=== PATIENT | male | born 1950 | race African-American/Black ===

== ENCOUNTER 2016-12-02 17:12 | Inpatient (IN) | payer OTHER ==
[2016-12-02] MEDS ORDERED: SODIUM CHLORIDE 500 ML IV STA (17:54)
[2016-12-02 18:20] LABS: EOSINOPHIL 1.1 % (0-4.5); MCH 25.9 pg (25.7-33.7); MCHC 30.8 g/dl (32.0-35.9); MEAN PLT VOLUME 10.4 fl (7.5-11.1); NEUTROPHILS 56.1 % (42.8-82.8); PLATELET COUNT 170 K/MM3 (134-434); RDW 16.4 % (11.9-15.9); WHITE BLOOD COUNT 4.4 K/mm3 (4.0-10.0)
[2016-12-02 18:30] LABS: INR 1.06 (0.82-1.09); PROTHROMBIN TIME (PATIENT) 11.7 SEC (9.98-11.88)
[2016-12-02 18:58] LABS: ALBUMIN 3.5 g/dl (3.4-5.0); ANION GAP 13 (8-16); BILIRUBIN,TOTAL 0.4 mg/dL (0.2-1.0); CALCIUM 8.7 mg/dL (8.5-10.1); CO2 30 mmol/L (21-32); GLUCOSE,RANDOM 106 mg/dL (74-106); SGOT/AST 41 U/L (15-37); SGPT/ALT 30 U/L (12-78); TOT PROT 6.8 g/dl (6.4-8.2)
[2016-12-02 18:59] LABS: ALK PHOS 134 U/L (45-117)
--- NOTE | 2016-12-02 19:56 | PDOC ---
History of Present Illness - General History Source: Patient Exam Limitations: No Limitations - History of Present Illness Initial Comments: 12/02/16 17:15 The patient is a 66-year-man, accompanied by , with a significant past medical history of hypertension and end-stage renal disease (TRS; went yesterday without complications)who presents to the emergency department via for further evaluation of rectal bleeding. Patient states he underwent hemo- dialysis yesterday, without complications. Today he had a bowel movement and noted maroon-like blood in his soft semi-formed stool. He is on Aspirin (325 mg) . No fever, chills, weakness. No lightheadedness, dizziness, visual changes, headaches. He also reports experiencing shortness of breath, particularly when walking for the past few days. No chest pain. Allergies: No known drug allergies. Past Surgical History: None reported. Social History: Former smoker. No ETOH and recreational drug use. 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 <Shaina Ochoa - Last Filed: 12/02/16 21:17> <Ethan Londono - Last Filed: 12/02/16 21:48> - General Chief Complaint: Rectal Bleed Stated Complaint: RECTAL BLEED Past History <Shaina Ochoa - Last Filed: 12/02/16 21:17> - Past Medical History Dialysis: Yes (t,th,fr) HTN: Yes (meds stopped bt pms 10/2016) - Psycho/Social/Smoking Cessation Hx Anxiety: No Suicidal Ideation: No Smoking History: Former smoker Have you smoked in the past 12 months: No Information on smoking cessation initiated: No Hx Alcohol Use: No Drug/Substance Use Hx: No Substance Use Type: None <Ethan Londono - Last Filed: 12/02/16 21:48> - Past Medical History Allergies/Adverse Reactions: Allergies Allergy/AdvReac Type Severity Reaction Status Date / Time No Known Allergies Allergy Verified 12/02/16 17:26 Home Medications: Ambulatory Orders Aspirin [ASA -] 325 mg PO DAILY 12/02/16 Brimonidine Tartrate/Timolol [Combigan Eye Drops] 5 ml OP ASDIR 12/02/16 Cinacalcet HCl [Sensipar -] 30 mg PO DAILY 12/02/16 Sevelamer Carbonate [Renvela] 800 mg PO CM 12/02/16 Travoprost [Travatan Z] 2.5 ml OP ASDIR 12/02/16 Vit B Cmplx No3/FA/C/Biot/Zinc [Nephplex Rx Tablet] 1 each PO DAILY 12/02/16 Review of Systems - Review of Systems Able to Perform ROS?: Yes Comments:: 12/02/16 17:15 GENERAL/CONSTITUTIONAL: No fever or chills. No weakness. HEAD, EYES, EARS, NOSE AND THROAT: No change in vision. No ear pain or discharge. No sore throat. CARDIOVASCULAR: Yes: Shortness of breath. No chest pain. RESPIRATORY: No cough, wheezing, or hemoptysis. GASTROINTESTINAL: Yes: Rectal bleeding. No nausea, vomiting, diarrhea or constipation. GENITOURINARY: No dysuria, frequency, or change in urination. MUSCULOSKELETAL: No joint or muscle swelling or pain. No neck or back pain. SKIN: No rash NEUROLOGIC: No headache, vertigo, loss of consciousness, or change in strength/ sensation. ENDOCRINE: No increased thirst. No abnormal weight change. HEMATOLOGIC/LYMPHATIC: No anemia, easy bleeding, or history of blood clots. ALLERGIC/IMMUNOLOGIC: No hives or skin allergy. <Shaina Ochoa - Last Filed: 12/02/16 21:17> *Physical Exam - Vital Signs Last Vital Signs Temp Pulse Resp BP Pulse Ox 98.2 F 60 17 95/61 100 12/02/16 19:43 12/02/16 19:43 12/02/16 19:43 12/02/16 19:43 12/02/16 19:43 - Physical Exam Comments: 12/02/16 17:16 GENERAL: Awake, alert, and fully oriented, in no acute distress HEAD: No signs of trauma EYES: PERRLA, EOMI, sclera anicteric, conjunctiva clear ENT: Auricles normal inspection, hearing grossly normal, nares patent, oropharynx clear without exudates. Moist mucosa NECK: Normal ROM, supple, no lymphadenopathy, JVD, or masses LUNGS: Breath sounds equal, clear to auscultation bilaterally. No wheezes, and no crackles HEART: Regular rate and rhythm, normal S1 and S2, no murmurs, rubs or gallops ABDOMEN: Soft, nontender, normoactive bowel sounds. No guarding, no rebound. No masses EXTREMITIES: Normal range of motion, no edema. No clubbing or cyanosis. No cords, erythema, or tenderness NEUROLOGICAL: Cranial nerves II through XII grossly intact. Normal speech RECTAL: Bright red blood in vault <Shaina Ochoa - Last Filed: 12/02/16 21:17> - Vital Signs Last Vital Signs Temp Pulse Resp BP Pulse Ox 98.2 F 60 17 95/61 100 12/02/16 19:43 12/02/16 19:43 12/02/16 19:43 12/02/16 19:43 12/02/16 19:43 <Ethan Londono - Last Filed: 12/02/16 21:48> Heart Score/ECG Review #1 EKG read and interpreted by me at 17:45 IMPRESSION: Atrial fibrillation with rapid ventricular response and rate related ST changes. <Shaina Ochoa - Last Filed: 12/02/16 21:17> ED Treatment Course - LABORATORY CBC & Chemistry Diagram: 12/02/16 18:10 12/02/16 18:10 - ADDITIONAL ORDERS Additional order review: Laboratory Results 12/02/16 12/02/16 12/02/16 18:10 18:10 18:10 INR 1.06 Sodium 142 Potassium 4.3 Chloride 99 Carbon Dioxide 30 Anion Gap 13 BUN 26 H Creatinine 7.0 H Creat Clearance w eGFR 7.94 Random Glucose 106 Calcium 8.7 Total Bilirubin 0.4 AST 41 H ALT 30 Alkaline Phosphatase 134 H Total Protein 6.8 Albumin 3.5 Stool Occult Blood Positive 12/02/16 18:10 RBC 3.78 L MCV 84.0 MCHC 30.8 L RDW 16.4 H MPV 10.4 Neutrophils % 56.1 Lymphocytes % 32.6 Monocytes % 9.2 Eosinophils % 1.1 Basophils % 1.0 - RADIOLOGY Radiograph Interpretation: 12/02/16 20:38 RAD/CHEST X-RAY PORTABLE IMPRESSION: Minimal to mild right lower lung field discoid atelectasis/ parenchymal scarring. - Medications Given in the ED: ED Medications Discontinued Medications Generic Name Dose Route Start Last Admin Trade Name Freq PRN Reason Stop Dose Admin Sodium Chloride 500 mls @ 500 mls/hr 12/02/16 17:54 12/02/16 18:17 Normal Saline - IV 12/02/16 18:53 500 mls/hr ASDIR STA Administration <Shaina Ochoa - Last Filed: 12/02/16 21:17> - LABORATORY CBC & Chemistry Diagram: 12/02/16 18:10 12/02/16 18:10 - ADDITIONAL ORDERS Additional order review: Laboratory Results 12/02/16 12/02/16 12/02/16 18:10 18:10 18:10 INR 1.06 Sodium 142 Potassium 4.3 Chloride 99 Carbon Dioxide 30 Anion Gap 13 BUN 26 H Creatinine 7.0 H Creat Clearance w eGFR 7.94 Random Glucose 106 Calcium 8.7 Total Bilirubin 0.4 AST 41 H ALT 30 Alkaline Phosphatase 134 H Total Protein 6.8 Albumin 3.5 Stool Occult Blood Positive 12/02/16 18:10 RBC 3.78 L MCV 84.0 MCHC 30.8 L RDW 16.4 H MPV 10.4 Neutrophils % 56.1 Lymphocytes % 32.6 Monocytes % 9.2 Eosinophils % 1.1 Basophils % 1.0 - RADIOLOGY Radiology Studies Ordered: Category Date Time Status ABDOMEN/PELVIS CTA W/WO CONTR [CT] Stat CT Scan 12/02/16 18:56 Ordered CHEST X-RAY PORTABLE* [RAD] Stat Radiology 12/02/16 17:54 Completed - Medications Given in the ED: ED Medications Discontinued Medications Generic Name Dose Route Start Last Admin Trade Name Kennyq PRN Reason Stop Dose Admin Sodium Chloride 500 mls @ 500 mls/hr 12/02/16 17:54 12/02/16 18:17 Normal Saline - IV 12/02/16 18:53 500 mls/hr ASDIR STA Administration <Ethan Londono - Last Filed: 12/02/16 21:48> Medical Decision Making - Medical Decision Making 12/02/16 20:52 Called Hospitalist. Immediate response. Case was discussed. 12/02/16 21:[address] Sloan. 12/02/16 21:[address] Sloan. Case was discussed. <Shaina Ochoa - Last Filed: 12/02/16 21:17> *DC/Admit/Observation/Transfer - Attestations Scribe Attestion: 12/02/16 17:16 Documentation prepared by Shaina Ochoa, acting as biomedical manager for Ethan Londono DO. <Shaina Ochoa - Last Filed: 12/02/16 21:17> - Discharge Dispostion Admit: Yes - Attestations Physician Attestion: 12/02/16 19:56 I, Dr. Ethan Londono, attest that this document has been prepared under my direction and personally reviewed by me in its entirety. I further attest, that it accurately reflects all work, treatment, procedures and medical decision -making performed by me. <Ethan Londono - Last Filed: 12/02/16 21:48> Diagnosis at time of Disposition: Lower gastrointestinal hemorrhage, End-stage renal disease, Dialysis patient - Discharge Dispostion Condition at time of disposition: Improved - Referrals Referrals: Sacha Menezes MD [Primary Care Provider] -
--- NOTE | 2016-12-02 22:22 | HP ---
CHIEF COMPLAINT: Rectal Bleeding PCP: None Nephrology: Dr. Menezes HISTORY OF PRESENT ILLNESS: This is a 66 y/o male with a past medical history of ESRD (HD- Wed, , Wed), Glaucoma. Presents to the emergency department with rectal bleeding abdominal pain x 2 days. Patient reports dizziness and lightheadedness, with SOB when walking. Patient reports seeing blood in his stool, with pain to mid-abdomen. Patient denies fever, chills, cough, CP, N/V/D, constipation. Patient does not make urine. Patient has bot had a baseline Colonoscopy and has significant familal hx- Colorectal Ca. Last - Wednesday ER course was notable for: (1) H/H 9.8/31.7 (2) Stool Occult- Positive (3) EKG- Afib with RVR 103bpm, Septal Infarct age undetermined (4) Bun/Cr 26/7.0 Recent Travel: None PAST MEDICAL HISTORY: See HPI PAST SURGICAL HISTORY: See HPI Social History: Smoking: Former Alcohol: None Drugs: None Family History: Colorectal Ca: Father, Sister Breast Ca: Sister Diabetes: Mother HTN, Lupus, Thyroid- "runs in rhe family" Allergies No Known Allergies Allergy (Verified 12/02/16 17:26) HOME MEDICATIONS: Home Medications Medication Instructions Recorded Aspirin [ASA -] 325 mg PO DAILY 12/02/16 Brimonidine Tartrate/Timolol 5 ml OP ASDIR 12/02/16 [Combigan Eye Drops] Cinacalcet HCl [Sensipar -] 30 mg PO DAILY 12/02/16 Sevelamer Carbonate [Renvela] 800 mg PO CM 12/02/16 Travoprost [Travatan Z] 2.5 ml OP ASDIR 12/02/16 Vit B Cmplx No3/FA/C/Biot/Zinc 1 each PO DAILY 12/02/16 [Nephplex Rx Tablet] REVIEW OF SYSTEMS CONSTITUTIONAL: Absent: fever, chills, diaphoresis, generalized weakness, malaise, loss of appetite, weight change HEENT: Absent: rhinorrhea, nasal congestion, throat pain, throat swelling, difficulty swallowing, mouth swelling, ear pain, eye pain, visual changes CARDIOVASCULAR: lightheadedness, Absent: chest pain, syncope, palpitations, irregular heart rate, peripheral edema RESPIRATORY: shortness of breath, dyspnea with exertion, Absent: cough, shortness of breath, dyspnea with exertion, orthopnea, wheezing, stridor, hemoptysis GASTROINTESTINAL: mid-abdominal pain, hematochezia Absent: abdominal distension, nausea, vomiting, diarrhea, constipation, melena, GENITOURINARY: Absent: dysuria, frequency, urgency, hesitancy, hematuria, flank pain, genital pain MUSCULOSKELETAL: Absent: myalgia, arthralgia, joint swelling, back pain, neck pain SKIN: Absent: rash, itching, pallor HEMATOLOGIC/IMMUNOLOGIC: Absent: easy bleeding, easy bruising, lymphadenopathy, frequent infections ENDOCRINE: Absent: unexplained weight gain, unexplained weight loss, heat intolerance, cold intolerance NEUROLOGIC: dizziness Absent: headache, focal weakness or paresthesias, unsteady gait, seizure, mental status changes, bladder or bowel incontinence PSYCHIATRIC: Absent: anxiety, depression, suicidal or homicidal ideation, hallucinations. PHYSICAL EXAMINATION Vital Signs - 24 hr 12/02/16 12/02/16 17:23 19:43 Temperature 98.3 F 98.2 F Pulse Rate 109 H Pulse Rate [ 60 Radial] Respiratory 20 17 Rate Blood Pressure 99/64 Blood Pressure 95/61 [Left Arm] O2 Sat by Pulse 100 100 Oximetry (%) GENERAL: Awake, alert, and fully oriented, in no acute distress. HEAD: Normal with no signs of trauma. EYES: Pupils equal, round and reactive to light, extraocular movements intact, sclera anicteric, conjunctiva clear. Left lid lag. EARS, NOSE, THROAT: Ears normal, nares patent, oropharynx clear without exudates. Moist mucous membranes. NECK: Normal range of motion, supple without lymphadenopathy, JVD, or masses. LUNGS: Breath sounds equal, clear to auscultation bilaterally. No wheezes, and no crackles. No accessory muscle use. HEART: Irregular rate and rhythm, systolic murmu normal S1 and S2, rub or gallop. ABDOMEN: mid/epigastric tenderness, soft, not distended, normoactive bowel sounds, no guarding, no rebound, no masses. No hepatomegaly or splenomegaly. MUSCULOSKELETAL: Normal range of motion at all joints. No bony deformities or tenderness. No CVA tenderness. UPPER EXTREMITIES: 2+ pulses, warm, well-perfused. No cyanosis. No clubbing. No peripheral edema. LOWER EXTREMITIES: 2+ pulses, warm, well-perfused. No calf tenderness. No peripheral edema. NEUROLOGICAL: Cranial nerves II-XII intact. Normal speech. Normal gait. PSYCHIATRIC: Cooperative. Good eye contact. Appropriate mood and affect. SKIN: Warm, dry, normal turgor, no rashes. normal capillary refill. venous stasis ulcer to bilateral lower legs L>R lesions noted. Laboratory Results - last 24 hr 12/02/16 12/02/16 12/02/16 18:10 18:10 18:10 WBC 4.4 RBC 3.78 L Hgb 9.8 L Hct 31.7 L MCV 84.0 MCHC 30.8 L RDW 16.4 H Plt Count 170 MPV 10.4 Neutrophils % 56.1 Lymphocytes % 32.6 Monocytes % 9.2 Eosinophils % 1.1 Basophils % 1.0 Retic Count 1.28 INR 1.06 Sodium Potassium Chloride Carbon Dioxide Anion Gap BUN Creatinine Creat Clearance w eGFR Random Glucose Calcium Total Bilirubin AST ALT Alkaline Phosphatase Total Protein Albumin Stool Occult Blood Positive Blood Type Antibody Screen 12/02/16 12/02/16 18:10 18:10 WBC RBC Hgb Hct MCV MCHC RDW Plt Count MPV Neutrophils % Lymphocytes % Monocytes % Eosinophils % Basophils % Retic Count INR Sodium 142 Potassium 4.3 Chloride 99 Carbon Dioxide 30 Anion Gap 13 BUN 26 H Creatinine 7.0 H Creat Clearance w eGFR 7.94 Random Glucose 106 Calcium 8.7 Total Bilirubin 0.4 AST 41 H ALT 30 Alkaline Phosphatase 134 H Total Protein 6.8 Albumin 3.5 Stool Occult Blood Blood Type O POSITIVE Antibody Screen Negative ASSESSMENT/PLAN: This is a 66 y/o male with a PMHx of: ESRD (HD-, , Wed). Admitted for Lower GI Bleed for further evaluation of their emergent condition. Problem List - Problem (1) Lower GI hemorrhage Assessment/Plan: - Possibly secondary to Diverticular vs Colorectal Ca - Patient has not had a baseline colonoscopy and has familal hx Colorectal Ca - Appreciate GI Consult - NS fluid given in ED - Stool Occult- positive - CTAP- mild sigmoid diverticulitis, B/L renal atrophy, B/L renal cysts. RLLL discoid atelectasis - Monitor CBC - Monitor vitals Code(s): K92.2 - GASTROINTESTINAL HEMORRHAGE, UNSPECIFIED (2) New onset a-fib Assessment/Plan: - Patient reports feeling lightheaded, dizzy and SOB and RICHEY - EKG- Reviewed - [id number] 2 - Appreciate Cardiology Consult - Serial Enzymes - No AC secondary to GI Bleed, Anemia - Monitor vitals Code(s): I48.91 - UNSPECIFIED ATRIAL FIBRILLATION (3) End stage kidney disease Assessment/Plan: - HD (, , ) - Appreciate Nephrology Consult for HD Mgmt - Continue home meds - Monitor BMP - Monitor Vitals Code(s): N18.6 - END STAGE RENAL DISEASE (4) Dialysis patient Assessment/Plan: - Continue HD , , Code(s): Z99.2 - DEPENDENCE ON RENAL DIALYSIS (5) Lightheadedness Assessment/Plan: - Likely secondary to Anemia vs Afib - Continue to monitor and treat accordingly Code(s): R42 - DIZZINESS AND GIDDINESS (6) Dizziness Assessment/Plan: - See Above Code(s): R42 - DIZZINESS AND GIDDINESS (7) DVT prophylaxis Assessment/Plan: - OOB - TEDs - SCDs Code(s): RAF4925 - Visit type - Emergency Visit Emergency Visit: Yes ED Registration Date: 12/02/16 Care time: The patient presented to the Emergency Department on the above date and was hospitalized for further evaluation of their emergent condition. - New Patient This patient is new to me today: Yes Date on this admission: 12/02/16 - Critical Care Critical Care patient: No
[2016-12-03 02:32] LABS: BASOPHIL 1.8 % (0-2.0); EOSINOPHIL 1.1 % (0-4.5); MCH 25.8 pg (25.7-33.7); MCHC 30.9 g/dl (32.0-35.9); MEAN CELL VOLUME 83.5 fl (80-96); MEAN PLT VOLUME 10.3 fl (7.5-11.1); NEUTROPHILS 51.5 % (42.8-82.8); PLATELET COUNT 150 K/MM3 (134-434); WHITE BLOOD COUNT 4.5 K/mm3 (4.0-10.0)
[2016-12-03 02:46] VITALS: BMI 26.0
[2016-12-03 07:18] LABS: BASOPHIL 1.1 % (0-2.0); EOSINOPHIL 1.1 % (0-4.5); MCHC 30.8 g/dl (32.0-35.9); MEAN CELL VOLUME 84.5 fl (80-96); MEAN PLT VOLUME 9.8 fl (7.5-11.1); NEUTROPHILS 50.1 % (42.8-82.8); PLATELET COUNT 122 K/MM3 (134-434); RDW 15.9 % (11.9-15.9); WHITE BLOOD COUNT 3.8 K/mm3 (4.0-10.0)
[2016-12-03 08:38] LABS: TROPONIN I 0.4 ng/ml (0.00-0.05)
[2016-12-03 09:07] LABS: CALCIUM 8.7 mg/dL (8.5-10.1); MAGNESIUM 2.5 mg/dL (1.8-2.4); PHOSPHOROUS 2.6 mg/dL (2.5-4.9)
[2016-12-03 09:25] LABS: CREATININE 7.8 mg/dL (0.7-1.3)
[2016-12-03] MEDS ORDERED: BRIMONIDINE TARTRATE 0.2% OPHTHALMIC 5 ML BOTTLE OS SCH (10:00)
[2016-12-03] MEDS ORDERED: TIMOLOL 0.5% OPHTHALMIC SOL 5 ML BOTTLE OS SCH (10:00)
[2016-12-03 10:18] LABS: THYROID STIMULATING HORMONE 0.37 uIU/ml (0.358-3.74)
--- NOTE | 2016-12-03 11:10 | CON.CARD ---
Consult Consult Specialty:: cardiology Reason for Consultation:: ?new-onset AF; multiple CAD risks - History of Present Illness History of Present Illness: The patient is a 66-year-man, accompanied by , with a significant past medical history of hypertension and end-stage renal disease (TRS; went yesterday without complications)who presents to the emergency department via for further evaluation of rectal bleeding. Patient states he underwent hemo- dialysis yesterday, without complications. Today he had a bowel movement and noted maroon-like blood in his soft semi-formed stool. He is on Aspirin (325 mg) . No fever, chills, weakness. No lightheadedness, dizziness, visual changes, headaches. He also reports experiencing shortness of breath, particularly when walking for the past few days. No chest pain. Allergies: No known drug allergies. Past Surgical History: None reported. Social History: Former smoker. No ETOH and recreational drug use. 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 - History Source History Provided By: Patient, Medical Record Limitations to Obtaining History: No Limitations - Past Medical History Cardio/Vascular: Yes: Other (esrd) - Past Surgical History Past Surgical History: Yes: AV Fistula/Graft - Alcohol/Substance Use Hx Alcohol Use: No - Smoking History Smoking history: Former smoker Have you smoked in the past 12 months: No Home Medications - Allergies Allergies/Adverse Reactions: Allergies Allergy/AdvReac Type Severity Reaction Status Date / Time No Known Allergies Allergy Verified 12/02/16 17:26 - Home Medications Home Medications: Ambulatory Orders Aspirin [ASA -] 325 mg PO DAILY 12/02/16 Brimonidine Tartrate/Timolol [Combigan Eye Drops] 5 ml OP ASDIR 12/02/16 Cinacalcet HCl [Sensipar -] 30 mg PO DAILY 12/02/16 Sevelamer Carbonate [Renvela] 800 mg PO CM 12/02/16 Travoprost [Travatan Z] 2.5 ml OP ASDIR 12/02/16 Vit B Cmplx No3/FA/C/Biot/Zinc [Nephplex Rx Tablet] 1 each PO DAILY 12/02/16 Vital Signs: Vital Signs Temperature 98.4 F 12/03/16 05:42 Pulse Rate 97 H 12/03/16 05:42 Respiratory Rate 20 12/03/16 05:42 Blood Pressure 90/56 12/03/16 05:42 O2 Sat by Pulse Oximetry (%) 98 12/03/16 02:45 - Other Data Labs, Other Data: CBC, BMP 12/03/16 06:00 12/03/16 06:00 INR, PTT INR 1.06 (0.82-1.09) 12/02/16 18:10 Troponin, BNP 12/03/16 06:00 Troponin I 0.40 H Troponin, BNP 12/03/16 06:00 Troponin I 0.40 H Problem List - Problems (1) Dizziness Code(s): R42 - DIZZINESS AND GIDDINESS (2) End stage kidney disease Code(s): N18.6 - END STAGE RENAL DISEASE (3) New onset a-fib Assessment/Plan: Pt denies palpitations or chest pain.; he has felt exertional fatigue and shortness of breath (lately just walking across a room) for the past 2 months. Unable to start anticoagulants presently due to GI bleed. ASA stopped; pt cautioned against using NSAIDs in the future. Difficult starting beta blockers or nondihydropyridine Ca2+ blkrs with borderline hypotension; may need to use digoxin if HR is rapid (f/u in telemetry ). Will plan for stress MIBI in the future. For hemodialysis. Addendum: ECHO shows normal LVEF; moderate aortic stenosis. BP has improved. Pt was on labetolol in the past; will start low-dose metoprolol tartrate and f/u BP and HR. Code(s): I48.91 - UNSPECIFIED ATRIAL FIBRILLATION (4) [place] cardiac risk >20% in next 10 years Assessment/Plan: stress MIBI when stable. Code(s): Z91.89 - OTH PERSONAL RISK FACTORS, NOT ELSEWHERE CLASSIFIED (5) Elevated troponin I level Assessment/Plan: 0.4 initially; CK WNL; may be secondary to, among other factors, ESRD, though portends increased risk of future cardiac events. EKG: AF with RVR; mild ST-T changes: consider anterolateral ischemia. F/u TNI serially; for telemetry (new AF, with periods of RVR; elevated TNI). LDL cholesterol 46 mg/dL. F/u ECHO for LVEF, wall motion, valve status. Code(s): R74.8 - ABNORMAL LEVELS OF OTHER SERUM ENZYMES (6) GI bleed Assessment/Plan: From a cardiac standpoint, there are no absolute cntraindications for Mr. Garvin to undergo GI procedures (EGD; colonoscopy). Code(s): K92.2 - GASTROINTESTINAL HEMORRHAGE, UNSPECIFIED
[2016-12-03 13:33] LABS: TROPONIN I 0.44 ng/ml (0.00-0.05)
[2016-12-03 13:37] LABS: MCH 25.8 pg (25.7-33.7); MCHC 30.6 g/dl (32.0-35.9); MEAN CELL VOLUME 84.1 fl (80-96); MEAN PLT VOLUME 8.8 fl (7.5-11.1); PLATELET COUNT 117 K/MM3 (134-434); RDW 16.2 % (11.9-15.9); WHITE BLOOD COUNT 3.8 K/mm3 (4.0-10.0)
--- NOTE | 2016-12-03 14:31 | CON.GI ---
Consult Consult Specialty:: GI Referred by:: Dr. Miller Reason for Consultation:: Rectal bleeding - History of Present Illness Chief Complaint: "I had bleeding from my rectum yesterday" History of Present Illness: 66 y/o male admitted through [facility] ER for evaluation of rectal bleeding. He was in his usual state of health up until yesterday, when after hemodialysis he developed dark red rectal bleeding mixed with formed stool. He had some abdominal cramping but denied any pain. He was brought to the ER and underwent blood work that revealed a Hgb of 9.8 (unclear what his baseline is as he is ESRD). This afternoon repeat Hgb was 9. CTA failed to reveal a site of overt bleeding. It did reveal diverticulosis. He has had no overt rectal bleeding today but was transferred to telemetry as he was found to be in new onset A.Fib. He denies previous rectal bleeding, denies OTC NSAID use but does take 325mg ASA daily. He has never had an upper endoscopy or colonoscopy and belives that his father may have had colon cancer diagnosed in his 70's. - History Source History Provided By: Patient Limitations to Obtaining History: No Limitations - Past Medical History Cardio/Vascular: Yes: HTN Renal/: Yes: Other (ESRD on HD) Additional Medical History: Glaucoma - Past Surgical History Past Surgical History: Yes: AV Fistula/Graft (Initially on left arm. It failed and Rt. 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) - Smoking History Smoking history: Former smoker Have you smoked in the past 12 months: No - Social History Usual Living Arrangement: Alone ADL: Independent 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, Place of : [facility] History of Recent Travel: No Home Medications - Allergies Allergies/Adverse Reactions: Allergies Allergy/AdvReac Type Severity Reaction Status Date / Time No Known Allergies Allergy Verified 12/02/16 17:26 - Home Medications Home Medications: Ambulatory Orders Aspirin [ASA -] 325 mg PO DAILY 12/02/16 Brimonidine Tartrate/Timolol [Combigan Eye Drops] 5 ml OP ASDIR 12/02/16 Cinacalcet HCl [Sensipar -] 30 mg PO DAILY 12/02/16 Sevelamer Carbonate [Renvela] 800 mg PO CM 12/02/16 Travoprost [Travatan Z] 2.5 ml OP ASDIR 12/02/16 Vit B Cmplx No3/FA/C/Biot/Zinc [Nephplex Rx Tablet] 1 each PO DAILY 12/02/16 Family Disease History - Family Disease History Family Disease History: Other: Father ( 70's:h/o colon ca in 70's), Mother ( 80's: unclear cause ), Sister (5 sisters, 1 w/ BCA two others with ? cancers), Daughter (1 healthy daughter) Review of Systems - Review of Systems Constitutional: denies: Diaphoresis, Fever, Unintentional Wgt. Loss Cardiovascular: reports: Palpitations. denies: Chest Pain Respiratory: denies: SOB Gastrointestinal: reports: Abdominal Pain, Bloating, Rectal Bleeding. denies: Constipation, Diarrhea, Dysphagia, Indigestion, Melena, Vomiting, Vomiting Blood Physical Exam-GI Vital Signs: Vital Signs Temperature 98.6 F 12/03/16 12:32 Pulse Rate 112 H 12/03/16 12:32 Respiratory Rate 20 12/03/16 12:32 Blood Pressure 132/58 12/03/16 12:32 O2 Sat by Pulse Oximetry (%) 98 12/03/16 10:00 Constitutional: Yes: Calm Eyes: No: Sclera Icterus Cardiovascular: Yes: Tachycardia, Pulse Irregular Respiratory: Yes: CTA Bilaterally Gastrointestinal Inspection: No: Distention, Scars ...Auscultate: Yes: Normoactive Bowel Sounds ...Palpate: No: Hepatomegaly, Splenomegaly, Tenderness ...Rectal Exam: Yes: Other (dark dried red blood in rectal vault) Extremities: Yes: Other (Right arm AV fistula) Edema: Yes (trace b/l LE) Neurological: Yes: Alert, Oriented Labs: CBC, BMP 12/03/16 13:25 12/03/16 06:00 INR, PTT INR 1.06 (0.82-1.09) 12/02/16 18:10 Hepatic Panel Total Bilirubin 0.4 mg/dL (0.2-1.0) 12/02/16 18:10 AST 41 U/L (15-37) H 12/02/16 18:10 ALT 30 U/L (12-78) 12/02/16 18:10 Alkaline Phosphatase 134 U/L (45-117) H 12/02/16 18:10 Albumin 3.5 g/dl (3.4-5.0) 12/02/16 18:10 Problem List - Problems (1) Lower GI hemorrhage Assessment/Plan: Unclear etiology. ? diverticular bleed precipitated by ASA use / alternate pathology. No active bleeding currently and H/H stable from last night Hemodyanimcally stable however now with new onset A.Fib I discussed both EGD and colonoscopy with Mr. Garvin to gain further insight into potential bleeding sources (particulary in setting of a family history and the fact that he will likely need A/C at some point in the setting of new onset A.Fib). We discussed potential risks of the procedure like but not limited to bleeding, perforation requiring surgery to repair, infection, sedation medication effects all of which could be potentially life threatening. He has agreed to the procedures. I discussed the case with Dr. Soliz, who thinks it's ok to bowel prep and proceed with procedures tomorrow as well as with Dr. Miller, you will be arranging HD for Mr. Garvin later this afternoon. Will prep after HD. Monitor H/H. If active bleeding resumes, would transfer to ICU setting. Protonix 40mg PO BID for now Code(s): K92.2 - GASTROINTESTINAL HEMORRHAGE, UNSPECIFIED
--- NOTE | 2016-12-03 14:37 | CONSULT ---
Consult Consult Specialty:: Nephrology Reason for Consultation:: ESRD - History of Present Illness Chief Complaint: rectal bleeding History of Present Illness: Pt is a 66 year old male with pmhx of ESRD and HTN who presents to the ER for evaluation of rectal bleeding. I was called to evaluate him for HD. He is on a TTS schedule and last had HD on Wednesday. He does get heparin with HD and received 1000 unit. He is also on ASA 325 mg daily. He is awake and alert. He developed a-fib and was transferred to [facility]. He denies chest pain or shortness of breath. He is going for a colonoscopy tomorrow. He denies fevers or chills. - History Source History Provided By: Patient, Medical Record - Past Medical History Cardio/Vascular: Yes: HTN, Other Renal/: Yes: Renal Failure, Hemodialysis - Past Surgical History Past Surgical History: Yes: AV Fistula/Graft - Alcohol/Substance Use Hx Alcohol Use: No - Smoking History Smoking history: Former smoker Have you smoked in the past 12 months: No Home Medications - Allergies Allergies/Adverse Reactions: Allergies Allergy/AdvReac Type Severity Reaction Status Date / Time No Known Allergies Allergy Verified 12/02/16 17:26 - Home Medications Home Medications: Ambulatory Orders Aspirin [ASA -] 325 mg PO DAILY 12/02/16 Brimonidine Tartrate/Timolol [Combigan Eye Drops] 5 ml OP ASDIR 12/02/16 Cinacalcet HCl [Sensipar -] 30 mg PO DAILY 12/02/16 Sevelamer Carbonate [Renvela] 800 mg PO CM 12/02/16 Travoprost [Travatan Z] 2.5 ml OP ASDIR 12/02/16 Vit B Cmplx No3/FA/C/Biot/Zinc [Nephplex Rx Tablet] 1 each PO DAILY 12/02/16 Family Disease History - Family Disease History Family History: Denies Review of Systems - Review of Systems Constitutional: reports: No Symptoms Eyes: reports: No Symptoms HENT: reports: No Symptoms Neck: reports: No Symptoms Cardiovascular: reports: No Symptoms Respiratory: reports: No Symptoms Gastrointestinal: reports: Rectal Bleeding Genitourinary: reports: No Symptoms Musculoskeletal: reports: No Symptoms Integumentary: reports: No Symptoms Neurological: reports: No Symptoms Endocrine: reports: No Symptoms Hematology/Lymphatic: reports: No Symptoms Physical Exam Vital Signs: Vital Signs Temperature 98.6 F 12/03/16 12:32 Pulse Rate 112 H 12/03/16 12:32 Respiratory Rate 20 12/03/16 12:32 Blood Pressure 132/58 12/03/16 12:32 O2 Sat by Pulse Oximetry (%) 98 12/03/16 10:00 Constitutional: Yes: Calm Eyes: Yes: Conjunctiva Clear HENT: Yes: Atraumatic Neck: Yes: Supple Cardiovascular: Yes: S1, S2 Respiratory: Yes: CTA Bilaterally Gastrointestinal: Yes: Soft Musculoskeletal: Yes: WNL Extremities: Yes: WNL, Other (right arm graft with thrill and bruit) Edema: No Neurological: Yes: Oriented Psychiatric: Yes: Oriented Labs: CBC, BMP 12/03/16 13:25 12/03/16 06:00 Laboratory Tests 12/02/16 12/02/16 12/02/16 18:10 18:10 18:10 Hgb 9.8 L Sodium 142 Potassium 4.3 Chloride 99 Carbon Dioxide 30 Anion Gap 13 BUN 26 H Creatinine 7.0 H Magnesium Troponin I Stool Occult Blood Positive 12/03/16 12/03/16 12/03/16 02:20 06:00 06:00 Hgb 9.1 L 8.9 L Sodium 143 Potassium 4.1 Chloride 101 Carbon Dioxide 29 Anion Gap 13 BUN 33 H D Creatinine 7.8 H* Magnesium 2.5 H Troponin I Stool Occult Blood 12/03/16 12/03/16 12/03/16 06:00 12:46 13:25 Hgb 9.0 L Sodium Potassium Chloride Carbon Dioxide Anion Gap BUN Creatinine Magnesium Troponin I 0.40 H 0.44 H Stool Occult Blood Imaging - Results Chest X-ray: Report Reviewed Cat Scan: Report Reviewed Assessment/Plan Current Medications Generic Name Dose Route Start Last Admin Trade Name Freq PRN Reason Stop Dose Admin Brimonidine Tartrate 1 drop 12/03/16 22:00 Alphagan 0.2% - OS BID FAVIO Latanoprost 1 drop 12/03/16 22:00 Xalatan 0.005% Eye Drops - OS HS FAVIO Timolol Maleate 1 drop 12/03/16 22:00 Timoptic 0.5% OS BID FAVIO Impression 1. ESRD 2. new onset a-fib 3. GI bleed 4. HTN 5. glaucoma Plan - will arrange for HD today, will use lower flow rate and keep pts volume status even - HD prescription: 4 hrts, 475 bf, 2k bath, heparin 1000 units - monitor on tele - monitor hg - colonoscopy tomorrow - case discussed with GI and cardio - monitor blood pressure Dr Miller
--- NOTE | 2016-12-03 14:53 | PN ---
Progress Note (short form) - Note Progress Note: Subjective: The patient was seen at the bedside, ECHO was being performed. Troponins trending up 0.4->0.44 Hgb remains stable HD today For endoscopy/colonoscopy tomorrow Transferred to telemetry: unable to start anticoagulation at this time for a.fib 2/2 GI bleed Current Medications Generic Name Dose Route Start Last Admin Trade Name Kennyq PRN Reason Stop Dose Admin Bisacodyl 20 mg 12/03/16 18:00 Dulcolax - PO 12/03/16 18:01 ONCE ONE Brimonidine Tartrate 1 drop 12/03/16 22:00 Alphagan 0.2% - OS BID FAVIO Latanoprost 1 drop 12/03/16 22:00 Xalatan 0.005% Eye Drops - OS HS FAVIO Pantoprazole Sodium 40 mg 12/03/16 22:00 Protonix - PO BID FAVIO Timolol Maleate 1 drop 12/03/16 22:00 Timoptic 0.5% OS BID FAVIO Objective: Vital Signs Period Temp Pulse Resp BP Sys/Reaves Pulse Ox Last 24 Hr 97.8 F-98.6 F 60-112 17-20 90-132/56-69 98-100 Physical Exam: General: NAD, A&Ox3 Lungs: CTA bilaterally Heart: Irregular rate, S1S2 Rest of exam deferred as the patient is currently getting an ECHO CBCD WBC 3.8 K/mm3 (4.0-10.0) L 12/03/16 13:25 RBC 3.51 M/mm3 (4.00-5.60) L 12/03/16 13:25 Hgb 9.0 GM/dL (11.7-16.9) L 12/03/16 13:25 Hct 29.5 % (35.4-49) L 12/03/16 13:25 MCV 84.1 fl (80-96) 12/03/16 13:25 MCHC 30.6 g/dl (32.0-35.9) L 12/03/16 13:25 RDW 16.2 % (11.9-15.9) H 12/03/16 13:25 Plt Count 117 K/MM3 (134-434) L 12/03/16 13:25 MPV 8.8 fl (7.5-11.1) D 12/03/16 13:25 CMP Sodium 143 mmol/L (136-145) 12/03/16 06:00 Potassium 4.1 mmol/L (3.5-5.1) 12/03/16 06:00 Chloride 101 mmol/L (98-107) 12/03/16 06:00 Carbon Dioxide 29 mmol/L (21-32) 12/03/16 06:00 Anion Gap 13 (8-16) 12/03/16 06:00 BUN 33 mg/dL (7-18) H D 12/03/16 06:00 Creatinine 7.8 mg/dL (0.7-1.3) H* 12/03/16 06:00 Creat Clearance w eGFR 7.94 (>60) 12/02/16 18:10 Random Glucose 98 mg/dL (74-106) 12/03/16 06:00 Calcium 8.7 mg/dL (8.5-10.1) 12/03/16 06:00 Total Bilirubin 0.4 mg/dL (0.2-1.0) 12/02/16 18:10 AST 41 U/L (15-37) H 12/02/16 18:10 ALT 30 U/L (12-78) 12/02/16 18:10 Alkaline Phosphatase 134 U/L (45-117) H 12/02/16 18:10 Total Protein 6.8 g/dl (6.4-8.2) 12/02/16 18:10 Albumin 3.5 g/dl (3.4-5.0) 12/02/16 18:10 CARDIAC ENZYMES Creatine Kinase 127 IU/L (39-308) 12/03/16 12:46 Troponin I 0.44 ng/ml (0.00-0.05) H 12/03/16 12:46 Assessment: This is a 66 year old male with PMHx of ESRD (on HD ,,), glaucoma who presented to the ED with rectal bleeding, abdominal pain, dizziness x2 days. Plan: 1) GI: GI bleed - Stool for occult blood positive - For endoscopy/colonoscopy tomorrow - Continue protonix bid - NPO after midnight - Monitor H/H - If becomes symptomatic, will transfer to ICU - Appreciate GI consult 2) Cardiology: New onset a.fib - Denies palpitations - [id number] 2 - Unable to start anticoagulation 2/2 active GI bleed - F/u ECHO - will need stress MIBI in the future - Appreciate cardiology consult Elevated troponin - 0.4->0.44, continue to trend - EKG with a.fib with RVR, mild ST-T changes, consider anterolateral ischemia - Unable to start anticoagulation as above 3) : ESRD - HD today - Continue to monitor - Appreciate nephrology consult 4) F/E/N: - Monitor electrolytes - Clear liquid diet, NPO after midnight for procedure in AM 5) Prophylaxis: - Hold all chemical anticoagulation 2/2 active GI bleed - SCDs bilaterally 6) Dispo: - Requires continued inpatient care CODE STATUS: FULL CODE Visit type - Emergency Visit Emergency Visit: Yes ED Registration Date: 12/02/16 Care time: The patient presented to the Emergency Department on the above date and was hospitalized for further evaluation of their emergent condition. - New Patient This patient is new to me today: Yes Date on this admission: 12/14/16 - Critical Care Critical Care patient: No
--- NOTE | 2016-12-03 16:12 | EKG ---
Test Reason : Blood Pressure : / mmHG Vent. Rate : 100 BPM Atrial Rate : 080 BPM P-R Int : 000 ms QRS Dur : 098 ms QT Int : 342 ms P-R-T Axes : 000 -17 174 degrees QTc Int : 441 ms ATRIAL FIBRILLATION WITH PREMATURE VENTRICULAR OR ABERRANTLY CONDUCTED COMPLEXES ANTEROSEPTAL INFARCT (CITED ON OR BEFORE 02-DEC-2016) ABNORMAL ECG WHEN COMPARED WITH ECG OF 02-DEC-2016 17:45, SERIAL CHANGES OF ANTEROSEPTAL INFARCT PRESENT Confirmed by ILEANA LOUIS MD ([id number]) on 12/03/2016 4:12:00 PM Referred By: JOBY RIVERA Confirmed By:ILEANA LOUIS MD
--- NOTE | 2016-12-03 16:18 | EKG ---
Test Reason : Blood Pressure : / mmHG Vent. Rate : 103 BPM Atrial Rate : 108 BPM P-R Int : 000 ms QRS Dur : 098 ms QT Int : 378 ms P-R-T Axes : 000 -13 152 degrees QTc Int : 495 ms ATRIAL FIBRILLATION WITH RAPID VENTRICULAR RESPONSE SEPTAL INFARCT , AGE UNDETERMINED ABNORMAL ECG NO PREVIOUS ECGS AVAILABLE Confirmed by ILEANA LOUIS MD ([id number]) on 12/03/2016 4:17:52 PM Referred By: AMI Confirmed By:ILEANA LOUIS MD
[2016-12-03] MEDS ORDERED: BISACODYL 5 MG TABLET.DR (FP) PO ONE (18:00)
[2016-12-03] MEDS ORDERED: PEG3350/SOD SULF,BICARB,CL/KCL 4,000 ML SOLN.RECON PO ONE (19:00)
[2016-12-03] MEDS: PANTOPRAZOLE 40 MG TABLET (FP) PO SCH (21:58)
[2016-12-03] MEDS: METOPROLOL TARTRATE 25 MG TABLET (FP) PO SCH (21:58)
[2016-12-03] MEDS ORDERED: LATANOPROST 0.005% OPHTH SOLN 2.5ML BOTTLE OS SCH (22:00)
[2016-12-03] MEDS: TIMOLOL 0.5% OPHTHALMIC SOL 5 ML BOTTLE OS SCH (22:01)
[2016-12-03] MEDS: BRIMONIDINE TARTRATE 0.2% OPHTHALMIC 5 ML BOTTLE OS SCH (22:01)
[2016-12-03] MEDS: LATANOPROST 0.005% OPHTH SOLN 2.5ML BOTTLE OS SCH (22:02)
[2016-12-04 03:30] LABS: TROPONIN I 0.5 ng/ml (0.00-0.05)
[2016-12-04 07:35] LABS: BASOPHIL 0.8 % (0-2.0); EOSINOPHIL 0.8 % (0-4.5); MCH 25.9 pg (25.7-33.7); MCHC 30.9 g/dl (32.0-35.9); MEAN CELL VOLUME 83.8 fl (80-96); MEAN PLT VOLUME 9.6 fl (7.5-11.1); NEUTROPHILS 51.8 % (42.8-82.8); PLATELET COUNT 122 K/MM3 (134-434); RDW 16.2 % (11.9-15.9); WHITE BLOOD COUNT 4.2 K/mm3 (4.0-10.0)
[2016-12-04 07:54] LABS: CALCIUM 8.6 mg/dL (8.5-10.1); COCKROFT - GAULT 16.01; CREATININE 5.2 mg/dL (0.7-1.3)
[2016-12-04 08:41] LABS: TROPONIN I 0.56 ng/ml (0.00-0.05)
--- NOTE | 2016-12-04 09:14 | PN ---
Progress Note, Physician Chief Complaint: Pt is asymptomatic. History of Present Illness: The patient is a 66-year old black man, with a significant past medical history of hypertension and end-stage renal disease (TRS; went yesterday without complications)who presents to the emergency department via for further evaluation of rectal bleeding. Patient states he underwent hemo-dialysis yesterday, without complications. Today he had a bowel movement and noted maroon -like blood in his soft semi-formed stool. He is on Aspirin (325 mg). No fever, chills, weakness. No lightheadedness, dizziness, visual changes, headaches. He also reports experiencing shortness of breath, particularly when walking for the past few days. No chest pain. Allergies: No known drug allergies. Past Surgical History: None reported. Social History: Former smoker. No ETOH and recreational drug use. 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 - Current Medication List Current Medications: Active Medications Brimonidine Tartrate (Alphagan 0.2% -) 1 drop OS BID [facility] Last Admin: 12/03/16 22:01 Dose: 1 drop Latanoprost (Xalatan 0.005% Eye Drops -) 1 drop OS HS [facility] Last Admin: 12/03/16 22:02 Dose: 1 drop Metoprolol Tartrate (Lopressor -) 25 mg PO BID [facility] Last Admin: 12/03/16 21:58 Dose: 25 mg Pantoprazole Sodium (Protonix -) 40 mg PO BID [facility] Last Admin: 12/03/16 21:58 Dose: 40 mg Timolol Maleate (Timoptic 0.5%) 1 drop OS BID [facility] Last Admin: 12/03/16 22:01 Dose: 1 drop - Objective Vital Signs: Vital Signs Temperature 97.8 F 12/04/16 08:08 Pulse Rate 108 H 12/04/16 08:08 Respiratory Rate 22 12/04/16 08:08 Blood Pressure 93/70 12/04/16 08:08 O2 Sat by Pulse Oximetry (%) 97 12/04/16 06:00 Constitutional: Yes: No Distress Eyes: Yes: WNL HENT: Yes: WNL Neck: Yes: WNL Cardiovascular: Yes: Pulse Irregular Respiratory: Yes: Regular Gastrointestinal: Yes: Soft ...Rectal Exam: Yes: Deferred Genitourinary: No: Anuria Musculoskeletal: Yes: Muscle Weakness Extremities: Yes: Cool Edema: No Peripheral Pulses WNL: No Peripheral Pulses: Left Doralis Pedis: 1+, Right Dorsalis Pedis: 1+ Integumentary: Yes: Venous Stasis Changes Neurological: Yes: Alert, Oriented Psychiatric: Yes: WNL Labs: CBC, BMP 12/04/16 05:35 12/04/16 05:35 INR, PTT INR 1.06 (0.82-1.09) 12/02/16 18:10 Problem List - Problems (1) Dizziness Code(s): R42 - DIZZINESS AND GIDDINESS (2) End stage kidney disease Code(s): N18.6 - END STAGE RENAL DISEASE (3) New onset a-fib Assessment/Plan: Pt denies palpitations or chest pain.; he has felt exertional fatigue and shortness of breath (lately just walking across a room) for the past 2 months. Unable to start anticoagulants presently due to GI bleed. ASA stopped; pt cautioned against using NSAIDs in the future. Difficult starting beta blockers or nondihydropyridine Ca2+ blkrs with borderline hypotension; may need to use digoxin if HR is rapid (f/u in telemetry ). Will plan for stress MIBI in the future. For hemodialysis. Addendum: ECHO shows normal LVEF; moderate aortic stenosis. BP has improved. Pt was on labetolol in the past; will start low-dose metoprolol tartrate and f/u BP and HR. Code(s): I48.91 - UNSPECIFIED ATRIAL FIBRILLATION (4) Ayden cardiac risk >20% in next 10 years Assessment/Plan: stress MIBI when stable. Code(s): Z91.89 - OTH PERSONAL RISK FACTORS, NOT ELSEWHERE CLASSIFIED (5) Elevated troponin I level Assessment/Plan: 0.4-->0.56 Telemetry: AF; periods of RVR. ECHO: normal LVEF; moderate . Follow EKG today. For stress MIBI when stable. Code(s): R74.8 - ABNORMAL LEVELS OF OTHER SERUM ENZYMES (6) GI bleed Assessment/Plan: Rectal bleed, with hx ASA use. TNI mildly elevated; CK normal; no chest pain; no acute EKG STT changes. ECHO normal LVEF; moderate . From a cardiac standpoint, there are no absolute cntraindications for Mr. Garvin to undergo GI procedures (EGD; colonoscopy) later today. Code(s): K92.2 - GASTROINTESTINAL HEMORRHAGE, UNSPECIFIED
[2016-12-04] MEDS: BRIMONIDINE TARTRATE 0.2% OPHTHALMIC 5 ML BOTTLE OS SCH ×2 (10:24→21:56)
[2016-12-04] MEDS: PANTOPRAZOLE 40 MG TABLET (FP) PO SCH ×2 (10:24→21:54)
[2016-12-04] MEDS: METOPROLOL TARTRATE 25 MG TABLET (FP) PO SCH ×2 (10:25→21:56)
[2016-12-04] MEDS: TIMOLOL 0.5% OPHTHALMIC SOL 5 ML BOTTLE OS SCH ×2 (10:26→21:56)
--- NOTE | 2016-12-04 11:04 | PN ---
Progress Note (short form) - Note Progress Note: Subjective: The patient was seen at the bedside, he has no complaints at this time For EGD/colonoscopy today Current Medications Generic Name Dose Route Start Last Admin Trade Name Linda PRN Reason Stop Dose Admin Brimonidine Tartrate 1 drop 12/03/16 22:00 12/04/16 10:24 Alphagan 0.2% - OS 1 drop BID FAVIO Administration Latanoprost 1 drop 12/03/16 22:00 12/03/16 22:02 Xalatan 0.005% Eye Drops - OS 1 drop HS FAVIO Administration Metoprolol Tartrate 25 mg 12/03/16 22:00 12/04/16 10:25 Lopressor - PO Not Given BID FAVIO Pantoprazole Sodium 40 mg 12/03/16 22:00 12/04/16 10:24 Protonix - PO 40 mg BID FAVIO Administration Timolol Maleate 1 drop 12/03/16 22:00 12/04/16 10:26 Timoptic 0.5% OS 1 drop BID FAVIO Administration Objective: Vital Signs Period Temp Pulse Resp BP Sys/Reaves Pulse Ox Last 24 Hr 97.5 F-98.6 F 53-115 18-22 86-132/40-83 97-98 Physical Exam: General: NAD, A&Ox3 Lungs: CTA bilaterally Heart: Irregular rate, S1S2 Rest of exam deferred as the patient is currently getting an ECHO CBCD WBC 4.2 K/mm3 (4.0-10.0) 12/04/16 05:35 RBC 3.25 M/mm3 (4.00-5.60) L 12/04/16 05:35 Hgb 8.4 GM/dL (11.7-16.9) L 12/04/16 05:35 Hct 27.2 % (35.4-49) L 12/04/16 05:35 MCV 83.8 fl (80-96) 12/04/16 05:35 MCHC 30.9 g/dl (32.0-35.9) L 12/04/16 05:35 RDW 16.2 % (11.9-15.9) H 12/04/16 05:35 Plt Count 122 K/MM3 (134-434) L 12/04/16 05:35 MPV 9.6 fl (7.5-11.1) 12/04/16 05:35 CMP Sodium 142 mmol/L (136-145) 12/04/16 05:35 Potassium 3.8 mmol/L (3.5-5.1) 12/04/16 05:35 Chloride 99 mmol/L (98-107) 12/04/16 05:35 Carbon Dioxide 32 mmol/L (21-32) 12/04/16 05:35 Anion Gap 11 (8-16) 12/04/16 05:35 BUN 21 mg/dL (7-18) H D 12/04/16 05:35 Creatinine 5.2 mg/dL (0.7-1.3) H D 12/04/16 05:35 Creat Clearance w eGFR 7.94 (>60) 12/02/16 18:10 Random Glucose 103 mg/dL (74-106) 12/04/16 05:35 Calcium 8.6 mg/dL (8.5-10.1) 12/04/16 05:35 Total Bilirubin 0.4 mg/dL (0.2-1.0) 12/02/16 18:10 AST 41 U/L (15-37) H 12/02/16 18:10 ALT 30 U/L (12-78) 12/02/16 18:10 Alkaline Phosphatase 134 U/L (45-117) H 12/02/16 18:10 Total Protein 6.8 g/dl (6.4-8.2) 12/02/16 18:10 Albumin 3.5 g/dl (3.4-5.0) 12/02/16 18:10 CARDIAC ENZYMES Creatine Kinase 121 IU/L (39-308) 12/04/16 05:35 Troponin I 0.56 ng/ml (0.00-0.05) H 12/04/16 05:35 Assessment: This is a 66 year old male with PMHx of ESRD (on HD ,), glaucoma who presented to the ED with rectal bleeding, abdominal pain, dizziness x2 days. Plan: 1) GI: GI bleed - Stool for occult blood positive - For endoscopy/colonoscopy today - Continue protonix bid - Monitor H/H - If becomes symptomatic, will transfer to ICU - Appreciate GI consult 2) Cardiology: New onset a.fib - Denies palpitations - [id number] 2 - Unable to start anticoagulation 2/2 active GI bleed - ECHO reviewed - will need stress MIBI once stable - Appreciate cardiology consult Elevated troponin - 0.4->0.44, continue to trend - EKG with a.fib with RVR, mild ST-T changes, consider anterolateral ischemia - Unable to start anticoagulation as above 3) : ESRD - tolerated hd yesterday - Continue to monitor - Appreciate nephrology consult 4) F/E/N: - Monitor electrolytes - NPO for procedures 5) Prophylaxis: - Hold all chemical anticoagulation 2/2 active GI bleed - SCDs bilaterally 6) Dispo: - Requires continued inpatient care CODE STATUS: FULL CODE Visit type - Emergency Visit Emergency Visit: Yes ED Registration Date: 12/02/16 Care time: The patient presented to the Emergency Department on the above date and was hospitalized for further evaluation of their emergent condition. - New Patient This patient is new to me today: No - Critical Care Critical Care patient: No
[2016-12-04] MEDS ORDERED: LIDOCAINE HCL/PF 2% SDV 5ML VIAL ONE (11:35)
[2016-12-04] MEDS ORDERED: PROPOFOL 20 ML ONE ×2 (11:35)
[2016-12-04] MEDS ORDERED: ETOMIDATE 20 MG/10 ML AMPUL IVPUSH ONE (12:18)
--- NOTE | 2016-12-04 13:05 | PN ---
Progress Note (short form) - Note Progress Note: GI Procedures Note: Please see scanned EGD and colonoscopy reports. EGD revealed nonbleeding antral ulcers and uremic gastritis. Colonoscopy revealed blood throughtout the colon and diverticuli but the focus of bleeding could not be identified. If bleeding persists will need bleeding scan and perhaps interventional angiography.
--- NOTE | 2016-12-04 14:19 | PN ---
Progress Note, Physician History of Present Illness: Pt seen and examined at bedside. He is awake and alert. He went for the colonoscopy. He denies chest pain or shortness of breath. - Current Medication List Current Medications: Active Medications Brimonidine Tartrate (Alphagan 0.2% -) 1 drop OS BID [facility] Last Admin: 12/04/16 10:24 Dose: 1 drop Latanoprost (Xalatan 0.005% Eye Drops -) 1 drop OS HS [facility] Last Admin: 12/03/16 22:02 Dose: 1 drop Metoprolol Tartrate (Lopressor -) 25 mg PO BID [facility] Last Admin: 12/04/16 10:25 Dose: Not Given Pantoprazole Sodium (Protonix -) 40 mg PO BID [facility] Last Admin: 12/04/16 10:24 Dose: 40 mg Timolol Maleate (Timoptic 0.5%) 1 drop OS BID [facility] Last Admin: 12/04/16 10:26 Dose: 1 drop - Objective Vital Signs: Vital Signs Temperature 97.9 F 12/04/16 12:37 Pulse Rate 99 H 12/04/16 13:20 Respiratory Rate 21 12/04/16 13:20 Blood Pressure 102/68 12/04/16 13:20 O2 Sat by Pulse Oximetry (%) 100 12/04/16 13:20 Constitutional: Yes: Calm HENT: Yes: Atraumatic Neck: Yes: Supple Cardiovascular: Yes: Pulse Irregular, S1, S2 Respiratory: Yes: CTA Bilaterally Gastrointestinal: Yes: Normal Bowel Sounds, Soft Genitourinary: Yes: WNL Musculoskeletal: Yes: WNL Extremities: Yes: Other (right arm graft) Integumentary: Yes: WNL Neurological: Yes: Oriented Psychiatric: Yes: Oriented Labs: CBC, BMP 12/04/16 05:35 12/04/16 05:35 INR, PTT INR 1.06 (0.82-1.09) 12/02/16 18:10 Problem List - Problems (1) End stage kidney disease Code(s): N18.6 - END STAGE RENAL DISEASE (2) GI bleed Code(s): K92.2 - GASTROINTESTINAL HEMORRHAGE, UNSPECIFIED (3) New onset a-fib Code(s): I48.91 - UNSPECIFIED ATRIAL FIBRILLATION Assessment/Plan Current Medications Generic Name Dose Route Start Last Admin Trade Name Freq PRN Reason Stop Dose Admin Brimonidine Tartrate 1 drop 12/03/16 22:00 12/04/16 10:24 Alphagan 0.2% - OS 1 drop BID FAVIO Administration Latanoprost 1 drop 12/03/16 22:00 12/03/16 22:02 Xalatan 0.005% Eye Drops - OS 1 drop HS FAVIO Administration Metoprolol Tartrate 25 mg 12/03/16 22:00 12/04/16 10:25 Lopressor - PO Not Given BID FAVIO Pantoprazole Sodium 40 mg 12/03/16 22:00 12/04/16 10:24 Protonix - PO 40 mg BID FAVIO Administration Timolol Maleate 1 drop 12/03/16 22:00 12/04/16 10:26 Timoptic 0.5% OS 1 drop BID FAVIO Administration Impression 1. ESRD 2. new onset a-fib 3. GI bleed 4. HTN 5. glaucoma Plan - pt tolerated HD yesterday - he went for his colonoscopy today - will arrange for HD in the am - HD prescription: 4 hrs, 475 bf, 2k bath, heparin 1000 units - monitor on tele - monitor hg - monitor blood pressure Dr Miller
[2016-12-04 18:52] LABS: BASOPHIL 1.2 % (0-2.0); MCH 26.4 pg (25.7-33.7); MCHC 31.3 g/dl (32.0-35.9); MEAN CELL VOLUME 84.3 fl (80-96); MEAN PLT VOLUME 11.6 fl (7.5-11.1); NEUTROPHILS 40.4 % (42.8-82.8); PLATELET COUNT 205 K/MM3 (134-434); RDW 17.1 % (11.9-15.9); WHITE BLOOD COUNT 4.2 K/mm3 (4.0-10.0)
[2016-12-04 21:19] LABS: TROPONIN I 0.53 ng/ml (0.00-0.05)
[2016-12-04] MEDS: LATANOPROST 0.005% OPHTH SOLN 2.5ML BOTTLE OS SCH (21:56)
[2016-12-05 06:06] LABS: HEP B SURFACE AB Reactive (.)
[2016-12-05 07:50] LABS: BASOPHIL 1.2 % (0-2.0); EOSINOPHIL 1.9 % (0-4.5); MCHC 31.1 g/dl (32.0-35.9); MEAN CELL VOLUME 83.5 fl (80-96); MEAN PLT VOLUME 9.5 fl (7.5-11.1); PLATELET COUNT 100 K/MM3 (134-434); RDW 16.1 % (11.9-15.9); WHITE BLOOD COUNT 3.5 K/mm3 (4.0-10.0)
[2016-12-05 07:57] LABS: INR 1.16 (0.82-1.09); PROTHROMBIN TIME (PATIENT) 12.8 SEC (9.98-11.88)
[2016-12-05 08:18] LABS: CALCIUM 8.4 mg/dL (8.5-10.1); COCKROFT - GAULT 11.81
[2016-12-05 08:48] LABS: FERRITIN 1170.25 ng/ml (16.4-293.9)
[2016-12-05 08:51] LABS: TROPONIN I 0.59 ng/ml (0.00-0.05)
[2016-12-05] MEDS: TIMOLOL 0.5% OPHTHALMIC SOL 5 ML BOTTLE OS SCH ×2 (09:07→21:49)
[2016-12-05] MEDS: BRIMONIDINE TARTRATE 0.2% OPHTHALMIC 5 ML BOTTLE OS SCH ×2 (09:07→21:48)
[2016-12-05] MEDS: METOPROLOL TARTRATE 25 MG TABLET (FP) PO SCH ×3 (09:12→21:48)
[2016-12-05] MEDS: PANTOPRAZOLE 40 MG TABLET (FP) PO SCH ×2 (09:12→21:49)
--- NOTE | 2016-12-05 11:56 | PN ---
GI Progress Note Subjective: GI Note: Had a bloody BM after colonoscopy but none since. Hb is down to 7.8 however so will transfuse while he is on dialysis. Denies pain - Objective Vital Signs: Vital Signs Temperature 98 F 12/05/16 05:18 Pulse Rate 103 H 12/05/16 05:18 Respiratory Rate 16 12/05/16 05:18 Blood Pressure 90/71 12/05/16 05:18 O2 Sat by Pulse Oximetry (%) 100 12/04/16 20:31 Constitutional: No Distress ...Auscultate: Yes: Normoactive Bowel Sounds ...Palpate: Yes: Soft, Other (nontender) Labs: CBC, BMP 12/05/16 05:35 12/05/16 05:35 INR, PTT INR 1.16 (0.82-1.09) H 12/05/16 05:35 Laboratory Tests 12/04/16 12/05/16 12/05/16 18:41 05:35 05:35 Hgb 8.7 L 7.8 L D Retic Count Ferritin 1170.250 H 12/05/16 05:35 Hgb Retic Count 1.33 Ferritin Assessment/Plan Resolving diverticular bleed. Amandeep transfuse 1 unit PRBC and advance to soft renal diet.
[2016-12-05] MEDS ORDERED: EPOETIN ALFA 2,000 UNITS/1 ML VIAL IVPUSH ONE (13:00)
--- NOTE | 2016-12-05 13:45 | PN ---
Progress Note (short form) - Note Progress Note: RENAL pt is awake and alert currently on hemodialysis will be getting a unit of transfusion says he was having black and red stools Last Vital Signs Temp Pulse Resp BP Pulse Ox 97.9 F 80 18 88/53 100 12/05/16 10:00 12/05/16 13:20 12/05/16 13:20 12/05/16 13:20 12/04/16 20:31 lungs clear cvs s1s2 rr abd soft ext no edema neuro a+Ox3 CBC, BMP 12/05/16 05:35 12/05/16 05:35 Current Medications Generic Name Dose Route Start Last Admin Trade Name Freq PRN Reason Stop Dose Admin Brimonidine Tartrate 1 drop 12/03/16 22:00 12/05/16 09:07 Alphagan 0.2% - OS 1 drop BID FAVIO Administration Latanoprost 1 drop 12/03/16 22:00 12/04/16 21:56 Xalatan 0.005% Eye Drops - OS 1 drop HS [facility]AVIO Administration Metoprolol Tartrate 25 mg 12/03/16 22:00 12/05/16 09:12 Lopressor - PO Not Given BID FAVIO Pantoprazole Sodium 40 mg 12/03/16 22:00 12/05/16 09:12 Protonix - PO 40 mg BID FAVIO Administration Timolol Maleate 1 drop 12/03/16 22:00 12/05/16 09:07 Timoptic 0.5% OS 1 drop BID FAVIO Administration Impression 1. ESRD 2. new onset a-fib 3. GI bleed 4. HTN 5. glaucoma Plan continue HD without heparin GI follow up PPI pt being fed MV
--- NOTE | 2016-12-05 14:20 | PN ---
Progress Note, Physician Chief Complaint: Pt is asymptomatic; undergoing hemodialysis. History of Present Illness: The patient is a 66-year old black man, with a significant past medical history of hypertension and end-stage renal disease-->hemodialyesis; went yesterday without complications)who presents to the emergency department via for further evaluation of rectal bleeding. Today he had a bowel movement and noted maroon- like blood in his soft semi-formed stool. He is on Aspirin (325 mg). No fever, chills, weakness. No lightheadedness, dizziness, visual changes, headaches. He also reports experiencing shortness of breath, particularly when walking for the past few days. No chest pain. Allergies: No known drug allergies. Past Surgical History: None reported. Social History: Former smoker. No ETOH and recreational drug use. Designer Writer: Dr. Menezes - Current Medication List Current Medications: Active Medications Brimonidine Tartrate (Alphagan 0.2% -) 1 drop OS BID [facility] Last Admin: 12/05/16 09:07 Dose: 1 drop Latanoprost (Xalatan 0.005% Eye Drops -) 1 drop OS HS [facility] Last Admin: 12/04/16 21:56 Dose: 1 drop Metoprolol Tartrate (Lopressor -) 25 mg PO BID [facility] Last Admin: 12/05/16 09:12 Dose: Not Given Pantoprazole Sodium (Protonix -) 40 mg PO BID [facility] Last Admin: 12/05/16 09:12 Dose: 40 mg Timolol Maleate (Timoptic 0.5%) 1 drop OS BID [facility] Last Admin: 12/05/16 09:07 Dose: 1 drop - Objective Vital Signs: Vital Signs Temperature 97.9 F 12/05/16 10:00 Pulse Rate 80 12/05/16 13:20 Respiratory Rate 18 12/05/16 13:20 Blood Pressure 88/53 12/05/16 13:20 O2 Sat by Pulse Oximetry (%) 100 12/04/16 20:31 Labs: CBC, BMP 12/05/16 05:35 12/05/16 05:35 INR, PTT INR 1.16 (0.82-1.09) H 12/05/16 05:35 Problem List - Problems (1) Dizziness Code(s): R42 - DIZZINESS AND GIDDINESS (2) End stage kidney disease Assessment/Plan: on hemodialysis. Code(s): N18.6 - END STAGE RENAL DISEASE (3) New onset a-fib Assessment/Plan: Pt denies palpitations or chest pain.; he has felt exertional fatigue and shortness of breath (lately just walking across a room) for the past 2 months. Unable to start anticoagulants presently due to GI bleed. ASA stopped; pt cautioned against using NSAIDs in the future. Difficult starting beta blockers or nondihydropyridine Ca2+ blkrs with borderline hypotension; may need to use digoxin if HR is rapid (f/u in telemetry ). Will plan for stress MIBI in the future. For hemodialysis. Addendum: ECHO shows normal LVEF; moderate aortic stenosis. BP has improved. Pt was on labetolol in the past; will start low-dose metoprolol tartrate and f/u BP and HR. Code(s): I48.91 - UNSPECIFIED ATRIAL FIBRILLATION (4) [place] cardiac risk >20% in next 10 years Assessment/Plan: stress MIBI when stable. Code(s): Z91.89 - OT PERSONAL RISK FACTORS, NOT ELSEWHERE CLASSIFIED (5) Elevated troponin I level Assessment/Plan: 0.4-->0.56 Telemetry: AF; periods of RVR. ECHO: normal LVEF; moderate . For stress MIBI when stable. Code(s): R74.8 - ABNORMAL LEVELS OF OTHER SERUM ENZYMES (6) GI bleed Assessment/Plan: Pt underwent gastric endoscopy: As discussed with Dr. Ching 12/05/2016, pt is still bleeding, and will require PRBCs. Unable to start anticoagulation at this time. Code(s): K92.2 - GASTROINTESTINAL HEMORRHAGE, UNSPECIFIED
--- NOTE | 2016-12-05 16:03 | PN ---
Physical Exam: SUBJECTIVE: Patient seen and examined on HD. He says he has not had a BM today , he denies dizziness, head ache. He tolerated po diet OBJECTIVE: Vital Signs Period Temp Pulse Resp BP Sys/Reaves Pulse Ox Last 24 Hr 97.6 F-98.1 F 60-109 16-20 88-108/53-71 100 PE Neuro: alert, awake, cn 2-12intact Pulm: clear anteriorly CV: s1 s2 irregular rhyhtm regular rate Abd: s nt nd + bs Ext: RUE graft. b/l lower venous skin changes, dry CBCD WBC 3.5 K/mm3 (4.0-10.0) L 12/05/16 05:35 RBC 3.01 M/mm3 (4.00-5.60) L 12/05/16 05:35 Hgb 7.8 GM/dL (11.7-16.9) L D 12/05/16 05:35 Hct 25.1 % (35.4-49) L 12/05/16 05:35 MCV 83.5 fl (80-96) 12/05/16 05:35 MCHC 31.1 g/dl (32.0-35.9) L 12/05/16 05:35 RDW 16.1 % (11.9-15.9) H 12/05/16 05:35 Plt Count 100 K/MM3 (134-434) L D 12/05/16 05:35 MPV 9.5 fl (7.5-11.1) D 12/05/16 05:35 CMP Sodium 143 mmol/L (136-145) 12/05/16 05:35 Potassium 4.0 mmol/L (3.5-5.1) 12/05/16 05:35 Chloride 100 mmol/L (98-107) 12/05/16 05:35 Carbon Dioxide 29 mmol/L (21-32) 12/05/16 05:35 Anion Gap 14 (8-16) 12/05/16 05:35 BUN 30 mg/dL (7-18) H D 12/05/16 05:35 Creatinine 7.0 mg/dL (0.7-1.3) H D 12/05/16 05:35 Creat Clearance w eGFR 7.94 (>60) 12/02/16 18:10 Calcium 8.4 mg/dL (8.5-10.1) L 12/05/16 05:35 Total Bilirubin 0.4 mg/dL (0.2-1.0) 12/02/16 18:10 AST 41 U/L (15-37) H 12/02/16 18:10 ALT 30 U/L (12-78) 12/02/16 18:10 Alkaline Phosphatase 134 U/L (45-117) H 12/02/16 18:10 Total Protein 6.8 g/dl (6.4-8.2) 12/02/16 18:10 Albumin 3.5 g/dl (3.4-5.0) 12/02/16 18:10 12/04/16 12/05/16 12/05/16 19:45 05:35 05:35 Retic Count INR 1.16 H Iron TIBC Iron Saturation Ferritin 1170.250 H Troponin I 0.53 H 0.59 H 12/05/16 12/05/16 05:35 05:35 Retic Count 1.33 INR Iron Pending TIBC Pending Iron Saturation Pending Ferritin Troponin I Active Medications Generic Name Dose Route Start Last Admin Trade Name Freq PRN Reason Stop Dose Admin Brimonidine Tartrate 1 drop 12/03/16 22:00 12/05/16 09:07 Alphagan 0.2% - OS 1 drop BID FAVIO Administration Latanoprost 1 drop 12/03/16 22:00 12/04/16 21:56 Xalatan 0.005% Eye Drops - OS 1 drop HS FAVIO Administration Metoprolol Tartrate 25 mg 12/03/16 22:00 12/05/16 09:12 Lopressor - PO Not Given BID FAVIO Pantoprazole Sodium 40 mg 12/03/16 22:00 12/05/16 09:12 Protonix - PO 40 mg BID FAVIO Administration Timolol Maleate 1 drop 12/03/16 22:00 12/05/16 09:07 Timoptic 0.5% OS 1 drop BID FAVIO Administration Imaging: - ECHO with a.fib with RVR, mild ST-T changes, consider anterolateral ischemia Assessment: 66 year old male with PMHx of ESRD (on HD ,,), glaucoma who presented to the ED with rectal bleeding, abdominal pain, dizziness x2 days. Plan: 1. GI bleed - Colonoscopy 12/04, diverticular bleed found - No bloody BM's today - Receiving 1uprbc on HD today - Continue protonix - Hold AC at this time - CBC in am 2. New onset a.fib, [id number] 2 - Unable to start anticoagulation 2/2 active GI bleed - Stress MIBI once stable 3. Elevated troponin - 0.4->0.44, continue to trend - Unable to start anticoagulation as above 4. ESRD - HD today - Renal following Visit type - Emergency Visit Emergency Visit: Yes ED Registration Date: 12/02/16 Care time: The patient presented to the Emergency Department on the above date and was hospitalized for further evaluation of their emergent condition. - New Patient This patient is new to me today: Yes Date on this admission: 12/05/16 - Critical Care Critical Care patient: No
[2016-12-05] MEDS: LATANOPROST 0.005% OPHTH SOLN 2.5ML BOTTLE OS SCH (21:49)
[2016-12-06 06:36] LABS: SERUM IRON 52 ug/dL (38-169); TOTAL IRON BINDING CAPACITY 119 ug/dL (250-450); UIBC 67 ug/dL (111-343)
[2016-12-06 08:09] LABS: BASOPHIL 0.8 % (0-2.0); EOSINOPHIL 1.2 % (0-4.5); MCH 26.3 pg (25.7-33.7); MCHC 31.4 g/dl (32.0-35.9); MEAN CELL VOLUME 83.8 fl (80-96); MEAN PLT VOLUME 10.3 fl (7.5-11.1); NEUTROPHILS 54.1 % (42.8-82.8); PLATELET COUNT 97 K/MM3 (134-434); RDW 15.8 % (11.9-15.9); WHITE BLOOD COUNT 4.3 K/mm3 (4.0-10.0)
[2016-12-06 08:36] LABS: CALCIUM 8.4 mg/dL (8.5-10.1); COCKROFT - GAULT 18.32; CREATININE 4.5 mg/dL (0.7-1.3)
[2016-12-06] MEDS: METOPROLOL TARTRATE 25 MG TABLET (FP) PO SCH ×2 (10:00→21:23)
[2016-12-06] MEDS: PANTOPRAZOLE 40 MG TABLET (FP) PO SCH ×2 (10:00→21:23)
[2016-12-06] MEDS: BRIMONIDINE TARTRATE 0.2% OPHTHALMIC 5 ML BOTTLE OS SCH ×2 (10:01→21:24)
[2016-12-06] MEDS: TIMOLOL 0.5% OPHTHALMIC SOL 5 ML BOTTLE OS SCH ×2 (10:04→21:24)
--- NOTE | 2016-12-06 11:44 | PN ---
GI Progress Note Subjective: GI NOte: NO bleeding in fact no BM overnight. Tolerating solids. No abdominal pain. Hb 8.4 after transfusion but platelets have fallen below 100K. - Objective Vital Signs: Vital Signs Temperature 98.3 F 12/06/16 08:38 Pulse Rate 83 12/06/16 08:38 Respiratory Rate 18 12/06/16 09:00 Blood Pressure 90/56 12/06/16 08:38 O2 Sat by Pulse Oximetry (%) 100 12/06/16 09:00 Laboratory Tests 12/06/16 05:35 WBC 4.3 Hgb 8.4 L Plt Count 97 L Constitutional: Calm ...Auscultate: Yes: Normoactive Bowel Sounds ...Palpate: Yes: Soft, Other (nontender) Labs: CBC, BMP 12/06/16 05:35 12/06/16 05:35 INR, PTT INR 1.16 (0.82-1.09) H 12/05/16 05:35 Assessment/Plan Resolved diverticular bleed.Tolerating soft renal diet. Would consider hematology consultation.
--- NOTE | 2016-12-06 12:07 | PN ---
Progress Note, Physician Chief Complaint: Pt is asymptomatic; undergoing hemodialysis. History of Present Illness: The patient is a 66-year old black man, with a significant past medical history of hypertension, end-stage renal disease-->hemodialyesis (had dialysis yesterday without complications); syncope (08/2015, when he stood up shortly after finishing hemodialysis), who presents to the emergency department via for further evaluation of rectal bleeding. Today he had a bowel movement and noted maroon-like blood in his soft semi-formed stool. He is on Aspirin (325 mg). No fever, chills, weakness. No lightheadedness, dizziness, visual changes, headaches. He also reports experiencing shortness of breath, particularly when walking for the past few days. No chest pain. Allergies: No known drug allergies. Past Surgical History: None reported. Social History: Former smoker. No ETOH and recreational drug use. Economic Specialist: Dr. Menezes - Current Medication List Current Medications: Active Medications Brimonidine Tartrate (Alphagan 0.2% -) 1 drop OS BID [facility] Last Admin: 12/06/16 10:01 Dose: 1 drop Latanoprost (Xalatan 0.005% Eye Drops -) 1 drop OS HS [facility] Last Admin: 12/05/16 21:49 Dose: 1 drop Metoprolol Tartrate (Lopressor -) 25 mg PO BID [facility] Last Admin: 12/06/16 10:00 Dose: Not Given Pantoprazole Sodium (Protonix -) 40 mg PO BID [facility] Last Admin: 12/06/16 10:00 Dose: 40 mg Timolol Maleate (Timoptic 0.5%) 1 drop OS BID [facility] Last Admin: 12/06/16 10:04 Dose: 1 drop - Objective Vital Signs: Vital Signs Temperature 98.3 F 12/06/16 08:38 Pulse Rate 83 12/06/16 08:38 Respiratory Rate 18 12/06/16 09:00 Blood Pressure 90/56 12/06/16 08:38 O2 Sat by Pulse Oximetry (%) 100 12/06/16 09:00 Constitutional: Yes: No Distress, Calm Eyes: Yes: WNL HENT: Yes: WNL Neck: Yes: WNL Respiratory: Yes: Regular Gastrointestinal: Yes: Soft ...Rectal Exam: Yes: Deferred Genitourinary: No: Anuria Musculoskeletal: Yes: Joint Swelling, Muscle Weakness, Other (uses a cane to walk) Edema: No Peripheral Pulses WNL: No Peripheral Pulses: Left Doralis Pedis: 1+, Right Dorsalis Pedis: 1+ Integumentary: Yes: Venous Stasis Changes (hyperpigmented bilateral LEs to mid- shins) Neurological: Yes: Alert, Oriented, Weakness Psychiatric: Yes: WNL Labs: CBC, BMP 12/06/16 05:35 12/06/16 05:35 INR, PTT INR 1.16 (0.82-1.09) H 12/05/16 05:35 Abnormal Lab Results 12/05/16 12/05/16 12/06/16 05:35 12:35 05:35 RBC 3.21 L Hgb 8.4 L Hct 26.9 L MCHC 31.4 L Plt Count 97 L Creatinine Random Glucose Calcium TIBC 119 L Crossmatch See Detail 12/06/16 05:35 RBC Hgb Hct MCHC Plt Count Creatinine 4.5 H D Random Glucose 110 H Calcium 8.4 L TIBC Crossmatch Problem List - Problems (1) End stage kidney disease Assessment/Plan: f/u with materials tech. Code(s): N18.6 - END STAGE RENAL DISEASE (2) New onset a-fib Assessment/Plan: Pt denies palpitations or chest pain.; he has felt exertional fatigue and shortness of breath (lately just walking across a room) for the past 2 months. Unable to start anticoagulants presently due to GI bleed. ASA stopped; pt cautioned against using NSAIDs in the future. Will plan for stress MIBI 12/07/2016. For hemodialysis three times/wk. ECHO shows normal LVEF; moderate aortic stenosis. BP has improved. Pt was on labetolol in the past; will start low-dose metoprolol tartrate and f/u BP and HR. Code(s): I48.91 - UNSPECIFIED ATRIAL FIBRILLATION (3) [place] cardiac risk >20% in next 10 years Assessment/Plan: stress MIBI (Persantine) 12/07/16. Code(s): Z91.89 - OTH PERSONAL RISK FACTORS, NOT ELSEWHERE CLASSIFIED (4) Elevated troponin I level Assessment/Plan: 0.4-->0.56 Telemetry: AF; periods of RVR. ECHO: normal LVEF; moderate . For stress MIBI in am (Persantine: pt uses a cane to walk due to painful knees and unsteady gati; denies hx bronchial asthma) Code(s): R74.8 - ABNORMAL LEVELS OF OTHER SERUM ENZYMES (5) GI bleed Assessment/Plan: Pt underwent gastric endoscopy: As discussed with Dr. Ching 12/05/2016, pt is still bleeding, and will require PRBCs. Unable to start anticoagulation at this time. Code(s): K92.2 - GASTROINTESTINAL HEMORRHAGE, UNSPECIFIED (6) Syncope Assessment/Plan: one episode; occurred shorlty after hemodialysis session 08/2015, when he stood up. Code(s): R55 - SYNCOPE AND COLLAPSE (7) Aortic stenosis Assessment/Plan: ECHO: normal LVEF; moderate aortic stenosis. Code(s): I35.0 - NONRHEUMATIC AORTIC (VALVE) STENOSIS
--- NOTE | 2016-12-06 12:59 | PN ---
Progress Note (short form) - Note Progress Note: RENAL pt is awake and alert still complains of cold hands otherwise well Last Vital Signs Temp Pulse Resp BP Pulse Ox 98.3 F 83 18 90/56 100 12/06/16 08:38 12/06/16 08:38 12/06/16 09:00 12/06/16 08:38 12/06/16 09:00 lungs clear cvs s1s2 rr abd soft ext no edema, i cant palpate radial pulses neuro a+Ox3 CBC, BMP 12/06/16 05:35 12/06/16 05:35 Current Medications Generic Name Dose Route Start Last Admin Trade Name Freq PRN Reason Stop Dose Admin Brimonidine Tartrate 1 drop 12/03/16 22:00 12/06/16 10:01 Alphagan 0.2% - OS 1 drop BID FAVIO Administration Latanoprost 1 drop 12/03/16 22:00 12/05/16 21:49 Xalatan 0.005% Eye Drops - OS 1 drop HS FAVIO Administration Metoprolol Tartrate 25 mg 12/03/16 22:00 12/06/16 10:00 Lopressor - PO Not Given BID FAVOI Pantoprazole Sodium 40 mg 12/03/16 22:00 12/06/16 10:00 Protonix - PO 40 mg BID FAVIO Administration Timolol Maleate 1 drop 12/03/16 22:00 12/06/16 10:04 Timoptic 0.5% OS 1 drop BID FAVIO Administration Impression 1. ESRD 2. new onset a-fib 3. GI bleed 4. HTN 5. glaucoma Plan continue HD without heparin GI follow up PPI pt being fed vascular surgery evaluation- Dr Eunice MONTAGUE
[2016-12-06] MEDS ORDERED: SODIUM CHLORIDE 250 ML IV STA (14:34)
--- NOTE | 2016-12-06 15:14 | PN ---
Physical Exam: SUBJECTIVE: Patient seen and examined. Pt reports scant blood with BM today, he also c/o dizziness and poor po intake today. His hands now are less cold than they were Events: - Hypotensive 75/50 ->86/44 after chicken broth OBJECTIVE: Vital Signs Period Temp Pulse Resp BP Sys/Reaves Pulse Ox Last 24 Hr 97.5 F-98.3 F 58-114 18-20 77-121/41-79 100 PE Neuro: alert, awake, cn 2-12intact Pulm: clear anteriorly CV: s1 s2 irregular rhythm regular rate Abd: s nt nd + bs Ext: RUE graft +thrill. b/l lower venous skin changes, dry Laboratory Results - last 24 hr 12/05/16 12/06/16 12/06/16 05:35 05:35 05:35 WBC 4.3 RBC 3.21 L Hgb 8.4 L Hct 26.9 L MCV 83.8 MCHC 31.4 L RDW 15.8 Plt Count 97 L MPV 10.3 Neutrophils % 54.1 Lymphocytes % 36.0 Monocytes % 7.9 Eosinophils % 1.2 Basophils % 0.8 Sodium 144 Potassium 4.0 Chloride 102 Carbon Dioxide 32 Anion Gap 10 BUN 17 D Creatinine 4.5 H D Random Glucose 110 H Calcium 8.4 L Iron 52 TIBC 119 L Iron Saturation 44 Active Medications Generic Name Dose Route Start Last Admin Trade Name Freq PRN Reason Stop Dose Admin Brimonidine Tartrate 1 drop 12/03/16 22:00 12/06/16 10:01 Alphagan 0.2% - OS 1 drop BID FAVIO Administration Sodium Chloride 250 mls @ 500 mls/hr 12/06/16 14:34 Normal Saline - IV 12/06/16 15:03 ASDIR STA Latanoprost 1 drop 12/03/16 22:00 12/05/16 21:49 Xalatan 0.005% Eye Drops - OS 1 drop HS FAVIO Administration Metoprolol Tartrate 25 mg 12/03/16 22:00 12/06/16 10:00 Lopressor - PO Not Given BID FAVIO Pantoprazole Sodium 40 mg 12/03/16 22:00 12/06/16 10:00 Protonix - PO 40 mg BID FAVIO Administration Timolol Maleate 1 drop 12/03/16 22:00 12/06/16 10:04 Timoptic 0.5% OS 1 drop BID FAVIO Administration Imaging: - ECHO with a.fib with RVR, mild ST-T changes, consider anterolateral ischemia, mod aortic stenosis Assessment: 66 year old male with PMHx of ESRD (on HD ), glaucoma who presented to the ED with rectal bleeding, abdominal pain, dizziness x2 days. Plan: 1. Hypotension - Give 250cc NS bolus now - Check CBC stat 2. GI bleed - Colonoscopy 12/04, diverticular bleed found - s/p 1uprbc 12/05 - Continue protonix - Hold AC at this time 3. New onset a.fib, [id number] 2 - Stress MIBI tomorrow AM - Unable to start anticoagulation 2/2 active GI bleed 4. ESRD on HD since 1996 - HD tomorrow per Renal service 5. Elevated troponin - 0.4->0.44, continue to trend - Unable to start anticoagulation as above 6. Diminished Radial pulses - Upper ext arterial dopplers - D/w Dr. Mack will follow as outpt 7. Thrombocytopenia - Trend platelets, currently no overt profuse bleeding - Will trend, if worsens hematology evaluation Visit type - Emergency Visit Emergency Visit: Yes ED Registration Date: 12/02/16 Care time: The patient presented to the Emergency Department on the above date and was hospitalized for further evaluation of their emergent condition. - New Patient This patient is new to me today: No - Critical Care Critical Care patient: No
--- NOTE | 2016-12-06 17:13 | EKG ---
Test Reason : Blood Pressure : / mmHG Vent. Rate : 071 BPM Atrial Rate : 071 BPM P-R Int : 234 ms QRS Dur : 102 ms QT Int : 452 ms P-R-T Axes : 092 014 196 degrees QTc Int : 491 ms SINUS RHYTHM WITH SINUS ARRHYTHMIA WITH 1ST DEGREE A-V BLOCK WITH OCCASIONAL PREMATURE VENTRICULAR COMPLEXES LOW VOLTAGE QRS CANNOT RULE OUT ANTEROSEPTAL INFARCT (CITED ON OR BEFORE 02-DEC-2016) ABNORMAL ECG WHEN COMPARED WITH ECG OF 03-DEC-2016 10:06, SINUS RHYTHM HAS REPLACED ATRIAL FIBRILLATION QT HAS LENGTHENED Confirmed by ENID MAGALLON MD ([id number]) on 12/06/2016 5:12:54 PM Referred By: Maricruz DEWEY Confirmed By:ENID MAGALLON MD
[2016-12-06] MEDS: LATANOPROST 0.005% OPHTH SOLN 2.5ML BOTTLE OS SCH (21:24)
[2016-12-07 08:38] LABS: CALCIUM 8.3 mg/dL (8.5-10.1); COCKROFT - GAULT 12.88; CREATININE 6.4 mg/dL (0.7-1.3); MAGNESIUM 1.9 mg/dL (1.8-2.4); PHOSPHOROUS 2.3 mg/dL (2.5-4.9)
[2016-12-07] MEDS ORDERED: WATER IVPB ONE (10:00)
[2016-12-07] MEDS ORDERED: DEXTROSE 5% IVPB ONE (10:00)
[2016-12-07] MEDS ORDERED: DIPYRIDAMOLE STRESS TEST IVPB ONE (10:00)
[2016-12-07] MEDS: BRIMONIDINE TARTRATE 0.2% OPHTHALMIC 5 ML BOTTLE OS SCH ×2 (10:51→22:44)
[2016-12-07] MEDS: METOPROLOL TARTRATE 25 MG TABLET (FP) PO SCH ×2 (10:51→22:41)
[2016-12-07] MEDS: PANTOPRAZOLE 40 MG TABLET (FP) PO SCH ×2 (10:52→22:42)
[2016-12-07] MEDS: TIMOLOL 0.5% OPHTHALMIC SOL 5 ML BOTTLE OS SCH ×2 (10:52→22:45)
--- NOTE | 2016-12-07 11:05 | PATH ---
Surgical Pathology Report Patient Name: ANTONIO VELASQUEZ [facility]. Rec. #: [id number] /Age/Gender: 1950 (Age: 66) / M Account: [id number] Location: [facility] TELEMETRY U Taken: 12/04/2016 Received: 12/04/2016 Reported: 12/07/2016 Physicians: Capo Sosa AGACNP Specimen(s) Received A: BX 2ND PORTION DUODENUM/BULB B: BX ANTRAL ULCER Clinical History GI bleed Chronic gastritis, antral ulcers, diverticular bleed Final Diagnosis A. DUODENUM, SECOND PORTION AND BULB, BIOPSY: DUODENAL MUCOSA WITH CHRONIC INFLAMMATION AND QI'S GLANDS HYPERPLASIA. NO HISTOLOGIC EVIDENCE OF GLUTEN SENSITIVE ENTEROPATHY (CELIAC DISEASE). B. STOMACH, ANTRUM, ULCER, BIOPSY: FOCALLY ULCERATED GASTRIC ANTRAL MUCOSA WITH ACTIVE MARKED CHRONIC GASTRITIS AND REACTIVE GASTROPATHY. IMMUNOSTAIN FOR H. PYLORI IS POSITIVE FOR ORGANISMS (SCATTERED ORGANISMS). Electronically Signed Aristides Chandler M.D. Gross Description A. Received in formalin, labeled "biopsy second portion of duodenum and bulb" are 3 ely, irregular portions of soft tissue averaging 0.3 cm in greatest dimension. The specimens are submitted in toto in one cassette. B. Received in formalin, labeled "biopsy antral ulcers" are 5 ely, irregular portions of soft tissue ranging from 0.1-0.3 cm in greatest dimension. The specimens are submitted in toto in one cassette. DL/12/04/2016 saudi12/04/2016
[2016-12-07 14:03] LABS: BASOPHIL 0.7 % (0-2.0); EOSINOPHIL 1.1 % (0-4.5); MCHC 30.2 g/dl (32.0-35.9); MEAN CELL VOLUME 86.1 fl (80-96); NEUTROPHILS 54.5 % (42.8-82.8); PLATELET COUNT 123 K/MM3 (134-434); RDW 16.4 % (11.9-15.9); WHITE BLOOD COUNT 6.5 K/mm3 (4.0-10.0)
--- NOTE | 2016-12-07 14:28 | PN ---
Progress Note, Physician History of Present Illness: Pt seen and examined at bedside. He is awake and alert. He denies chest pain or shortness of breath. - Current Medication List Current Medications: Active Medications Brimonidine Tartrate (Alphagan 0.2% -) 1 drop OS BID [facility] Last Admin: 12/07/16 10:51 Dose: Not Given Latanoprost (Xalatan 0.005% Eye Drops -) 1 drop OS HS [facility] Last Admin: 12/06/16 21:24 Dose: 1 drop Metoprolol Tartrate (Lopressor -) 25 mg PO BID [facility] Last Admin: 12/07/16 10:51 Dose: Not Given Pantoprazole Sodium (Protonix -) 40 mg PO BID [facility] Last Admin: 12/07/16 10:52 Dose: Not Given Timolol Maleate (Timoptic 0.5%) 1 drop OS BID [facility] Last Admin: 12/07/16 10:52 Dose: Not Given - Objective Vital Signs: Vital Signs Temperature 98 F 12/07/16 06:00 Pulse Rate 82 12/07/16 06:00 Respiratory Rate 18 12/07/16 06:00 Blood Pressure 92/62 12/07/16 08:50 O2 Sat by Pulse Oximetry (%) 100 12/06/16 20:43 Constitutional: Yes: Calm Eyes: Yes: Conjunctiva Clear HENT: Yes: Atraumatic Neck: Yes: Supple Cardiovascular: Yes: S1, S2 Respiratory: Yes: CTA Bilaterally Gastrointestinal: Yes: Normal Bowel Sounds, Soft Genitourinary: Yes: WNL Musculoskeletal: Yes: WNL Extremities: Yes: Other (right arm graft) Edema: No Neurological: Yes: Oriented Psychiatric: Yes: Oriented Labs: CBC, BMP 12/07/16 13:59 12/07/16 07:20 INR, PTT INR 1.16 (0.82-1.09) H 12/05/16 05:35 Problem List - Problems (1) End stage kidney disease Code(s): N18.6 - END STAGE RENAL DISEASE (2) GI bleed Code(s): K92.2 - GASTROINTESTINAL HEMORRHAGE, UNSPECIFIED (3) New onset a-fib Code(s): I48.91 - UNSPECIFIED ATRIAL FIBRILLATION Assessment/Plan Current Medications Generic Name Dose Route Start Last Admin Trade Name Freq PRN Reason Stop Dose Admin Brimonidine Tartrate 1 drop 12/03/16 22:00 12/07/16 10:51 Alphagan 0.2% - OS Not Given BID [facility] Latanoprost 1 drop 12/03/16 22:00 12/06/16 21:24 Xalatan 0.005% Eye Drops - OS 1 drop HS [facility] Administration Metoprolol Tartrate 25 mg 12/03/16 22:00 12/07/16 10:51 Lopressor - PO Not Given BID [facility] Pantoprazole Sodium 40 mg 12/03/16 22:00 12/07/16 10:52 Protonix - PO Not Given BID [facility] Timolol Maleate 1 drop 12/03/16 22:00 12/07/16 10:52 Timoptic 0.5% OS Not Given BID [facility] Impression 1. ESRD 2. new onset a-fib 3. GI bleed 4. HTN 5. glaucoma Plan - follow up stress test - HD in am - HD prescription: 4 hrs, 475 bf, 2k bath, heparin 1000 units - monitor on tele - monitor hg - discussed with medical team Dr Miller
--- NOTE | 2016-12-07 15:46 | PN ---
Physical Exam: SUBJECTIVE: Patient seen and examined. He feels well, no ORANTES, dizziness, eating lunch w.o issue. No bleeding noted. OBJECTIVE: Vital Signs Period Temp Pulse Resp BP Sys/Reaves Pulse Ox Last 24 Hr 97.9 F-98.6 F 72-82 18-18 88-108/54-77 100 PE Neuro: alert, awake, cn 2-12intact Pulm: CTAB CV: s1 s2 irregular rhythm regular rate Abd: s nt nd + bs Ext: RUE graft +thrill. b/l lower venous skin changes, dry CBCD WBC 6.5 K/mm3 (4.0-10.0) D 12/07/16 13:59 RBC 3.72 M/mm3 (4.00-5.60) L 12/07/16 13:59 Hgb 9.7 GM/dL (11.7-16.9) L D 12/07/16 13:59 Hct 32.0 % (35.4-49) L D 12/07/16 13:59 MCV 86.1 fl (80-96) 12/07/16 13:59 MCHC 30.2 g/dl (32.0-35.9) L 12/07/16 13:59 RDW 16.4 % (11.9-15.9) H 12/07/16 13:59 Plt Count 123 K/MM3 (134-434) L D 12/07/16 13:59 MPV 10.0 fl (7.5-11.1) 12/07/16 13:59 CMP Sodium 142 mmol/L (136-145) 12/07/16 07:20 Potassium 4.1 mmol/L (3.5-5.1) 12/07/16 07:20 Chloride 99 mmol/L (98-107) 12/07/16 07:20 Carbon Dioxide 32 mmol/L (21-32) 12/07/16 07:20 Anion Gap 11 (8-16) 12/07/16 07:20 BUN 30 mg/dL (7-18) H D 12/07/16 07:20 Creatinine 6.4 mg/dL (0.7-1.3) H D 12/07/16 07:20 Creat Clearance w eGFR 7.94 (>60) 12/02/16 18:10 Calcium 8.3 mg/dL (8.5-10.1) L 12/07/16 07:20 Total Bilirubin 0.4 mg/dL (0.2-1.0) 12/02/16 18:10 AST 41 U/L (15-37) H 12/02/16 18:10 ALT 30 U/L (12-78) 12/02/16 18:10 Alkaline Phosphatase 134 U/L (45-117) H 12/02/16 18:10 Total Protein 6.8 g/dl (6.4-8.2) 12/02/16 18:10 Albumin 3.5 g/dl (3.4-5.0) 12/02/16 18:10 12/07/16 07:20 Phosphorus 2.3 L Magnesium 1.9 D Active Medications Generic Name Dose Route Start Last Admin Trade Name Freq PRN Reason Stop Dose Admin Brimonidine Tartrate 1 drop 12/03/16 22:00 12/07/16 10:51 Alphagan 0.2% - OS Not Given BID [facility] Epoetin Calixto 5,000 units 12/08/16 14:28 Epogen - IVPUSH 12/08/16 14:29 ONCE ONE Latanoprost 1 drop 12/03/16 22:00 12/06/16 21:24 Xalatan 0.005% Eye Drops - OS 1 drop HS [facility] Administration Metoprolol Tartrate 25 mg 12/03/16 22:00 12/07/16 10:51 Lopressor - PO Not Given BID [facility] Pantoprazole Sodium 40 mg 12/03/16 22:00 12/07/16 10:52 Protonix - PO Not Given BID [facility] Timolol Maleate 1 drop 12/03/16 22:00 12/07/16 10:52 Timoptic 0.5% OS Not Given BID [facility] Imaging: - ECHO with a.fib with RVR, mild ST-T changes, consider anterolateral ischemia, mod aortic stenosis Assessment: 66 year old male with PMHx of ESRD (on HD ), glaucoma who presented to the ED with rectal bleeding, abdominal pain, dizziness x2 days. Plan: 1. New onset a.fib, [id number] 2 - Stress MIBI today, follow results - Unable to start anticoagulation 2/2 active GI bleed 2. Hypotension - Stable - Hgb stable 3. GI bleed - Colonoscopy 12/04, diverticular bleed found - s/p 1uprbc 12/05 - Continue protonix - Hold AC at this time 4. ESRD on HD since 1996 - HD tomorrow - D/w Renal service 5. Elevated troponin - 0.4->0.44, continue to trend - Unable to start anticoagulation as above 6. Diminished Radial pulses - Upper ext arterial dopplers ordered - D/w Dr. Mack will follow as outpt 7. Thrombocytopenia - Improved - Will trend, if worsens hematology evaluation Visit type - Emergency Visit Emergency Visit: Yes ED Registration Date: 12/02/16 Care time: The patient presented to the Emergency Department on the above date and was hospitalized for further evaluation of their emergent condition. - New Patient This patient is new to me today: No - Critical Care Critical Care patient: No
[2016-12-07] MEDS: LATANOPROST 0.005% OPHTH SOLN 2.5ML BOTTLE OS SCH (22:45)
[2016-12-08] MEDS: PANTOPRAZOLE 40 MG TABLET (FP) PO SCH ×2 (10:12→22:26)
[2016-12-08] MEDS: BRIMONIDINE TARTRATE 0.2% OPHTHALMIC 5 ML BOTTLE OS SCH ×2 (10:13→22:27)
[2016-12-08] MEDS: TIMOLOL 0.5% OPHTHALMIC SOL 5 ML BOTTLE OS SCH ×2 (10:13→22:28)
[2016-12-08] MEDS ORDERED: EPOETIN ALFA 2,000 UNITS/1 ML VIAL IVPUSH ONE (11:00)
[2016-12-08 12:31] LABS: BASOPHIL 0.7 % (0-2.0); MCH 26.2 pg (25.7-33.7); MCHC 31.2 g/dl (32.0-35.9); MEAN CELL VOLUME 83.9 fl (80-96); MEAN PLT VOLUME 10.5 fl (7.5-11.1); NEUTROPHILS 63.9 % (42.8-82.8); PLATELET COUNT 121 K/MM3 (134-434); RDW 16.5 % (11.9-15.9); WHITE BLOOD COUNT 5.3 K/mm3 (4.0-10.0)
[2016-12-08 12:58] LABS: CALCIUM 8.4 mg/dL (8.5-10.1)
[2016-12-08 13:03] LABS: COCKROFT - GAULT 10.77
[2016-12-08 13:20] LABS: CREATININE 7.9 mg/dL (0.7-1.3)
--- NOTE | 2016-12-08 14:54 | PN ---
Progress Note, Physician Chief Complaint: Pt is asymptomatic; awaits stress MIBI. History of Present Illness: The patient is a 66-year old black man, with a significant past medical history of hypertension, end-stage renal disease-->hemodialyesis (had dialysis yesterday without complications); syncope (08/2015, when he stood up shortly after finishing hemodialysis), who presents to the emergency department via for further evaluation of rectal bleeding. Today he had a bowel movement and noted maroon-like blood in his soft semi-formed stool. He is on Aspirin (325 mg). No fever, chills, weakness. No lightheadedness, dizziness, visual changes, headaches. He also reports experiencing shortness of breath, particularly when walking for the past few days. No chest pain. Allergies: No known drug allergies. Past Surgical History: None reported. Social History: Former smoker. No ETOH and recreational drug use. Senior Net Engineer: Dr. Menezes - Current Medication List Current Medications: Active Medications Brimonidine Tartrate (Alphagan 0.2% -) 1 drop OS BID [facility] Last Admin: 12/08/16 10:13 Dose: 1 drop Latanoprost (Xalatan 0.005% Eye Drops -) 1 drop OS HS [facility] Last Admin: 12/07/16 22:45 Dose: 1 drop Metoprolol Tartrate (Lopressor -) 25 mg PO BID [facility] Last Admin: 12/07/16 22:41 Dose: Not Given Pantoprazole Sodium (Protonix -) 40 mg PO BID [facility] Last Admin: 12/08/16 10:12 Dose: 40 mg Timolol Maleate (Timoptic 0.5%) 1 drop OS BID [facility] Last Admin: 12/08/16 10:13 Dose: 1 drop - Objective Vital Signs: Vital Signs Temperature 97.6 F 12/08/16 14:28 Pulse Rate 65 12/08/16 14:28 Respiratory Rate 20 12/08/16 14:28 Blood Pressure 92/57 12/08/16 14:28 O2 Sat by Pulse Oximetry (%) 96 12/08/16 09:00 Constitutional: Yes: Calm Eyes: Yes: WNL HENT: Yes: WNL Neck: Yes: WNL Cardiovascular: Yes: Pulse Irregular Respiratory: Yes: Regular Gastrointestinal: Yes: Soft ...Rectal Exam: Yes: Deferred Genitourinary: No: Anuria Musculoskeletal: Yes: Muscle Weakness Extremities: Yes: Cool Edema: No Peripheral Pulses WNL: No Peripheral Pulses: Left Doralis Pedis: 1+, Right Dorsalis Pedis: 1+ Integumentary: Yes: Venous Stasis Changes Neurological: Yes: Alert, Oriented, Weakness Psychiatric: Yes: WNL Labs: CBC, BMP 12/08/16 11:45 12/08/16 11:45 INR, PTT INR 1.16 (0.82-1.09) H 12/05/16 05:35 Problem List - Problems (1) End stage kidney disease Assessment/Plan: f/u with planning intern; on regular HD. Code(s): N18.6 - END STAGE RENAL DISEASE (2) New onset a-fib Assessment/Plan: Pt denies palpitations or chest pain.; he has felt exertional fatigue and shortness of breath (lately just walking across a room) for the past 2 months. Unable to start anticoagulants presently due to GI bleed. ASA stopped; pt cautioned against using NSAIDs in the future. For stress MIBI today. For hemodialysis three times/wk. ECHO shows normal LVEF; moderate aortic stenosis. Code(s): I48.91 - UNSPECIFIED ATRIAL FIBRILLATION (3) [place] cardiac risk >20% in next 10 years Assessment/Plan: stress MIBI (Persantine: pt uses a cane, and says he stumbles easily) 12/07/16. Code(s): Z91.89 - OTH PERSONAL RISK FACTORS, NOT ELSEWHERE CLASSIFIED (4) Elevated troponin I level Assessment/Plan: 0.4-->0.56 Telemetry: AF; periods of RVR. ECHO: normal LVEF; moderate . For stress MIBI in am (Persantine: pt uses a cane to walk due to painful knees and unsteady gati; denies hx bronchial asthma) Code(s): R74.8 - ABNORMAL LEVELS OF OTHER SERUM ENZYMES (5) GI bleed Assessment/Plan: Pt underwent gastric endoscopy: As discussed with Dr. Ching 12/05/2016, pt is still bleeding, and will require PRBCs. Unable to start anticoagulation at this time. Code(s): K92.2 - GASTROINTESTINAL HEMORRHAGE, UNSPECIFIED (6) Syncope Code(s): R55 - SYNCOPE AND COLLAPSE (7) Aortic stenosis Code(s): I35.0 - NONRHEUMATIC AORTIC (VALVE) STENOSIS
--- NOTE | 2016-12-08 15:03 | PN ---
Progress Note, Physician Chief Complaint: Pt c/o bilateral hand swelling and decreased strength in right hand x one month. History of Present Illness: The patient is a 66-year old black man, with a significant past medical history of hypertension, end-stage renal disease-->hemodialyesis (had dialysis yesterday without complications); syncope (08/2015, when he stood up shortly after finishing hemodialysis), who presents to the emergency department via for further evaluation of rectal bleeding. Today he had a bowel movement and noted maroon-like blood in his soft semi-formed stool. He is on Aspirin (325 mg). No fever, chills, weakness. No lightheadedness, dizziness, visual changes, headaches. He also reports experiencing shortness of breath, particularly when walking for the past few days. No chest pain. Allergies: No known drug allergies. Past Surgical History: None reported. Social History: Former smoker. No ETOH and recreational drug use. Mmd Unit Teacher: Dr. Menezes - Current Medication List Current Medications: Active Medications Brimonidine Tartrate (Alphagan 0.2% -) 1 drop OS BID [facility] Last Admin: 12/08/16 10:13 Dose: 1 drop Latanoprost (Xalatan 0.005% Eye Drops -) 1 drop OS HS [facility] Last Admin: 12/07/16 22:45 Dose: 1 drop Metoprolol Tartrate (Lopressor -) 25 mg PO BID [facility] Last Admin: 12/07/16 22:41 Dose: Not Given Pantoprazole Sodium (Protonix -) 40 mg PO BID [facility] Last Admin: 12/08/16 10:12 Dose: 40 mg Timolol Maleate (Timoptic 0.5%) 1 drop OS BID [facility] Last Admin: 12/08/16 10:13 Dose: 1 drop - Objective Vital Signs: Vital Signs Temperature 97.6 F 12/08/16 14:28 Pulse Rate 65 12/08/16 14:28 Respiratory Rate 20 12/08/16 14:28 Blood Pressure 92/57 12/08/16 14:28 O2 Sat by Pulse Oximetry (%) 96 12/08/16 09:00 Constitutional: Yes: No Distress Eyes: Yes: WNL HENT: Yes: WNL Neck: Yes: WNL Cardiovascular: Yes: Pulse Irregular Respiratory: Yes: Regular Gastrointestinal: Yes: Soft ...Rectal Exam: Yes: Deferred Genitourinary: No: Anuria Musculoskeletal: Yes: Joint Stiffness (hands), Muscle Weakness. No: Joint Swelling Edema: No Peripheral Pulses WNL: No Peripheral Pulses: Left Radial: 1+, Right Radial: 1+, Left Doralis Pedis: 1+, Right Dorsalis Pedis: 1+ Integumentary: Yes: Venous Stasis Changes Wound/Incision: Yes: Other (right AV fistula being used for HD) Neurological: Yes: Alert, Oriented, Weakness Psychiatric: Yes: WNL Labs: CBC, BMP 12/08/16 11:45 12/08/16 11:45 INR, PTT INR 1.16 (0.82-1.09) H 12/05/16 05:35 Abnormal Lab Results 12/05/16 12/08/16 12/08/16 12:35 11:45 11:45 RBC 2.82 L D Hgb 7.4 L D Hct 23.7 L D MCHC 31.2 L RDW 16.5 H Plt Count 121 L BUN 41 H D Creatinine 7.9 H* D Random Glucose 136 H Calcium 8.4 L Crossmatch See Detail Problem List - Problems (1) End stage kidney disease Assessment/Plan: f/u with journalist; on regular HD (including today). Code(s): N18.6 - END STAGE RENAL DISEASE (2) New onset a-fib Assessment/Plan: Stress Persantine MIBI 12/07/2016: no myocardial ischemia. Pt denies palpitations or chest pain.; he has felt exertional fatigue and shortness of breath (lately just walking across a room) for the past 2 months. Unable to start anticoagulants presently due to GI bleed. On metoprolol for HR control. ASA stopped; pt cautioned against using NSAIDs in the future. For hemodialysis three times/wk. ECHO shows normal LVEF; moderate aortic stenosis. Code(s): I48.91 - UNSPECIFIED ATRIAL FIBRILLATION (3) [place] cardiac risk >20% in next 10 years Assessment/Plan: stress MIBI (Persantine:No myocardial ischemia. Code(s): Z91.89 - OTH PERSONAL RISK FACTORS, NOT ELSEWHERE CLASSIFIED (4) Elevated troponin I level Assessment/Plan: 0.4-->0.56 Telemetry: AF; periods of RVR. ECHO: normal LVEF; moderate . Stress MIBI: no myocardial ischemia. Code(s): R74.8 - ABNORMAL LEVELS OF OTHER SERUM ENZYMES (5) GI bleed Assessment/Plan: Pt underwent gastric endoscopy: As discussed with Dr. Ching 12/05/2016, pt is still bleeding, and will require PRBCs. Unable to start anticoagulation at this time. Continues to have + stool quiaic. Code(s): K92.2 - GASTROINTESTINAL HEMORRHAGE, UNSPECIFIED (6) Syncope Assessment/Plan: one episode; occurred shorlty after hemodialysis session 08/2015, when he stood up. Code(s): R55 - SYNCOPE AND COLLAPSE (7) Aortic stenosis Assessment/Plan: ECHO: normal LVEF; moderate aortic stenosis. Code(s): I35.0 - NONRHEUMATIC AORTIC (VALVE) STENOSIS
--- NOTE | 2016-12-08 15:11 | PN ---
Progress Note, Physician History of Present Illness: Pt seen and examined at bedside. He is awake and alert. He is tolerating HD today. He denies chest pain or shortness of breath. - Current Medication List Current Medications: Active Medications Brimonidine Tartrate (Alphagan 0.2% -) 1 drop OS BID [facility] Last Admin: 12/08/16 10:13 Dose: 1 drop Latanoprost (Xalatan 0.005% Eye Drops -) 1 drop OS HS [facility] Last Admin: 12/07/16 22:45 Dose: 1 drop Metoprolol Tartrate (Lopressor -) 25 mg PO BID [facility] Last Admin: 12/07/16 22:41 Dose: Not Given Pantoprazole Sodium (Protonix -) 40 mg PO BID [facility] Last Admin: 12/08/16 10:12 Dose: 40 mg Timolol Maleate (Timoptic 0.5%) 1 drop OS BID [facility] Last Admin: 12/08/16 10:13 Dose: 1 drop - Objective Vital Signs: Vital Signs Temperature 97.6 F 12/08/16 14:28 Pulse Rate 65 12/08/16 14:28 Respiratory Rate 20 12/08/16 14:28 Blood Pressure 92/57 12/08/16 14:28 O2 Sat by Pulse Oximetry (%) 96 12/08/16 09:00 Constitutional: Yes: Calm Eyes: Yes: Conjunctiva Clear HENT: Yes: Atraumatic Neck: Yes: Supple Cardiovascular: Yes: Pulse Irregular, S1, S2 Respiratory: Yes: CTA Bilaterally Gastrointestinal: Yes: Soft Genitourinary: Yes: WNL Musculoskeletal: Yes: WNL Edema: No Neurological: Yes: Oriented Psychiatric: Yes: Oriented Labs: CBC, BMP 12/08/16 11:45 12/08/16 11:45 INR, PTT INR 1.16 (0.82-1.09) H 12/05/16 05:35 Problem List - Problems (1) End stage kidney disease Code(s): N18.6 - END STAGE RENAL DISEASE (2) GI bleed Code(s): K92.2 - GASTROINTESTINAL HEMORRHAGE, UNSPECIFIED (3) New onset a-fib Code(s): I48.91 - UNSPECIFIED ATRIAL FIBRILLATION Assessment/Plan Current Medications Generic Name Dose Route Start Last Admin Trade Name Freq PRN Reason Stop Dose Admin Brimonidine Tartrate 1 drop 12/03/16 22:00 12/08/16 10:13 Alphagan 0.2% - OS 1 drop BID [facility] Administration Latanoprost 1 drop 12/03/16 22:00 12/07/16 22:45 Xalatan 0.005% Eye Drops - OS 1 drop HS [facility] Administration Metoprolol Tartrate 25 mg 12/03/16 22:00 12/07/16 22:41 Lopressor - PO Not Given BID [facility] Pantoprazole Sodium 40 mg 12/03/16 22:00 12/08/16 10:12 Protonix - PO 40 mg BID [facility] Administration Timolol Maleate 1 drop 12/03/16 22:00 12/08/16 10:13 Timoptic 0.5% OS 1 drop BID [facility] Administration Impression 1. ESRD 2. new onset a-fib 3. GI bleed 4. HTN 5. glaucoma Plan - HD today - cardiology follow up - monitor hg, may need transfusion - epogen on HD - HD prescription: 4 hrs, 475 bf, 2k bath, heparin 1000 units - monitor on tele - monitor hg - discussed with medical team Dr Miller
--- NOTE | 2016-12-08 15:19 | PN ---
Progress Note (short form) - Note Progress Note: GI NOte> Gastric biopsies reveal H. pylori. Will start 14 days course of therapy which should be extended without interruption as outpatient if Mr Garvin is dicharged.
[2016-12-08 17:51] LABS: COCKROFT - GAULT 34.05; CREATININE 2.5 mg/dL (0.7-1.3)
--- NOTE | 2016-12-08 18:56 | PN ---
Physical Exam: SUBJECTIVE: Patient seen and examined at bedside. Today felt SOB with walking. OBJECTIVE: Vital Signs Period Temp Pulse Resp BP Sys/Reaves Pulse Ox Last 24 Hr 97.6 F-97.9 F 59-93 18-20 91-125/56-70 96-97 GENERAL: The patient is awake, alert, and fully oriented, in no acute distress. HEAD: Normal with no signs of trauma. EYES: PERRL, extraocular movements intact, sclera anicteric, conjunctiva clear. No ptosis. LUNGS: Breath sounds equal, clear to auscultation bilaterally, no wheezes, no crackles, no accessory muscle use. HEART: Regular rate and rhythm, S1, S2 without murmur, rub or gallop. ABDOMEN: Soft, nontender, nondistended, normoactive bowel sounds, no guarding, no rebound, no hepatosplenomegaly, no masses. EXTREMITIES: 2+ pulses, warm, well-perfused, no edema. NEUROLOGICAL: Cranial nerves II through XII grossly intact. Normal speech, gait not observed. Laboratory Results - last 24 hr 12/05/16 12/08/16 12/08/16 12:35 11:45 11:45 WBC 5.3 RBC 2.82 L D Hgb 7.4 L D Hct 23.7 L D MCV 83.9 MCHC 31.2 L RDW 16.5 H Plt Count 121 L MPV 10.5 Neutrophils % 63.9 Lymphocytes % 26.5 D Monocytes % 6.9 Eosinophils % 2.0 D Basophils % 0.7 Sodium 141 Potassium 4.5 Chloride 102 Carbon Dioxide 27 Anion Gap 12 BUN 41 H D Creatinine 7.9 H* D Random Glucose 136 H Calcium 8.4 L Blood Type O POSITIVE Antibody Screen Negative Crossmatch See Detail Spec Expiration Date 12/08/16 12/08/16 17:14 17:14 WBC RBC Hgb Hct MCV MCHC RDW Plt Count MPV Neutrophils % Lymphocytes % Monocytes % Eosinophils % Basophils % Sodium Potassium Chloride Carbon Dioxide Anion Gap BUN 10 D Creatinine 2.5 H D Cancelled Random Glucose Calcium Blood Type Antibody Screen Crossmatch Spec Expiration Date Active Medications Generic Name Dose Route Start Last Admin Trade Name Freq PRN Reason Stop Dose Admin Amoxicillin 500 mg 12/08/16 22:00 Amoxicillin - PO 12/22/16 21:59 BID [facility] Brimonidine Tartrate 1 drop 12/03/16 22:00 12/08/16 10:13 Alphagan 0.2% - OS 1 drop BID [facility] Administration Clarithromycin 500 mg 12/08/16 22:00 Biaxin - PO 12/22/16 21:59 BID [facility] Latanoprost 1 drop 12/03/16 22:00 12/07/16 22:45 Xalatan 0.005% Eye Drops - OS 1 drop HS [facility] Administration Metoprolol Tartrate 25 mg 12/03/16 22:00 12/07/16 22:41 Lopressor - PO Not Given BID [facility] Pantoprazole Sodium 40 mg 12/03/16 22:00 12/08/16 10:12 Protonix - PO 40 mg BID [facility] Administration Timolol Maleate 1 drop 12/03/16 22:00 12/08/16 10:13 Timoptic 0.5% OS 1 drop BID [facility] Administration Imagin/6 Echo: normal LV EF 55%; RV normal; mild MR; mild TR; RSVP 30-40mmHg 12/07 Nuclear stress: negative stress; no ischemia; dilated RV EF 40% ASSESSMENT/PLAN 66 year-old male with significant PMH of HTN, ESRD (on HD ,,) admitted for lower GI bleed, and newly diagnosed afib with RVR. Lower GI bleed --EGD showed nonbleeding antral ulcers and uremic gastritis; biopsy +H.pylor --colon showed blood throughout the colon, no identified focus; diverticular bleed --Hgb dropped to 7.4 today and patient symptomatic, SOB with walking --transfuse 1U PRBC this evening --start antibiotic coverage for H.pylori Newly diagnosed atrial fibrillation with RVR --rate is now controlled, continue metoprolol --[id number] score 2 --unable to start anticoagulation due to bleeding issues --Nuclear stress: negative stress ECG; no ischemia; dilated LV with EF 40% Hypertension --BP well-controlled --continue metoprolol ESRD on HD --HD today --flat trending troponins likely secondary to ESRD --did not get transfused today during HD, discussed with Dr. Miller, will transfuse now Diminished Radial pulses - Upper ext arterial dopplers ordered - D/w Dr. Mack will follow as outpt Thrombocytopenia - Improved - Will trend, if worsens hematology evaluation Visit type - Emergency Visit Emergency Visit: Yes ED Registration Date: 12/02/16 Care time: The patient presented to the Emergency Department on the above date and was hospitalized for further evaluation of their emergent condition. - New Patient This patient is new to me today: Yes Date on this admission: 12/08/16 - Critical Care Critical Care patient: No
[2016-12-08] MEDS: METOPROLOL TARTRATE 25 MG TABLET (FP) PO SCH (22:27)
[2016-12-08] MEDS: LATANOPROST 0.005% OPHTH SOLN 2.5ML BOTTLE OS SCH (22:28)
[2016-12-08] MEDS: CLARITHROMYCIN 500 MG TABLET (UD) PO SCH (22:28)
[2016-12-08] MEDS: AMOXICILLIN 500 MG CAPSULE (FP) PO SCH (23:37)
[2016-12-09 07:56] LABS: BASOPHIL 1.3 % (0-2.0); EOSINOPHIL 1.2 % (0-4.5); MCH 26.7 pg (25.7-33.7); MCHC 31.3 g/dl (32.0-35.9); MEAN CELL VOLUME 85.3 fl (80-96); NEUTROPHILS 60.8 % (42.8-82.8); PLATELET COUNT 122 K/MM3 (134-434); RDW 15.9 % (11.9-15.9); WHITE BLOOD COUNT 4.7 K/mm3 (4.0-10.0)
[2016-12-09 08:22] LABS: BILIRUBIN,TOTAL 0.6 mg/dL (0.2-1.0); CALCIUM 8.3 mg/dL (8.5-10.1); CREATININE 4.9 mg/dL (0.7-1.3); MAGNESIUM 1.8 mg/dL (1.8-2.4); PHOSPHOROUS 2.1 mg/dL (2.5-4.9); TOT PROT 5.8 g/dl (6.4-8.2)
[2016-12-09] MEDS ORDERED: PT OWN MED DRAWER 7, Y5N ONE (12:00)
[2016-12-09] MEDS: METOPROLOL TARTRATE 25 MG TABLET (FP) PO SCH ×2 (12:02→21:43)
[2016-12-09] MEDS: PANTOPRAZOLE 40 MG TABLET (FP) PO SCH ×2 (12:02→21:42)
[2016-12-09] MEDS: CLARITHROMYCIN 500 MG TABLET (UD) PO SCH ×2 (12:03→22:20)
[2016-12-09] MEDS: BRIMONIDINE TARTRATE 0.2% OPHTHALMIC 5 ML BOTTLE OS SCH ×2 (12:03→21:42)
[2016-12-09] MEDS: TIMOLOL 0.5% OPHTHALMIC SOL 5 ML BOTTLE OS SCH ×2 (12:04→21:43)
[2016-12-09] MEDS: AMOXICILLIN 500 MG CAPSULE (FP) PO SCH ×2 (12:04→22:20)
--- NOTE | 2016-12-09 12:51 | PN ---
Progress Note, Physician History of Present Illness: History of Present Illness: The patient is a 66-year old black man, with a significant past medical history of hypertension, end-stage renal disease-->hemodialyesis (had dialysis yesterday without complications); syncope (08/2015, when he stood up shortly after finishing hemodialysis), who presents to the emergency department via for further evaluation of rectal bleeding. Today he had a bowel movement and noted maroon-like blood in his soft semi-formed stool. He is on Aspirin (325 mg). No fever, chills, weakness. No lightheadedness, dizziness, visual changes, headaches. He also reports experiencing shortness of breath, particularly when walking for the past few days. No chest pain. Allergies: No known drug allergies. Past Surgical History: None reported. Social History: Former smoker. No ETOH and recreational drug use. Business Solutions Analyst: Dr. Menezes - Current Medication List Current Medications: Active Medications Amoxicillin (Amoxicillin -) 500 mg PO BID [facility] Stop: 12/22/16 21:59 Last Admin: 12/09/16 12:04 Dose: 500 mg Brimonidine Tartrate (Alphagan 0.2% -) 1 drop OS BID [facility] Last Admin: 12/09/16 12:03 Dose: 1 drop Clarithromycin (Biaxin -) 500 mg PO BID [facility] Stop: 12/22/16 21:59 Last Admin: 12/09/16 12:03 Dose: 500 mg Latanoprost (Xalatan 0.005% Eye Drops -) 1 drop OS HS [facility] Last Admin: 12/08/16 22:28 Dose: 1 drop Metoprolol Tartrate (Lopressor -) 25 mg PO BID [facility] Last Admin: 12/09/16 12:02 Dose: 25 mg Pantoprazole Sodium (Protonix -) 40 mg PO BID [facility] Last Admin: 12/09/16 12:02 Dose: 40 mg Timolol Maleate (Timoptic 0.5%) 1 drop OS BID [facility] Last Admin: 12/09/16 12:04 Dose: 1 drop - Objective Vital Signs: Vital Signs Temperature 98.2 F 12/09/16 10:00 Pulse Rate 75 12/09/16 10:00 Respiratory Rate 20 12/09/16 10:00 Blood Pressure 106/58 12/09/16 10:00 O2 Sat by Pulse Oximetry (%) 97 12/09/16 09:00 Eyes: Yes: WNL, Conjunctiva Clear, EOM Intact HENT: Yes: WNL, Atraumatic, Normocephalic Neck: Yes: WNL, Supple, Trachea Midline Cardiovascular: Yes: WNL, Regular Rate and Rhythm, Murmur Respiratory: Yes: WNL, Regular, CTA Bilaterally Gastrointestinal: Yes: WNL, Normal Bowel Sounds Genitourinary: Yes: WNL Musculoskeletal: Yes: WNL Extremities: Yes: WNL Edema: No Integumentary: Yes: WNL Neurological: Yes: WNL, Alert, Oriented ...Motor Strength: WNL Psychiatric: Yes: WNL Labs: CBC, BMP 12/09/16 06:50 12/09/16 06:50 INR, PTT INR 1.16 (0.82-1.09) H 12/05/16 05:35 Assessment/Plan (1) End stage kidney disease Assessment/Plan: f/u with behavioral health director; on regular HD (including today). Code(s): N18.6 - END STAGE RENAL DISEASE (2) New onset a-fib Assessment/Plan: Stress Persantine MIBI 12/07/2016: no myocardial ischemia. Pt denies palpitations or chest pain.; he has felt exertional fatigue and shortness of breath (lately just walking across a room) for the past 2 months. Unable to start anticoagulants presently due to GI bleed. On metoprolol for HR control. ASA stopped; pt cautioned against using NSAIDs in the future. For hemodialysis three times/wk. ECHO shows normal LVEF; moderate aortic stenosis. Code(s): I48.91 - UNSPECIFIED ATRIAL FIBRILLATION (3) [place] cardiac risk >20% in next 10 years Assessment/Plan: stress MIBI (Persantine:No myocardial ischemia. Code(s): Z91.89 - OTH PERSONAL RISK FACTORS, NOT ELSEWHERE CLASSIFIED (4) Elevated troponin I level Assessment/Plan: 0.4-->0.56 Telemetry: AF; periods of RVR. ECHO: normal LVEF; moderate . Stress MIBI: no myocardial ischemia. Code(s): R74.8 - ABNORMAL LEVELS OF OTHER SERUM ENZYMES (5) GI bleed Assessment/Plan: Pt underwent gastric endoscopy: As discussed with Dr. Ching 12/05/2016, pt is still bleeding, and will require PRBCs. Unable to start anticoagulation at this time. Continues to have + stool quiaic. Code(s): K92.2 - GASTROINTESTINAL HEMORRHAGE, UNSPECIFIED (6) Syncope Assessment/Plan: one episode; occurred shorlty after hemodialysis session 08/2015, when he stood up. Code(s): R55 - SYNCOPE AND COLLAPSE (7) Aortic stenosis Assessment/Plan: ECHO: normal LVEF; moderate aortic stenosis. Code(s): I35.0 - NONRHEUMATIC AORTIC (VALVE) STENOSIS arterial duplex l ext pending
--- NOTE | 2016-12-09 13:25 | PN ---
Progress Note, Physician History of Present Illness: Pt seen and examined at bedside. He is awake and alert. He says there is still some dark blood with his stool. - Current Medication List Current Medications: Active Medications Amoxicillin (Amoxicillin -) 500 mg PO BID [facility] Stop: 12/22/16 21:59 Last Admin: 12/09/16 12:04 Dose: 500 mg Brimonidine Tartrate (Alphagan 0.2% -) 1 drop OS BID [facility] Last Admin: 12/09/16 12:03 Dose: 1 drop Clarithromycin (Biaxin -) 500 mg PO BID [facility] Stop: 12/22/16 21:59 Last Admin: 12/09/16 12:03 Dose: 500 mg Latanoprost (Xalatan 0.005% Eye Drops -) 1 drop OS HS [facility] Last Admin: 12/08/16 22:28 Dose: 1 drop Metoprolol Tartrate (Lopressor -) 25 mg PO BID [facility] Last Admin: 12/09/16 12:02 Dose: 25 mg Pantoprazole Sodium (Protonix -) 40 mg PO BID [facility] Last Admin: 12/09/16 12:02 Dose: 40 mg Timolol Maleate (Timoptic 0.5%) 1 drop OS BID [facility] Last Admin: 12/09/16 12:04 Dose: 1 drop - Objective Vital Signs: Vital Signs Temperature 98.2 F 12/09/16 10:00 Pulse Rate 75 12/09/16 10:00 Respiratory Rate 20 12/09/16 10:00 Blood Pressure 106/58 12/09/16 10:00 O2 Sat by Pulse Oximetry (%) 97 12/09/16 09:00 Constitutional: Yes: Calm Eyes: Yes: Conjunctiva Clear HENT: Yes: Atraumatic Neck: Yes: Supple Cardiovascular: Yes: S1, S2 Respiratory: Yes: CTA Bilaterally Gastrointestinal: Yes: Soft Genitourinary: Yes: WNL Extremities: Yes: Other (right arm graft) Edema: Yes Edema: LLE: Trace, RLE: Trace Neurological: Yes: Oriented Psychiatric: Yes: Oriented Labs: CBC, BMP 12/09/16 06:50 12/09/16 06:50 INR, PTT INR 1.16 (0.82-1.09) H 12/05/16 05:35 Problem List - Problems (1) End stage kidney disease Code(s): N18.6 - END STAGE RENAL DISEASE (2) GI bleed Code(s): K92.2 - GASTROINTESTINAL HEMORRHAGE, UNSPECIFIED (3) New onset a-fib Code(s): I48.91 - UNSPECIFIED ATRIAL FIBRILLATION Assessment/Plan Current Medications Generic Name Dose Route Start Last Admin Trade Name Linda PRN Reason Stop Dose Admin Amoxicillin 500 mg 12/08/16 22:00 12/09/16 12:04 Amoxicillin - PO 12/22/16 21:59 500 mg BID FAVIO Administration Brimonidine Tartrate 1 drop 12/03/16 22:00 12/09/16 12:03 Alphagan 0.2% - OS 1 drop BID FAVIO Administration Clarithromycin 500 mg 12/08/16 22:00 12/09/16 12:03 Biaxin - PO 12/22/16 21:59 500 mg BID FAVIO Administration Latanoprost 1 drop 12/03/16 22:00 12/08/16 22:28 Xalatan 0.005% Eye Drops - OS 1 drop HS FAVIO Administration Metoprolol Tartrate 25 mg 12/03/16 22:00 12/09/16 12:02 Lopressor - PO 25 mg BID FAVIO Administration Pantoprazole Sodium 40 mg 12/03/16 22:00 12/09/16 12:02 Protonix - PO 40 mg BID FAVIO Administration Timolol Maleate 1 drop 12/03/16 22:00 12/09/16 12:04 Timoptic 0.5% OS 1 drop BID FAVIO Administration Impression 1. ESRD 2. new onset a-fib 3. GI bleed 4. HTN 5. glaucoma Plan - HD in am - heparin has been held on HD - will transfue PRBC tomorrow, discussed with medical team - GI follow up - cont to monitor stool for blood - epogen on HD - HD prescription: 4 hrs, 475 bf, 2k bath, heparin [address] Miller
--- NOTE | 2016-12-09 17:28 | PN ---
Physical Exam: SUBJECTIVE: Patient seen and examined. He states hes still having some blood in his stool on his tissue, and its dark, not bright OBJECTIVE: Vital Signs Period Temp Pulse Resp BP Sys/Reaves Pulse Ox Last 24 Hr 97.8 F-98.4 F 69-98 20-20 86-106/47-60 97-97 PE Neuro: alert, awake, cn 2-12intact Pulm: CTAB CV: s1 s2 irregular rhythm regular rate Abd: s nt nd + bs Ext: RUE graft +thrill. b/l lower venous skin changes, dry Laboratory Results - last 24 hr 12/08/16 12/08/16 12/09/16 17:14 23:00 06:50 WBC 4.7 RBC 3.15 L Hgb 8.4 L D Hct 26.9 L MCV 85.3 MCHC 31.3 L RDW 15.9 Plt Count 122 L MPV 10.0 Neutrophils % 60.8 Lymphocytes % 27.8 Monocytes % 8.9 Eosinophils % 1.2 Basophils % 1.3 Sodium Potassium Chloride Carbon Dioxide Anion Gap BUN 10 D Creatinine 2.5 H D Creat Clearance w eGFR Random Glucose Calcium Phosphorus Magnesium Total Bilirubin AST ALT Alkaline Phosphatase Total Protein Albumin Blood Type O POSITIVE Antibody Screen Negative Crossmatch See Detail 12/09/16 06:50 WBC RBC Hgb Hct MCV MCHC RDW Plt Count MPV Neutrophils % Lymphocytes % Monocytes % Eosinophils % Basophils % Sodium 143 Potassium 4.1 Chloride 102 Carbon Dioxide 32 Anion Gap 9 BUN 21 H D Creatinine 4.9 H D Creat Clearance w eGFR 11.98 Random Glucose 120 H Calcium 8.3 L Phosphorus 2.1 L Magnesium 1.8 Total Bilirubin 0.6 D AST 36 ALT 25 Alkaline Phosphatase 100 D Total Protein 5.8 L Albumin 3.0 L Blood Type Antibody Screen Crossmatch Active Medications Generic Name Dose Route Start Last Admin Trade Name Freq PRN Reason Stop Dose Admin Amoxicillin 500 mg 12/08/16 22:00 12/09/16 12:04 Amoxicillin - PO 12/22/16 21:59 500 mg BID FAVIO Administration Brimonidine Tartrate 1 drop 12/03/16 22:00 12/09/16 12:03 Alphagan 0.2% - OS 1 drop BID FAVIO Administration Clarithromycin 500 mg 12/08/16 22:00 12/09/16 12:03 Biaxin - PO 12/22/16 21:59 500 mg BID FAVIO Administration Epoetin Calixto 5,000 units 12/10/16 13:25 Epogen - IVPUSH 12/10/16 13:26 ONCE ONE Latanoprost 1 drop 12/03/16 22:00 12/08/16 22:28 Xalatan 0.005% Eye Drops - OS 1 drop HS FAVIO Administration Metoprolol Tartrate 25 mg 12/03/16 22:00 12/09/16 12:02 Lopressor - PO 25 mg BID FAVIO Administration Pantoprazole Sodium 40 mg 12/03/16 22:00 12/09/16 12:02 Protonix - PO 40 mg BID FAVIO Administration Timolol Maleate 1 drop 12/03/16 22:00 12/09/16 12:04 Timoptic 0.5% OS 1 drop BID FAVIO Administration Imaging: - ECHO with a.fib with RVR, mild ST-T changes, consider anterolateral ischemia, mod aortic stenosis Assessment: 66 year old male with PMHx of ESRD (on HD ,,), glaucoma who presented to the ED with rectal bleeding, abdominal pain, dizziness x2 days. Plan: 1. New onset a.fib, [id number] 2 - Stress IBI: negative stress ECG; no ischemia; dilated LV with EF 40% - Unable to start anticoagulation 2/2 active GI bleed 2. GI bleed - Stool still with blood - Check CBC in am - Give 1 unit PRBC tomorrow with HD - Colonoscopy: diverticular bleed found 12/04 - s/p 1uprbc 12/05 - Continue protonix 3. H Pylori - Amoxicillin 500mg BID (day 10/09) - Clarithromycin 500mg BID (day 10/09) - Protonix 40mg BID (day 10/09) - Above meds to not be stopped or ineffective 4. ESRD on HD since 1996 - HD tomorrow per Renal service 5. Elevated troponin - 0.4->0.44, continue to trend - Unable to start anticoagulation as above 6. Diminished Radial pulses - Upper ext arterial dopplers done - Follow results with Dr. Mack as outpt 7. Thrombocytopenia - Stable - Will trend, if worsens hematology evaluation Visit type - Emergency Visit Emergency Visit: Yes ED Registration Date: 12/02/16 Care time: The patient presented to the Emergency Department on the above date and was hospitalized for further evaluation of their emergent condition. - New Patient This patient is new to me today: No - Critical Care Critical Care patient: No
[2016-12-09] MEDS: LATANOPROST 0.005% OPHTH SOLN 2.5ML BOTTLE OS SCH (21:43)
--- NOTE | 2016-12-10 09:14 | PN ---
Progress Note, Physician Chief Complaint: Pt OOB in chair; no chest pain or dyspnea. History of Present Illness: The patient is a 66-year old black man, with a significant past medical history of hypertension, end-stage renal disease-->hemodialyesis (had dialysis yesterday without complications); syncope (08/2015, when he stood up shortly after finishing hemodialysis), who presents to the emergency department via for further evaluation of rectal bleeding. Today he had a bowel movement and noted maroon-like blood in his soft semi-formed stool. He is on Aspirin (325 mg). No fever, chills, weakness. No lightheadedness, dizziness, visual changes, headaches. He also reports experiencing shortness of breath, particularly when walking for the past few days. No chest pain. Allergies: No known drug allergies. Past Surgical History: None reported. Social History: Former smoker. No ETOH and recreational drug use. Sales Review Clerk: Dr. Menezes - Current Medication List Current Medications: Active Medications Amoxicillin (Amoxicillin -) 500 mg PO BID [facility] Stop: 12/22/16 21:59 Last Admin: 12/09/16 22:20 Dose: 500 mg Brimonidine Tartrate (Alphagan 0.2% -) 1 drop OS BID [facility] Last Admin: 12/09/16 21:42 Dose: 1 drop Clarithromycin (Biaxin -) 500 mg PO BID [facility] Stop: 12/22/16 21:59 Last Admin: 12/09/16 22:20 Dose: 500 mg Epoetin Calixto (Epogen -) 5,000 units IVPUSH ONCE ONE Stop: 12/10/16 13:26 Latanoprost (Xalatan 0.005% Eye Drops -) 1 drop OS HS [facility] Last Admin: 12/09/16 21:43 Dose: 1 drop Metoprolol Tartrate (Lopressor -) 25 mg PO BID [facility] Last Admin: 12/09/16 21:43 Dose: Not Given Pantoprazole Sodium (Protonix -) 40 mg PO BID [facility] Last Admin: 12/09/16 21:42 Dose: 40 mg Timolol Maleate (Timoptic 0.5%) 1 drop OS BID [facility] Last Admin: 12/09/16 21:43 Dose: 1 drop - Objective Vital Signs: Vital Signs Temperature 97.6 F 12/10/16 05:00 Pulse Rate 73 12/10/16 05:00 Respiratory Rate 18 12/10/16 05:00 Blood Pressure 94/49 12/10/16 05:00 O2 Sat by Pulse Oximetry (%) 98 12/09/16 21:00 Constitutional: Yes: Calm Eyes: Yes: WNL HENT: Yes: WNL Neck: Yes: Lymphadenopathy Cardiovascular: Yes: Pulse Irregular Respiratory: Yes: Regular Gastrointestinal: Yes: Soft ...Rectal Exam: Yes: Deferred Genitourinary: No: Anuria Musculoskeletal: Yes: Muscle Weakness Extremities: Yes: Cool, Other Edema: No Peripheral Pulses WNL: No Peripheral Pulses: Left Doralis Pedis: 1+, Right Dorsalis Pedis: 1+ Integumentary: Yes: Venous Stasis Changes, Other (hyperpigmentation and thckened skin (ankles)) Neurological: Yes: Alert, Oriented Psychiatric: Yes: WNL Labs: CBC, BMP 12/09/16 06:50 12/09/16 06:50 INR, PTT INR 1.16 (0.82-1.09) H 12/05/16 05:35 Problem List - Problems (1) End stage kidney disease Assessment/Plan: f/u with assistant statistician; 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 Code(s): N18.6 - END STAGE RENAL DISEASE (2) New onset a-fib Assessment/Plan: Stress Persantine MIBI 12/07/2016: no myocardial ischemia. Pt denies palpitations or chest pain.; he has felt exertional fatigue and shortness of breath (lately just walking across a room) for the past 2 months. Unable to start anticoagulants presently due to GI bleed. On metoprolol for HR control. ASA stopped; pt cautioned against using NSAIDs in the future. For hemodialysis three times/wk. ECHO shows normal LVEF; moderate aortic stenosis. Code(s): I48.91 - UNSPECIFIED ATRIAL FIBRILLATION (3) [place] cardiac risk >20% in next 10 years Assessment/Plan: stress MIBI (Persantine:No myocardial ischemia. Code(s): Z91.89 - OTH PERSONAL RISK FACTORS, NOT ELSEWHERE CLASSIFIED (4) Elevated troponin I level Code(s): R74.8 - ABNORMAL LEVELS OF OTHER SERUM ENZYMES (5) GI bleed Code(s): K92.2 - GASTROINTESTINAL HEMORRHAGE, UNSPECIFIED (6) Syncope Assessment/Plan: one episode; occurred shortly after hemodialysis session 08/2015, when he stood up: likely vasovagal in etiology. F/u orthostatic vital signs. Code(s): R55 - SYNCOPE AND COLLAPSE (7) Aortic stenosis Assessment/Plan: ECHO: normal LVEF; moderate aortic stenosis. Code(s): I35.0 - NONRHEUMATIC AORTIC (VALVE) STENOSIS (8) Anemia Assessment/Plan: f/u CBC; f/u hematology w/u (chronic anemia from ESRD; acute component from GI bleed). Code(s): D64.9 - ANEMIA, UNSPECIFIED
[2016-12-10] MEDS: METOPROLOL TARTRATE 25 MG TABLET (FP) PO SCH ×2 (09:50→22:30)
[2016-12-10] MEDS: CLARITHROMYCIN 500 MG TABLET (UD) PO SCH ×2 (09:50→22:35)
[2016-12-10] MEDS: AMOXICILLIN 500 MG CAPSULE (FP) PO SCH ×2 (09:50→22:35)
[2016-12-10] MEDS: PANTOPRAZOLE 40 MG TABLET (FP) PO SCH ×2 (09:51→22:35)
[2016-12-10] MEDS: TIMOLOL 0.5% OPHTHALMIC SOL 5 ML BOTTLE OS SCH ×2 (09:54→22:35)
[2016-12-10] MEDS: BRIMONIDINE TARTRATE 0.2% OPHTHALMIC 5 ML BOTTLE OS SCH ×2 (09:54→22:35)
[2016-12-10 10:29] LABS: BASOPHIL 0.8 % (0-2.0); EOSINOPHIL 1.4 % (0-4.5); MCH 27.6 pg (25.7-33.7); MCHC 32.4 g/dl (32.0-35.9); MEAN CELL VOLUME 85.2 fl (80-96); MEAN PLT VOLUME 9.7 fl (7.5-11.1); NEUTROPHILS 65.9 % (42.8-82.8); PLATELET COUNT 154 K/MM3 (134-434); RDW 16.2 % (11.9-15.9); WHITE BLOOD COUNT 6.2 K/mm3 (4.0-10.0)
[2016-12-10] MEDS ORDERED: EPOETIN ALFA 2,000 UNITS/1 ML VIAL IVPUSH ONE (13:30)
[2016-12-10] MEDS ORDERED: EPOETIN ALFA 3,000 UNIT/1 ML ML IVPUSH ONE (13:30)
--- NOTE | 2016-12-10 14:54 | PN ---
Progress Note, Physician History of Present Illness: Pt seen and examined at bedside. He had shortness of breath this morning. He still complain of blood per rectum. - Current Medication List Current Medications: Active Medications Amoxicillin (Amoxicillin -) 500 mg PO BID [facility] Stop: 12/22/16 21:59 Last Admin: 12/10/16 09:50 Dose: 500 mg Brimonidine Tartrate (Alphagan 0.2% -) 1 drop OS BID [facility] Last Admin: 12/10/16 09:54 Dose: 1 drop Clarithromycin (Biaxin -) 500 mg PO BID [facility] Stop: 12/22/16 21:59 Last Admin: 12/10/16 09:50 Dose: 500 mg Latanoprost (Xalatan 0.005% Eye Drops -) 1 drop OS HS [facility] Last Admin: 12/09/16 21:43 Dose: 1 drop Metoprolol Tartrate (Lopressor -) 25 mg PO BID [facility] Last Admin: 12/10/16 09:50 Dose: 25 mg Pantoprazole Sodium (Protonix -) 40 mg PO BID [facility] Last Admin: 12/10/16 09:51 Dose: 40 mg Timolol Maleate (Timoptic 0.5%) 1 drop OS BID [facility] Last Admin: 12/10/16 09:54 Dose: 1 drop - Objective Vital Signs: Vital Signs Temperature 97.4 F L 12/10/16 14:23 Pulse Rate 68 12/10/16 14:23 Respiratory Rate 18 12/10/16 14:23 Blood Pressure 81/52 12/10/16 14:23 O2 Sat by Pulse Oximetry (%) 95 12/10/16 09:00 Constitutional: Yes: Calm Eyes: Yes: Conjunctiva Clear HENT: Yes: Atraumatic Cardiovascular: Yes: S1, S2 Respiratory: Yes: CTA Bilaterally Gastrointestinal: Yes: Soft Genitourinary: Yes: WNL Musculoskeletal: Yes: WNL Edema: Yes Edema: LLE: 1+, RLE: 1+ Integumentary: Yes: Venous Stasis Changes Neurological: Yes: Oriented Psychiatric: Yes: Oriented Labs: CBC, BMP 12/10/16 10:00 12/09/16 06:50 INR, PTT INR 1.16 (0.82-1.09) H 12/05/16 05:35 Problem List - Problems (1) End stage kidney disease Code(s): N18.6 - END STAGE RENAL DISEASE (2) GI bleed Code(s): K92.2 - GASTROINTESTINAL HEMORRHAGE, UNSPECIFIED (3) New onset a-fib Code(s): I48.91 - UNSPECIFIED ATRIAL FIBRILLATION Assessment/Plan Current Medications Generic Name Dose Route Start Last Admin Trade Name Kennyq PRN Reason Stop Dose Admin Amoxicillin 500 mg 12/08/16 22:00 12/10/16 09:50 Amoxicillin - PO 12/22/16 21:59 500 mg BID FAVIO Administration Brimonidine Tartrate 1 drop 12/03/16 22:00 12/10/16 09:54 Alphagan 0.2% - OS 1 drop BID FAVIO Administration Clarithromycin 500 mg 12/08/16 22:00 12/10/16 09:50 Biaxin - PO 12/22/16 21:59 500 mg BID FAVIO Administration Latanoprost 1 drop 12/03/16 22:00 12/09/16 21:43 Xalatan 0.005% Eye Drops - OS 1 drop HS FAVIO Administration Metoprolol Tartrate 25 mg 12/03/16 22:00 12/10/16 09:50 Lopressor - PO 25 mg BID FAVIO Administration Pantoprazole Sodium 40 mg 12/03/16 22:00 12/10/16 09:51 Protonix - PO 40 mg BID FAVIO Administration Timolol Maleate 1 drop 12/03/16 22:00 12/10/16 09:54 Timoptic 0.5% OS 1 drop BID FAVIO Administration Impression 1. ESRD 2. new onset a-fib 3. GI bleed 4. HTN 5. glaucoma Plan - will arrange for HD today - prbc on HD today - monitor stool for blood - discussed at length with medical team - reagan on HD - HD prescription: 4 hrs, 475 bf, 2k bath, heparin [address] Miller
--- NOTE | 2016-12-10 15:26 | PN ---
Physical Exam: SUBJECTIVE: Patient seen and examined. He says this AM he still had blood in this stool and on the tissue, he says he gets SOB when he moves and dizzy Events: - Acute SOB, requiring supplemental oxygen - Hgb stable OBJECTIVE: Vital Signs Period Temp Pulse Resp BP Sys/Reaves Pulse Ox Last 24 Hr 97.4 F-98.8 F 59-84 18-20 77-110/49-56 95-98 PE Neuro: alert, awake, cn 2-12intact Pulm: CTAB CV: s1 s2 irregular rhythm regular rate Abd: s nt nd + bs Ext: RUE graft +thrill. chronic venous skin changes Laboratory Results - last 24 hr 12/08/16 12/09/16 12/10/16 23:00 06:50 10:00 WBC 6.2 D RBC 3.07 L Hgb 8.5 L Hct 26.2 L MCV 85.2 MCHC 32.4 RDW 16.2 H Plt Count 154 D MPV 9.7 Neutrophils % 65.9 Lymphocytes % 25.0 Monocytes % 6.9 Eosinophils % 1.4 Basophils % 0.8 Hep B Core IgM Ab Indeterminate H Blood Type O POSITIVE Antibody Screen Negative Crossmatch See Detail Active Medications Generic Name Dose Route Start Last Admin Trade Name Freq PRN Reason Stop Dose Admin Amoxicillin 500 mg 12/08/16 22:00 12/10/16 09:50 Amoxicillin - PO 12/22/16 21:59 500 mg BID FAVIO Administration Brimonidine Tartrate 1 drop 12/03/16 22:00 12/10/16 09:54 Alphagan 0.2% - OS 1 drop BID AFVIO Administration Clarithromycin 500 mg 12/08/16 22:00 12/10/16 09:50 Biaxin - PO 12/22/16 21:59 500 mg BID FAVIO Administration Latanoprost 1 drop 12/03/16 22:00 12/09/16 21:43 Xalatan 0.005% Eye Drops - OS 1 drop HS FAVIO Administration Metoprolol Tartrate 25 mg 12/03/16 22:00 12/10/16 09:50 Lopressor - PO 25 mg BID FAVIO Administration Pantoprazole Sodium 40 mg 12/03/16 22:00 12/10/16 09:51 Protonix - PO 40 mg BID FAVIO Administration Timolol Maleate 1 drop 12/03/16 22:00 12/10/16 09:54 Timoptic 0.5% OS 1 drop BID FAVIO Administration Imaging: - ECHO with a.fib with RVR, mild ST-T changes, consider anterolateral ischemia, mod aortic stenosis Assessment: 66 year old male with PMHx of ESRD (on HD ,,), glaucoma who presented to the ED with rectal bleeding, abdominal pain, dizziness x2 days. Plan: 1. New onset a.fib, [id number] 2 - Stress IBI: negative stress ECG; no ischemia; dilated LV with EF 40% - Unable to start anticoagulation 2/2 active GI bleed 2. GI bleed - 1 unit PRBC w/ HD today - Colonoscopy: diverticular bleed found 12/04 - s/p 1uprbc 12/05 - Continue protonix 3. H Pylori - Amoxicillin 500mg BID (day 11/06) - Clarithromycin 500mg BID (day 11/06) - Protonix 40mg BID (day 11/06) - Above meds to not be stopped or ineffective 4. ESRD on HD since 1996 - HD today per Renal service 5. Elevated troponin - 0.4->0.44, continue to trend - Unable to start anticoagulation as above 6. Diminished Radial pulses - Upper ext arterial dopplers done - Follow results with Dr. Mack as outpt 7. Thrombocytopenia - Resolved Visit type - Emergency Visit Emergency Visit: Yes ED Registration Date: 12/02/16 Care time: The patient presented to the Emergency Department on the above date and was hospitalized for further evaluation of their emergent condition. - New Patient This patient is new to me today: No - Critical Care Critical Care patient: No
[2016-12-10] MEDS ORDERED: PT OWN MED DRAWER 7, Y5N ONE (22:32)
[2016-12-10] MEDS: LATANOPROST 0.005% OPHTH SOLN 2.5ML BOTTLE OS SCH (22:34)
[2016-12-11 07:55] LABS: BASOPHIL 0.7 % (0-2.0); EOSINOPHIL 1.4 % (0-4.5); MCH 27.5 pg (25.7-33.7); MCHC 32.8 g/dl (32.0-35.9); MEAN CELL VOLUME 83.7 fl (80-96); MEAN PLT VOLUME 9.7 fl (7.5-11.1); NEUTROPHILS 61.4 % (42.8-82.8); PLATELET COUNT 101 K/MM3 (134-434); RDW 16.2 % (11.9-15.9); WHITE BLOOD COUNT 3.8 K/mm3 (4.0-10.0)
[2016-12-11] MEDS ORDERED: PT OWN MED DRAWER 7, Y5N ONE (09:21)
[2016-12-11] MEDS: CLARITHROMYCIN 500 MG TABLET (UD) PO SCH ×2 (09:22→21:32)
[2016-12-11] MEDS: PANTOPRAZOLE 40 MG TABLET (FP) PO SCH ×2 (09:22→21:32)
[2016-12-11] MEDS: AMOXICILLIN 500 MG CAPSULE (FP) PO SCH ×2 (09:22→21:32)
[2016-12-11] MEDS: TIMOLOL 0.5% OPHTHALMIC SOL 5 ML BOTTLE OS SCH ×2 (09:23→21:31)
[2016-12-11] MEDS: BRIMONIDINE TARTRATE 0.2% OPHTHALMIC 5 ML BOTTLE OS SCH ×2 (09:23→21:30)
[2016-12-11] MEDS: METOPROLOL TARTRATE 25 MG TABLET (FP) PO SCH (09:23)
--- NOTE | 2016-12-11 11:08 | PN ---
Physical Exam: SUBJECTIVE: Patient seen and examined. He states continued SOB with movement requiring oxygen and blood with stool. He did not require O2 at home before. OBJECTIVE: Vital Signs Period Temp Pulse Resp BP Sys/Reaves Pulse Ox Last 24 Hr 97.4 F-98.4 F 59-88 18-20 77-99/42-63 100-100 PE Neuro: alert, awake, cn 2-12intact Pulm: CTAB CV: s1 s2 rrr 2/6 systolic murmur Abd: s nt nd + bs Ext: RUE graft +thrill. chronic venous skin changes Skin: dry CBCD WBC 3.8 K/mm3 (4.0-10.0) L D 12/11/16 05:48 RBC 3.13 M/mm3 (4.00-5.60) L 12/11/16 05:48 Hgb 8.6 GM/dL (11.7-16.9) L 12/11/16 05:48 Hct 26.2 % (35.4-49) L 12/11/16 05:48 MCV 83.7 fl (80-96) 12/11/16 05:48 MCHC 32.8 g/dl (32.0-35.9) 12/11/16 05:48 RDW 16.2 % (11.9-15.9) H 12/11/16 05:48 Plt Count 101 K/MM3 (134-434) L D 12/11/16 05:48 MPV 9.7 fl (7.5-11.1) 12/11/16 05:48 CMP Sodium 143 mmol/L (136-145) 12/09/16 06:50 Potassium 4.1 mmol/L (3.5-5.1) 12/09/16 06:50 Chloride 102 mmol/L (98-107) 12/09/16 06:50 Carbon Dioxide 32 mmol/L (21-32) 12/09/16 06:50 Anion Gap 9 (8-16) 12/09/16 06:50 BUN 21 mg/dL (7-18) H D 12/09/16 06:50 Creatinine 4.9 mg/dL (0.7-1.3) H D 12/09/16 06:50 Creat Clearance w eGFR 11.98 (>60) 12/09/16 06:50 Calcium 8.3 mg/dL (8.5-10.1) L 12/09/16 06:50 Total Bilirubin 0.6 mg/dL (0.2-1.0) D 12/09/16 06:50 AST 36 U/L (15-37) 12/09/16 06:50 ALT 25 U/L (12-78) 12/09/16 06:50 Alkaline Phosphatase 100 U/L (45-117) D 12/09/16 06:50 Total Protein 5.8 g/dl (6.4-8.2) L 12/09/16 06:50 Albumin 3.0 g/dl (3.4-5.0) L 12/09/16 06:50 Active Medications Generic Name Dose Route Start Last Admin Trade Name Freq PRN Reason Stop Dose Admin Amoxicillin 500 mg 12/08/16 22:00 12/11/16 09:22 Amoxicillin - PO 12/22/16 21:59 500 mg BID FAVIO Administration Brimonidine Tartrate 1 drop 12/03/16 22:00 12/11/16 09:23 Alphagan 0.2% - OS 1 drop BID FAVIO Administration Clarithromycin 500 mg 12/08/16 22:00 12/11/16 09:22 Biaxin - PO 12/22/16 21:59 500 mg BID FAVIO Administration Latanoprost 1 drop 12/03/16 22:00 12/10/16 22:34 Xalatan 0.005% Eye Drops - OS 1 drop HS FAVIO Administration Metoprolol Tartrate 25 mg 12/03/16 22:00 12/11/16 09:23 Lopressor - PO Not Given BID FAVIO Pantoprazole Sodium 40 mg 12/03/16 22:00 12/11/16 09:22 Protonix - PO 40 mg BID FAVIO Administration Timolol Maleate 1 drop 12/03/16 22:00 12/11/16 09:23 Timoptic 0.5% OS 1 drop BID FAVIO Administration Imaging: - ECHO with a.fib with RVR, mild ST-T changes, consider anterolateral ischemia, mod aortic stenosis - Stress MIBI: negative stress ECG; no ischemia; dilated LV with EF 40% Assessment: 66 year old male with PMHx of ESRD (on HD ,,), glaucoma who presented to the ED with rectal bleeding, abdominal pain, dizziness x2 days, found to have a diverticular bleed on colonoscopy prefromed 12/04. Plan: 1. New onset a.fib, [id number] - In sinus rhythm - Decrease Metoprolol 25mg daily for hypotension, maintain holding parameters - Hold AC d/t bleed 2. GI bleed - Will order bleeding scan today r/o micro bleed - Transfused packed cells 12/05, 12/10 - Continue protonix BID 3. H Pylori - Amoxicillin 500mg BID (day 12/07) - Clarithromycin 500mg BID (day 12/07) - Protonix 40mg BID (day 12/07) - Above meds to not be stopped or ineffective 4. ESRD on HD since 1996, - HD per Renal service 5. Elevated troponin - Stress test negative for ischemia 6. Diminished Radial pulses - Upper ext arterial dopplers done - Follow results with Dr. Mack as outpt 7. Thrombocytopenia - Will repeat CBC Visit type - Emergency Visit Emergency Visit: Yes ED Registration Date: 12/02/16 Care time: The patient presented to the Emergency Department on the above date and was hospitalized for further evaluation of their emergent condition. - New Patient This patient is new to me today: No - Critical Care Critical Care patient: No
[2016-12-11 12:56] LABS: BASOPHIL 0.7 % (0-2.0); EOSINOPHIL 1.2 % (0-4.5); MCH 27.5 pg (25.7-33.7); MCHC 32.2 g/dl (32.0-35.9); MEAN CELL VOLUME 85.3 fl (80-96); MEAN PLT VOLUME 9.1 fl (7.5-11.1); NEUTROPHILS 65.1 % (42.8-82.8); PLATELET COUNT 129 K/MM3 (134-434); RDW 17.3 % (11.9-15.9)
--- NOTE | 2016-12-11 13:49 | PN ---
Progress Note, Physician History of Present Illness: History of Present Illness: The patient is a 66-year old black man, with a significant past medical history of hypertension, end-stage renal disease-->hemodialyesis (had dialysis yesterday without complications); syncope (08/2015, when he stood up shortly after finishing hemodialysis), who presents to the emergency department via for further evaluation of rectal bleeding. Today he had a bowel movement and noted maroon-like blood in his soft semi-formed stool. He is on Aspirin (325 mg). No fever, chills, weakness. No lightheadedness, dizziness, visual changes, headaches. He also reports experiencing shortness of breath, particularly when walking for the past few days. No chest pain. Allergies: No known drug allergies. Past Surgical History: None reported. Social History: Former smoker. No ETOH and recreational drug use. Nocturnist: Dr. Menezes - Current Medication List Current Medications: Active Medications Amoxicillin (Amoxicillin -) 500 mg PO BID [facility] Stop: 12/22/16 21:59 Last Admin: 12/11/16 09:22 Dose: 500 mg Brimonidine Tartrate (Alphagan 0.2% -) 1 drop OS BID [facility] Last Admin: 12/11/16 09:23 Dose: 1 drop Clarithromycin (Biaxin -) 500 mg PO BID [facility] Stop: 12/22/16 21:59 Last Admin: 12/11/16 09:22 Dose: 500 mg Latanoprost (Xalatan 0.005% Eye Drops -) 1 drop OS [facility] Last Admin: 12/10/16 22:34 Dose: 1 drop Metoprolol Tartrate (Lopressor -) 25 mg PO DAILY [facility] Pantoprazole Sodium (Protonix -) 40 mg PO BID [facility] Last Admin: 12/11/16 09:22 Dose: 40 mg Timolol Maleate (Timoptic 0.5%) 1 drop OS BID [facility] Last Admin: 12/11/16 09:23 Dose: 1 drop - Objective Vital Signs: Vital Signs Temperature 98.4 F 12/11/16 09:00 Pulse Rate 80 12/11/16 09:00 Respiratory Rate 20 12/11/16 09:00 Blood Pressure 80/42 12/11/16 09:00 O2 Sat by Pulse Oximetry (%) 97 12/11/16 09:00 Eyes: Yes: WNL, Conjunctiva Clear, EOM Intact HENT: Yes: WNL, Atraumatic, Normocephalic Neck: Yes: WNL, Supple, Trachea Midline Cardiovascular: Yes: WNL, Regular Rate and Rhythm, Murmur, S1, S2 Respiratory: Yes: WNL, Regular, CTA Bilaterally Gastrointestinal: Yes: WNL, Normal Bowel Sounds Genitourinary: Yes: WNL Musculoskeletal: Yes: WNL Extremities: Yes: WNL Edema: No Integumentary: Yes: WNL Neurological: Yes: WNL, Alert, Oriented ...Motor Strength: WNL Psychiatric: Yes: WNL Labs: CBC, BMP 12/11/16 12:45 12/09/16 06:50 INR, PTT INR 1.16 (0.82-1.09) H 12/05/16 05:35 Assessment/Plan - Problems (1) End stage kidney disease Assessment/Plan: 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 Code(s): N18.6 - END STAGE RENAL DISEASE (2) New onset a-fib Assessment/Plan: Stress Persantine MIBI 12/07/2016: no myocardial ischemia. Pt denies palpitations or chest pain.; he has felt exertional fatigue and shortness of breath (lately just walking across a room) for the past 2 months. Unable to start anticoagulants presently due to GI bleed. On metoprolol for HR control. ASA stopped; pt cautioned against using NSAIDs in the future. For hemodialysis three times/wk. ECHO shows normal LVEF; moderate aortic stenosis. Code(s): I48.91 - UNSPECIFIED ATRIAL FIBRILLATION (3) Redig cardiac risk >20% in next 10 years Assessment/Plan: stress MIBI (Persantine:No myocardial ischemia. Code(s): Z91.89 - OT PERSONAL RISK FACTORS, NOT ELSEWHERE CLASSIFIED (4) Elevated troponin I level Code(s): R74.8 - ABNORMAL LEVELS OF OTHER SERUM ENZYMES (5) GI bleed Code(s): K92.2 - GASTROINTESTINAL HEMORRHAGE, UNSPECIFIED (6) Syncope Assessment/Plan: one episode; occurred shortly after hemodialysis session 08/2015, when he stood up: likely vasovagal in etiology. F/u orthostatic vital signs. Code(s): R55 - SYNCOPE AND COLLAPSE (7) Aortic stenosis Assessment/Plan: ECHO: normal LVEF; moderate aortic stenosis. Code(s): I35.0 - NONRHEUMATIC AORTIC (VALVE) STENOSIS (8) Anemia Assessment/Plan: f/u CBC; f/u hematology w/u (chronic anemia from ESRD; acute component from GI bleed). Code(s): D64.9 - ANEMIA, UNSPECIFIED will d/c telemetrty
[2016-12-11 14:18] LABS: HCV LOG 10 4.569 (.)
--- NOTE | 2016-12-11 15:39 | PN ---
Progress Note, Physician History of Present Illness: Pt seen and examined at bedside. He still complains of rectal bleeding. - Current Medication List Current Medications: Active Medications Amoxicillin (Amoxicillin -) 500 mg PO BID [facility] Stop: 12/22/16 21:59 Last Admin: 12/11/16 09:22 Dose: 500 mg Brimonidine Tartrate (Alphagan 0.2% -) 1 drop OS BID [facility] Last Admin: 12/11/16 09:23 Dose: 1 drop Clarithromycin (Biaxin -) 500 mg PO BID [facility] Stop: 12/22/16 21:59 Last Admin: 12/11/16 09:22 Dose: 500 mg Latanoprost (Xalatan 0.005% Eye Drops -) 1 drop OS HS [facility] Last Admin: 12/10/16 22:34 Dose: 1 drop Metoprolol Tartrate (Lopressor -) 25 mg PO DAILY [facility] Pantoprazole Sodium (Protonix -) 40 mg PO BID [facility] Last Admin: 12/11/16 09:22 Dose: 40 mg Timolol Maleate (Timoptic 0.5%) 1 drop OS BID [facility] Last Admin: 12/11/16 09:23 Dose: 1 drop - Objective Vital Signs: Vital Signs Temperature 98.2 F 12/11/16 14:15 Pulse Rate 78 12/11/16 14:15 Respiratory Rate 20 12/11/16 14:15 Blood Pressure 88/54 12/11/16 14:15 O2 Sat by Pulse Oximetry (%) 97 12/11/16 09:00 Constitutional: Yes: Calm Eyes: Yes: Conjunctiva Clear HENT: Yes: Atraumatic Neck: Yes: Supple Cardiovascular: Yes: S1, S2 Respiratory: Yes: CTA Bilaterally Gastrointestinal: Yes: Soft Genitourinary: Yes: WNL Musculoskeletal: Yes: WNL Edema: Yes Edema: LLE: Trace, RLE: Trace Neurological: Yes: Oriented Psychiatric: Yes: Oriented Labs: CBC, BMP 12/11/16 12:45 12/09/16 06:50 INR, PTT INR 1.16 (0.82-1.09) H 12/05/16 05:35 Problem List - Problems (1) End stage kidney disease Code(s): N18.6 - END STAGE RENAL DISEASE (2) GI bleed Code(s): K92.2 - GASTROINTESTINAL HEMORRHAGE, UNSPECIFIED (3) New onset a-fib Code(s): I48.91 - UNSPECIFIED ATRIAL FIBRILLATION Assessment/Plan Current Medications Generic Name Dose Route Start Last Admin Trade Name Linda PRN Reason Stop Dose Admin Amoxicillin 500 mg 12/08/16 22:00 12/11/16 09:22 Amoxicillin - PO 12/22/16 21:59 500 mg BID FAVIO Administration Brimonidine Tartrate 1 drop 12/03/16 22:00 12/11/16 09:23 Alphagan 0.2% - OS 1 drop BID FAVIO Administration Clarithromycin 500 mg 12/08/16 22:00 12/11/16 09:22 Biaxin - PO 12/22/16 21:59 500 mg BID FAVIO Administration Latanoprost 1 drop 12/03/16 22:00 12/10/16 22:34 Xalatan 0.005% Eye Drops - OS 1 drop HS FAVIO Administration Metoprolol Tartrate 25 mg 12/12/16 10:00 Lopressor - PO DAILY [facility] Pantoprazole Sodium 40 mg 12/03/16 22:00 12/11/16 09:22 Protonix - PO 40 mg BID FAVIO Administration Timolol Maleate 1 drop 12/03/16 22:00 12/11/16 09:23 Timoptic 0.5% OS 1 drop BID FAVIO Administration Impression 1. ESRD 2. new onset a-fib 3. GI bleed 4. HTN 5. glaucoma Plan - monitor hg - will arrange for HD in am - discussed with hospitalist - pt is going for a bleeding scan - monitor stool for blood - epogen on HD - HD prescription: 4 hrs, 475 bf, 2k bath, heparin [address] Miller
--- NOTE | 2016-12-11 16:39 | PROC ---
Addendum entered and electronically signed by Reinier Rodriguez PA 12/11/16 17:08: Central Line Post Procedure - Status Post Procedure No Pneumothorax. Line in good position, confirmed by chest x-ray. Original Note: Central Line Insertion - Procedure Note TIME OUT performed prior to this procedure with verbal confirmation of correct patient identity, correct side, agreement of the procedure, correct patient position, availability of necessary equipment. The consent form is complete and accurate. Risk of possible infection, bleeding and pneumothorax have been discussed with the patient. Safety precautions based on patient history or medication use has been addressed. Indication: Poor Venous Access Central Line: Triple Lumen Catheter Position: Supine Area prepped with Chlorhexidine solution then draped using sterile barrier protection. Anesthesia: Lidocaine 1% Technique used: Seldinger Ultrasound Guided Assistance: Yes Site: Right Internal Jugular Dark venous non-pulsatile flow noted from hub of needle. The catheter was introduced. Guide wire removed intact. Each port aspirated then flushed with sterile normal saline and capped. Line secured to skin with silk suture. Biopatch placed around base of line. Sterile occlusive dressing applied. No complications. Patient tolerated the procedure well. STAT chest xray ordered to confirm position and rule out pneumothorax
--- NOTE | 2016-12-11 17:21 | PN ---
GI Progress Note Subjective: GI: Still having dark stool daily. NO fresh blood recently but has required additional transfusions - Objective Vital Signs: Vital Signs Temperature 98.2 F 12/11/16 14:15 Pulse Rate 78 12/11/16 14:15 Respiratory Rate 20 12/11/16 14:15 Blood Pressure 88/54 12/11/16 14:15 O2 Sat by Pulse Oximetry (%) 97 12/11/16 09:00 Constitutional: No Distress ...Auscultate: Yes: Normoactive Bowel Sounds ...Palpate: Yes: Soft, Other (nontender) Labs: CBC, BMP 12/11/16 12:45 12/09/16 06:50 INR, PTT INR 1.16 (0.82-1.09) H 12/05/16 05:35 Laboratory Tests 12/07/16 12/08/16 12/09/16 13:59 11:45 06:50 Hgb 9.7 L D 7.4 L D 8.4 L D 12/10/16 12/11/16 12/11/16 10:00 05:48 12:45 Hgb 8.5 L 8.6 L 9.6 L D Assessment/Plan Persistent vs recurrent bleeding. May need repeat colonoscopy. Await bleeding scan. Dr Velarde will be covering this weekend.
[2016-12-11] MEDS: LATANOPROST 0.005% OPHTH SOLN 2.5ML BOTTLE OS SCH (21:31)
[2016-12-12] MEDS: BRIMONIDINE TARTRATE 0.2% OPHTHALMIC 5 ML BOTTLE OS SCH ×2 (10:22→22:57)
[2016-12-12] MEDS: TIMOLOL 0.5% OPHTHALMIC SOL 5 ML BOTTLE OS SCH ×2 (10:23→22:57)
[2016-12-12] MEDS: AMOXICILLIN 500 MG CAPSULE (FP) PO SCH ×2 (10:24→22:21)
[2016-12-12] MEDS: PANTOPRAZOLE 40 MG TABLET (FP) PO SCH ×2 (10:24→22:24)
[2016-12-12] MEDS: CLARITHROMYCIN 500 MG TABLET (UD) PO SCH ×2 (10:24→22:22)
[2016-12-12] MEDS: METOPROLOL TARTRATE 25 MG TABLET (FP) PO SCH (10:24)
--- NOTE | 2016-12-12 11:04 | PN ---
Progress Note, Physician History of Present Illness: seen and examined today in [facility]. no overnight events. no new complaints. states he is feeling better. - Current Medication List Current Medications: Active Medications Amoxicillin (Amoxicillin -) 500 mg PO BID [facility] Stop: 12/22/16 21:59 Last Admin: 12/12/16 10:24 Dose: Not Given Brimonidine Tartrate (Alphagan 0.2% -) 1 drop OS BID [facility] Last Admin: 12/12/16 10:22 Dose: 1 drop Clarithromycin (Biaxin -) 500 mg PO BID [facility] Stop: 12/22/16 21:59 Last Admin: 12/12/16 10:24 Dose: Not Given Epoetin Calixto (Epogen -) 6,000 units IVPUSH ONCE ONE Stop: 12/12/16 15:40 Latanoprost (Xalatan 0.005% Eye Drops -) 1 drop OS HS [facility] Last Admin: 12/11/16 21:31 Dose: 1 drop Metoprolol Tartrate (Lopressor -) 25 mg PO DAILY [facility] Last Admin: 12/12/16 10:24 Dose: Not Given Pantoprazole Sodium (Protonix -) 40 mg PO BID [facility] Last Admin: 12/12/16 10:24 Dose: Not Given Timolol Maleate (Timoptic 0.5%) 1 drop OS BID [facility] Last Admin: 12/12/16 10:23 Dose: 1 drop - Objective Vital Signs: Vital Signs Temperature 99.0 F 12/12/16 06:00 Pulse Rate 80 12/12/16 06:00 Respiratory Rate 20 12/12/16 06:00 Blood Pressure 98/56 12/12/16 06:00 O2 Sat by Pulse Oximetry (%) 95 12/12/16 06:00 Constitutional: Yes: Well Nourished, No Distress, Calm Eyes: Yes: WNL, Conjunctiva Clear, EOM Intact, PERRL HENT: Yes: WNL, Atraumatic, Normocephalic Neck: Yes: WNL, Supple, Trachea Midline Cardiovascular: Yes: Regular Rate and Rhythm, S1, S2. No: Bradycardia, Tachycardia, Pulse Irregular, Bruit, JVD, Gallop, Murmur, Rub, S3, S4, Varicosities Respiratory: Yes: Regular, Diminished, Rhonchi. No: Rales, Wheezes Gastrointestinal: Yes: WNL, Normal Bowel Sounds, Soft. No: Distention, Tenderness Musculoskeletal: Yes: WNL Extremities: Yes: WNL Edema: Yes Edema: LLE: Trace, RLE: Trace Peripheral Pulses WNL: Yes Peripheral Pulses: Left Doralis Pedis: 2+, Right Dorsalis Pedis: 2+ Integumentary: Yes: WNL Neurological: Yes: Alert, Oriented Psychiatric: Yes: Alert, Oriented Labs: CBC, BMP 12/11/16 12:45 12/09/16 06:50 INR, PTT INR 1.16 (0.82-1.09) H 12/05/16 05:35 - ....Imaging Chest X-ray: Report Reviewed, Image Reviewed EKG: Report Reviewed, Image Reviewed Other: Report Reviewed, Image Reviewed (tele-nsr, 1st deg AVB, apcs, pvcs) Assessment/Plan 66 year old man with a history of HTN, ESRD on HD, aortic stenosis, h/o syncope , admitted with rectal bleeding and noted to have newly dx paroxysmal afib. Atrial fibrillation-paroxysmal, newly dx -has been in NSR, HR controlled -not on AC due to GI bleed and ASA stopped as well, consider resuming AC if GI bleed etiology found and treated -cont lopressor 25mg po daily for now, BP does not tolerate uptitration and not necessary at this time -ok to dc telemetry at this point Elevated troponin -ECHO shows normal LVEF; moderate aortic stenosis. -Stress Persantine MIBI 12/07/2016: no myocardial ischemia. Syncope- -one episode presumed to be due to orthostatic hypotension Aortic stenosis -echo as above, moderate stenosis
--- NOTE | 2016-12-12 11:45 | PN ---
Physical Exam: SUBJECTIVE: Patient seen and examined Pt reports still having rectal bleed( scant), denies abdominal pain, N/V?d, cp , sob or palpitations. OBJECTIVE: Vital Signs Period Temp Pulse Resp BP Sys/Reaves Pulse Ox Last 24 Hr 98.2 F-99.0 F 74-80 20-20 88-98/52-59 95-96 GENERAL: The patient is awake, alert, and fully oriented, in no acute distress, OOB HEAD: Normal with no signs of trauma. EYES: PERRL, extraocular movements intact, sclera anicteric, conjunctiva clear. No ptosis. ENT: Ears normal, nares patent, oropharynx clear without exudates, moist mucous membranes. NECK: Trachea midline, full range of motion, supple., TLC intact LUNGS: Breath sounds equal, clear to auscultation bilaterally, no wheezes, no crackles, no accessory muscle use. HEART: Regular rate and rhythm, S1, S2 ,systolic murmur, rub or gallop. ABDOMEN: Soft, nontender, nondistended, normoactive bowel sounds, no guarding, no rebound, no hepatosplenomegaly, no masses. EXTREMITIES: 2+ pulses, warm, well-perfused,1+ edema, positive pulse NEUROLOGICAL: Cranial nerves II through XII grossly intact. Normal speech, gait not observed. PSYCH: Normal mood, normal affect. SKIN: Warm, dry, normal turgor, no rashes or lesions noted AVF- ADALID ,+bruit and thrill Laboratory Results - last 24 hr 12/03/16 12/08/16 12/11/16 13:00 23:00 12:45 WBC 6.0 D RBC 3.50 L Hgb 9.6 L D Hct 29.9 L MCV 85.3 MCHC 32.2 RDW 17.3 H Plt Count 129 L D MPV 9.1 Neutrophils % 65.1 Lymphocytes % 24.6 Monocytes % 8.4 Eosinophils % 1.2 Basophils % 0.7 HCV RNA PCR log copywriting intern/ml 4.569 Blood Type O POSITIVE Antibody Screen Negative Crossmatch See Detail Active Medications Generic Name Dose Route Start Last Admin Trade Name Freq PRN Reason Stop Dose Admin Amoxicillin 500 mg 12/08/16 22:00 12/12/16 10:24 Amoxicillin - PO 12/22/16 21:59 Not Given BID FAVIO Brimonidine Tartrate 1 drop 12/03/16 22:00 12/12/16 10:22 Alphagan 0.2% - OS 1 drop BID FAVIO Administration Clarithromycin 500 mg 12/08/16 22:00 12/12/16 10:24 Biaxin - PO 12/22/16 21:59 Not Given BID FAVIO Epoetin Calixto 6,000 units 12/12/16 15:39 Epogen - IVPUSH 12/12/16 15:40 ONCE ONE Latanoprost 1 drop 12/03/16 22:00 12/11/16 21:31 Xalatan 0.005% Eye Drops - OS 1 drop HS FAVIO Administration Metoprolol Tartrate 25 mg 12/12/16 10:00 12/12/16 10:24 Lopressor - PO Not Given DAILY [facility] Pantoprazole Sodium 40 mg 12/03/16 22:00 12/12/16 10:24 Protonix - PO Not Given BID F[facility]IO Timolol Maleate 1 drop 12/03/16 22:00 12/12/16 10:23 Timoptic 0.5% OS 1 drop BID FAVIO Administration Imaging: - ECHO with a.fib with RVR, mild ST-T changes, consider anterolateral ischemia, mod aortic stenosis - Stress MIBI: negative stress ECG; no ischemia; dilated LV with EF 40% CxR- Congestive changes ASSESSMENT/PLAN: Assessment: 66 year old male with PMHx of ESRD (on HD ), glaucoma who presented to the ED with rectal bleeding, abdominal pain, dizziness x2 days, found to have a diverticular bleed on colonoscopy prefromed 12/04. * New onset a.fib, [id number] - In sinus rhythm - HR controlled - will cont on decrease Metoprolol 25mg daily for hypotension, maintain holding parameters - Hold AC d/t bleed * GI bleed -s/p blood transfusion 2 units -CBC stable - Bladder scan ordered - will f/u on CBC - Continue Protonix BID - GI following *H Pylori - Amoxicillin 500mg BID (day 12/07) - Clarithromycin 500mg BID (day 12/07) - Protonix 40mg BID (day 12/07) - Above meds to not be stopped or ineffective *ESRD on HD since 1996, // - HD per Renal service *Elevated troponin - asymptomatic - Stress test negative for ischemia - cardiology following *Diminished Radial pulses - Upper ext arterial dopplers done- report pending - Follow results with Dr. Mack 7. Thrombocytopenia - PLT 129 -Will repeat CBC * - Echo report as mentioned above Visit type - Emergency Visit Emergency Visit: Yes ED Registration Date: 12/02/16 Care time: The patient presented to the Emergency Department on the above date and was hospitalized for further evaluation of their emergent condition. - New Patient This patient is new to me today: Yes Date on this admission: 12/12/16 - Critical Care Critical Care patient: No
--- NOTE | 2016-12-12 11:58 | PN ---
Progress Note (short form) - Note Progress Note: Patient states seeing "just a small amount of blood in stool" this morning. Will monitor H/H. If still with rectal bleeding and dwindling H/H for repreat colonoscopy Problem List - Problems (1) Lower GI hemorrhage Code(s): K92.2 - GASTROINTESTINAL HEMORRHAGE, UNSPECIFIED
[2016-12-12 13:00] LABS: BASOPHIL 1.5 % (0-2.0); EOSINOPHIL 1.4 % (0-4.5); MCH 27.2 pg (25.7-33.7); MCHC 31.8 g/dl (32.0-35.9); MEAN CELL VOLUME 85.4 fl (80-96); MEAN PLT VOLUME 9.6 fl (7.5-11.1); NEUTROPHILS 66.9 % (42.8-82.8); PLATELET COUNT 117 K/MM3 (134-434); RDW 16.8 % (11.9-15.9); WHITE BLOOD COUNT 4.1 K/mm3 (4.0-10.0)
[2016-12-12] MEDS ORDERED: EPOETIN ALFA 3,000 UNIT/1 ML ML IVPUSH ONE (14:00)
--- NOTE | 2016-12-12 14:27 | PN ---
Progress Note (short form) - Note Progress Note: ID Consult dictated Hep B serology c/w previous infection. No further work up or treatment advised. Pt consents to HIV testing
--- NOTE | 2016-12-12 16:59 | PN ---
Progress Note, Physician History of Present Illness: Pt seen and examined at bedside. He is awake and alert. He denies shortness of breath. - Current Medication List Current Medications: Active Medications Amoxicillin (Amoxicillin -) 500 mg PO BID [facility] Stop: 12/22/16 21:59 Last Admin: 12/12/16 10:24 Dose: Not Given Brimonidine Tartrate (Alphagan 0.2% -) 1 drop OS BID [facility] Last Admin: 12/12/16 10:22 Dose: 1 drop Clarithromycin (Biaxin -) 500 mg PO BID [facility] Stop: 12/22/16 21:59 Last Admin: 12/12/16 10:24 Dose: Not Given Latanoprost (Xalatan 0.005% Eye Drops -) 1 drop OS HS [facility] Last Admin: 12/11/16 21:31 Dose: 1 drop Metoprolol Tartrate (Lopressor -) 25 mg PO DAILY [facility] Last Admin: 12/12/16 10:24 Dose: Not Given Pantoprazole Sodium (Protonix -) 40 mg PO BID [facility] Last Admin: 12/12/16 10:24 Dose: Not Given Timolol Maleate (Timoptic 0.5%) 1 drop OS BID [facility] Last Admin: 12/12/16 10:23 Dose: 1 drop - Objective Vital Signs: Vital Signs Temperature 98.0 F 12/12/16 16:30 Pulse Rate 78 12/12/16 16:30 Respiratory Rate 18 12/12/16 16:30 Blood Pressure 86/57 12/12/16 16:30 O2 Sat by Pulse Oximetry (%) 95 12/12/16 06:00 Constitutional: Yes: Calm Eyes: Yes: Conjunctiva Clear HENT: Yes: Atraumatic Neck: Yes: Supple Cardiovascular: Yes: S1, S2 Respiratory: Yes: CTA Bilaterally Gastrointestinal: Yes: Soft Musculoskeletal: Yes: WNL Extremities: Yes: Other (right arm graft) Edema: Yes Neurological: Yes: Oriented Psychiatric: Yes: Oriented Labs: CBC, BMP 12/12/16 12:20 12/09/16 06:50 INR, PTT INR 1.16 (0.82-1.09) H 12/05/16 05:35 Problem List - Problems (1) End stage kidney disease Code(s): N18.6 - END STAGE RENAL DISEASE (2) GI bleed Code(s): K92.2 - GASTROINTESTINAL HEMORRHAGE, UNSPECIFIED (3) New onset a-fib Code(s): I48.91 - UNSPECIFIED ATRIAL FIBRILLATION Assessment/Plan Current Medications Generic Name Dose Route Start Last Admin Trade Name Linda PRN Reason Stop Dose Admin Amoxicillin 500 mg 12/08/16 22:00 12/12/16 10:24 Amoxicillin - PO 12/22/16 21:59 Not Given BID FAVIO Brimonidine Tartrate 1 drop 12/03/16 22:00 12/12/16 10:22 Alphagan 0.2% - OS 1 drop BID FAVIO Administration Clarithromycin 500 mg 12/08/16 22:00 12/12/16 10:24 Biaxin - PO 12/22/16 21:59 Not Given BID FAVIO Latanoprost 1 drop 12/03/16 22:00 12/11/16 21:31 Xalatan 0.005% Eye Drops - OS 1 drop HS FAVIO Administration Metoprolol Tartrate 25 mg 12/12/16 10:00 12/12/16 10:24 Lopressor - PO Not Given DAILY FAVIO Pantoprazole Sodium 40 mg 12/03/16 22:00 12/12/16 10:24 Protonix - PO Not Given BID FAVIO Timolol Maleate 1 drop 12/03/16 22:00 12/12/16 10:23 Timoptic 0.5% OS 1 drop BID FAVIO Administration Impression 1. ESRD 2. new onset a-fib 3. GI bleed 4. HTN 5. glaucoma Plan - pt is tolerating HD so far - monitor Hg - GI follow up - monitor stool for blood - epogen on HD - HD prescription: 4 hrs, 475 bf, 2k bath, heparin [address] Miller
[2016-12-12] MEDS: LATANOPROST 0.005% OPHTH SOLN 2.5ML BOTTLE OS SCH (22:58)
--- NOTE | 2016-12-13 09:57 | PN ---
Physical Exam: SUBJECTIVE: Patient seen and examined. He has no complaints. He has not noted any rectal bleeding. OBJECTIVE: Vital Signs Period Temp Pulse Resp BP Sys/Reaves Pulse Ox Last 24 Hr 97.8 F-98.2 F 67-97 16-20 81-116/48-68 95-95 GENERAL: The patient is awake, alert, and fully oriented, in no acute distress. LUNGS: Breath sounds equal, clear to auscultation bilaterally, no wheezes, no crackles, no accessory muscle use. HEART: Regular rate and rhythm, S1, S2, (+) 2/6 systolic murmur. ABDOMEN: Soft, nontender, nondistended, normoactive bowel sounds, no guarding, no rebound, no hepatosplenomegaly, no masses. EXTREMITIES: 2+ pulses, warm, well-perfused, no edema. Laboratory Results - last 24 hr 12/12/16 12:20 WBC 4.1 D RBC 3.29 L Hgb 8.9 L Hct 28.1 L MCV 85.4 MCHC 31.8 L RDW 16.8 H Plt Count 117 L MPV 9.6 Neutrophils % 66.9 Lymphocytes % 24.4 Monocytes % 5.8 Eosinophils % 1.4 Basophils % 1.5 Active Medications Generic Name Dose Route Start Last Admin Trade Name Freq PRN Reason Stop Dose Admin Amoxicillin 500 mg 12/08/16 22:00 12/12/16 22:21 Amoxicillin - PO 12/22/16 21:59 500 mg BID FAVIO Administration Brimonidine Tartrate 1 drop 12/12/16 22:38 Alphagan 0.2% - OD BID [facility] Clarithromycin 500 mg 12/08/16 22:00 12/12/16 22:22 Biaxin - PO 12/22/16 21:59 500 mg BID FAVIO Administration Latanoprost 1 drop 12/12/16 22:40 Xalatan 0.005% Eye Drops - OD HS [facility] Metoprolol Tartrate 25 mg 12/12/16 10:00 12/12/16 10:24 Lopressor - PO Not Given DAILY [facility] Pantoprazole Sodium 40 mg 12/03/16 22:00 12/12/16 22:24 Protonix - PO 40 mg BID FAVIO Administration Timolol Maleate 1 drop 12/12/16 22:40 Timoptic 0.5% OD BID [facility] ASSESSMENT/PLAN: This is a 66-year-old man with a history of ESRD on HD, glaucoma who presented to the ER with rectal bleeding, abdominal pain, dizziness. 1. Acute GI blood loss anemia secondary to diverticular bleed - Transfused 2 units PRBCs - Hemoglobin decreasing - Bleeding scan ordered - Continue Epogen with HD 2. Paroxysmal atrial fibrillation - Remains in sinus rhythm - Continue Lopressor - Anticoagulation held secondary to GI bleeding 3. Hepatitis C - Outpatient GI follow up 4. H. pylori - On Amoxicillin, Clarithromycin, Protonix (day 6) 5. ESRD - Continue HD 6. Elevated troponin - Stress test negative for ischemia 7. Diminished radial pulses - Arterial dopplers pending 8. Thrombocytopenia - Monitor platelets 9. Moderate aortic stenosis Visit type - Emergency Visit Emergency Visit: Yes ED Registration Date: 12/02/16 Care time: The patient presented to the Emergency Department on the above date and was hospitalized for further evaluation of their emergent condition. - New Patient This patient is new to me today: Yes Date on this admission: 12/13/16 - Critical Care Critical Care patient: No - Discharge Referral Referred to [facility] Med P.C.: No
--- NOTE | 2016-12-13 10:15 | PN ---
Progress Note (short form) - Note Progress Note: Hep C PCR with low level viremia. Discussed with patient. will need follow-up regarding this as outpatient Problem List - Problems (1) Lower GI hemorrhage Code(s): K92.2 - GASTROINTESTINAL HEMORRHAGE, UNSPECIFIED
[2016-12-13 11:17] LABS: CALCIUM 7.9 mg/dL (8.5-10.1); COCKROFT - GAULT 18.58; CREATININE 4.5 mg/dL (0.7-1.3)
[2016-12-13] MEDS: METOPROLOL TARTRATE 25 MG TABLET (FP) PO SCH (11:28)
[2016-12-13] MEDS ORDERED: PT OWN MED DRAWER 7, Y5N ONE ×3 (11:30→21:47)
[2016-12-13] MEDS: PANTOPRAZOLE 40 MG TABLET (FP) PO SCH ×2 (11:33→21:41)
[2016-12-13] MEDS: AMOXICILLIN 500 MG CAPSULE (FP) PO SCH ×2 (11:33→21:41)
[2016-12-13] MEDS: CLARITHROMYCIN 500 MG TABLET (UD) PO SCH ×2 (11:34→21:42)
[2016-12-13] MEDS: BRIMONIDINE TARTRATE 0.2% OPHTHALMIC 5 ML BOTTLE OD SCH ×2 (11:35→21:42)
[2016-12-13] MEDS: TIMOLOL 0.5% OPHTHALMIC SOL 5 ML BOTTLE OD SCH ×2 (11:36→21:43)
[2016-12-13 11:44] LABS: MCH 26.9 pg (25.7-33.7); MCHC 31.3 g/dl (32.0-35.9); MEAN CELL VOLUME 85.8 fl (80-96); MEAN PLT VOLUME 9.7 fl (7.5-11.1); PLATELET COUNT 126 K/MM3 (134-434); RDW 16.8 % (11.9-15.9); WHITE BLOOD COUNT 3.7 K/mm3 (4.0-10.0)
--- NOTE | 2016-12-13 13:50 | PN ---
GI Progress Note Subjective: No bleeding noted. Says that his BM yesterday "looked better" - Objective Vital Signs: Vital Signs Temperature 98.0 F 12/13/16 09:33 Pulse Rate 84 12/13/16 09:33 Respiratory Rate 18 12/13/16 09:33 Blood Pressure 82/54 12/13/16 09:33 O2 Sat by Pulse Oximetry (%) 95 12/12/16 21:00 Constitutional: Calm Cardiovascular: Yes: Regular Rate and Rhythm Respiratory: Yes: CTA Bilaterally ...Auscultate: Yes: Normoactive Bowel Sounds ...Palpate: No: Tenderness Edema: Yes (UE) Labs: CBC, BMP 12/13/16 11:30 12/13/16 07:30 INR, PTT INR 1.16 (0.82-1.09) H 12/05/16 05:35 Laboratory Tests 12/02/16 12/03/16 12/03/16 18:10 02:20 06:00 Hgb 9.8 L 9.1 L 8.9 L 12/03/16 12/12/16 12/13/16 13:25 12:20 11:30 Hgb 9.0 L 8.9 L 8.8 L Problem List - Problems (1) Lower GI hemorrhage Assessment/Plan: H/H stable from yesterday, no bleeding today Monitoring for now Discussed hepatitis C findings. Will need further evaluation as outpatient. Code(s): K92.2 - GASTROINTESTINAL HEMORRHAGE, UNSPECIFIED
[2016-12-13 15:06] LABS: HIV 1 & 2 AB NEGATIVE; HIV 1 AGp24 NEGATIVE
[2016-12-13] MEDS ORDERED: POTASSIUM CHLORIDE TABS 20 MEQ TABLET.ER (FP) PO ONE (17:08)
--- NOTE | 2016-12-13 18:45 | PN ---
Progress Note, Physician History of Present Illness: Pt seen and examined at bedside. He has not had a bowel movement. - Current Medication List Current Medications: Active Medications Amoxicillin (Amoxicillin -) 500 mg PO BID [facility] Stop: 12/22/16 21:59 Last Admin: 12/13/16 11:33 Dose: 500 mg Brimonidine Tartrate (Alphagan 0.2% -) 1 drop OD BID [facility] Last Admin: 12/13/16 11:35 Dose: 1 drop Clarithromycin (Biaxin -) 500 mg PO BID [facility] Stop: 12/22/16 21:59 Last Admin: 12/13/16 11:34 Dose: 500 mg Latanoprost (Xalatan 0.005% Eye Drops -) 1 drop OD [facility] Metoprolol Tartrate (Lopressor -) 25 mg PO DAILY [facility] Last Admin: 12/13/16 11:28 Dose: Not Given Pantoprazole Sodium (Protonix -) 40 mg PO BID [facility] Last Admin: 12/13/16 11:33 Dose: 40 mg Timolol Maleate (Timoptic 0.5%) 1 drop OD BID [facility] Last Admin: 12/13/16 11:36 Dose: 1 drop - Objective Vital Signs: Vital Signs Temperature 98.1 F 12/13/16 18:04 Pulse Rate 82 12/13/16 18:04 Respiratory Rate 18 12/13/16 09:33 Blood Pressure 90/53 12/13/16 18:04 O2 Sat by Pulse Oximetry (%) 100 12/13/16 09:00 Constitutional: Yes: Calm Eyes: Yes: Conjunctiva Clear HENT: Yes: Atraumatic Neck: Yes: Supple Cardiovascular: Yes: S1, S2 Respiratory: Yes: CTA Bilaterally Gastrointestinal: Yes: Normal Bowel Sounds, Soft Edema: Yes Edema: LLE: Trace, RLE: Trace Neurological: Yes: Oriented Psychiatric: Yes: Oriented Labs: CBC, BMP 12/13/16 11:30 12/13/16 07:30 INR, PTT INR 1.16 (0.82-1.09) H 12/05/16 05:35 Problem List - Problems (1) End stage kidney disease Code(s): N18.6 - END STAGE RENAL DISEASE (2) GI bleed Code(s): K92.2 - GASTROINTESTINAL HEMORRHAGE, UNSPECIFIED (3) New onset a-fib Code(s): I48.91 - UNSPECIFIED ATRIAL FIBRILLATION Assessment/Plan Current Medications Generic Name Dose Route Start Last Admin Trade Name Linda PRN Reason Stop Dose Admin Amoxicillin 500 mg 12/08/16 22:00 12/13/16 11:33 Amoxicillin - PO 12/22/16 21:59 500 mg BID FAVIO Administration Brimonidine Tartrate 1 drop 12/12/16 22:38 12/13/16 11:35 Alphagan 0.2% - OD 1 drop BID FAVIO Administration Clarithromycin 500 mg 12/08/16 22:00 12/13/16 11:34 Biaxin - PO 12/22/16 21:59 500 mg BID AFVIO Administration Latanoprost 1 drop 12/12/16 22:40 Xalatan 0.005% Eye Drops - OD HS [facility] Metoprolol Tartrate 25 mg 12/12/16 10:00 12/13/16 11:28 Lopressor - PO Not Given DAILY [facility]IO Pantoprazole Sodium 40 mg 12/03/16 22:00 12/13/16 11:33 Protonix - PO 40 mg BID FAVIO Administration Timolol Maleate 1 drop 12/12/16 22:40 12/13/16 11:36 Timoptic 0.5% OD 1 drop BID FAVIO Administration Impression 1. ESRD 2. new onset a-fib 3. GI bleed 4. HTN 5. glaucoma Plan - no active bleeding - next HD on Wednesday - GI follow up - no acute change in management - monitor stool for blood - epogen on HD - HD prescription: 4 hrs, 475 bf, 2k bath, heparin [address] Miller
[2016-12-13] MEDS: LATANOPROST 0.005% OPHTH SOLN 2.5ML BOTTLE OD SCH (21:42)
[2016-12-14 07:56] LABS: MCH 27.1 pg (25.7-33.7); MCHC 31.5 g/dl (32.0-35.9); MEAN PLT VOLUME 9.4 fl (7.5-11.1); PLATELET COUNT 125 K/MM3 (134-434); WHITE BLOOD COUNT 4.6 K/mm3 (4.0-10.0)
[2016-12-14 08:22] LABS: CALCIUM 8.5 mg/dL (8.5-10.1); COCKROFT - GAULT 13.94; CREATININE 6.1 mg/dL (0.7-1.3)
[2016-12-14] MEDS: PANTOPRAZOLE 40 MG TABLET (FP) PO SCH ×2 (09:14→22:09)
[2016-12-14] MEDS: METOPROLOL TARTRATE 25 MG TABLET (FP) PO SCH (09:14)
[2016-12-14] MEDS: TIMOLOL 0.5% OPHTHALMIC SOL 5 ML BOTTLE OD SCH ×2 (09:15→22:09)
[2016-12-14] MEDS: BRIMONIDINE TARTRATE 0.2% OPHTHALMIC 5 ML BOTTLE OD SCH ×2 (09:17→22:09)
[2016-12-14] MEDS ORDERED: PT OWN MED DRAWER 7, Y5N ONE ×2 (09:23→22:04)
[2016-12-14] MEDS: AMOXICILLIN 500 MG CAPSULE (FP) PO SCH ×2 (09:26→22:08)
[2016-12-14] MEDS: CLARITHROMYCIN 500 MG TABLET (UD) PO SCH ×2 (09:27→22:08)
--- NOTE | 2016-12-14 11:24 | PN ---
Progress Note, Physician History of Present Illness: History of Present Illness: The patient is a 66-year old black man, with a significant past medical history of hypertension, end-stage renal disease-->hemodialyesis (had dialysis yesterday without complications); syncope (08/2015, when he stood up shortly after finishing hemodialysis), who presents to the emergency department via for further evaluation of rectal bleeding. Today he had a bowel movement and noted maroon-like blood in his soft semi-formed stool. He is on Aspirin (325 mg). No fever, chills, weakness. No lightheadedness, dizziness, visual changes, headaches. He also reports experiencing shortness of breath, particularly when walking for the past few days. No chest pain. Allergies: No known drug allergies. Past Surgical History: None reported. Social History: Former smoker. No ETOH and recreational drug use. 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 - Current Medication List Current Medications: Active Medications Amoxicillin (Amoxicillin -) 500 mg PO BID [facility] Stop: 12/22/16 21:59 Last Admin: 12/14/16 09:26 Dose: 500 mg Brimonidine Tartrate (Alphagan 0.2% -) 1 drop OD BID [facility] Last Admin: 12/14/16 09:17 Dose: 1 drop Clarithromycin (Biaxin -) 500 mg PO BID [facility] Stop: 12/22/16 21:59 Last Admin: 12/14/16 09:27 Dose: 500 mg Latanoprost (Xalatan 0.005% Eye Drops -) 1 drop OD HS [facility] Last Admin: 12/13/16 21:42 Dose: 1 drop Metoprolol Tartrate (Lopressor -) 25 mg PO DAILY [facility] Last Admin: 12/14/16 09:14 Dose: 25 mg Pantoprazole Sodium (Protonix -) 40 mg PO BID [facility] Last Admin: 12/14/16 09:14 Dose: 40 mg Timolol Maleate (Timoptic 0.5%) 1 drop OD BID [facility] Last Admin: 12/14/16 09:15 Dose: 1 drop - Objective Vital Signs: Vital Signs Temperature 98.4 F 12/14/16 05:28 Pulse Rate 78 12/14/16 05:28 Respiratory Rate 18 12/14/16 05:28 Blood Pressure 110/58 12/14/16 05:28 O2 Sat by Pulse Oximetry (%) 97 12/13/16 21:00 Eyes: Yes: WNL, Conjunctiva Clear, EOM Intact HENT: Yes: WNL, Atraumatic, Normocephalic Neck: Yes: WNL, Supple, Trachea Midline Cardiovascular: Yes: WNL, Regular Rate and Rhythm Respiratory: Yes: WNL, Regular, CTA Bilaterally Gastrointestinal: Yes: WNL, Normal Bowel Sounds Genitourinary: Yes: WNL Musculoskeletal: Yes: WNL Extremities: Yes: WNL Edema: No Integumentary: Yes: WNL Neurological: Yes: WNL, Alert, Oriented ...Motor Strength: WNL Psychiatric: Yes: WNL Labs: CBC, BMP 12/14/16 06:00 12/14/16 06:00 INR, PTT INR 1.16 (0.82-1.09) H 12/05/16 05:35 Assessment/Plan - Problems (1) End stage kidney disease Assessment/Plan: 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 Code(s): N18.6 - END STAGE RENAL DISEASE (2) New onset a-fib Assessment/Plan: Stress Persantine MIBI 12/07/2016: no myocardial ischemia. Pt denies palpitations or chest pain.; he has felt exertional fatigue and shortness of breath (lately just walking across a room) for the past 2 months. Unable to start anticoagulants presently due to GI bleed. On metoprolol for HR control. ASA stopped; pt cautioned against using NSAIDs in the future. For hemodialysis three times/wk. ECHO shows normal LVEF; moderate aortic stenosis. Code(s): I48.91 - UNSPECIFIED ATRIAL FIBRILLATION (3) [place] cardiac risk >20% in next 10 years Assessment/Plan: stress MIBI (Persantine:No myocardial ischemia. Code(s): Z91.89 - OTH PERSONAL RISK FACTORS, NOT ELSEWHERE CLASSIFIED (4) Elevated troponin I level Code(s): R74.8 - ABNORMAL LEVELS OF OTHER SERUM ENZYMES (5) GI bleed Code(s): K92.2 - GASTROINTESTINAL HEMORRHAGE, UNSPECIFIED (6) Syncope Assessment/Plan: one episode; occurred shortly after hemodialysis session 08/2015, when he stood up: likely vasovagal in etiology. F/u orthostatic vital signs. Code(s): R55 - SYNCOPE AND COLLAPSE (7) Aortic stenosis Assessment/Plan: ECHO: normal LVEF; moderate aortic stenosis. Code(s): I35.0 - NONRHEUMATIC AORTIC (VALVE) STENOSIS (8) Anemia Assessment/Plan: f/u CBC; f/u hematology w/u (chronic anemia from ESRD; acute component from GI bleed). Code(s): D64.9 - ANEMIA, UNSPECIFIED will d/c telemetrty
--- NOTE | 2016-12-14 11:37 | PN ---
GI Progress Note Subjective: GI NOte: Had a brown BM today with just a smudge of old blood. Hb's have been stable over the weekend. I reiterated the need to be treated for HCV if he is in the acceptable fibrosis stage. Will check his Fibrosure and genotype. If Hb remains stable, have no GI objections to discharge after dialysis tomorrow. I gave him out business card to followup as outpatient. Please prescribe completion of H. pylori therapy ( 14 days total) on discharge. - Objective Vital Signs: Vital Signs Temperature 98.4 F 12/14/16 05:28 Pulse Rate 78 12/14/16 05:28 Respiratory Rate 18 12/14/16 05:28 Blood Pressure 110/58 12/14/16 05:28 O2 Sat by Pulse Oximetry (%) 97 12/13/16 21:00 Constitutional: No Distress ...Auscultate: Yes: Normoactive Bowel Sounds ...Palpate: Yes: Soft, Other (nontender) Labs: CBC, BMP 12/14/16 06:00 12/14/16 06:00 INR, PTT INR 1.16 (0.82-1.09) H 12/05/16 05:35 Assessment/Plan Resolved diverticular bleed. Being treated for H. pylori. Can followup in our office for hepatitis C.
--- NOTE | 2016-12-14 13:55 | PN ---
Progress Note, Physician History of Present Illness: Pt seen and examined at bedside. He denies any blood per stools. - Current Medication List Current Medications: Active Medications Amoxicillin (Amoxicillin -) 500 mg PO BID [facility] Stop: 12/22/16 21:59 Last Admin: 12/14/16 09:26 Dose: 500 mg Brimonidine Tartrate (Alphagan 0.2% -) 1 drop OD BID [facility] Last Admin: 12/14/16 09:17 Dose: 1 drop Clarithromycin (Biaxin -) 500 mg PO BID [facility] Stop: 12/22/16 21:59 Last Admin: 12/14/16 09:27 Dose: 500 mg Latanoprost (Xalatan 0.005% Eye Drops -) 1 drop OD HS [facility] Last Admin: 12/13/16 21:42 Dose: 1 drop Metoprolol Tartrate (Lopressor -) 25 mg PO DAILY [facility] Last Admin: 12/14/16 09:14 Dose: 25 mg Pantoprazole Sodium (Protonix -) 40 mg PO BID [facility] Last Admin: 12/14/16 09:14 Dose: 40 mg Timolol Maleate (Timoptic 0.5%) 1 drop OD BID [facility] Last Admin: 12/14/16 09:15 Dose: 1 drop - Objective Vital Signs: Vital Signs Temperature 98.4 F 12/14/16 05:28 Pulse Rate 78 12/14/16 05:28 Respiratory Rate 18 12/14/16 05:28 Blood Pressure 110/58 12/14/16 05:28 O2 Sat by Pulse Oximetry (%) 97 12/13/16 21:00 Constitutional: Yes: Calm Eyes: Yes: Conjunctiva Clear HENT: Yes: Atraumatic Cardiovascular: Yes: S1, S2 Respiratory: Yes: CTA Bilaterally Gastrointestinal: Yes: Normal Bowel Sounds, Soft Musculoskeletal: Yes: WNL Edema: Yes Neurological: Yes: Oriented Psychiatric: Yes: Oriented Labs: CBC, BMP 12/14/16 06:00 12/14/16 06:00 INR, PTT INR 1.16 (0.82-1.09) H 12/05/16 05:35 Problem List - Problems (1) End stage kidney disease Code(s): N18.6 - END STAGE RENAL DISEASE (2) GI bleed Code(s): K92.2 - GASTROINTESTINAL HEMORRHAGE, UNSPECIFIED (3) New onset a-fib Code(s): I48.91 - UNSPECIFIED ATRIAL FIBRILLATION Assessment/Plan Current Medications Generic Name Dose Route Start Last Admin Trade Name Linda PRN Reason Stop Dose Admin Amoxicillin 500 mg 12/08/16 22:00 12/14/16 09:26 Amoxicillin - PO 12/22/16 21:59 500 mg BID FAVIO Administration Brimonidine Tartrate 1 drop 12/12/16 22:38 12/14/16 09:17 Alphagan 0.2% - OD 1 drop BID FAVIO Administration Clarithromycin 500 mg 12/08/16 22:00 12/14/16 09:27 Biaxin - PO 12/22/16 21:59 500 mg BID FAVIO Administration Latanoprost 1 drop 12/12/16 22:40 12/13/16 21:42 Xalatan 0.005% Eye Drops - OD 1 drop HS FAVIO Administration Metoprolol Tartrate 25 mg 12/12/16 10:00 12/14/16 09:14 Lopressor - PO 25 mg DAILY FAVIO Administration Pantoprazole Sodium 40 mg 12/03/16 22:00 12/14/16 09:14 Protonix - PO 40 mg BID FAVIO Administration Timolol Maleate 1 drop 12/12/16 22:40 12/14/16 09:15 Timoptic 0.5% OD 1 drop BID FAVIO Administration Impression 1. ESRD 2. new onset a-fib 3. GI bleed 4. HTN 5. glaucoma Plan - will arrange for HD in am - monitor for bleeding - GI input appreciated - no acute change in management from renal standpoint - heparin held on HD - epogen on HD - HD prescription: 4 hrs, 475 bf, 2k bath, heparin [address] Miller
--- NOTE | 2016-12-14 17:12 | PN ---
Progress Note (short form) - Note Progress Note: Subjective: The patient was seen and examined at the bedside, he states he is eager to go home. He reports walking to the bathroom with his cane (PT pending) Hgb remains stable Next Wednesday Current Medications Generic Name Dose Route Start Last Admin Trade Name Linda PRN Reason Stop Dose Admin Amoxicillin 500 mg 12/08/16 22:00 12/14/16 09:26 Amoxicillin - PO 12/22/16 21:59 500 mg BID FAVIO Administration Brimonidine Tartrate 1 drop 12/12/16 22:38 12/14/16 09:17 Alphagan 0.2% - OD 1 drop BID FAVIO Administration Clarithromycin 500 mg 12/08/16 22:00 12/14/16 09:27 Biaxin - PO 12/22/16 21:59 500 mg BID FAVIO Administration Epoetin Calixto 8,000 units 12/15/16 13:55 Epogen - IVPUSH 12/15/16 13:56 ONCE ONE Latanoprost 1 drop 12/12/16 22:40 12/13/16 21:42 Xalatan 0.005% Eye Drops - OD 1 drop HS FAVIO Administration Metoprolol Tartrate 25 mg 12/12/16 10:00 12/14/16 09:14 Lopressor - PO 25 mg DAILY FAVIO Administration Pantoprazole Sodium 40 mg 12/03/16 22:00 12/14/16 09:14 Protonix - PO 40 mg BID FAVIO Administration Timolol Maleate 1 drop 12/12/16 22:40 12/14/16 09:15 Timoptic 0.5% OD 1 drop BID FAVIO Administration Objective: Vital Signs Period Temp Pulse Resp BP Sys/Reaves Pulse Ox Last 24 Hr 98.1 F-98.5 F 78-82 18 90-110/53-58 97 Physical Exam: General: NAD, A&Ox3 Lungs: CTA bilaterally Heart: Irregular rate, S1S2 Abd: Soft, non-tender, non-distended. Normoactive bowel sounds Ext: RUE AV fistula, +thrill, +bruit. Warm, well-perfused. 2+ DP/PT bilaterally Neuro: No focal deficits CBCD WBC 4.6 K/mm3 (4.0-10.0) 12/14/16 06:00 RBC 3.22 M/mm3 (4.00-5.60) L 12/14/16 06:00 Hgb 8.7 GM/dL (11.7-16.9) L 12/14/16 06:00 Hct 27.7 % (35.4-49) L 12/14/16 06:00 MCV 86.0 fl (80-96) 12/14/16 06:00 MCHC 31.5 g/dl (32.0-35.9) L 12/14/16 06:00 RDW 17.0 % (11.9-15.9) H 12/14/16 06:00 Plt Count 125 K/MM3 (134-434) L 12/14/16 06:00 MPV 9.4 fl (7.5-11.1) 12/14/16 06:00 CMP Sodium 141 mmol/L (136-145) 12/14/16 06:00 Potassium 4.2 mmol/L (3.5-5.1) D 12/14/16 06:00 Chloride 100 mmol/L (98-107) 12/14/16 06:00 Carbon Dioxide 33 mmol/L (21-32) H 12/14/16 06:00 Anion Gap 8 (8-16) 12/14/16 06:00 BUN 24 mg/dL (7-18) H D 12/14/16 06:00 Creatinine 6.1 mg/dL (0.7-1.3) H D 12/14/16 06:00 Creat Clearance w eGFR 11.98 (>60) 12/09/16 06:50 Random Glucose 134 mg/dL (74-106) H D 12/14/16 06:00 Calcium 8.5 mg/dL (8.5-10.1) 12/14/16 06:00 Total Bilirubin 0.6 mg/dL (0.2-1.0) D 12/09/16 06:50 AST 36 U/L (15-37) 12/09/16 06:50 ALT 25 U/L (12-78) 12/09/16 06:50 Alkaline Phosphatase 100 U/L (45-117) D 12/09/16 06:50 Total Protein 5.8 g/dl (6.4-8.2) L 12/09/16 06:50 Albumin 3.0 g/dl (3.4-5.0) L 12/09/16 06:50 CARDIAC ENZYMES Creatine Kinase 96 IU/L (39-308) 12/05/16 05:35 Troponin I 0.59 ng/ml (0.00-0.05) H 12/05/16 05:35 Assessment: This is a 66 year old male with PMHx of ESRD (on HD T,,), glaucoma who presented to the ED with rectal bleeding, abdominal pain, dizziness x2 days. Plan: 1) GI: GI bleed - Hgb remains stable - Endoscopy report reviewed, protonix daily x3 months - Will need repeat EGD in 3 months - Appreciate GI consult H.pylori - As evidence on EGD biopsy results - Continue Amoxicillin, Clarithromycin, Protonix Hepatitis C - Will need outpatient GI workup Hepatitis B infection - Per ID, consistent with previous infection, no further treatment required 2) Cardiology: New onset a.fib, paroxysmal - Denies palpitations - [id number] 2 - Unable to start anticoagulation 2/2 GI bleed - ECHO reviewed - Appreciate cardiology consult Elevated troponin - Stress test negative for ischemia 3) : ESRD - HD tomorrow - Continue to monitor - Appreciate nephrology consult 4) Vascular: - B/l upper ext arterial doppler performed, awaiting read for decrease in radial pulses - Radial pulses on exam today 2+ bilaterally 5) F/E/N: - Monitor electrolytes - Diabetic diet 6) Prophylaxis: - Hold all chemical anticoagulation 2/2 active GI bleed - SCDs bilaterally 7) Dispo: - Requires continued inpatient care CODE STATUS: FULL CODE Visit type - Emergency Visit Emergency Visit: Yes ED Registration Date: 12/02/16 Care time: The patient presented to the Emergency Department on the above date and was hospitalized for further evaluation of their emergent condition. - New Patient This patient is new to me today: No - Critical Care Critical Care patient: No
[2016-12-14] MEDS: LATANOPROST 0.005% OPHTH SOLN 2.5ML BOTTLE OD SCH (22:09)
[2016-12-15 00:06] LABS: HBeAG Negative (Negative); HEP B SURFACE AB Reactive (.); HEP BE AB Negative (Negative)
[2016-12-15 09:04] LABS: MCH 27.2 pg (25.7-33.7); MCHC 31.9 g/dl (32.0-35.9); MEAN CELL VOLUME 85.2 fl (80-96); MEAN PLT VOLUME 9.2 fl (7.5-11.1); PLATELET COUNT 133 K/MM3 (134-434); RDW 17.1 % (11.9-15.9); WHITE BLOOD COUNT 4.7 K/mm3 (4.0-10.0)
[2016-12-15 09:26] LABS: ALBUMIN 2.7 g/dl (3.4-5.0); BILIRUBIN,TOTAL 0.5 mg/dL (0.2-1.0); CALCIUM 8.1 mg/dL (8.5-10.1); COCKROFT - GAULT 15.31; CREATININE 5.8 mg/dL (0.7-1.3); TOT PROT 5.6 g/dl (6.4-8.2)
[2016-12-15] MEDS ORDERED: EPOETIN ALFA 2,000 UNITS/1 ML VIAL IVPUSH ONE (10:00)
--- NOTE | 2016-12-15 11:13 | PN ---
Progress Note, Physician History of Present Illness: History of Present Illness: The patient is a 66-year old black man, with a significant past medical history of hypertension, end-stage renal disease-->hemodialyesis (had dialysis yesterday without complications); syncope (08/2015, when he stood up shortly after finishing hemodialysis), who presents to the emergency department via for further evaluation of rectal bleeding. Today he had a bowel movement and noted maroon-like blood in his soft semi-formed stool. He is on Aspirin (325 mg). No fever, chills, weakness. No lightheadedness, dizziness, visual changes, headaches. He also reports experiencing shortness of breath, particularly when walking for the past few days. No chest pain. Allergies: No known drug allergies. Past Surgical History: None reported. Social History: Former smoker. No ETOH and recreational drug use. 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 - Current Medication List Current Medications: Active Medications Amoxicillin (Amoxicillin -) 500 mg PO BID [facility] Stop: 12/22/16 21:59 Last Admin: 12/14/16 22:08 Dose: 500 mg Brimonidine Tartrate (Alphagan 0.2% -) 1 drop OD BID [facility] Last Admin: 12/14/16 22:09 Dose: 1 drop Clarithromycin (Biaxin -) 500 mg PO BID [facility] Stop: 12/22/16 21:59 Last Admin: 12/14/16 22:08 Dose: 500 mg Latanoprost (Xalatan 0.005% Eye Drops -) 1 drop OD HS [facility] Last Admin: 12/14/16 22:09 Dose: 1 drop Metoprolol Tartrate (Lopressor -) 25 mg PO DAILY [facility] Last Admin: 12/14/16 09:14 Dose: 25 mg Pantoprazole Sodium (Protonix -) 40 mg PO BID [facility] Last Admin: 12/14/16 22:09 Dose: 40 mg Timolol Maleate (Timoptic 0.5%) 1 drop OD BID [facility] Last Admin: 12/14/16 22:09 Dose: 1 drop - Objective Vital Signs: Vital Signs Temperature 98.4 F 12/15/16 05:15 Pulse Rate 79 12/15/16 09:30 Respiratory Rate 18 12/15/16 09:30 Blood Pressure 102/63 12/15/16 09:30 O2 Sat by Pulse Oximetry (%) 97 12/14/16 21:00 Eyes: Yes: WNL, Conjunctiva Clear, EOM Intact HENT: Yes: WNL, Atraumatic, Normocephalic Neck: Yes: WNL, Supple, Trachea Midline Cardiovascular: Yes: WNL, Regular Rate and Rhythm Respiratory: Yes: WNL, Regular, CTA Bilaterally Gastrointestinal: Yes: WNL, Normal Bowel Sounds Genitourinary: Yes: WNL Musculoskeletal: Yes: WNL Extremities: Yes: WNL Edema: No Integumentary: Yes: WNL Neurological: Yes: WNL, Alert, Oriented ...Motor Strength: WNL Psychiatric: Yes: WNL Labs: CBC, BMP 12/15/16 08:00 12/15/16 08:00 INR, PTT INR 1.16 (0.82-1.09) H 12/05/16 05:35 Assessment/Plan - Problems (1) End stage kidney disease Assessment/Plan: 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 Code(s): N18.6 - END STAGE RENAL DISEASE (2) New onset a-fib Assessment/Plan: Stress Persantine MIBI 12/07/2016: no myocardial ischemia. Pt denies palpitations or chest pain.; he has felt exertional fatigue and shortness of breath (lately just walking across a room) for the past 2 months. Unable to start anticoagulants presently due to GI bleed. On metoprolol for HR control. ASA stopped; pt cautioned against using NSAIDs in the future. For hemodialysis three times/wk. ECHO shows normal LVEF; moderate aortic stenosis. Code(s): I48.91 - UNSPECIFIED ATRIAL FIBRILLATION (3) [place] cardiac risk >20% in next 10 years Assessment/Plan: stress MIBI (Persantine:No myocardial ischemia. Code(s): Z91.89 - OTH PERSONAL RISK FACTORS, NOT ELSEWHERE CLASSIFIED (4) Elevated troponin I level Code(s): R74.8 - ABNORMAL LEVELS OF OTHER SERUM ENZYMES (5) GI bleed Code(s): K92.2 - GASTROINTESTINAL HEMORRHAGE, UNSPECIFIED (6) Syncope Assessment/Plan: one episode; occurred shortly after hemodialysis session 08/2015, when he stood up: likely vasovagal in etiology. F/u orthostatic vital signs. Code(s): R55 - SYNCOPE AND COLLAPSE (7) Aortic stenosis Assessment/Plan: ECHO: normal LVEF; moderate aortic stenosis. Code(s): I35.0 - NONRHEUMATIC AORTIC (VALVE) STENOSIS (8) Anemia Assessment/Plan: f/u CBC; f/u hematology w/u (chronic anemia from ESRD; acute component from GI bleed). Code(s): D64.9 - ANEMIA, UNSPECIFIED will d/c telemetrty
[2016-12-15] MEDS ORDERED: PT OWN MED DRAWER 7, Y5N ONE ×2 (12:44→22:11)
[2016-12-15] MEDS: CLARITHROMYCIN 500 MG TABLET (UD) PO SCH ×2 (12:46→22:56)
[2016-12-15] MEDS: METOPROLOL TARTRATE 25 MG TABLET (FP) PO SCH (12:46)
[2016-12-15] MEDS: PANTOPRAZOLE 40 MG TABLET (FP) PO SCH ×2 (12:46→22:14)
[2016-12-15] MEDS: AMOXICILLIN 500 MG CAPSULE (FP) PO SCH ×2 (12:47→22:56)
[2016-12-15] MEDS: BRIMONIDINE TARTRATE 0.2% OPHTHALMIC 5 ML BOTTLE OD SCH ×2 (12:48→22:14)
[2016-12-15] MEDS: TIMOLOL 0.5% OPHTHALMIC SOL 5 ML BOTTLE OD SCH ×2 (12:49→22:14)
--- NOTE | 2016-12-15 12:49 | DS ---
Physical Examination Vital Signs: Vital Signs Temperature 98.4 F 12/15/16 05:15 Pulse Rate 78 12/15/16 11:00 Respiratory Rate 18 12/15/16 11:00 Blood Pressure 112/66 12/15/16 11:00 O2 Sat by Pulse Oximetry (%) 97 12/14/16 21:00 Findings/Remarks: Physical Exam: General: NAD, A&Ox3 Lungs: CTA bilaterally Heart: Irregular rate, S1S2 Abd: Soft, non-tender, non-distended. Normoactive bowel sounds Ext: RUE AV fistula, +thrill, +bruit. Warm, well-perfused. 2+ DP/PT bilaterally Neuro: No focal deficits Labs: CBC, BMP 12/15/16 08:00 12/15/16 08:00 Discharge Summary Reason For Visit: LOWER GASTROINTESTINAL HEMORRHAGE Current Active Problems Anemia (Acute) Aortic stenosis (Acute) DVT prophylaxis (Acute) Dialysis patient (Acute) Elevated troponin I level (Acute) End stage kidney disease (Acute) [place] cardiac risk >20% in next 10 years (Acute) GI bleed (Acute) Lightheadedness (Acute) Lower GI hemorrhage (Acute) New onset a-fib (Acute) Syncope (Acute) Hospital Course: This is a 66 year old male with PMHx of ESRD (on HD ,,), glaucoma who presented to the ED with rectal bleeding, abdominal pain, dizziness x2 days. Plan: 1) GI: GI bleed - Hgb remains stable - Endoscopy report reviewed, protonix daily x3 months - Will need repeat EGD in 3 months - Appreciate GI consult H.pylori - As evidence on EGD biopsy results - Continue Amoxicillin, Clarithromycin, Protonix Hepatitis C - Will need outpatient GI workup Hepatitis B infection - Per ID, consistent with previous infection, no further treatment required 2) Cardiology: New onset a.fib, paroxysmal - Denies palpitations - [id number] 2 - Unable to start anticoagulation 2/2 GI bleed - ECHO reviewed - Appreciate cardiology consult Elevated troponin - Stress test negative for ischemia 3) : ESRD - HD tomorrow - Continue to monitor - Appreciate nephrology consult 4) Vascular: - Radial pulses on exam today 2+ bilaterally 5) F/E/N: - Diabetic diet Condition: Stable - Instructions Diet, Activity, Other Instructions: Please return to the ED with new, persistent, or worsening symptoms. Please follow-up with providers as indicated. Referrals: Allie Ching MD [Staff Physician] - (Please follow-up with GI within 1 week for further management of your Hepatitis C) Jesús Street MD [Staff Physician] - (Please follow-up with cardiology within 2-3 days for further management of your atrial fibrilation and to assess risks and benefits of starting anticoagulation) Sacha Menezes MD [Primary Care Provider] - 1 Week Philip Mack MD [Staff Physician] - (Please follow-up with vascular surgery within 1 week for results of your upper extremity doppler) Disposition: ASSISTED FACILITY - Home Medications Comprehensive Discharge Medication List: Ambulatory Orders Brimonidine Tartrate/Timolol [Combigan 0.2%-0.5% Eye Drops] 5 ml OP ASDIR Travoprost [Travatan Z] 2.5 ml OP ASDIR 12/02/16 Amoxicillin - [Amoxicillin 500mg Capsule -] 500 mg PO BID #15 tab 12/15/16 Clarithromycin [Biaxin -] 500 mg PO BID #15 tablet 12/15/16 Pantoprazole Sodium [Protonix -] 40 mg PO BID #180 tablet 12/15/16 This patient is new to me today: No Emergency Visit: Yes ED Registration Date: 12/02/16 Care time: The patient presented to the Emergency Department on the above date and was hospitalized for further evaluation of their emergent condition. Critical Care patient: No - Discharge Referral Referred to [facility] Med P.C.: No
--- NOTE | 2016-12-15 16:53 | HOSP ---
Subjective - Review of Symptoms Events since last encounter: called to take out central line Subjective: tool out R IJ central line, held pressure, no bleeding. cleaned with betadine, clean dressing applied Pulmonary: No: Dyspnea, Cough, Pleuritic Chest Pain Physical Examination Vital Signs: Vital Signs Temperature 98.6 F 12/15/16 14:19 Pulse Rate 99 H 12/15/16 14:19 Respiratory Rate 20 12/15/16 12:55 Blood Pressure 106/70 12/15/16 12:55 O2 Sat by Pulse Oximetry (%) 97 12/14/16 21:00 Neck: Yes: WNL, Supple, Trachea Midline Labs: CBC, BMP 12/15/16 08:00 12/15/16 08:00 Hospitalist Encounter Assessment: s/p R IJ central line removal -clean dressing, no bleeding. -can remove dressing in 24 hr Visit type - Emergency Visit Emergency Visit: Yes ED Registration Date: 12/02/16 Care time: The patient presented to the Emergency Department on the above date and was hospitalized for further evaluation of their emergent condition. - New Patient This patient is new to me today: Yes Date on this admission: 12/15/16 - Critical Care Critical Care patient: No
--- NOTE | 2016-12-15 17:26 | PN ---
Progress Note, Physician History of Present Illness: Pt seen and examined at bedside. He tolerated HD today. - Current Medication List Current Medications: Active Medications Amoxicillin (Amoxicillin -) 500 mg PO BID [facility] Stop: 12/22/16 21:59 Last Admin: 12/15/16 12:47 Dose: 500 mg Brimonidine Tartrate (Alphagan 0.2% -) 1 drop OD BID [facility] Last Admin: 12/15/16 12:48 Dose: 1 drop Clarithromycin (Biaxin -) 500 mg PO BID [facility] Stop: 12/22/16 21:59 Last Admin: 12/15/16 12:46 Dose: 500 mg Latanoprost (Xalatan 0.005% Eye Drops -) 1 drop OD HS [facility] Last Admin: 12/14/16 22:09 Dose: 1 drop Metoprolol Tartrate (Lopressor -) 25 mg PO DAILY [facility] Last Admin: 12/15/16 12:46 Dose: 25 mg Pantoprazole Sodium (Protonix -) 40 mg PO BID [facility] Last Admin: 12/15/16 12:46 Dose: 40 mg Timolol Maleate (Timoptic 0.5%) 1 drop OD BID [facility] Last Admin: 12/15/16 12:49 Dose: 1 drop - Objective Vital Signs: Vital Signs Temperature 98.6 F 12/15/16 14:19 Pulse Rate 99 H 12/15/16 14:19 Respiratory Rate 20 12/15/16 12:55 Blood Pressure 106/70 12/15/16 12:55 O2 Sat by Pulse Oximetry (%) 97 12/14/16 21:00 Constitutional: Yes: Calm Eyes: Yes: Conjunctiva Clear HENT: Yes: Atraumatic Neck: Yes: Supple Cardiovascular: Yes: S1, S2 Respiratory: Yes: CTA Bilaterally Gastrointestinal: Yes: Soft Musculoskeletal: Yes: WNL Edema: No Neurological: Yes: Oriented Psychiatric: Yes: Oriented Labs: CBC, BMP 12/15/16 08:00 12/15/16 08:00 INR, PTT INR 1.16 (0.82-1.09) H 12/05/16 05:35 Problem List - Problems (1) End stage kidney disease Code(s): N18.6 - END STAGE RENAL DISEASE (2) GI bleed Code(s): K92.2 - GASTROINTESTINAL HEMORRHAGE, UNSPECIFIED (3) New onset a-fib Code(s): I48.91 - UNSPECIFIED ATRIAL FIBRILLATION Assessment/Plan Current Medications Generic Name Dose Route Start Last Admin Trade Name Linda PRN Reason Stop Dose Admin Amoxicillin 500 mg 12/08/16 22:00 12/15/16 12:47 Amoxicillin - PO 12/22/16 21:59 500 mg BID FAVIO Administration Brimonidine Tartrate 1 drop 12/12/16 22:38 12/15/16 12:48 Alphagan 0.2% - OD 1 drop BID FAVIO Administration Clarithromycin 500 mg 12/08/16 22:00 12/15/16 12:46 Biaxin - PO 12/22/16 21:59 500 mg BID FAVIO Administration Latanoprost 1 drop 12/12/16 22:40 12/14/16 22:09 Xalatan 0.005% Eye Drops - OD 1 drop HS FAVIO Administration Metoprolol Tartrate 25 mg 12/12/16 10:00 12/15/16 12:46 Lopressor - PO 25 mg DAILY FAVIO Administration Pantoprazole Sodium 40 mg 12/03/16 22:00 12/15/16 12:46 Protonix - PO 40 mg BID FAVIO Administration Timolol Maleate 1 drop 12/12/16 22:40 12/15/16 12:49 Timoptic 0.5% OD 1 drop BID FAVIO Administration Impression 1. ESRD 2. new onset a-fib 3. GI bleed 4. HTN 5. glaucoma 6. positive hep b core Plan - pt tolerated HD today - he has not had any more blooding - will need GI follow up for hepatitis - epogen on HD - HD prescription: 4 hrs, 475 bf, 2k bath, heparin [address] Miller
[2016-12-15] MEDS: LATANOPROST 0.005% OPHTH SOLN 2.5ML BOTTLE OD SCH (22:15)
[2016-12-16] MEDS: PANTOPRAZOLE 40 MG TABLET (FP) PO SCH (09:50)
[2016-12-16] MEDS: AMOXICILLIN 500 MG CAPSULE (FP) PO SCH (09:51)
[2016-12-16] MEDS: CLARITHROMYCIN 500 MG TABLET (UD) PO SCH (09:51)
[2016-12-16] MEDS: BRIMONIDINE TARTRATE 0.2% OPHTHALMIC 5 ML BOTTLE OD SCH (09:53)
[2016-12-16] MEDS: TIMOLOL 0.5% OPHTHALMIC SOL 5 ML BOTTLE OD SCH (09:53)
--- NOTE | 2016-12-16 11:28 | PN ---
Progress Note, Physician History of Present Illness: History of Present Illness: The patient is a 66-year old black man, with a significant past medical history of hypertension, end-stage renal disease-->hemodialyesis (had dialysis yesterday without complications); syncope (08/2015, when he stood up shortly after finishing hemodialysis), who presents to the emergency department via for further evaluation of rectal bleeding. Today he had a bowel movement and noted maroon-like blood in his soft semi-formed stool. He is on Aspirin (325 mg). No fever, chills, weakness. No lightheadedness, dizziness, visual changes, headaches. He also reports experiencing shortness of breath, particularly when walking for the past few days. No chest pain. Allergies: No known drug allergies. Past Surgical History: None reported. Social History: Former smoker. No ETOH and recreational drug use. 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 - Current Medication List Current Medications: Active Medications Amoxicillin (Amoxicillin -) 500 mg PO BID [facility] Stop: 12/22/16 21:59 Last Admin: 12/16/16 09:51 Dose: 500 mg Brimonidine Tartrate (Alphagan 0.2% -) 1 drop OD BID [facility] Last Admin: 12/16/16 09:53 Dose: 1 drp Clarithromycin (Biaxin -) 500 mg PO BID [facility] Stop: 12/22/16 21:59 Last Admin: 12/16/16 09:51 Dose: 500 mg Latanoprost (Xalatan 0.005% Eye Drops -) 1 drop OD HS [facility] Last Admin: 12/15/16 22:15 Dose: 1 drop Pantoprazole Sodium (Protonix -) 40 mg PO BID [facility] Last Admin: 12/16/16 09:50 Dose: 40 mg Timolol Maleate (Timoptic 0.5%) 1 drop OD BID [facility] Last Admin: 12/16/16 09:53 Dose: 1 drop - Objective Vital Signs: Vital Signs Temperature 98.9 F 12/16/16 09:03 Pulse Rate 81 12/16/16 09:03 Respiratory Rate 20 12/16/16 09:03 Blood Pressure 107/49 12/16/16 09:03 O2 Sat by Pulse Oximetry (%) 96 12/16/16 09:00 Eyes: Yes: WNL, Conjunctiva Clear, EOM Intact HENT: Yes: WNL, Atraumatic, Normocephalic Neck: Yes: WNL, Supple, Trachea Midline Cardiovascular: Yes: WNL, Regular Rate and Rhythm Respiratory: Yes: WNL, Regular, CTA Bilaterally Gastrointestinal: Yes: WNL, Normal Bowel Sounds Genitourinary: Yes: WNL Musculoskeletal: Yes: WNL Extremities: Yes: WNL Edema: No Integumentary: Yes: WNL Neurological: Yes: WNL, Alert, Oriented ...Motor Strength: WNL Psychiatric: Yes: WNL Labs: CBC, BMP 12/15/16 08:00 12/15/16 08:00 INR, PTT INR 1.16 (0.82-1.09) H 12/05/16 05:35 Assessment/Plan - Problems (1) End stage kidney disease Assessment/Plan: f/u with pmo lead; 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 Code(s): N18.6 - END STAGE RENAL DISEASE (2) New onset a-fib Assessment/Plan: Stress Persantine MIBI 12/07/2016: no myocardial ischemia. Pt denies palpitations or chest pain.; he has felt exertional fatigue and shortness of breath (lately just walking across a room) for the past 2 months. Unable to start anticoagulants presently due to GI bleed. On metoprolol for HR control. ASA stopped; pt cautioned against using NSAIDs in the future. For hemodialysis three times/wk. ECHO shows normal LVEF; moderate aortic stenosis. Code(s): I48.91 - UNSPECIFIED ATRIAL FIBRILLATION (3) [place] cardiac risk >20% in next 10 years Assessment/Plan: stress MIBI (Persantine:No myocardial ischemia. Code(s): Z91.89 - OT PERSONAL RISK FACTORS, NOT ELSEWHERE CLASSIFIED (4) Elevated troponin I level Code(s): R74.8 - ABNORMAL LEVELS OF OTHER SERUM ENZYMES (5) GI bleed Code(s): K92.2 - GASTROINTESTINAL HEMORRHAGE, UNSPECIFIED (6) Syncope Assessment/Plan: one episode; occurred shortly after hemodialysis session 08/2015, when he stood up: likely vasovagal in etiology. F/u orthostatic vital signs. Code(s): R55 - SYNCOPE AND COLLAPSE (7) Aortic stenosis Assessment/Plan: ECHO: normal LVEF; moderate aortic stenosis. Code(s): I35.0 - NONRHEUMATIC AORTIC (VALVE) STENOSIS (8) Anemia Assessment/Plan: f/u CBC; f/u hematology w/u (chronic anemia from ESRD; acute component from GI bleed). Code(s): D64.9 - ANEMIA, UNSPECIFIED will d/c telemetrty
--- NOTE | 2016-12-16 13:11 | PN ---
Progress Note, Physician History of Present Illness: Pt seen and examined at bedside. He denies blood in the stool. He is awake and alert. - Current Medication List Current Medications: Active Medications Amoxicillin (Amoxicillin -) 500 mg PO BID [facility] Stop: 12/22/16 21:59 Last Admin: 12/16/16 09:51 Dose: 500 mg Brimonidine Tartrate (Alphagan 0.2% -) 1 drop OD BID [facility] Last Admin: 12/16/16 09:53 Dose: 1 drp Clarithromycin (Biaxin -) 500 mg PO BID [facility] Stop: 12/22/16 21:59 Last Admin: 12/16/16 09:51 Dose: 500 mg Latanoprost (Xalatan 0.005% Eye Drops -) 1 drop OD HS [facility] Last Admin: 12/15/16 22:15 Dose: 1 drop Pantoprazole Sodium (Protonix -) 40 mg PO BID [facility] Last Admin: 12/16/16 09:50 Dose: 40 mg Timolol Maleate (Timoptic 0.5%) 1 drop OD BID [facility] Last Admin: 12/16/16 09:53 Dose: 1 drop - Objective Vital Signs: Vital Signs Temperature 98.9 F 12/16/16 09:03 Pulse Rate 81 12/16/16 09:03 Respiratory Rate 20 12/16/16 09:03 Blood Pressure 107/49 12/16/16 09:03 O2 Sat by Pulse Oximetry (%) 96 12/16/16 09:00 Constitutional: Yes: Calm Eyes: Yes: Conjunctiva Clear HENT: Yes: Atraumatic Neck: Yes: Supple Cardiovascular: Yes: S1, S2 Respiratory: Yes: CTA Bilaterally Gastrointestinal: Yes: Normal Bowel Sounds, Soft Genitourinary: Yes: WNL Musculoskeletal: Yes: WNL Edema: No Neurological: Yes: Oriented Psychiatric: Yes: Oriented Labs: CBC, BMP 12/15/16 08:00 12/15/16 08:00 INR, PTT INR 1.16 (0.82-1.09) H 12/05/16 05:35 Problem List - Problems (1) End stage kidney disease Code(s): N18.6 - END STAGE RENAL DISEASE (2) GI bleed Code(s): K92.2 - GASTROINTESTINAL HEMORRHAGE, UNSPECIFIED (3) New onset a-fib Code(s): I48.91 - UNSPECIFIED ATRIAL FIBRILLATION Assessment/Plan Current Medications Generic Name Dose Route Start Last Admin Trade Name Linda PRN Reason Stop Dose Admin Amoxicillin 500 mg 12/08/16 22:00 12/16/16 09:51 Amoxicillin - PO 12/22/16 21:59 500 mg BID FAVIO Administration Brimonidine Tartrate 1 drop 12/12/16 22:38 12/16/16 09:53 Alphagan 0.2% - OD 1 drp BID [facility]AVIO Administration Clarithromycin 500 mg 12/08/16 22:00 12/16/16 09:51 Biaxin - PO 12/22/16 21:59 500 mg BID [facility]AVIO Administration Latanoprost 1 drop 12/12/16 22:40 12/15/16 22:15 Xalatan 0.005% Eye Drops - OD 1 drop HS [facility]AVIO Administration Pantoprazole Sodium 40 mg 12/03/16 22:00 12/16/16 09:50 Protonix - PO 40 mg BID FAVIO Administration Timolol Maleate 1 drop 12/12/16 22:40 12/16/16 09:53 Timoptic 0.5% OD 1 drop BID [facility]AVIO Administration Impression 1. ESRD 2. new onset a-fib 3. GI bleed 4. HTN 5. glaucoma 6. positive hep b core Plan - HD in am - hepatitis serologies repeated - send hep b core igm results to HD unit - will GI follow up for hep c treatment - epogen on HD - HD prescription: 4 hrs, 475 bf, 2k bath, heparin [address] Miller
[2016-12-16 14:21] VITALS: BP 96/56; PULSE 76; TEMP 97.7
[2016-12-17 10:11] LABS: FIBROSIS SCORE. 0.25 (0.00-0.21); FIBROSIS STAGE- F0-F1 (.); HCV ALPHA 2 MACRO CHART 131 mg/dL (110-276); HCV APOLIPOPROTEIN A1 115 mg/dL (101-178); HCV GGT 33 IU/L (0-65); HCV HAPTOGLOBIN 104 mg/dL (34-200); HCV TBIL CHART 0.5 mg/dL (0.0-1.2); NECRO.INFLAM ACT.SCORE 0.12 (0.00-0.17); NECROINFLAM. ACTIVITY GRADE A0-No activity (.)
[2016-12-17] MEDS ORDERED: EPOETIN ALFA 3,000 UNIT/1 ML ML IVPUSH ONE (13:10)
[2016-12-18 00:06] LABS: HCV RNA GENOTYPE 1b (.)
[2016-12-18 00:06] LABS: HBeAG Negative (Negative); HEP B SURFACE AB Reactive (.); HEP BE AB Negative (Negative)
== END 2016-12-16 16:21 | DRG 377 ==
LOC: JER 17:12 → JERBED 21:49 → UNDOADMIN 23:14 → JERBED 23:14 → J7W 12-03 02:36 → J4W 12-03 12:32 → J6S 12-12 18:37
PROVIDERS: ADMIT Internal Medicine; ATTEND Registered Nurse
PROC: 5A1D60Z (ICD-10-PCS; 2016-12-03)
PROC: 0DB68ZX Excision of Stomach, Via Natural or Artificial Opening Endoscopic, Diagnostic (ICD-10-PCS; 2016-12-04)
PROC: 0DJD8ZZ Inspection of Lower Intestinal Tract, Via Natural or Artificial Opening Endoscopic (ICD-10-PCS; 2016-12-04)
PROC: 0DB98ZX Excision of Duodenum, Via Natural or Artificial Opening Endoscopic, Diagnostic (ICD-10-PCS; principal; 2016-12-04 11:00)
PROC: 30233N1 Transfusion of Nonautologous Red Blood Cells into Peripheral Vein, Percutaneous Approach (ICD-10-PCS; 2016-12-05)
PROC: 05HM33Z Insertion of Infusion Device into Right Internal Jugular Vein, Percutaneous Approach (ICD-10-PCS; 2016-12-11)
DX: K57.91 Diverticulosis of intestine, part unspecified, without perforation or abscess with bleeding (principal); N18.6 End stage renal disease; I12.0 Hypertensive chronic kidney disease with stage 5 chronic kidney disease or end stage renal disease; A04.8 Other specified bacterial intestinal infections; D62 Acute posthemorrhagic anemia; J98.11 Atelectasis; R42 Dizziness and giddiness; R74.8 Abnormal levels of other serum enzymes; H40.89 Other specified glaucoma; Z91.89 Other specified personal risk factors, not elsewhere classified; K25.9 Gastric ulcer, unspecified as acute or chronic, without hemorrhage or perforation; K29.60 Other gastritis without bleeding; I35.0 Nonrheumatic aortic (valve) stenosis; D69.6 Thrombocytopenia, unspecified; I48.0 Paroxysmal atrial fibrillation; B19.20 Unspecified viral hepatitis C without hepatic coma; N28.1 Cyst of kidney, acquired; N26.1 Atrophy of kidney (terminal); I48.91 Unspecified atrial fibrillation; Z87.891 Personal history of nicotine dependence; Z99.2 Dependence on renal dialysis
CPT/HCPCS: 36415; 36430; 71010-TC; 74174-TC; 78452-TC; 80048; 80053; 80061; 82105; 82172; 82272; 82550; 82565; 82728; 82977; 83010; 83540; 83550; 83721; 83735; 83883; 84100; 84443; 84460; 84484; 84520; 85025; 85027; 85044; 85610; 85730; 86704; 86705; 86706; 86707; 86708; 86850; 86900; 86901; 86922; 87340; 87350; 87389; 87522; 87902; 88305-TC; 93005; 93010; 93017; 93306-TC; 93930; 97116-GP; 97161-GP; 99283-25; A9502; J0885; J1245; P9038; P9058

== ENCOUNTER 2017-05-17 22:30 | Inpatient (IN) | payer OTHER ==
--- NOTE | 2017-05-17 23:56 | PDOC ---
History of Present Illness - General History Source: Patient Exam Limitations: No Limitations - History of Present Illness Initial Comments: 05/18/17 00:08 The patient is a 67 year old male with a significant PMH of who presents to the emergency department with diffuse abdominal pain and rectal bleeding beginning approximately 1 hour ago. The patient describes the blood as bright red that is only present when he moves his bowels. The patient denies chest pain, shortness of breath, headache and dizziness. Denies fever, chills, nausea, vomit, diarrhea and constipation. Denies dysuria, frequency, urgency and hematuria. Allergies: NKA Past surgical history: None reported. Social history: No reported cigarette, alcohol, or drug use. PCP: Dr. Menezes <Awais Dunn - Last Filed: 05/18/17 02:07> <Angie Bland - Last Filed: 05/18/17 02:24> - General Chief Complaint: Pain Stated Complaint: ABD PAIN Time Seen by Provider: 05/17/17 23:22 Past History <Awais Dunn - Last Filed: 05/18/17 02:07> - Past Medical History Dialysis: Yes HTN: Yes (meds stopped bt pms 10/2016) - Immunization History Immunization Up to Date: No - Suicide/Smoking/Psychosocial Hx Smoking History: Never smoked Have you smoked in the past 12 months: No Information on smoking cessation initiated: No Hx Alcohol Use: No Drug/Substance Use Hx: No Substance Use Type: None Hx Substance Use Treatment: No <Angie Bland - Last Filed: 05/18/17 02:24> - Past Medical History Allergies/Adverse Reactions: Allergies Allergy/AdvReac Type Severity Reaction Status Date / Time No Known Allergies Allergy Verified 12/02/16 17:26 Home Medications: Ambulatory Orders Brimonidine Tartrate/Timolol [Combigan 0.2%-0.5% Eye Drops] 5 ml OP ASDIR Travoprost [Travatan Z] 2.5 ml OP ASDIR 12/02/16 Amoxicillin - [Amoxicillin 500mg Capsule -] 500 mg PO BID #15 tab 12/15/16 Clarithromycin [Biaxin -] 500 mg PO BID #15 tablet 12/15/16 Pantoprazole Sodium [Protonix -] 40 mg PO BID #180 tablet 04/18/17 Review of Systems - Review of Systems Comments:: 05/18/17 00:09 CONSTITUTIONAL: Absent: fever, chills, diaphoresis, generalized weakness, malaise, loss of appetite HEENT: Absent: rhinorrhea, nasal congestion, throat pain, throat swelling, difficulty swallowing, mouth swelling, ear pain, eye pain, visual Changes CARDIOVASCULAR: Absent: chest pain, syncope, palpitations, irregular heart rate, lightheadedness , peripheral edema RESPIRATORY: Absent: cough, shortness of breath, dyspnea with exertion, orthopnea, wheezing, stridor, hemoptysis GASTROINTESTINAL: Absent: abdominal pain, abdominal distension, nausea, vomiting, diarrhea, constipation, melena, hematochezia GENITOURINARY: (+) Rectal bleeding. (+) Does not urinate, on dialysis. Absent: dysuria, frequency, urgency, hesitancy, hematuria, flank pain, genital pain MUSCULOSKELETAL: Absent: myalgia, arthralgia, joint swelling SKIN: Absent: rash, itching, pallor HEMATOLOGIC/IMMUNOLOGIC: Absent: easy bleeding, easy bruising, lymphadenopathy, frequent infections ENDOCRINE: Absent: unexplained weight gain, unexplained weight loss, heat intolerance, cold intolerance NEUROLOGIC: Absent: headache, focal weakness or paresthesias, dizziness, unsteady gait, seizure, mental status changes, bladder or bowel incontinence PSYCHIATRIC: Absent: anxiety, depression, suicidal or homicidal ideation, hallucinations. 05/18/17 01:36 <Awais Dunn - Last Filed: 05/18/17 02:07> *Physical Exam - Vital Signs Last Vital Signs Temp Pulse Resp BP Pulse Ox 97.9 F 84 20 92/63 100 05/17/17 22:34 05/17/17 22:34 05/17/17 22:34 05/17/17 22:34 05/17/17 22:34 - Physical Exam Comments: 05/18/17 00:09 GENERAL: Well developed, well nourished. Awake and alert. No acute distress. HEENT: Normocephalic, atraumatic. PERRLA, EOMI. No conjunctival pallor. Sclera are non- icteric. Moist mucous membranes. Oropharynx is clear. NECK: Supple. Full ROM. No JVD. Carotid pulses 2+ and symmetric, without bruits. No thyromegaly. No lymphadenopathy. CARDIOVASCULAR: (+) Small murmur. Regular rate and rhythm. No rubs, or gallops. Distal pulses are 2+ and symmetric. PULMONARY: No evidence of respiratory distress. Lungs clear to auscultation bilaterally. No wheezing, rales or rhonchi. ABDOMINAL: Soft. Non-tender. Non-distended. No rebound or guarding. No organomegaly. Normoactive bowel sounds. MUSCULOSKELETAL Normal range of motion at all joints. No bony deformities or tenderness. No CVA tenderness. EXTREMITIES: (+) 2 AV grafts, 1 on each upper extremity. RUE bruits, thrills. (+ ) Chronic venous stasis bilaterally in lower extremities. (+) Pitting edema bilaterally in lower extremities. No cyanosis. No clubbing. No edema. No calf tenderness. SKIN: Warm and dry. Normal capillary refill. No rashes. No jaundice. NEUROLOGICAL: Alert, awake, appropriate. Conversant. Moving all extremities. PSYCHIATRIC: Cooperative. Good eye contact. Appropriate mood and affect. <Awais Dunn - Last Filed: 05/18/17 02:07> - Vital Signs Last Vital Signs Temp Pulse Resp BP Pulse Ox 97.9 F 84 20 92/63 100 05/17/17 22:34 05/17/17 22:34 05/17/17 22:34 05/17/17 22:34 05/17/17 22:34 <Angie Bland - Last Filed: 05/18/17 02:24> ED Treatment Course - LABORATORY CBC & Chemistry Diagram: 05/18/17 01:09 05/18/17 01:09 - Consult/PCP Time Called: 02:05 Case discussed with personal care physician: Sacha Menezes <Awais Dunn - Last Filed: 05/18/17 02:07> - LABORATORY CBC & Chemistry Diagram: 05/18/17 01:09 05/18/17 01:09 <Angie Bland - Last Filed: 05/18/17 02:24> *DC/Admit/Observation/Transfer - Attestations Scribe Attestion: 05/18/17 00:09 Documentation prepared by Awais Dunn, acting as medical billing specialist for Angie Bland MD. <Awais Dunn - Last Filed: 05/18/17 02:07> - Discharge Dispostion Admit: Yes <Angie Bland - Last Filed: 05/18/17 02:24> Diagnosis at time of Disposition: End stage renal failure on dialysis, Rectal bleed - Discharge Dispostion Condition at time of disposition: Fair - Referrals Referrals: Sacha Menezes MD [Primary Care Provider] -
[2017-05-18 01:20] LABS: EOSINOPHIL 1.2 % (0-4.5); MCH 25.2 pg (25.7-33.7); MCHC 30.5 g/dl (32.0-35.9); MEAN CELL VOLUME 82.7 fl (80-96); MEAN PLT VOLUME 9.9 fl (7.5-11.1); NEUTROPHILS 47.6 % (42.8-82.8); PLATELET COUNT 105 K/MM3 (134-434); RDW 17.4 % (11.9-15.9); WHITE BLOOD COUNT 3.1 K/mm3 (4.0-10.0)
[2017-05-18 01:31] LABS: INR 1.15 (0.82-1.09); PROTHROMBIN TIME (PATIENT) 12.7 SEC (9.98-11.88)
[2017-05-18 01:45] LABS: ALBUMIN 3.1 g/dl (3.4-5.0); ALK PHOS 227 U/L (45-117); ANION GAP 10 (8-16); BILIRUBIN,TOTAL 0.6 mg/dL (0.2-1.0); CALCIUM 8.9 mg/dL (8.5-10.1); CO2 29 mmol/L (21-32); CREATININE 7.3 mg/dL (0.7-1.3); GLUCOSE,RANDOM 182 mg/dL (74-106); SGOT/AST 40 U/L (15-37); SGPT/ALT 31 U/L (12-78); TOT PROT 6.6 g/dl (6.4-8.2)
[2017-05-18] MEDS ORDERED: PANTOPRAZOLE SODIUM 40 MG in SODIUM CHLORIDE 100 ML IVPB ONE (02:07)
[2017-05-18] MEDS ORDERED: SODIUM CHLORIDE 1,000 ML IV SCH (03:45)
--- NOTE | 2017-05-18 03:48 | HP ---
CHIEF COMPLAINT: GI bleed PCP: Riri HISTORY OF PRESENT ILLNESS: This is a 67 year old male with a past medical history significant for ESRD dialysis ,, GI bleed November, who presented to the ED with diffuse abdominal pain, rectal bleeding since Wednesday. He reports bleeding occurs wth BMs , a "few episodes" on Wednesday and a "few" on Wednesday. One episode in ED, small amount mucousy bloody discharge noted in bedpan, no stool present. He denies lightheadedness, dizziness, chest pain, nausea, vomiting. During episode GI bleed in November, pt went into afib with RVR. He reports that he has not followed up with GI or cardiology as he was just discharged from [facility] where he stayed for 2 months for rehab. ER course was notable for: (1) Hgb 10.2 (2) ECG with NSR Recent Travel: pt denies PAST MEDICAL HISTORY: ESRD, dialysis, TuThSa, glaucoma, HTN, PUD, afib, , H. pylori, Hep C PAST SURGICAL HISTORY: ? tonsillectomy as a child B/L AV grafts, right currently working Social History: Smoking: Quit in 1996-15 pack year history Alcohol: Quit in 1996 Drugs: Quit in 1996, heroin Family History: father in his 70s, colon CA mother in her 80s unknown CA 5 sisters, all alive, 1 with PMH BrCA, 2 others with CA as well, unknown type daughter alive and well Allergies No Known Allergies Allergy (Verified 12/02/16 17:26) HOME MEDICATIONS: 3 Medication Instructions Recorded Brimonidine Tartrate/Timolol 5 ml OP ASDIR 12/02/16 [Combigan 0.2%-0.5% Eye Drops] Travoprost [Travatan Z] 2.5 ml OP ASDIR 12/02/16 Amoxicillin - [Amoxicillin 500mg 500 mg PO BID #15 tab 12/15/16 Capsule -] Clarithromycin [Biaxin -] 500 mg PO BID #15 tablet 12/15/16 Pantoprazole Sodium [Protonix -] 40 mg PO BID #180 tablet 12/15/16 REVIEW OF SYSTEMS CONSTITUTIONAL: Absent: fever, chills, diaphoresis, generalized weakness, malaise, loss of appetite, weight change HEENT: Absent: rhinorrhea, nasal congestion, throat pain, throat swelling, difficulty swallowing, mouth swelling, ear pain, eye pain, visual changes CARDIOVASCULAR: Absent: chest pain, syncope, palpitations, irregular heart rate, lightheadedness , peripheral edema RESPIRATORY: Absent: cough, shortness of breath, dyspnea with exertion, orthopnea, wheezing, stridor, hemoptysis GASTROINTESTINAL: Present: abdominal pain, hematochezia Absent: abdominal distension, nausea, vomiting, diarrhea, constipation, melena GENITOURINARY: Absent: dysuria, frequency, urgency, hesitancy, hematuria, flank pain, genital pain MUSCULOSKELETAL: Absent: myalgia, arthralgia, joint swelling, back pain, neck pain SKIN: Absent: rash, itching, pallor HEMATOLOGIC/IMMUNOLOGIC: Absent: easy bleeding, easy bruising, lymphadenopathy, frequent infections ENDOCRINE: Absent: unexplained weight gain, unexplained weight loss, heat intolerance, cold intolerance NEUROLOGIC: Absent: headache, focal weakness or paresthesias, dizziness, unsteady gait, seizure, mental status changes, bladder or bowel incontinence PSYCHIATRIC: Absent: anxiety, depression, suicidal or homicidal ideation, hallucinations. PHYSICAL EXAMINATION Vital Signs - 24 hr 3 05/17/17 05/18/17 22:34 00:34 Temperature 97.9 F Pulse Rate 84 Respiratory 20 Rate Blood Pressure 92/63 O2 Sat by Pulse 100 100 Oximetry (%) Orthostatic VS: Layin/64 P 88 Sittin/60 P 88 Standin/62 P 84 GENERAL: Awake, alert, and fully oriented, in no acute distress. HEAD: Normal with no signs of trauma. EYES: Pupils equal, round and reactive to light, extraocular movements intact, sclera anicteric, conjunctiva clear. No lid lag. EARS, NOSE, THROAT: Ears normal, nares patent, oropharynx clear without exudates. Moist mucous membranes. NECK: Normal range of motion, supple without lymphadenopathy, JVD, or masses. LUNGS: Breath sounds equal, clear to auscultation bilaterally. No wheezes, and no crackles. No accessory muscle use. HEART: Regular rate and rhythm, normal S1 and S2 without rub or gallop. + 2/6 blowing murmur 2nd R ICS, radiating to right carotid ABDOMEN: Soft, nontender, not distended, normoactive bowel sounds, no guarding, no rebound, no masses. No hepatomegaly or splenomegaly. MUSCULOSKELETAL: Normal range of motion at all joints. No bony deformities or tenderness. No CVA tenderness. UPPER EXTREMITIES: 2+ pulses, warm, well-perfused. No cyanosis. No clubbing. No peripheral edema. left upper extremity AV graft with bruit and thrill LOWER EXTREMITIES: 2+ pulses, warm, well-perfused. No calf tenderness. No peripheral edema. NEUROLOGICAL: Cranial nerves II-XII intact. Normal speech. Normal gait. PSYCHIATRIC: Cooperative. Good eye contact. Appropriate mood and affect. SKIN: Warm, dry, normal turgor, no rashes or lesions noted, normal capillary refill. Laboratory Results - last 24 hr 3 05/18/17 05/18/17 05/18/17 05/18/17 01:09 01:09 01:09 01:30 WBC 3.1 L D RBC 4.03 D Hgb 10.2 L D Hct 33.3 L D MCV 82.7 MCH 25.2 L MCHC 30.5 L RDW 17.4 H Plt Count 105 L D MPV 9.9 Neutrophils % 47.6 D Lymphocytes % 40.4 H D Monocytes % 8.8 Eosinophils % 1.2 Basophils % 2.0 PT with INR 12.70 H INR 1.15 H Sodium 142 Potassium 3.6 Chloride 103 Carbon Dioxide 29 Anion Gap 10 BUN 27 H D Creatinine 7.3 H D Creat Clearance w eGFR 7.54 Random Glucose 182 H D Calcium 8.9 Total Bilirubin 0.6 AST 40 H ALT 31 Alkaline Phosphatase 227 H D Total Protein 6.6 Albumin 3.1 L Lipase 440 H Stool Occult Blood Positive Blood Type O POSITIVE Antibody Screen Negative ECG: Sinus rhythm with first degree AV block, [place] 0.24 Vent rate 75, QTC [address]/T changes ASSESSMENT/PLAN: 67yM with PMH ESRD, dialysis, TuThSa, glaucoma, HTN, PUD, diverticular GI bleed , afib, , H. pylori, Hep C presented to the ED with hematochezia x 2 days. GI GI bleed - h/o recent GI bleed in November, diverticular, EGD revealed H pylori, nonbleeding antral ulcers and uremic gastritis - H/H in am - GI consult - NPO for now - cont protonix IV BID Hep C - will need f/u with GI as outpatient, did not f/u after previous visit Renal ESRD - ED MD spoke to Dr. Menezes who will arrange for dialysis Cardio h/o Afib - sinus rhythm presently - monitor HR for signs of recurrence h/o HTN - now borderline hypotensive, not on any antihypertensives at home, cont to monitor BP opth glaucoma - blind in R eye - cont drops FEN - NS @ 75cc/hr DVT PPX - defer due to active GI bleed Dispo: Pt currently requires inpatient management of his emergent condition. Visit type - Emergency Visit Emergency Visit: Yes ED Registration Date: 05/17/17 Care time: The patient presented to the Emergency Department on the above date and was hospitalized for further evaluation of their emergent condition. - New Patient This patient is new to me today: Yes Date on this admission: 05/18/17 - Critical Care Critical Care patient: No
[2017-05-18] MEDS ORDERED: PATIENT'S OWN MEDICATION (NON-FORMULARY) (Travoprost [Travatan Z] 2.5 ML) OP SCH (04:00)
[2017-05-18] MEDS ORDERED: PATIENT'S OWN MEDICATION (NON-FORMULARY) (Brimonidine Tartrate/Timolol [Combigan 0.2%-0.5% OP SCH (04:00)
[2017-05-18] MEDS ORDERED: PANTOPRAZOLE SODIUM 100 ML IVPB ONE (04:46)
[2017-05-18 06:25] VITALS: BMI 23.3
--- NOTE | 2017-05-18 07:13 | PN ---
Physical Exam: SUBJECTIVE: is a 67 y/O AA male with a past medical history significant for ESRD dialysis ,, GI bleed November, who presented to the ED with diffuse abdominal pain, rectal bleeding since Wednesday. He reports bleeding occurs with BMs, maily on the toilet paper. He denies lightheadedness, dizziness, chest pain ,palpitation, nausea, vomiting. During episode GI bleed in November, pt went into afib with RVR. He reports that he has not followed up with GI or cardiology as he was just discharged from [facility] where he stayed for 2 months for rehab. Patient was seen and examined at bedside, rectal bleeding has improved,he reports SOB when he gets out of bed. he denies any other symptoms. He denies NSAID and steroid use. OBJECTIVE: Vital Signs Period Temp Pulse Resp BP Sys/Reaves Pulse Ox Last 24 Hr 97.5 F-97.5 F 84-88 18-18 104-106/69-74 99-100 GENERAL: The patient is awake, alert, and fully oriented, in no acute distress. HEAD: Normal with no signs of trauma. EYES: sclera anicteric, conjunctiva pallor. moist mucous membranes. LUNGS: Breath sounds equal, clear to auscultation bilaterally, no wheezes, no crackles, no accessory muscle use. HEART: Regular rate and rhythm, S1, S2, 2/6 systolic murmur, no rubs or gallops. ABDOMEN: Soft, nontender, nondistended, normoactive bowel sounds, no guarding, no rebound. EXTREMITIES: warm, well-perfused, +2 LE edema. poor nail heygen, peripheral venous stasis. NEUROLOGICAL:good mentation, Normal speech, gait not observed. SKIN: Warm, dry, no rashes or lesions noted CY: no external hemrrhoids, +blood, no stool in rectal vault, Guiac send to the lab. Active Medications Current Medications Generic Name Dose Route Start Last Admin Trade Name Freq PRN Reason Stop Dose Admin Brimonidine Tartrate 1 drop 05/18/17 22:00 Alphagan 0.2% - OU BID FAVIO Epoetin Calixto 5,000 unit 05/18/17 12:11 Procrit - IVPUSH 05/18/17 12:12 ONCE ONE Pantoprazole Sodium 80 mg/ 100 mls @ 10 mls/hr 05/18/17 12:00 05/18/17 14:08 Sodium Chloride IVPB Not Given Q10H FAVIO 8 MG/HR Latanoprost 1 drop 05/18/17 22:00 Xalatan 0.005% Eye Drops - OU HS FAVIO Timolol Maleate 1 drop 05/18/17 22:00 Timoptic 0.5% OU BID FAVIO CBC, BMP 05/18/17 01:09 05/18/17 01:09 #ECG: Sinus rhythm with first degree AV block, [place] 0.24 Vent rate 75, QTC [address]/T changes #CXR 05/18/2017 : Heart enlargment, congestion changes, minimal atelectasis, R axillary stent. ASSESSMENT/PLAN: MR. Garvin is 67yo AA M with PMH ESRD, dialysis, ,,Sa, glaucoma, HTN, PUD , diverticular GI bleed, afib, , H. pylori, Hep C presented to the ED with BRBPR x 2 days. #GI bleed, Acute on chronic likely 2/2 Diverticulr bleed vs hemorrhoids vs AVM vs constipation vs gastric ulcer(unlikely) * h/o recent GI bleed in November, diverticular, EGD revealed H pylori, nonbleeding antral ulcers and uremic gastritis * H/H 10.2/33.3 , repet CBC Q8hr * Hemodynamically stable * iron studies on last admission. showing anemia of chronic disease * GI consult * NPO for now * cont protonix IV drip * consider 2 large bore IV in case of severe GI bleeding #Hep C - will need f/u with GI as outpatient, did not f/u after previous visit #Hpylori * s/p triple therapy in november 2016. * will need repeat endoscopy #ESRD * had dialysis today , on the board * epogen on HD , 5,000 unit IVPUSH #h/o Afib, likely paroxysmal due to acute blood loss * Now in sinus rhythm presently, HR 84 * monitor HR for signs of recurrence * No on anticoagulatin due to GI bleed #h/o HTN * now borderline hypotensive 104/69 * not on any antihypertensives at home, cont to monitor BP #glaucoma * blind in L eye * cont drops (Timolol, Primonidine) #FEN * F: NS @ 75cc/hr in the ED, Hold fluids for now * E: WN, repeat BMP * N: NPO till GI cosulted # PPX * DVT: SCDs, heparin defer due to active GI bleed * GI: Protonix IV drip due to GI bleed Dispo: Pt currently requires inpatient management of his emergent condition. Visit type - Emergency Visit Emergency Visit: Yes ED Registration Date: 05/18/17 Care time: The patient presented to the Emergency Department on the above date and was hospitalized for further evaluation of their emergent condition. - New Patient This patient is new to me today: Yes Date on this admission: 05/19/17 - Critical Care Critical Care patient: No - Discharge Referral Referred to [facility] Med P.C.: No
[2017-05-18] MEDS ORDERED: PATIENT'S OWN MEDICATION (NON-FORMULARY) (Brimonidine Tartrate/Timolol [Combigan 0.2%-0.5% OU SCH (10:00)
[2017-05-18] MEDS ORDERED: PANTOPRAZOLE SODIUM 40 MG in SODIUM CHLORIDE 100 ML IVPB SCH (10:00)
--- NOTE | 2017-05-18 11:58 | PN ---
Teaching Attending Note Name of Resident: Nabeel Garrett ATTENDING PHYSICIAN STATEMENT I saw and evaluated the patient. I reviewed the resident's note and discussed the case with the resident. I agree with the resident's findings and plan as documented. SUBJECTIVE:states he had 1 episode of BRBPR since admission. states for past 4 days been noticing a little blood in the toilet as well as on the toilet paper. assoc with mild diffuse abdominal pain which he reports he does not have now. has been having some constipation for the week previously with lots of straining. has not followed up with GI since last admission as he was in [facility]. stopped taking cinacelet himself several weeks ago. claims mediation compliance. denies CP, SOB, fever, chills, N/V/C/D, tenesmus. denies NSAID and steroid use. last colonoscopy in November this year with last admission. OBJECTIVE: Last Vital Signs Temp Pulse Resp BP Pulse Ox 97.3 F L 88 20 109/69 100 05/18/17 10:05/18/17 10:05/18/17 10:05/18/17 10:05/18/17 05:45 General NAD CV S1 S2 + murmur Lungs CTA B/L no wheezing/rales/rhonchi Abdomen soft NT/ND rectal done by resident, not witnessed by me. no external hemrrhoids +blood no stool in rectal vault Extremities RUE +palpable thrill, trace pitting edema ASSESSMENT AND PLAN: 67yo M with PMH ESRD on HD, Afib not on anticoagulation, , Hpylori and recent diverticular bleed presented with BRBPR 1. Acute blood loss due to BRBPR- likely repeat diverticular bleed vs AVM vs constipation. inital FOBT negative. NPO, IVF, trend Hgb Q8H. cont PPI ggt for now but low suspicion for upper GI bleed. pt is hemodynamically stable. GI consulted for repeat colonoscopy to locate source of bleeding. instructed to notify RN for repeated bloody BM. iron studies on last admission. showing anemia of chronic disease 2. Afib- was new onset last admission likley paroxysmal due to acute blood loss. is currently in NSR. was not started on anticoagulation due to GI bleed. would consider re-starting low dose asa if able to tolerate, however will continue to hold in setting of GI bleed 3. Hpylori- s/p triple therapy in november 2016. will need repeat endoscopy 4. ESRD on HD- cont HD per normal schedule. pt recently stopped cinacelet himself as he thought it was contributing to his abdominal pain. defer to neprhology if should be re-started 5. DVT ppx- SCD. hold pharmacologic anticoagulation
[2017-05-18] MEDS ORDERED: EPOETIN ALFA 10,000 UNIT/1 ML VIAL IVPUSH ONE (12:11)
--- NOTE | 2017-05-18 12:14 | CONSULT ---
Consult Consult Specialty:: Nephrology Reason for Consultation:: ESRD - History of Present Illness Chief Complaint: rectal bleeding History of Present Illness: Pt is a 67 year old male with pmhx of ESRD who presents to the ER with rectal bleeding. He also complains of abdominal pain. He was admitted for workup. I was called to evaluate him for HD. He is due for dialysis today. He says that the rectal bleeding is improved. He denies chest pain or shortness of breath. He denies fevers or chills. - History Source History Provided By: Patient, Medical Record - Past Medical History Cardio/Vascular: Yes: AFIB, HTN, Other Renal/: Yes: Renal Failure, Hemodialysis, Other Additional Medical History: Glaucoma - Past Surgical History Past Surgical History: Yes: AV Fistula/Graft - Alcohol/Substance Use Hx Alcohol Use: Yes (quit 1996) History of Substance Use: reports: Heroin (IV heroin over 20 years prior) - Smoking History Smoking history: Former smoker Have you smoked in the past 12 months: No If you are a former smoker, when did you quit?: 1996 - Social History Usual Living Arrangement: Alone ADL: Independent 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, History of Recent Travel: No Home Medications - Allergies Allergies/Adverse Reactions: Allergies Allergy/AdvReac Type Severity Reaction Status Date / Time No Known Allergies Allergy Verified 12/02/16 17:26 - Home Medications Home Medications: Ambulatory Orders Brimonidine Tartrate/Timolol [Combigan 0.2%-0.5% Eye Drops] 1 drop OD BID Travoprost [Travatan Z] 1 drop OD HS 12/02/16 Pantoprazole Sodium [Protonix -] 40 mg PO BID #180 tablet 12/15/16 Vit B Cmplx No3/FA/C/Biot/Zinc [Nephplex Rx Tablet] 1 each PO DAILY 05/18/17 Family Disease History - Family Disease History Family Disease History: Other: Father ( 70's:h/o colon ca in 70's), Mother ( 80's: unclear cause ), Sister (5 sisters, 1 w/ BCA two others with ? cancers), Daughter (1 healthy daughter) Review of Systems - Review of Systems Constitutional: reports: No Symptoms Eyes: reports: No Symptoms HENT: reports: No Symptoms Neck: reports: No Symptoms Cardiovascular: reports: No Symptoms Respiratory: reports: No Symptoms Gastrointestinal: reports: Rectal Bleeding Genitourinary: reports: No Symptoms Musculoskeletal: reports: No Symptoms Integumentary: reports: No Symptoms Neurological: reports: No Symptoms Endocrine: reports: No Symptoms Hematology/Lymphatic: reports: No Symptoms Psychiatric: reports: No Symptoms Physical Exam Vital Signs: Vital Signs Temperature 97.3 F L 05/18/17 10:00 Pulse Rate 88 05/18/17 10:00 Respiratory Rate 20 05/18/17 10:00 Blood Pressure 109/69 05/18/17 10:00 O2 Sat by Pulse Oximetry (%) 100 05/18/17 05:45 Constitutional: Yes: Calm Eyes: Yes: Conjunctiva Clear HENT: Yes: Atraumatic Neck: Yes: Supple Cardiovascular: Yes: S1, S2 Respiratory: Yes: CTA Bilaterally Gastrointestinal: Yes: Normal Bowel Sounds, Soft Renal/: Yes: WNL Musculoskeletal: Yes: WNL Edema: No Neurological: Yes: Oriented Psychiatric: Yes: Oriented Labs: Laboratory Tests 12/15/16 12/15/16 12/15/16 08:00 08:00 08:18 WBC Hgb Sodium Potassium Chloride Carbon Dioxide Anion Gap BUN Creatinine Hep Bs Antigen Hep Bs Ab Concentration Hep B Core Total Ab Hep B Core IgM Ab Pending Hep B Core Ab Interpret Pending Hepatitis Be Antibody Pending Hepatitis Be Antigen Pending Liver Fibrosis Comment Pending Liver Fibrosis Limits Pending Liver Fibrosis Interp Pending Hepatitis C Genotype Pending 12/15/16 05/18/17 05/18/17 08:18 01:09 01:09 WBC 3.1 L D Hgb 10.2 L D Sodium 142 Potassium 3.6 Chloride 103 Carbon Dioxide 29 Anion Gap 10 BUN 27 H D Creatinine 7.3 H D Hep Bs Antigen Pending Hep Bs Ab Concentration Pending Hep B Core Total Ab Pending Hep B Core IgM Ab Pending Hep B Core Ab Interpret Hepatitis Be Antibody Pending Hepatitis Be Antigen Pending Liver Fibrosis Comment Liver Fibrosis Limits Liver Fibrosis Interp Hepatitis C Genotype Imaging - Results Chest X-ray: Report Reviewed Problem List - Problems (1) End stage renal failure on dialysis Code(s): N18.6 - END STAGE RENAL DISEASE Z99.2 - DEPENDENCE ON RENAL DIALYSIS (2) Rectal bleed Code(s): K62.5 - HEMORRHAGE OF ANUS AND RECTUM (3) Anemia Code(s): D64.9 - ANEMIA, UNSPECIFIED Assessment/Plan Current Medications Generic Name Dose Route Start Last Admin Trade Name Linda PRN Reason Stop Dose Admin Brimonidine Tartrate 1 drop 05/18/17 22:00 Alphagan 0.2% - OU BID FAVIO Epoetin Calixto 5,000 unit 05/18/17 12:11 Procrit - IVPUSH 05/18/17 12:12 ONCE ONE Pantoprazole Sodium 80 mg/ 100 mls @ 10 mls/hr 05/18/17 12:00 Sodium Chloride IVPB Q10H FAVIO 8 MG/HR Latanoprost 1 drop 05/18/17 22:00 Xalatan 0.005% Eye Drops - OU HS FAVIO Timolol Maleate 1 drop 05/18/17 22:00 Timoptic 0.5% OU BID FAVIO Impression 1. ESRD 2. a-fib 3. GI bleed 4. HTN 5. glaucoma 6. positive hep b core Plan - HD today - monitor cbc - GI eval - epogen on HD - HD prescription: 4 hrs, 475 bf, 2k bath
[2017-05-18] MEDS: PANTOPRAZOLE SODIUM 80 MG in SODIUM CHLORIDE 100 ML IVPB SCH ×3 (14:08→21:28)
[2017-05-18] MEDS ORDERED: EPOETIN ALFA 3,000 UNIT, EPOETIN ALFA 2,000 UNIT IVPUSH ONE (15:00)
[2017-05-18 15:22] LABS: BASOPHIL 0.9 % (0-2.0); EOSINOPHIL 1.6 % (0-4.5); MCH 25.3 pg (25.7-33.7); MEAN CELL VOLUME 81.5 fl (80-96); MEAN PLT VOLUME 11.1 fl (7.5-11.1); NEUTROPHILS 48.4 % (42.8-82.8); PLATELET COUNT 118 K/MM3 (134-434); RDW 17.6 % (11.9-15.9); WHITE BLOOD COUNT 2.6 K/mm3 (4.0-10.0)
[2017-05-18 15:41] LABS: ANION GAP 11 (8-16); CALCIUM 8.7 mg/dL (8.5-10.1); CO2 27 mmol/L (21-32); CREATININE 6.9 mg/dL (0.7-1.3); GLUCOSE,RANDOM 110 mg/dL (74-106)
--- NOTE | 2017-05-18 17:13 | CON.GI ---
Consult Consult Specialty:: GI Referred by:: Hospitalist Service Reason for Consultation:: Rectal beeding - History of Present Illness Chief Complaint: I was bleeding History of Present Illness: 67 y/o male admitted through [facility] ER for evaluation of rectal bleeding. He was in his usual state of health up until Wednesday, when he developed bright red rectal bleeding. There was no bowel movement involved initially and he denied straining, abdominal pain, constipation, nausea, vomiting. He had a similar episode in 12/14 when he was admitted to [facility] for evaluation of rectal bleeding. CTA at the time failed to reveal source of bleeding. EGD and colonoscopy were perfomred by Dr. Ching. EGD revealed a non-bleeding antral ulcer that was not felt to be the source of bleeding. He was seen to be h. pylori positive and started on 14 day triple therapy by Dr. Ching prior to his discharge. Colonoscopy revealed diverticulosis and blood throughout the colon. A repeat colonoscopy in 1 year was advised. He was also advised of his Hep C Ab being positive and that he would need follow-up regarding this. he tells me that he was at the [facility] since February and has not had any follow-up since previous admission. He was previously taking a 325mg ASA but tells me that he no longer takes it. He denies any OTC NSAID use and Home medication record includes protonix daily. Currently He was brought to the ER and underwent blood work that revealed a Hgb of 10.2 (unclear what his baseline is as he has ESRD). This afternoon repeat Hgb was 9.6. He has had no overt rectal bleeding today but was transferred to telemetry as he was found to be in new onset A.Fib. He denies previous rectal bleeding, denies OTC NSAID use but does take 325mg ASA daily. He believes that his father may have had colon cancer diagnosed in his 70's. - History Source History Provided By: Patient, Medical Record Limitations to Obtaining History: No Limitations - Past Medical History Cardio/Vascular: Yes: AFIB, HTN, Other Gastrointestinal: Yes: Diverticulosis (with suspected diverticular bleed 12/14), Gastritis (h. pylori gastritis) Renal/: Yes: Renal Failure, Hemodialysis, Other Heme/Onc: Yes: Anemia Additional Medical History: Glaucoma - Past Surgical History Past Surgical History: Yes: AV Fistula/Graft - Alcohol/Substance Use Hx Alcohol Use: Yes (quit 1996) History of Substance Use: reports: Heroin (IV heroin over 20 years prior) - Smoking History Smoking history: Former smoker Have you smoked in the past 12 months: No If you are a former smoker, when did you quit?: 1996 - Social History Usual Living Arrangement: Alone ADL: Independent 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, History of Recent Travel: No Home Medications - Allergies Allergies/Adverse Reactions: Allergies Allergy/AdvReac Type Severity Reaction Status Date / Time No Known Allergies Allergy Verified 12/02/16 17:26 - Home Medications Home Medications: Ambulatory Orders Brimonidine Tartrate/Timolol [Combigan 0.2%-0.5% Eye Drops] 1 drop OD BID Travoprost [Travatan Z] 1 drop OD HS 12/02/16 Pantoprazole Sodium [Protonix -] 40 mg PO BID #180 tablet 12/15/16 Vit B Cmplx No3/FA/C/Biot/Zinc [Nephplex Rx Tablet] 1 each PO DAILY 05/18/17 Family Disease History - Family Disease History Family Disease History: Other: Father ( 70's:h/o colon ca in 70's), Mother ( 80's: unclear cause ), Sister (5 sisters, 1 w/ BCA two others with ? cancers), Daughter (1 healthy daughter) Review of Systems - Review of Systems Constitutional: denies: Chills, Unintentional Wgt. Loss Cardiovascular: denies: Chest Pain Respiratory: denies: SOB Gastrointestinal: reports: Rectal Bleeding. denies: Abdominal Pain, Constipation Physical Exam-GI Vital Signs: Vital Signs Temperature 97.7 F 05/18/17 14:30 Pulse Rate 80 05/18/17 17:00 Respiratory Rate 18 05/18/17 17:00 Blood Pressure 103/74 05/18/17 17:00 O2 Sat by Pulse Oximetry (%) 100 05/18/17 05:45 Constitutional: Yes: Calm Eyes: No: Sclera Icterus Cardiovascular: Yes: Regular Rate and Rhythm, Murmur (2/6 systolic murmur at the LSB) Respiratory: Yes: CTA Bilaterally Gastrointestinal Inspection: No: Distention ...Auscultate: Yes: Normoactive Bowel Sounds ...Palpate: No: Hepatomegaly, Splenomegaly, Tenderness Extremities: Yes: Other (RUE AV Fistula) Edema: Yes Edema: LLE: Trace (w/ stasis), RLE: Trace (w/ stasis) Neurological: Yes: Alert, Oriented Labs: CBC, BMP 05/18/17 15:05 05/18/17 15:05 INR, PTT INR 1.15 (0.82-1.09) H 05/18/17 01:09 Problem List - Problems (1) Rectal bleed Assessment/Plan: Suspect recurrent diverticular bleeding Advise: Clear liquid diet Will prep for repeat colonoscopy tomorrow 05/19/17. Discussed with Mr. Garvin. Discussed potential risks of the procedure like but not limited to bleeding, perforation requiring surgery to repair, infection and sedation medication effects all of which could be potentially life threatening. He has agreed to the procedure. NPO after midnight except meds w/ small sips water If significant rectal bleeding with negative change in hemodynamics, transfer to ICU setting Code(s): K62.5 - HEMORRHAGE OF ANUS AND RECTUM
[2017-05-18] MEDS ORDERED: BISACODYL 5 MG TABLET.DR (FP) PO ONE (17:20)
--- NOTE | 2017-05-18 17:32 | PN ---
Progress Note (short form) - Note Progress Note: Please see full consult Also: ALP elevated on admission: work-up the elevated ALP. Check Liver US/ggt. Consider evaluation for alternate causes as well such as bone Will need outpatient follow-up of Hepatitis C Consider heme evaluation of pancytopenia Problem List - Problems (1) Rectal bleed Code(s): K62.5 - HEMORRHAGE OF ANUS AND RECTUM
[2017-05-18] MEDS ORDERED: PEG3350/SOD SULF,BICARB,CL/KCL 4,000 ML SOLN.RECON PO ONE (18:00)
[2017-05-18] MEDS ORDERED: PT OWN MED DRAWER 7, Y5N ONE ×2 (18:41→20:47)
--- NOTE | 2017-05-18 21:10 | EKG ---
Test Reason : Blood Pressure : / mmHG Vent. Rate : 075 BPM Atrial Rate : 075 BPM P-R Int : 304 ms QRS Dur : 114 ms QT Int : 444 ms P-R-T Axes : 093 -82 088 degrees QTc Int : 495 ms SINUS RHYTHM MARKED FIRST DEGREE AV BLOCK CLBBB INFERIOR INFARCT , AGE UNDETERMINED ABNORMAL ECG WHEN COMPARED WITH ECG OF 06-DEC-2016 10:09, ST-T WAVES ARE NOW UPRIGHT IN PRECORDIAL LEADS FOLLOW TRACING IS RECOMMENDED Confirmed by DANNY SORTO MD ([id number]) on 05/18/2017 9:10:33 PM Referred By: Confirmed By:DANNY SORTO MD
[2017-05-18] MEDS: BRIMONIDINE TARTRATE 0.2% OPHTHALMIC 5 ML BOTTLE OU SCH (21:23)
[2017-05-18] MEDS: TIMOLOL 0.5% OPHTHALMIC SOL 5 ML BOTTLE OU SCH (21:24)
[2017-05-18] MEDS: LATANOPROST 0.005% OPHTH SOLN 2.5ML BOTTLE OU SCH (21:24)
[2017-05-18] MEDS ORDERED: PATIENT'S OWN MEDICATION (NON-FORMULARY) (Travoprost [Travatan Z] 1 DROP) OU SCH (22:00)
[2017-05-19] MEDS: PANTOPRAZOLE SODIUM 80 MG in SODIUM CHLORIDE 100 ML IVPB SCH ×2 (04:57→08:02)
[2017-05-19 11:27] LABS: RDW 17.4 % (11.9-15.9); WHITE BLOOD COUNT 3.5 K/mm3 (4.0-10.0)
[2017-05-19 11:32] LABS: MCH 24.8 pg (25.7-33.7); MCHC 30.4 g/dl (32.0-35.9); MEAN CELL VOLUME 81.5 fl (80-96); MEAN PLT VOLUME 9.4 fl (7.5-11.1); PLATELET COUNT 133 K/MM3 (134-434)
[2017-05-19] MEDS: BRIMONIDINE TARTRATE 0.2% OPHTHALMIC 5 ML BOTTLE OU SCH ×2 (11:34→21:03)
[2017-05-19] MEDS: TIMOLOL 0.5% OPHTHALMIC SOL 5 ML BOTTLE OU SCH ×2 (11:34→21:03)
[2017-05-19 11:57] LABS: ANION GAP 8 (8-16); CALCIUM 9.7 mg/dL (8.5-10.1); CO2 29 mmol/L (21-32); CREATININE 5.7 mg/dL (0.7-1.3); GLUCOSE,RANDOM 102 mg/dL (74-106)
[2017-05-19 12:12] LABS: TOTAL CELLS COUNTED 100
[2017-05-19 12:13] LABS: PLATELET ESTIMATE ADEQUATE (NORMAL)
--- NOTE | 2017-05-19 12:39 | PN ---
GI Progress Note Subjective: No further bleeding No abdominal pain + brown BM's after 1/2 bowel prep. He did not complete - Objective Vital Signs: Vital Signs Temperature 98.0 F 05/19/17 09:41 Pulse Rate 89 05/19/17 09:41 Respiratory Rate 20 05/19/17 09:41 Blood Pressure 104/76 05/19/17 09:41 O2 Sat by Pulse Oximetry (%) 100 05/18/17 05:45 Constitutional: Calm Eyes: No: Sclera Icterus Cardiovascular: Yes: Regular Rate and Rhythm, Murmur Respiratory: Yes: CTA Bilaterally ...Auscultate: Yes: Normoactive Bowel Sounds ...Palpate: No: Tenderness Neurological: Yes: Alert, Oriented Labs: CBC, BMP 05/19/17 11:15 05/19/17 11:15 INR, PTT INR 1.15 (0.82-1.09) H 05/18/17 01:09 Problem List - Problems (1) Rectal bleed Assessment/Plan: No further bleeding. ? if hemorrhoidal in nature / recurrent diverticular bleed. Given recent colonoscopy, would defer repeat colonoscopy at this time and observe today. if rebleeding occurs then would plan for repeat evaluation Abdominal US does show cholelithiasis without any other obvious liver lesions / ductal dilatation. GGT mildly elevated as well. Should Ideally have triple phase MRI of abdomen with and without contrast/MRCP to further evaluate liver chemistry abnormalities / exclude liver lesion in setting of suspected chronic liver disease and evaluate biliary tract. Needs outpatient follow-up as well and can follow-up with Dr. Ching / [facility] when acute issues are resolved. Information to Dr. Ching's office added to discharge plan and this was again explained to Mr. Garvin. Consider evaluation for bone sources of elevated ALP as well Code(s): K62.5 - HEMORRHAGE OF ANUS AND RECTUM
--- NOTE | 2017-05-19 13:51 | PN ---
Teaching Attending Note Name of Resident: Nabeel Garrett ATTENDING PHYSICIAN STATEMENT I saw and evaluated the patient. I reviewed the resident's note and discussed the case with the resident. I agree with the resident's findings and plan as documented. SUBJECTIVE:currently asymptomatic. tolerating regular diet. states he had some blood on TP during multiple episodes of BM last night on golytely however no blood in toilet bowl or mixed in stool. was not able to tolerate bowel prep and only completed a quarter of it. denies CP, SOB, fever, chills, N/V/C/D OBJECTIVE: Last Vital Signs Temp Pulse Resp BP Pulse Ox 98.0 F 89 20 104/76 100 05/19/17 09:41 05/19/17 09:41 05/19/17 09:41 05/19/17 09:41 05/18/17 05:45 General NAD CV S1 S2 + murmur Lungs CTA B/L no wheezing/rales/rhonchi Abdomen soft NT/ND Extremities RUE +palpable thrill, trace pitting edema ASSESSMENT AND PLAN: 67yo M with PMH ESRD on HD, Afib not on anticoagulation, , Hpylori and recent diverticular bleed presented with BRBPR 1. Acute blood loss due to BRBPR- likely repeat diverticular bleed vs AVM vs constipation. was being prepped for colonoscopy but was unable to complete prep. in light of Hgb being stable and brown stool with no significant bleeding. colonoscopy cancelled. diet now advance to regular diet. will continue to monitor if remains stable tomorrow. no repeated bleeding noted can follow up with GI as outpatient for repeat procedure if needed. most likely hemrrhoidal bleeding. GI on board. 2. Afib- was new onset last admission ivana paroxysmal due to acute blood loss. is currently in NSR. was not started on anticoagulation due to GI bleed. would consider re-starting low dose asa if able to tolerate, however will continue to hold in setting of GI bleed 3. Hpylori- s/p triple therapy in november 2016. will need repeat endoscopy as outpatient 4. elevated alk phos- GGT ULN. u/s negative for acute pathology less likely liver source however recommended for triple phase study done to further evaluate as outpatient. pt is asymptomatic. can continue workup as outpatient 5. ESRD on HD- cont HD per normal schedule. pt recently stopped cinacelet himself as he thought it was contributing to his abdominal pain. defer to neprhology if should be re-started 6. DVT ppx- SCD. hold pharmacologic anticoagulation 7. d/c planning for the AM if hgb remains stable and no repeated bleeding. informed pt to notify RN if notes to have any rectal bleeding
--- NOTE | 2017-05-19 18:17 | PN ---
Progress Note, Physician History of Present Illness: Pt seen and examined at bedside. He is awake and alert. He says he has not seen any blood with his stool. - Current Medication List Current Medications: Active Medications Brimonidine Tartrate (Alphagan 0.2% -) 1 drop OU BID FAVIO Last Admin: 05/19/17 11:34 Dose: 1 drop Latanoprost (Xalatan 0.005% Eye Drops -) 1 drop OU HS FAVIO Last Admin: 05/18/17 21:24 Dose: 1 drop Timolol Maleate (Timoptic 0.5%) 1 drop OU BID FAVIO Last Admin: 05/19/17 11:34 Dose: 1 drop - Objective Vital Signs: Vital Signs Temperature 98.0 F 05/19/17 14:11 Pulse Rate 81 05/19/17 14:11 Respiratory Rate 20 05/19/17 14:11 Blood Pressure 90/61 05/19/17 14:11 O2 Sat by Pulse Oximetry (%) 100 05/18/17 05:45 Constitutional: Yes: Calm Eyes: Yes: Conjunctiva Clear HENT: Yes: Atraumatic Neck: Yes: Supple Cardiovascular: Yes: S1, S2 Gastrointestinal: Yes: WNL Genitourinary: Yes: WNL Musculoskeletal: Yes: WNL Edema: No Neurological: Yes: Oriented Psychiatric: Yes: Oriented Labs: CBC, BMP 05/19/17 11:15 05/19/17 11:15 INR, PTT INR 1.15 (0.82-1.09) H 05/18/17 01:09 Problem List - Problems (1) End stage renal failure on dialysis Code(s): N18.6 - END STAGE RENAL DISEASE Z99.2 - DEPENDENCE ON RENAL DIALYSIS (2) Rectal bleed Code(s): K62.5 - HEMORRHAGE OF ANUS AND RECTUM (3) Anemia Code(s): D64.9 - ANEMIA, UNSPECIFIED Assessment/Plan Current Medications Generic Name Dose Route Start Last Admin Trade Name Freq PRN Reason Stop Dose Admin Brimonidine Tartrate 1 drop 05/18/17 22:00 05/19/17 11:34 Alphagan 0.2% - OU 1 drop BID FAVIO Administration Latanoprost 1 drop 05/18/17 22:00 05/18/17 21:24 Xalatan 0.005% Eye Drops - OU 1 drop HS FAVIO Administration Timolol Maleate 1 drop 05/18/17 22:00 05/19/17 11:34 Timoptic 0.5% OU 1 drop BID FAVIO Administration Impression 1. ESRD 2. a-fib 3. GI bleed 4. HTN 5. glaucoma 6. positive hep b core Plan - will arrange for HD in am - GI follow up - monitor hg - epogen on HD - HD prescription: 4 hrs, 475 bf, 2k bath
--- NOTE | 2017-05-19 18:18 | PN ---
Physical Exam: SUBJECTIVE: Patient seen and examined at bedside. No acute events over night. he move his bowel but did not notice any blood. He denies any fever, chills, lightheadedness, palpitation, sob, N/V/D/C. He was NPO for possible colonoscopy today but he did not drink the prep and colonoscopy was differed due to recent one in November and stability of his hemoglobin. OBJECTIVE: Vital Signs Period Temp Pulse Resp BP Sys/Reaves Pulse Ox Last 24 Hr 97.5 F-98.0 F 81-92 18-20 90-104/61-76 GENERAL: The patient is awake, alert, and fully oriented, in no acute distress. HEAD: Normal with no signs of trauma. EYES: sclera anicteric, conjunctiva clear. ENT: moist mucous membranes. LUNGS: Breath sounds equal, clear to auscultation bilaterally, no wheezes, no crackles, no accessory muscle use. HEART: Regular rate and rhythm, S1, S2 , 2/6 systolic murmur,no rub or gallop. ABDOMEN: Soft, nontender, nondistended, normoactive bowel sounds, no guarding, no rebound, no hepatosplenomegaly, no masses. EXTREMITIES: warm, well-perfused, +2 edema. peripheral venous stasis NEUROLOGICAL: good mentation PSYCH: Normal mood, normal affect. SKIN: Warm, dry, no rashes. LE pigmentation due to venous stasis. Laboratory Results - last 24 hr 05/19/17 05/19/17 05/19/17 11:15 11:15 11:15 WBC 3.5 L D RBC 4.34 Hgb 10.8 L D Hct 35.4 MCV 81.5 MCH 24.8 L MCHC 30.4 L RDW 17.4 H Plt Count 133 L MPV 9.4 D Total Counted 100 Neutrophils % No Result Required. Neutrophils % (Manual) 47 Lymphocytes % No Result Required. Lymphocytes % (Manual) 43 H Monocytes % (Manual) 9 Eosinophils % (Manual) 1 Platelet Estimate Adequate Sodium 139 Potassium 3.7 Chloride 102 Carbon Dioxide 29 Anion Gap 8 BUN 19 H D Creatinine 5.7 H Random Glucose 102 Calcium 9.7 GGT 86 H Cancelled Active Medications Generic Name Dose Route Start Last Admin Trade Name Freq PRN Reason Stop Dose Admin Brimonidine Tartrate 1 drop 05/18/17 22:00 05/19/17 11:34 Alphagan 0.2% - OU 1 drop BID FAVIO Administration Latanoprost 1 drop 05/18/17 22:00 05/18/17 21:24 Xalatan 0.005% Eye Drops - OU 1 drop HS FAVIO Administration Timolol Maleate 1 drop 05/18/17 22:00 05/19/17 11:34 Timoptic 0.5% OU 1 drop BID FAVIO Administration CBC, BMP 05/19/17 11:15 05/19/17 11:15 ASSESSMENT/PLAN: MR. Garvin is 67yo AA M with PMH ESRD, dialysis, ,Th,Sa, glaucoma, HTN, PUD, diverticular GI bleed, afib, , H. pylori, Hep C, presented to the ED with BRBPR x 2 days. #GI bleed, Acute on chronic likely 2/2 recurrent diverticulr bleed vs hemorrhoids vs AVM vs constipation vs gastric ulcer(unlikely) * h/o recent GI bleed in November, diverticular, EGD revealed H pylori, nonbleeding antral ulcers and uremic gastritis * H/H 10.2/33.3 , today 10.8/35.4 repet CBC AM , consider Dc if stable. and F/ U as out patient with GI * Hemodynamically stable * iron studies on last admission. showing anemia of chronic disease * GI consulted , defer colonoscopy , * regular diet per GI * consider 2 large bore IV in case of severe GI bleeding * #Hep C * will need f/u with GI as outpatient, did not f/u after previous visit #Hpylori * s/p triple therapy in november 2016. * will need repeat endoscopy as out patient #ESRD, chronic * continue dialysis on same schedule , on the board * epogen on HD , 5,000 unit IVPUSH * Monitor clinically #h/o Afib, likely paroxysmal due to acute blood loss * last onset last admission due to acute blood loss * Now in sinus rhythm presently, HR 81-92 * monitor HR for signs of recurrence * No on anticoagulatin due to GI bleed #h/o HTN * now borderline hypotensive 104/69 * not on any antihypertensives at home, cont to monitor BP #glaucoma * blind in L eye * cont drops (Timolol, Primonidine) #Elevated Alp , * GGT ULN. * u/s negative for acute pathology less likely liver source however recommended for triple phase study done to further evaluate as outpatient. * pt is asymptomatic. can continue workup as outpatient #FEN * F:Hold fluids for now * E: WN, repeat BMP * N: NPO till GI cosulted # PPX * DVT: SCDs, heparin defer due to active GI bleed * GI: DC Protonix drip per GI (lower GI bleed no need) #Dispo: * d/c planning for the AM if hgb remains stable and no repeated bleeding * Case was discussed with attending physician and the medical team Visit type - Emergency Visit Emergency Visit: Yes ED Registration Date: 05/18/17 Care time: The patient presented to the Emergency Department on the above date and was hospitalized for further evaluation of their emergent condition. - New Patient This patient is new to me today: No - Critical Care Critical Care patient: No - Discharge Referral Referred to [facility] Med P.C[facility] No
[2017-05-19] MEDS ORDERED: PT OWN MED DRAWER 7, Y5N ONE (20:42)
[2017-05-19] MEDS: LATANOPROST 0.005% OPHTH SOLN 2.5ML BOTTLE OU SCH (21:03)
[2017-05-20 06:11] LABS: HEP B SURFACE AB Reactive (.)
[2017-05-20] MEDS ORDERED: EPOETIN ALFA 3,000 UNIT, EPOETIN ALFA 2,000 UNIT IVPUSH ONE (08:00)
[2017-05-20 08:48] LABS: MCH 24.8 pg (25.7-33.7); MCHC 30.6 g/dl (32.0-35.9); MEAN CELL VOLUME 81.2 fl (80-96); MEAN PLT VOLUME 10.9 fl (7.5-11.1); PLATELET COUNT 139 K/MM3 (134-434); RDW 17.2 % (11.9-15.9); WHITE BLOOD COUNT 3.2 K/mm3 (4.0-10.0)
[2017-05-20 09:18] LABS: ALBUMIN 3.1 g/dl (3.4-5.0); ALK PHOS 154 U/L (45-117); ANION GAP 9 (8-16); BILIRUBIN,TOTAL 0.8 mg/dL (0.2-1.0); CO2 29 mmol/L (21-32); CREATININE 6.7 mg/dL (0.7-1.3); GLUCOSE,RANDOM 117 mg/dL (74-106); SGOT/AST 48 U/L (15-37); SGPT/ALT 33 U/L (12-78); TOT PROT 6.5 g/dl (6.4-8.2)
[2017-05-20] MEDS ORDERED: PT OWN MED DRAWER 7, Y5N ONE (13:55)
[2017-05-20] MEDS: TIMOLOL 0.5% OPHTHALMIC SOL 5 ML BOTTLE OU SCH (13:58)
[2017-05-20] MEDS: BRIMONIDINE TARTRATE 0.2% OPHTHALMIC 5 ML BOTTLE OU SCH (13:58)
--- NOTE | 2017-05-20 14:00 | DS ---
Physical Exam: SUBJECTIVE: Patient seen and examined at bedside. He is doing better. No rectal bleeding noticed in the last 24 hours. His H/H are stable and will be discarged home with follow up with his PCP and GI doctor. he denies any fever, chills, N/V /D/C. He denies chest pain, SOB, palpitation, dizziness, lightheadedness. OBJECTIVE: Vital Signs Period Temp Pulse Resp BP Sys/Reaves Pulse Ox Last 24 Hr 97.9 F-98.2 F 70-88 18-20 82-113/52-76 PHYSICAL EXAM GENERAL: The patient is awake, alert, and fully oriented, in no acute distress. HEAD: Normal with no signs of trauma. EYES: sclera anicteric, conjunctiva clear. ENT: moist mucous membranes. LUNGS: Breath sounds equal, clear to auscultation bilaterally, no wheezes, no crackles, no accessory muscle use. HEART: Regular rate and rhythm, S1, S2 , 2/6 systolic murmur, no rub or gallop. ABDOMEN: Soft, nontender, nondistended, normoactive bowel sounds, no guarding, no rebound. EXTREMITIES: warm, well-perfused, trace edema. NEUROLOGICAL: good mentation SKIN: Warm, dry, no rashes or lesions noted. LABS Laboratory Results - last 24 hr 05/18/17 05/20/17 05/20/17 17:51 06:20 06:20 WBC 3.2 L RBC 4.11 Hgb 10.2 L Hct 33.4 L MCV 81.2 MCH 24.8 L MCHC 30.6 L RDW 17.2 H Plt Count 139 MPV 10.9 D Sodium 139 Potassium 3.5 Chloride 101 Carbon Dioxide 29 Anion Gap 9 BUN 26 H D Creatinine 6.7 H Creat Clearance w eGFR 8.32 Random Glucose 117 H Calcium 9.0 Total Bilirubin 0.8 D AST 48 H ALT 33 Alkaline Phosphatase 154 H D Total Protein 6.5 Albumin 3.1 L Hepatitis A Ab Total Negative Hep Bs Antigen Negative Hep Bs Antibody Reactive Hep B Core Total Ab Positive H Hepatitis C Antibody >11.0 H HOSPITAL COURSE: Date of Admission:05/18/17 Date of Discharge: 05/20/17 is 67yo M with PMH ESRD on HD, Afib not on anticoagulation, , Hpylori and recent diverticular bleed presented with BRBPR The blood loss likely due repeat diverticular bleed vs AVM vs constipation.most likely hemorrhoidal bleeding. colonoscopy cancelled as no reports of repeated bleeding and stable H/H. He is tolerating regular diet. patient will need to f/u with GI as outpatient for possible repeat colonoscopy in the future. barbara has a newonset Afib last admission likley paroxysmal due to acute blood loss. is currently in NSR in this admission. was not started on anticoagulation due to GI bleed. would consider re-starting low dose asa if able to tolerate, however will continue to hold in setting of GI bleed. * he has a history of Hpylori s/p triple therapy in november 2016. will need repeat endoscopy as outpatient * elevated alk phos- GGT ULN. u/s negative for acute pathology less likely liver source however recommended for triple phase study done to further evaluate as outpatient. pt is asymptomatic. can continue workup as outpatient * ESRD on HD- cont HD per normal schedule. pt recently stopped cinacelet himself as he thought it was contributing to his abdominal pain. defer to neprhology if should be re-started * DVT ppx- SCD. without pharmacologic anticoagulation due to GI bleed Patient is discharged home , and will follow up with his PCP within a week. and repeat blood work to rule out any recurrent bleeding. Discuss with your doctor if it safe for you to start a low dose aspirin to your regimen. Patient will follow up with his GI this month. he needs to call to schedule the appointment.You will require repeat EGD and possible colonoscopy. You will also require continued monitoring of your liver and possible more tests. Patient will take his medicine as prescribed. Patient will continue his hemodialysis schedule as before admission. and follow renal diet. Patient will increase the fiber and water in his diet or will consider stool softeners if needed to make it easier to move his bowel. Patient will return to emergency room if he developed any fever, chills, massive bleeding. discharge instruction was discussed with the patient and agree to the discharge plan. ' Nabeel Garrett PGY1 Internal Medicine. Minutes to complete discharge: 30 Discharge Summary Reason For Visit: RECTAL BLEED END STAGE RENAL FAILURE DIALYSIS Current Active Problems End stage renal failure on dialysis (Acute) Rectal bleed (Acute) Condition: Stable - Instructions Diet, Activity, Other Instructions: You were admitted to the hospital due to lower gastroenterology bleed. you blood level were monitored and it is stable Please follow up with your primary care physician within a week, and repeat blood work to rule out any recurrent bleeding. Discuss with your doctor if it safe for you to start a low dose aspirin to your regimen. Please follow up with gatstrolenterologist this month. You will require repeat EGD and possible colonoscopy. You will also require continued monitoring of your liver and possible more tests. Please continue your hemodialysis schedule as before admission. Follow a renal diet. Ensure you are having daily bowel movement. Increase the fiber and water in your diet or consider stool softeners if needed to make it easier to go. Please continue your home meds as prescribed. Please come back to emergency room if you develop any fever, chills, or notice massive bleeding. Referrals: Allie Ching MD [Staff Physician] - 2 Weeks Sacha Menezes MD [Primary Care Provider] - 1 Week Disposition: HOME - Home Medications Comprehensive Discharge Medication List: Ambulatory Orders Brimonidine Tartrate/Timolol [Combigan 0.2%-0.5% Eye Drops] 1 drop OD BID Travoprost [Travatan Z] 1 drop OD HS 12/02/16 Pantoprazole Sodium [Protonix -] 40 mg PO BID #180 tablet 12/15/16 Vit B Cmplx No3/FA/C/Biot/Zinc [Nephplex Rx Tablet] 1 each PO DAILY 05/18/17 This patient is new to me today: No Emergency Visit: Yes ED Registration Date: 05/18/17 Care time: The patient presented to the Emergency Department on the above date and was hospitalized for further evaluation of their emergent condition. Critical Care patient: No - Discharge Referral Referred to [facility] Med [facility] No
[2017-05-20 14:24] VITALS: BP 122/72; PULSE 91; TEMP 98.5
--- NOTE | 2017-05-20 14:58 | PN ---
Teaching Attending Note Name of Resident: Nabeel Garrett ATTENDING PHYSICIAN STATEMENT I saw and evaluated the patient. I reviewed the resident's note and discussed the case with the resident. I agree with the resident's findings and plan as documented. SUBJECTIVE:asymptomatic. tolerating diet. denies Cp, SOB, fever, chills, N/V/C/D , melena or BRBPR OBJECTIVE: Last Vital Signs Temp Pulse Resp BP Pulse Ox 98.5 F 91 H 20 122/72 100 05/20/17 14:22 05/20/17 14:22 05/20/17 14:22 05/20/17 14:05/18/17 05:45 General NAD ABdomen soft NT/ND ASSESSMENT AND PLAN: 67yo M with PMH ESRD on HD, Afib not on anticoagulation, , Hpylori and recent diverticular bleed presented with BRBPR 1. Acute blood loss due to BRBPR- likely repeat diverticular bleed vs AVM vs constipation. likely hemorrhoidal bleeding. colonoscopy cancelled as no reports of repeated bleeding and stable H/H. tolerating regular diet. will need to f/u with GI as outpatient for possible repeat colonoscopy in the future. GI on board. 2. Afib- was new onset last admission [place] paroxysmal due to acute blood loss. is currently in NSR. was not started on anticoagulation due to GI bleed. would consider re-starting low dose asa if able to tolerate, however will continue to hold in setting of GI bleed 3. Hpylori- s/p triple therapy in november 2016. will need repeat endoscopy as outpatient 4. elevated alk phos- GGT ULN. u/s negative for acute pathology less likely liver source however recommended for triple phase study done to further evaluate as outpatient. pt is asymptomatic. can continue workup as outpatient 5. ESRD on HD- cont HD per normal schedule. pt recently stopped cinacelet himself as he thought it was contributing to his abdominal pain. defer to neprhology if should be re-started 6. DVT ppx- SCD. hold pharmacologic anticoagulation 7. d/c planning after HD
--- NOTE | 2017-05-20 16:36 | PN ---
Progress Note, Physician History of Present Illness: Pt seen and examined at bedside. He tolerated HD. He denies chest pain or shortness of breath. - Objective Vital Signs: Vital Signs Temperature 98.5 F 05/20/17 14:22 Pulse Rate 91 H 05/20/17 14:22 Respiratory Rate 20 05/20/17 14:22 Blood Pressure 122/72 05/20/17 14:22 O2 Sat by Pulse Oximetry (%) 100 05/18/17 05:45 Constitutional: Yes: Calm Eyes: Yes: Conjunctiva Clear HENT: Yes: Atraumatic Neck: Yes: Supple Cardiovascular: Yes: S1, S2 Respiratory: Yes: CTA Bilaterally Gastrointestinal: Yes: Soft Genitourinary: Yes: WNL Musculoskeletal: Yes: WNL Edema: No Neurological: Yes: Oriented Psychiatric: Yes: Oriented Labs: CBC, BMP 05/20/17 06:20 05/20/17 06:20 INR, PTT INR 1.15 (0.82-1.09) H 05/18/17 01:09 Problem List - Problems (1) End stage renal failure on dialysis Code(s): N18.6 - END STAGE RENAL DISEASE Z99.2 - DEPENDENCE ON RENAL DIALYSIS (2) Rectal bleed Code(s): K62.5 - HEMORRHAGE OF ANUS AND RECTUM (3) Anemia Code(s): D64.9 - ANEMIA, UNSPECIFIED Assessment/Plan Impression 1. ESRD 2. a-fib 3. GI bleed 4. HTN 5. glaucoma 6. positive hep b core Plan - HD today - will need follow up with GI - monitor hg - epogen on HD - pt has HD set up as outpt - HD prescription: 4 hrs, 475 bf, 2k bath
[2017-05-20] MEDS ORDERED: EPOETIN ALFA 2,000 UNITS/1 ML VIAL IVPUSH ONE (18:17)
[2017-05-24 00:06] LABS: HCV LOG 10 5.014 (.)
== END 2017-05-20 15:20 | disposition home or self-care (01) | DRG 377 ==
LOC: JER 22:30 → JERBED 05-18 03:45 → J6S 05-18 05:49
PROVIDERS: ADMIT Internal Medicine; ATTEND Internal Medicine
DX: K62.5 Hemorrhage of anus and rectum (principal); N18.6 End stage renal disease; D61.818 Other pancytopenia; I12.0 Hypertensive chronic kidney disease with stage 5 chronic kidney disease or end stage renal disease; I48.0 Paroxysmal atrial fibrillation; B19.20 Unspecified viral hepatitis C without hepatic coma; Z99.2 Dependence on renal dialysis; I25.10 Atherosclerotic heart disease of native coronary artery without angina pectoris; Z87.891 Personal history of nicotine dependence; Z80.3 Family history of malignant neoplasm of breast; Z80.0 Family history of malignant neoplasm of digestive organs; I44.0 Atrioventricular block, first degree; H40.9 Unspecified glaucoma
CPT/HCPCS: 36415; 71010-TC; 76700-TC; 80048; 80053; 82272; 82977; 83690; 85025; 85027; 85610; 86704; 86706; 86708; 86803; 86850; 86900; 86901; 87340; 87522; 93005; 93010; 99285-25; J0885

== ENCOUNTER 2017-06-11 20:03 | Inpatient (IN) | payer OTHER ==
[2017-06-11 20:24] VITALS: BMI 25.4
--- NOTE | 2017-06-11 20:48 | PDOC ---
History of Present Illness - General Chief Complaint: Rectal Bleed Stated Complaint: ABDOMINAL PAIN Time Seen by Provider: 06/11/17 20:46 - History of Present Illness Initial Comments: 06/11/17 20:47 Mr. Garvin is a 67 yo male with a significant past medical history of ESRD dialysis (T/R/S) with GI bleed in november who presents to the emergency department with a 2-3 day history of blood leaking from his rectum. He says that he also has midline abdominal pain and that he has not had a bowel movement in "a long time." He can not recall how long. The patient denies chest pain, shortness of breath, headache and dizziness. Denies fever, chills, nausea, vomit, diarrhea and constipation. Denies dysuria, frequency, urgency and hematuria. Allergies: NKDA Past History - Past Medical History Allergies/Adverse Reactions: Allergies Allergy/AdvReac Type Severity Reaction Status Date / Time No Known Allergies Allergy Verified 06/11/17 20:18 Home Medications: Ambulatory Orders Brimonidine Tartrate/Timolol [Combigan 0.2%-0.5% Eye Drops] 1 drop OD BID Travoprost [Travatan Z] 1 drop OD HS 12/02/16 Pantoprazole Sodium [Protonix -] 40 mg PO BID #180 tablet 12/15/16 Vit B Cmplx No3/FA/C/Biot/Zinc [Nephplex Rx Tablet] 1 tab PO DAILY 06/11/17 Cardiac Disorders: Yes (rapid A-fib s/p GIB) Dialysis: Yes (ADALID shunt, Tue-Lisa-Sat) GI Disorders: Yes (GI Bleed, PUD, h. pylori) HTN: Yes - Immunization History Immunization Up to Date: No - Suicide/Smoking/Psychosocial Hx Smoking History: Never smoked Have you smoked in the past 12 months: No If you are a former smoker, when did you quit?: 1996 Information on smoking cessation initiated: No Hx Alcohol Use: No Drug/Substance Use Hx: No Substance Use Type: None Hx Substance Use Treatment: No Review of Systems - Review of Systems Comments:: 06/11/17 20:47 GENERAL/CONSTITUTIONAL: No fever or chills. No weakness. HEAD, EYES, EARS, NOSE AND THROAT: No change in vision. No ear pain or discharge. No sore throat. CARDIOVASCULAR: No chest pain or shortness of breath RESPIRATORY: No cough, wheezing, or hemoptysis. GASTROINTESTINAL: +Painless Blood per rectum for the last 2-3 days. Midline abdominal pain. No nausea, vomiting, diarrhea or constipation. GENITOURINARY: No dysuria, frequency, or change in urination. MUSCULOSKELETAL: No joint or muscle swelling or pain. No neck or back pain. SKIN: No rash NEUROLOGIC: No headache, vertigo, loss of consciousness, or change in strength/ sensation. ENDOCRINE: No increased thirst. No abnormal weight change HEMATOLOGIC/LYMPHATIC: No anemia, easy bleeding, or history of blood clots. ALLERGIC/IMMUNOLOGIC: No hives or skin allergy. *Physical Exam - Vital Signs Last Vital Signs Temp Pulse Resp BP Pulse Ox 98.0 F 69 20 81/68 86 L 06/11/17 20:19 06/11/17 20:19 06/11/17 20:19 06/11/17 20:19 06/11/17 20:19 - Physical Exam Comments: 06/11/17 20:47 GENERAL: Awake, alert, and fully oriented, in no acute distress HEAD: No signs of trauma, normocephalic, atraumatic EYES: PERRLA, EOMI, sclera anicteric, conjunctiva clear ENT: Auricles normal inspection, hearing grossly normal, nares patent, oropharynx clear without exudates. Moist mucosa NECK: Normal ROM, supple, no lymphadenopathy, JVD, or masses LUNGS: No distress, speaks full sentences, clear to auscultation bilaterally HEART: Regular rate and rhythm, normal S1 and S2, no murmurs, rubs or gallops, peripheral pulses normal and equal bilaterally. ABDOMEN: +Tender to palpation at the umbilicus and epigastric region. Full feeling. Normoactive bowel sounds. No guarding, no rebound. No masses EXTREMITIES: Normal inspection, Normal range of motion, no edema. No clubbing or cyanosis. NEUROLOGICAL: Cranial nerves II through XII grossly intact. Normal speech, normal gait, no focal sensorimotor deficits SKIN: Warm, Dry, normal turgor, no rashes or lesions noted. RECTAL: No hemorrhoids observed, blood noted on glove while performing fecal occult blood test. ED Treatment Course - LABORATORY CBC & Chemistry Diagram: 06/12/17 00:30 06/12/17 00:30 Medical Decision Making - Medical Decision Making 06/12/17 04:31 Mr. Garvin presents with 2-3 days of painless bleeding per rectum. Also has not had a bowel movement in at least a week or more. Admitted 05/17 for similar presentation with ultimate diagnosis of diverticular bleed. CT today significant for colitis. Cipro and Flagyl (500 each) begun. Sharron Jeffrey (PCP) paged. [phone] 06/12/17 06:[address] Bradford (covering for Dr. Jeffrey). Will admit as planned. *DC/Admit/Observation/Transfer Diagnosis at time of Disposition: Rectal bleed, Colitis Abdominal pain Qualifiers: Abdominal location: periumbilical Qualified Code(s): R10.33 - Periumbilical pain - Discharge Dispostion Admit: Yes - Referrals Referrals: Sharron Jeffrey MD [Primary Care Provider] -
--- NOTE | 2017-06-11 20:51 | PDOC ---
Attending Attestation - Resident Resident Name: Jason Aleman - ED Attending Attestation I have performed the following: I have examined & evaluated the patient, The case was reviewed & discussed with the resident, I agree w/resident's findings & plan, Exceptions are as noted - HPI HPI: 06/11/17 20:48 VSS/NAD - Physicial Exam PE: 06/13/17 09:44 VSS NAD - Medical Decision Making 06/11/17 20:[address] Aleman's Assessment and Plan
[2017-06-12 00:44] LABS: BASOPHIL 1.6 % (0-2.0); EOSINOPHIL 0.7 % (0-4.5); MCH 25.6 pg (25.7-33.7); MCHC 30.6 g/dl (32.0-35.9); MEAN CELL VOLUME 83.7 fl (80-96); MEAN PLT VOLUME 10.4 fl (7.5-11.1); NEUTROPHILS 54.6 % (42.8-82.8); PLATELET COUNT 119 K/MM3 (134-434); RDW 18.5 % (11.9-15.9); WHITE BLOOD COUNT 4.3 K/mm3 (4.0-10.0)
[2017-06-12 01:17] LABS: ALK PHOS 190 U/L (45-117); ANION GAP 9 (8-16); BILIRUBIN,TOTAL 0.6 mg/dL (0.2-1.0); CALCIUM 8.9 mg/dL (8.5-10.1); CO2 31 mmol/L (21-32); CREATININE 6.2 mg/dL (0.7-1.3); GLUCOSE,RANDOM 129 mg/dL (74-106); SGOT/AST 42 U/L (15-37); SGPT/ALT 29 U/L (12-78); TOT PROT 6.3 g/dl (6.4-8.2)
[2017-06-12] MEDS ORDERED: METRONIDAZOLE 500 MG PREMIXED 100 ML IVPB ONE ×2 (04:27→05:13)
[2017-06-12] MEDS ORDERED: LEVOFLOXACIN 500 MG IVPB 100 ML IVPB ONE ×2 (04:27→06:09)
[2017-06-12] MEDS ORDERED: ACETAMINOPHEN 325 MG TABLET (FP) PO PRN (11:28)
--- NOTE | 2017-06-12 12:45 | HP ---
Admitting History and Physical - Primary Care Physician PCP: Sharron Jeffrey - Admission History of Present Illness: Mr. Garvin is a 67 yo male with a significant past medical history of ESRD dialysis (T/R/S) with GI bleed in november who presents to the emergency department with a 2-3 day history of blood leaking from his rectum. He says that he also has midline abdominal pain and that he has not had a bowel movement in "a long time." He can not recall how long. The patient denies chest pain, shortness of breath, headache and dizziness. Denies fever, chills, nausea, vomit, diarrhea and constipation. Denies dysuria, frequency, urgency and hematuria. pt admitted to floor case discussed with er resident ct abd - reviewed pt seen today denies cp/sob/abd pain afebrile History Source: Patient Limitations to Obtaining History: No Limitations - Past Medical History Cardiovascular: Yes: AFIB, HTN, Other Gastrointestinal: Yes: Diverticulosis (with suspected diverticular bleed 12/14), Gastritis (h. 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) - Social History ADL: Independent 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, History of Recent Travel: No Home Medications - Allergies Allergies/Adverse Reactions: Allergies Allergy/AdvReac Type Severity Reaction Status Date / Time No Known Allergies Allergy Verified 06/11/17 20:18 - Home Medications Home Medications: Ambulatory Orders Brimonidine Tartrate/Timolol [Combigan 0.2%-0.5% Eye Drops] 1 drop OD BID Pantoprazole Sodium [Protonix -] 40 mg PO BID #180 tablet 12/15/16 Vit B Cmplx No3/FA/C/Biot/Zinc [Nephplex Rx Tablet] 1 tab PO DAILY 06/11/17 Acetaminophen [Tylenol .Regular Strength -] 650 mg PO Q4H PRN #0 tablet Polyethylene Glycol 3350 [Miralax 119 gm Btl -] 17 gm PO TID #1 bottle 06/13/17 Family Disease History - Family Disease History Family Disease History: Other: Father ( 70's:h/o colon ca in 70's), Mother ( 80's: unclear cause ), Sister (5 sisters, 1 w/ BCA two others with ? cancers), Daughter (1 healthy daughter) Review of Systems - Review of Systems Constitutional: reports: No Symptoms Eyes: reports: No Symptoms HENT: reports: No Symptoms Neck: reports: No Symptoms Cardiovascular: reports: No Symptoms Respiratory: reports: No Symptoms Gastrointestinal: reports: Rectal Bleeding Genitourinary: reports: No Symptoms Neurological: reports: No Symptoms Physical Examination Vital Signs: Vital Signs Temperature 97.3 F L 06/12/17 10:40 Pulse Rate 85 06/12/17 10:40 Respiratory Rate 20 06/12/17 10:40 Blood Pressure 84/57 06/12/17 10:40 O2 Sat by Pulse Oximetry (%) 100 06/12/17 07:50 Constitutional: Yes: Calm Eyes: Yes: Conjunctiva Clear Neck: Yes: Supple Cardiovascular: Yes: Pulse Irregular Respiratory: Yes: CTA Bilaterally Gastrointestinal: Yes: Normal Bowel Sounds, Soft Edema: No Neurological: Yes: Alert Psychiatric: Yes: Alert Imaging - Results Chest X-ray: Report Reviewed Cat Scan: Report Reviewed EKG: Report Reviewed Problem List - Problems (1) Rectal bleed Code(s): K62.5 - HEMORRHAGE OF ANUS AND RECTUM (2) Anemia Code(s): D64.9 - ANEMIA, UNSPECIFIED (3) End stage renal failure on dialysis Code(s): N18.6 - END STAGE RENAL DISEASE Z99.2 - DEPENDENCE ON RENAL DIALYSIS (4) Atrial fibrillation Code(s): I48.91 - UNSPECIFIED ATRIAL FIBRILLATION Assessment/Plan stable monitor for gi bleed meds reviewed gi consult continue present care will follow discussed with pt.
--- NOTE | 2017-06-12 14:09 | CON.GI ---
Consult Consult Specialty:: Gastroenterology Referred by:: Dr. Kain Bradford Reason for Consultation:: Rectal bleeding - History of Present Illness Chief Complaint: Hematochezia of low volume daily for the last 3 days History of Present Illness: 67M with ESRD has noted small volume hematochezia daily for the last 3 days. No bleeding today. He denies perianal discomfort. His Hb is at his baseline. He had a diverticular hemorrhage in 12/14 when I performed ad EGD and a colonoscopy. EGD revealed a nonbleeding antral ulcer and H. pylori which was treated. Colonoscopy revealed universal diverticulosis. He was also found to have HCV and a course of therapy was advised but he has not yet made an appointment with our office. He denies constipation or straining to defecate. He believes that his father of colon cancer. He came to the ER for similar bleeding in 05/16 when he was seen by Dr. Rivas. - History Source History Provided By: Patient, Medical Record Limitations to Obtaining History: No Limitations - Past Medical History Cardio/Vascular: Yes: AFIB, HTN, Other Gastrointestinal: Yes: Diverticulosis (with suspected diverticular bleed 12/14), Gastritis (h. 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) - Smoking History Smoking history: Former smoker Have you smoked in the past 12 months: No If you are a former smoker, when did you quit?: 1996 - Social History Usual Living Arrangement: Alone ADL: Independent 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, , 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 Place of : [facility] History of Recent Travel: No Home Medications - Allergies Allergies/Adverse Reactions: Allergies Allergy/AdvReac Type Severity Reaction Status Date / Time No Known Allergies Allergy Verified 06/11/17 20:18 - Home Medications Home Medications: Ambulatory Orders Brimonidine Tartrate/Timolol [Combigan 0.2%-0.5% Eye Drops] 1 drop OD BID Travoprost [Travatan Z] 1 drop OD HS 12/02/16 Pantoprazole Sodium [Protonix -] 40 mg PO BID #180 tablet 12/15/16 Vit B Cmplx No3/FA/C/Biot/Zinc [Nephplex Rx Tablet] 1 tab PO DAILY 06/11/17 Family Disease History - Family Disease History Family Disease History: Other: Father ( 70's:h/o colon ca in 70's), Mother ( 80's: unclear cause ), Sister (5 sisters, 1 w/ BCA two others with ? cancers), Daughter (1 healthy daughter) Review of Systems - Review of Systems Constitutional: reports: No Symptoms Eyes: reports: No Symptoms HENT: reports: No Symptoms Neck: reports: No Symptoms Cardiovascular: reports: No Symptoms Respiratory: reports: No Symptoms Gastrointestinal: reports: Rectal Bleeding Genitourinary: reports: No Symptoms Musculoskeletal: reports: No Symptoms Neurological: reports: No Symptoms Psychiatric: reports: No Symptoms Physical Exam-GI Vital Signs: Vital Signs Temperature 97.3 F L 06/12/17 10:40 Pulse Rate 85 06/12/17 10:40 Respiratory Rate 20 06/12/17 10:40 Blood Pressure 84/57 06/12/17 10:40 O2 Sat by Pulse Oximetry (%) 100 06/12/17 07:50 CBC,CMP WBC 4.3 K/mm3 (4.0-10.0) D 06/12/17 00:30 RBC 3.67 M/mm3 (4.00-5.60) L 06/12/17 00:30 Hgb 9.4 GM/dL (11.7-16.9) L 06/12/17 00:30 Hct 30.7 % (35.4-49) L 06/12/17 00:30 MCV 83.7 fl (80-96) 06/12/17 00:30 MCH 25.6 pg (25.7-33.7) L 06/12/17 00:30 MCHC 30.6 g/dl (32.0-35.9) L 06/12/17 00:30 RDW 18.5 % (11.9-15.9) H 06/12/17 00:30 Plt Count 119 K/MM3 (134-434) L 06/12/17 00:30 MPV 10.4 fl (7.5-11.1) 06/12/17 00:30 Neutrophils % 54.6 % (42.8-82.8) 06/12/17 00:30 Lymphocytes % 38.4 % (8-40) 06/12/17 00:30 Monocytes % 4.7 % (3.8-10.2) 06/12/17 00:30 Eosinophils % 0.7 % (0-4.5) 06/12/17 00:30 Basophils % 1.6 % (0-2.0) 06/12/17 00:30 Sodium 142 mmol/L (136-145) 06/12/17 00:30 Potassium 3.3 mmol/L (3.5-5.1) L 06/12/17 00:30 Chloride 102 mmol/L (98-107) 06/12/17 00:30 Carbon Dioxide 31 mmol/L (21-32) 06/12/17 00:30 Anion Gap 9 (8-16) 06/12/17 00:30 BUN 19 mg/dL (7-18) H D 06/12/17 00:30 Creatinine 6.2 mg/dL (0.7-1.3) H 06/12/17 00:30 Creat Clearance w eGFR 9.10 (>60) 06/12/17 00:30 Random Glucose 129 mg/dL (74-106) H 06/12/17 00:30 Calcium 8.9 mg/dL (8.5-10.1) 06/12/17 00:30 Total Bilirubin 0.6 mg/dL (0.2-1.0) D 06/12/17 00:30 AST 42 U/L (15-37) H 06/12/17 00:30 ALT 29 U/L (12-78) 06/12/17 00:30 Alkaline Phosphatase 190 U/L (45-117) H D 06/12/17 00:30 Total Protein 6.3 g/dl (6.4-8.2) L 06/12/17 00:30 Albumin 3.0 g/dl (3.4-5.0) L 06/12/17 00:30 Current Medications Generic Name Dose Route Start Last Admin Trade Name Freq PRN Reason Stop Dose Admin Acetaminophen 650 mg 06/12/17 11:28 Tylenol - PO Q4H PRN FEVER OR PAIN Brimonidine Tartrate 1 drop 06/12/17 22:00 Alphagan 0.2% - OD BID [facility] Influenza Virus Vaccine Quadrival 60 mcg 06/12/17 15:00 Flulaval Quad [id number] IM 06/12/17 15:01 .ONCE ONE Non-Formulary Medication 1 drop 06/12/17 22:00 Travoprost [Travatan Z] OD HS [facility] Non-Formulary Medication 1 tab 06/13/17 10:00 Vit B Cmplx No3/Fa/C/Biot/Zinc [Nephplex Rx Tablet] PO DAILY [facility] Timolol Maleate 1 drop 06/12/17 22:00 Timoptic 0.5% OD BID [facility] Labs: Laboratory Tests 12/02/16 12/08/16 12/11/16 18:10 11:45 05:48 Hgb 9.8 L 7.4 L D 8.6 L Hep Bs Ab Concentration Hep B Core IgM Ab Hep B Core Ab Interpret Hepatitis A Ab Total Hep Bs Antigen Hepatitis Be Antibody Hepatitis Be Antigen Hep Bs Antibody Hep B Core Total Ab Hepatitis C Genotype HCV Quantitation HCV RNA PCR log copper plater/ml HIV 1&2 Antibody Screen HIV P24 Antigen 12/11/16 12/12/16 12/13/16 12:45 12:20 11:30 Hgb 9.6 L D 8.9 L 8.8 L Hep Bs Ab Concentration Hep B Core IgM Ab Hep B Core Ab Interpret Hepatitis A Ab Total Hep Bs Antigen Hepatitis Be Antibody Hepatitis Be Antigen Hep Bs Antibody Hep B Core Total Ab Hepatitis C Genotype HCV Quantitation HCV RNA PCR log copper plater/ml HIV 1&2 Antibody Screen HIV P24 Antigen 12/13/16 12/14/16 12/15/16 13:00 06:00 08:00 Hgb 8.7 L Hep Bs Ab Concentration Hep B Core IgM Ab Hep B Core Ab Interpret Hepatitis A Ab Total Hep Bs Antigen Hepatitis Be Antibody Hepatitis Be Antigen Hep Bs Antibody Hep B Core Total Ab Hepatitis C Genotype 1b HCV Quantitation HCV RNA PCR log copper plater/ml HIV 1&2 Antibody Screen Negative HIV P24 Antigen Negative 12/15/16 12/15/16 12/15/16 08:00 08:18 08:18 Hgb 9.0 L Hep Bs Ab Concentration Reactive Hep B Core IgM Ab Negative Hep B Core Ab Interpret Positive H Hepatitis A Ab Total Hep Bs Antigen Hepatitis Be Antibody Negative Hepatitis Be Antigen Negative Hep Bs Antibody Hep B Core Total Ab Hepatitis C Genotype HCV Quantitation HCV RNA PCR log copper plater/ml HIV 1&2 Antibody Screen HIV P24 Antigen 05/18/17 05/18/17 05/18/17 11:00 15:05 17:51 Hgb 9.6 L Hep Bs Ab Concentration Hep B Core IgM Ab Hep B Core Ab Interpret Hepatitis A Ab Total Negative Hep Bs Antigen Negative Hepatitis Be Antibody Hepatitis Be Antigen Hep Bs Antibody Reactive Hep B Core Total Ab Positive H Hepatitis C Genotype HCV Quantitation 353019 HCV RNA PCR log copper plater/ml 5.014 HIV 1&2 Antibody Screen HIV P24 Antigen 05/20/17 06/12/17 06:20 00:30 Hgb 10.2 L 9.4 L Hep Bs Ab Concentration Hep B Core IgM Ab Hep B Core Ab Interpret Hepatitis A Ab Total Hep Bs Antigen Hepatitis Be Antibody Hepatitis Be Antigen Hep Bs Antibody Hep B Core Total Ab Hepatitis C Genotype HCV Quantitation HCV RNA PCR log copper plater/ml HIV 1&2 Antibody Screen HIV P24 Antigen Laboratory Tests 12/05/16 12/05/16 12/15/16 05:35 05:35 08:00 TIBC 119 L Iron Saturation 44 Ferritin 1170.250 H Liver GGT Liver Fibrosis Stage Necroinflammator Score Tumor Marker AFP 2.1 12/15/16 08:00 TIBC Iron Saturation Ferritin Liver GGT 33 Liver Fibrosis Stage F0-f1 Necroinflammator Score 0.12 Tumor Marker AFP Imaging - Results Cat Scan: Report Reviewed (Manuel Hurt Name: [facility] DEPARTMENT OF RADIOLOGY Phys: Jason Aleman RESIDENT : 1950 Age: 67 Sex : M [facility] Acct: [id number] Loc: J8W 7 [facility] Exam Date: 06/12/17 Status: [place] [address] Unit Number: [id number] EXAM#: TYPE/EXAM : RESULT: [id number] CT/ABDOMEN PELVIS CT W/O CONTR HISTORY PROVIDED: Rectal bleed TECHNIQUE: Sequential axial images were obtained from the domes of the diaphragm through the symphysis pubis. The study is severely limited without the use of any contrast material. Evaluation of the lung bases demonstrates bibasilar atelectasis and trace bilateral pleural effusions. The heart is enlarged with a small amount of pericardial fluid present. There is a small amount of ascites within the abdomen and pelvis. The kidneys are markedly atrophic with multiple calcifications and small cysts. This is consistent with chronic medical renal disease. The liver, pancreas and adrenal glands demonstrate no gross abnormalities. The spleen is mildly enlarged. Gallstones are identified within the gallbladder. There is no evidence of pneumoperitoneum, bowel obstruction or intra-abdominal abscess. There is no CT evidence of acute appendicitis or diverticulitis. Examination of the pelvis demonstrates no evidence of pelvic masses, fluid collections or lymphadenopathy. There are edematous changes throughout the subcutaneous tissues of the abdomen and pelvis. There is also extremely heavy vascular calcification. Sclerotic changes are noted throughout the bony structures of the abdomen and pelvis suggesting renal osteodystrophy. Lytic changes are also seen within the proximal femora. Metastatic disease cannot be excluded. Clinical correlation is advised. IMPRESSION: 1. Cardiomegaly and small pericardial effusion. 2. Markedly limited study with cholelithiasis and chronic renal disease. No definite evidence of acute pathology within the abdomen or pelvis. Please see above discussion. Reported By: Reinier Henderson MD 06/12/17 0935 Technologist: Quinn Culp Transcribed Date/Time: 06/12/17 0935 Wheat Buyer: Reinier Henderson Printed Date/Time: [ rep prt dt last] [ rep prt tm last] By: [ rep prt user last] Signed by: Reinier Henderson Signed on: 12-Jun-2017 09:36) Problem List - Problems (1) Hepatitis C Assessment/Plan: I have again advised a course of therapy and given him our office number to make an appointment. His CT reveals no evidence of hepatoma. AFP will be repeated. He is genotype 1B. Code(s): B19.20 - UNSPECIFIED VIRAL HEPATITIS C WITHOUT HEPATIC COMA Qualifiers: Viral hepatitis chronicity: chronic Hepatic coma status: without hepatic coma Qualified Code(s): B18.2 - Chronic viral hepatitis C; B18.2 - Chronic viral hepatitis C; B18.2 - Chronic viral hepatitis C; B18.2 - Chronic viral hepatitis C (2) Gallbladder calculus Assessment/Plan: Asymptomatic Code(s): K80.20 - CALCULUS OF GALLBLADDER W/O CHOLECYSTITIS W/O OBSTRUCTION Qualifiers: Cholecystitis presence: without cholecystitis Biliary obstruction: without biliary obstruction Qualified Code(s): K80.20 - Calculus of gallbladder without cholecystitis without obstruction; K80.20 - Calculus of gallbladder without cholecystitis without obstruction (3) Diverticula of colon Code(s): K57.30 - DVRTCLOS OF LG INT W/O PERFORATION OR ABSCESS W/O BLEEDING (4) Gastric ulcer due to bacteria Assessment/Plan: The H. pylori was treated. Code(s): K25.9 - GASTRIC ULCER, UNSP ACUTE OR CHRONIC, W/O HEMOR OR PERF B96.89 - OTH BACTERIAL AGENTS THE CAUSE OF DISEASES CLASSD ELSWHR (5) Internal bleeding hemorrhoids Assessment/Plan: Given that the Hb has remained near his baseline I believe that Antonio's hematochezia in 05/16 and now reflect bleeding internal hemorrhoids which were noted to be enlarged on his 12/14 colonoscopy. Given this a rubber band ligation of his hemorrhoids were be considered if bleeding persists. I do not believe that this is recurrent diverticular or other source of bleeding. If bleeding resolves can discharge and have him followup at our office Code(s): K64.8 - OTHER HEMORRHOIDS (6) Family history of colon cancer Assessment/Plan: Repeat colonoscopy has been advised for 12/15 given suboptimal visualization during his diverticular bleed. May be done sooner if bleeding persists. Code(s): Z80.0 - FAMILY HISTORY OF MALIGNANT NEOPLASM OF DIGESTIVE ORGANS
--- NOTE | 2017-06-12 14:10 | CONSULT ---
Consult Consult Specialty:: Nephrology Reason for Consultation:: ESRD - History of Present Illness Chief Complaint: blood per rectum History of Present Illness: Pt is a 67 year old male with pmhx of ESRD, GI bleed, HTN and a-fib who presents to the ER with blood per rectum. He is awake and alert. He denies shortness of breath. He was last dialyzed on and is due for dialysis today. He has appetite. He is asking for food. He denies fevers or chills. - History Source History Provided By: Patient, Medical Record - Past Medical History Cardio/Vascular: Yes: AFIB, HTN, Other Gastrointestinal: Yes: Diverticulosis (with suspected diverticular bleed 12/14), Gastritis (h. 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) - Smoking History Smoking history: Former smoker Have you smoked in the past 12 months: No If you are a former smoker, when did you quit?: 1996 - Social History Usual Living Arrangement: Alone ADL: Independent 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, History of Recent Travel: No Home Medications - Allergies Allergies/Adverse Reactions: Allergies Allergy/AdvReac Type Severity Reaction Status Date / Time No Known Allergies Allergy Verified 06/11/17 20:18 - Home Medications Home Medications: Ambulatory Orders Brimonidine Tartrate/Timolol [Combigan 0.2%-0.5% Eye Drops] 1 drop OD BID Travoprost [Travatan Z] 1 drop OD HS 12/02/16 Pantoprazole Sodium [Protonix -] 40 mg PO BID #180 tablet 12/15/16 Vit B Cmplx No3/FA/C/Biot/Zinc [Nephplex Rx Tablet] 1 tab PO DAILY 06/11/17 Family Disease History - Family Disease History Family Disease History: Other: Father ( 70's:h/o colon ca in 70's), Mother ( 80's: unclear cause ), Sister (5 sisters, 1 w/ BCA two others with ? cancers), Daughter (1 healthy daughter) Review of Systems - Review of Systems Constitutional: reports: No Symptoms Eyes: reports: No Symptoms HENT: reports: No Symptoms Neck: reports: No Symptoms Cardiovascular: reports: No Symptoms Respiratory: reports: No Symptoms Gastrointestinal: reports: Rectal Bleeding Genitourinary: reports: No Symptoms Musculoskeletal: reports: No Symptoms Integumentary: reports: No Symptoms Neurological: reports: No Symptoms Endocrine: reports: No Symptoms Hematology/Lymphatic: reports: No Symptoms Psychiatric: reports: No Symptoms Physical Exam Vital Signs: Vital Signs Temperature 97.3 F L 06/12/17 10:40 Pulse Rate 85 06/12/17 10:40 Respiratory Rate 20 06/12/17 10:40 Blood Pressure 84/57 06/12/17 10:40 O2 Sat by Pulse Oximetry (%) 100 06/12/17 07:50 Constitutional: Yes: Calm Eyes: Yes: Conjunctiva Clear HENT: Yes: Atraumatic Neck: Yes: Supple Cardiovascular: Yes: S1, S2 Respiratory: Yes: CTA Bilaterally Gastrointestinal: Yes: Normal Bowel Sounds, Soft Musculoskeletal: Yes: WNL Edema: Yes Edema: LLE: 1+, RLE: 1+ Neurological: Yes: Oriented Psychiatric: Yes: Oriented Labs: Laboratory Tests 06/12/17 06/12/17 00:30 00:30 WBC 4.3 D Hgb 9.4 L Plt Count 119 L Sodium 142 Potassium 3.3 L Chloride 102 Carbon Dioxide 31 Anion Gap 9 BUN 19 H D Creatinine 6.2 H Creat Clearance w eGFR 9.10 Imaging - Results Chest X-ray: Report Reviewed Assessment/Plan Current Medications Generic Name Dose Route Start Last Admin Trade Name Freq PRN Reason Stop Dose Admin Acetaminophen 650 mg 06/12/17 11:28 Tylenol - PO Q4H PRN FEVER OR PAIN Brimonidine Tartrate 1 drop 06/12/17 22:00 Alphagan 0.2% - OD BID [facility] Influenza Virus Vaccine Quadrival 60 mcg 06/12/17 15:00 Flulaval Quad [id number] IM 06/12/17 15:01 .ONCE ONE Non-Formulary Medication 1 drop 06/12/17 22:00 Travoprost [Travatan Z] OD HS [facility] Non-Formulary Medication 1 tab 06/13/17 10:00 Vit B Cmplx No3/Fa/C/Biot/Zinc [Nephplex Rx Tablet] PO DAILY [facility] Timolol Maleate 1 drop 06/12/17 22:00 Timoptic 0.5% OD BID [facility] Impression 1. ESRD 2. a-fib 3. GI bleed 4. HTN 5. glaucoma 6. positive hep b core Plan - will arrange for HD today - monitor hg - GI evaluation - resume home meds - will follow Dr Miller
[2017-06-12] MEDS ORDERED: EPOETIN ALFA 2,000 UNITS/1 ML VIAL IVPUSH ONE (14:16)
[2017-06-12] MEDS ORDERED: FLU VACCINE QUAD 60 MCG/0.5 ML (MDV 17-18) IM ONE (15:00)
[2017-06-12] MEDS ORDERED: PATIENT'S OWN MEDICATION (NON-FORMULARY) (Brimonidine Tartrate/Timolol [Combigan 0.2%-0.5% OD SCH (22:00)
[2017-06-12] MEDS: TIMOLOL 0.5% OPHTHALMIC SOL 5 ML BOTTLE OD SCH (22:34)
[2017-06-12] MEDS: BRIMONIDINE TARTRATE 0.2% OPHTHALMIC 5 ML BOTTLE OD SCH (22:34)
[2017-06-12] MEDS: PATIENT'S OWN MEDICATION (NON-FORMULARY) (Travoprost [Travatan Z] 1 DROP) OD SCH (22:36)
[2017-06-13] MEDS: [UNRECOGNIZED DRUG - REMARK] PO SCH (10:05)
[2017-06-13] MEDS: BRIMONIDINE TARTRATE 0.2% OPHTHALMIC 5 ML BOTTLE OD SCH ×2 (10:05→23:05)
[2017-06-13] MEDS: PANTOPRAZOLE 40 MG TABLET (FP) PO SCH (10:05)
[2017-06-13] MEDS: TIMOLOL 0.5% OPHTHALMIC SOL 5 ML BOTTLE OD SCH ×2 (10:05→23:05)
--- NOTE | 2017-06-13 10:16 | PN ---
GI Progress Note Subjective: GI NOte: No further bleeding, in fact no BM since yesterday. Kyrie informs me that he is prone to constipation. This may be aggravating his hemorrhoidal bleeding. - Objective Vital Signs: Vital Signs Temperature 97.9 F 06/13/17 06:00 Pulse Rate 99 H 06/13/17 06:00 Respiratory Rate 20 06/13/17 06:00 Blood Pressure 80/51 06/13/17 06:00 O2 Sat by Pulse Oximetry (%) 100 06/12/17 07:50 Constitutional: Calm ...Auscultate: Yes: Normoactive Bowel Sounds ...Palpate: Yes: Soft, Other (nontender) Assessment/Plan Resolved hemorrhoidal bleeding, aggravated by constipation. Will start Miralax TID to relieve constipation. Should take Miralax daily after discharge. Again advised followup in office to treat Hepatitis C. Problem List - Problems (1) Hepatitis C Code(s): B19.20 - UNSPECIFIED VIRAL HEPATITIS C WITHOUT HEPATIC COMA Qualifiers: Viral hepatitis chronicity: chronic Hepatic coma status: without hepatic coma Qualified Code(s): B18.2 - Chronic viral hepatitis C; B18.2 - Chronic viral hepatitis C; B18.2 - Chronic viral hepatitis C; B18.2 - Chronic viral hepatitis C (2) Gallbladder calculus Code(s): K80.20 - CALCULUS OF GALLBLADDER W/O CHOLECYSTITIS W/O OBSTRUCTION Qualifiers: Cholecystitis presence: without cholecystitis Biliary obstruction: without biliary obstruction Qualified Code(s): K80.20 - Calculus of gallbladder without cholecystitis without obstruction; K80.20 - Calculus of gallbladder without cholecystitis without obstruction (3) Diverticula of colon Code(s): K57.30 - DVRTCLOS OF LG INT W/O PERFORATION OR ABSCESS W/O BLEEDING (4) Gastric ulcer due to bacteria Code(s): K25.9 - GASTRIC ULCER, UNSP ACUTE OR CHRONIC, W/O HEMOR OR PERF B96.89 - OTH BACTERIAL AGENTS THE CAUSE OF DISEASES CLASSD ELSWHR (5) Internal bleeding hemorrhoids Code(s): K64.8 - OTHER HEMORRHOIDS (6) Family history of colon cancer Code(s): Z80.0 - FAMILY HISTORY OF MALIGNANT NEOPLASM OF DIGESTIVE ORGANS
--- NOTE | 2017-06-13 11:07 | EKG ---
Test Reason : Blood Pressure : / mmHG Vent. Rate : 085 BPM Atrial Rate : 088 BPM P-R Int : 000 ms QRS Dur : 114 ms QT Int : 422 ms P-R-T Axes : 000 202 063 degrees QTc Int : 502 ms SUSPECT ARM LEAD REVERSAL, INTERPRETATION ASSUMES NO REVERSAL ATRIAL FIBRILLATION RIGHT BUNDLE BRANCH BLOCK CANNOT RULE OUT INFERIOR INFARCT (CITED ON OR BEFORE 18-MAY-2017) ANTEROLATERAL INFARCT (CITED ON OR BEFORE 03-DEC-2016) PROLONGED QT ABNORMAL ECG Confirmed by ARELIS WAN MD ([id number]) on 06/13/2017 11:07:04 AM Referred By: Confirmed By:ARELIS WAN MD
--- NOTE | 2017-06-13 12:07 | PN ---
Progress Note (short form) - Note Progress Note: pt seen / examined feels weak today no specific complains no further bleeding cbc - pending. Vital Signs Temp 98.1 F 06/13/17 10:00 Pulse 99 H 06/13/17 06:00 Resp 20 06/13/17 10:00 BP 88/53 06/13/17 10:00 Pulse Ox 100 06/12/17 07:50 Intake & Output 06/12/17 06/13/17 06/13/17 23:59 11:59 23:59 Intake Total 240 300 Balance 240 300 Intake: Oral 300 TPN/PPN 240 Other: Voiding Method Toilet Urinal # Unmeasured Voids Void 1 1 Bowel Movement No Active Medications Acetaminophen (Tylenol -) 650 mg PO Q4H PRN PRN Reason: FEVER OR PAIN Brimonidine Tartrate (Alphagan 0.2% -) 1 drop OD BID [facility] Last Admin: 06/13/17 10:05 Dose: 1 drop Non-Formulary Medication (Travoprost [Travatan Z]) 1 drop OD HS [facility] Last Admin: 06/12/17 22:36 Dose: 1 drop Non-Formulary Medication (Vit B Cmplx No3/Fa/C/Biot/Zinc [Nephplex Rx Tablet]) 1 tab PO DAILY [facility] Last Admin: 06/13/17 10:05 Dose: 1 tab Pantoprazole Sodium (Protonix -) 40 mg PO DAILY [facility] Last Admin: 06/13/17 10:05 Dose: 40 mg Polyethylene Glycol (Miralax (For Daily Use) -) 17 gm PO TID [facility] Timolol Maleate (Timoptic 0.5%) 1 drop OD BID [facility] Last Admin: 06/13/17 10:05 Dose: 1 drop cbc -- pending Physical comfortable lungs- clear cvs- s1,s2 irregular abd - soft / non tender ext- no edema neuro- aox 3 a/p stable f/u cbc if stable- will discharge today pt says feels weak today will go tomorrow says he is concerned about bleed - discussed gi consult noted/ appreciated monitor will follow Problem List - Problems (1) Rectal bleed Code(s): K62.5 - HEMORRHAGE OF ANUS AND RECTUM (2) End stage renal failure on dialysis Code(s): N18.6 - END STAGE RENAL DISEASE Z99.2 - DEPENDENCE ON RENAL DIALYSIS (3) Atrial fibrillation by electrocardiogram Code(s): I48.91 - UNSPECIFIED ATRIAL FIBRILLATION
[2017-06-13 12:09] LABS: ANION GAP 7 (8-16); CALCIUM 8.7 mg/dL (8.5-10.1); CO2 33 mmol/L (21-32); CREATININE 5.2 mg/dL (0.7-1.3); GLUCOSE,RANDOM 112 mg/dL (74-106); MAGNESIUM 2.2 mg/dL (1.8-2.4)
[2017-06-13 12:32] LABS: MCH 25.3 pg (25.7-33.7); MCHC 30.2 g/dl (32.0-35.9); MEAN CELL VOLUME 83.9 fl (80-96); PLATELET COUNT 91 K/MM3 (134-434); RDW 18.5 % (11.9-15.9); WHITE BLOOD COUNT 3.4 K/mm3 (4.0-10.0)
[2017-06-13 12:33] LABS: PLATELET ESTIMATE DECREASED (NORMAL)
[2017-06-13 12:35] LABS: OVALOCYTE FEW; TARGET CELLS FEW
[2017-06-13 12:36] LABS: ANISOCYTOSIS 1+; HYPOCHROMIA 1+; POLYCHROMASIA FEW
[2017-06-13 12:37] LABS: MICROCYTOSIS 1+
[2017-06-13] MEDS: POLYETHYLENE GLYCOL 3350 119 GM BTL PO SCH ×2 (13:50→23:10)
--- NOTE | 2017-06-13 17:31 | PN ---
Progress Note, Physician History of Present Illness: Pt seen and examined at bedside. He has not had any bleeding today. - Current Medication List Current Medications: Active Medications Acetaminophen (Tylenol -) 650 mg PO Q4H PRN PRN Reason: FEVER OR PAIN Brimonidine Tartrate (Alphagan 0.2% -) 1 drop OD BID [facility] Last Admin: 06/13/17 10:05 Dose: 1 drop Non-Formulary Medication (Travoprost [Travatan Z]) 1 drop OD HS [facility] Last Admin: 06/12/17 22:36 Dose: 1 drop Non-Formulary Medication (Vit B Cmplx No3/Fa/C/Biot/Zinc [Nephplex Rx Tablet]) 1 tab PO DAILY [facility] Last Admin: 06/13/17 10:05 Dose: 1 tab Pantoprazole Sodium (Protonix -) 40 mg PO DAILY [facility] Last Admin: 06/13/17 10:05 Dose: 40 mg Polyethylene Glycol (Miralax (For Daily Use) -) 17 gm PO TID [facility] Last Admin: 06/13/17 13:50 Dose: 17 gm Timolol Maleate (Timoptic 0.5%) 1 drop OD BID [facility] Last Admin: 06/13/17 10:05 Dose: 1 drop - Objective Vital Signs: Vital Signs Temperature 98 F 06/13/17 17:08 Pulse Rate 57 L 06/13/17 17:08 Respiratory Rate 20 06/13/17 17:08 Blood Pressure 75/41 06/13/17 17:08 O2 Sat by Pulse Oximetry (%) 100 06/13/17 09:00 Constitutional: Yes: Calm Eyes: Yes: Conjunctiva Clear HENT: Yes: Atraumatic Neck: Yes: Supple Cardiovascular: Yes: S1, S2 Respiratory: Yes: CTA Bilaterally Gastrointestinal: Yes: Normal Bowel Sounds, Soft Genitourinary: Yes: WNL Musculoskeletal: Yes: WNL Edema: No Neurological: Yes: Oriented Psychiatric: Yes: Oriented Labs: CBC, BMP 06/13/17 11:25 06/13/17 11:25 Problem List - Problems (1) Lower GI hemorrhage Code(s): K92.2 - GASTROINTESTINAL HEMORRHAGE, UNSPECIFIED (2) End stage kidney disease Code(s): N18.6 - END STAGE RENAL DISEASE Assessment/Plan Current Medications Generic Name Dose Route Start Last Admin Trade Name Freq PRN Reason Stop Dose Admin Acetaminophen 650 mg 06/12/17 11:28 Tylenol - PO Q4H PRN FEVER OR PAIN Brimonidine Tartrate 1 drop 06/12/17 22:00 06/13/17 10:05 Alphagan 0.2% - OD 1 drop BID [facility] Administration Non-Formulary Medication 1 drop 06/12/17 22:00 06/12/17 22:36 Travoprost [Travatan Z] OD 1 drop HS [facility] Administration Non-Formulary Medication 1 tab 06/13/17 10:00 06/13/17 10:05 Vit B Cmplx No3/Fa/C/Biot/Zinc [Nephplex Rx Tablet] PO 1 tab DAILY [facility] Administration Pantoprazole Sodium 40 mg 06/13/17 10:00 06/13/17 10:05 Protonix - PO 40 mg DAILY [facility] Administration Polyethylene Glycol 17 gm 06/13/17 14:00 06/13/17 13:50 Miralax (For Daily Use) - PO 17 gm TID [facility] Administration Timolol Maleate 1 drop 06/12/17 22:00 06/13/17 10:05 Timoptic 0.5% OD 1 drop BID [facility] Administration Impression 1. ESRD 2. a-fib 3. GI bleed 4. HTN 5. glaucoma 6. positive hep b core Plan - monitor hg - HD on Wednesday - GI input appreciated - will follow Dr Miller
[2017-06-13] MEDS ORDERED: PT OWN MED DRAWER 7, Y5N ONE (22:57)
[2017-06-13] MEDS: PATIENT'S OWN MEDICATION (NON-FORMULARY) (Travoprost [Travatan Z] 1 DROP) OD SCH (23:05)
[2017-06-14] MEDS ORDERED: PT OWN MED DRAWER 7, Y5N ONE ×4 (05:45→16:02)
[2017-06-14] MEDS: POLYETHYLENE GLYCOL 3350 119 GM BTL PO SCH (05:54)
[2017-06-14 08:46] LABS: MCHC 29.9 g/dl (32.0-35.9); MEAN CELL VOLUME 83.7 fl (80-96); MEAN PLT VOLUME 10.1 fl (7.5-11.1); PLATELET COUNT 100 K/MM3 (134-434); RDW 18.1 % (11.9-15.9); WHITE BLOOD COUNT 3.5 K/mm3 (4.0-10.0)
[2017-06-14 08:57] LABS: ANION GAP 10 (8-16); CALCIUM 8.4 mg/dL (8.5-10.1); CO2 31 mmol/L (21-32); GLUCOSE,RANDOM 131 mg/dL (74-106)
[2017-06-14 08:59] LABS: CREATININE 6.4 mg/dL (0.7-1.3)
[2017-06-14] MEDS: PANTOPRAZOLE 40 MG TABLET (FP) PO SCH (09:21)
[2017-06-14] MEDS: BRIMONIDINE TARTRATE 0.2% OPHTHALMIC 5 ML BOTTLE OD SCH (09:22)
[2017-06-14] MEDS: TIMOLOL 0.5% OPHTHALMIC SOL 5 ML BOTTLE OD SCH (09:22)
[2017-06-14] MEDS: [UNRECOGNIZED DRUG - REMARK] PO SCH (09:23)
--- NOTE | 2017-06-14 11:05 | DS ---
Physical Examination Vital Signs: Vital Signs Temperature 97.6 F 06/14/17 06:00 Pulse Rate 90 06/14/17 06:00 Respiratory Rate 20 06/14/17 06:00 Blood Pressure 90/57 06/14/17 06:00 O2 Sat by Pulse Oximetry (%) 96 06/13/17 21:00 Findings/Remarks: feels well no complains today denies pain. no further bleeding Constitutional: Yes: No Distress, Calm Eyes: Yes: Conjunctiva Clear Neck: Yes: Supple Cardiovascular: Yes: Regular Rate and Rhythm Respiratory: Yes: CTA Bilaterally Gastrointestinal: Yes: Normal Bowel Sounds, Soft Edema: No Neurological: Yes: Alert Labs: CBC, BMP 06/14/17 06:00 06/14/17 06:00 Discharge Summary Reason For Visit: ABDOMINAL PAIN, RECTAL BLEED, COLITIS Current Active Problems Abdominal pain (Acute) Atrial fibrillation (Acute) Atrial fibrillation by electrocardiogram (Acute) Colitis (Acute) Diverticula of colon (Acute) Family history of colon cancer (Acute) Gallbladder calculus (Acute) Gastric ulcer due to bacteria (Acute) Hepatitis C (Acute) Internal bleeding hemorrhoids (Acute) Rectal bleed (Chronic) Hospital Course: admitted for gi bleed h/h stable likely due to internal hemorroids gi consult taken has h/o diverticulosis-- colonoscopy 12/14 now stable for d/c home f/u in office with us and Dr. Ching] Also advised to get treated as out pt for hep c meds reconcilled diet discussed/ counselled will d/c home today discussed with nursing staff also d/c time 35 min in preparing/ documenting and coordating discharge. - Instructions Referrals: Sharron Jeffrey MD [Primary Care Provider] - - Home Medications Comprehensive Discharge Medication List: Ambulatory Orders Brimonidine Tartrate/Timolol [Combigan 0.2%-0.5% Eye Drops] 1 drop OD BID Pantoprazole Sodium [Protonix -] 40 mg PO BID #180 tablet 12/15/16 Vit B Cmplx No3/FA/C/Biot/Zinc [Nephplex Rx Tablet] 1 tab PO DAILY 06/11/17 Acetaminophen [Tylenol .Regular Strength -] 650 mg PO Q4H PRN #0 tablet Polyethylene Glycol 3350 [Miralax 119 gm Btl -] 17 gm PO TID #1 bottle 10/15/17
[2017-06-14 11:31] LABS: TOTAL CELLS COUNTED 100
--- NOTE | 2017-06-14 12:52 | PN ---
Progress Note, Physician History of Present Illness: Pt seen and examined at bedside. He is awake and alert. He has not had anymore bleeding. - Current Medication List Current Medications: Active Medications Acetaminophen (Tylenol -) 650 mg PO Q4H PRN PRN Reason: FEVER OR PAIN Brimonidine Tartrate (Alphagan 0.2% -) 1 drop OD BID [facility] Last Admin: 06/14/17 09:22 Dose: 1 drop Non-Formulary Medication (Travoprost [Travatan Z]) 1 drop OD HS [facility] Last Admin: 06/13/17 23:05 Dose: 1 drop Non-Formulary Medication (Vit B Cmplx No3/Fa/C/Biot/Zinc [Nephplex Rx Tablet]) 1 tab PO DAILY [facility] Last Admin: 06/14/17 09:23 Dose: 1 tab Pantoprazole Sodium (Protonix -) 40 mg PO DAILY [facility] Last Admin: 06/14/17 09:21 Dose: 40 mg Polyethylene Glycol (Miralax (For Daily Use) -) 17 gm PO TID [facility] Last Admin: 06/14/17 05:54 Dose: 17 gm Timolol Maleate (Timoptic 0.5%) 1 drop OD BID [facility] Last Admin: 06/14/17 09:22 Dose: 1 drop - Objective Vital Signs: Vital Signs Temperature 97.7 F 06/14/17 09:00 Pulse Rate 90 06/14/17 09:00 Respiratory Rate 20 06/14/17 09:00 Blood Pressure 95/58 06/14/17 09:00 O2 Sat by Pulse Oximetry (%) 96 06/14/17 09:00 Constitutional: Yes: Calm Eyes: Yes: Conjunctiva Clear HENT: Yes: Atraumatic Neck: Yes: Supple Cardiovascular: Yes: S1, S2 Respiratory: Yes: CTA Bilaterally Gastrointestinal: Yes: Soft Genitourinary: Yes: WNL Musculoskeletal: Yes: WNL Edema: Yes Edema: LLE: Trace, RLE: Trace Integumentary: Yes: Venous Stasis Changes Neurological: Yes: Oriented Labs: CBC, BMP 06/14/17 06:00 06/14/17 06:00 Problem List - Problems (1) Lower GI hemorrhage Code(s): K92.2 - GASTROINTESTINAL HEMORRHAGE, UNSPECIFIED (2) End stage kidney disease Code(s): N18.6 - END STAGE RENAL DISEASE Assessment/Plan Current Medications Generic Name Dose Route Start Last Admin Trade Name Freq PRN Reason Stop Dose Admin Acetaminophen 650 mg 06/12/17 11:28 Tylenol - PO Q4H PRN FEVER OR PAIN Brimonidine Tartrate 1 drop 06/12/17 22:00 06/14/17 09:22 Alphagan 0.2% - OD 1 drop BID FAVIO Administration Non-Formulary Medication 1 drop 06/12/17 22:00 06/13/17 23:05 Travoprost [Travatan Z] OD 1 drop HS FAVIO Administration Non-Formulary Medication 1 tab 06/13/17 10:00 06/14/17 09:23 Vit B Cmplx No3/Fa/C/Biot/Zinc [Nephplex Rx Tablet] PO 1 tab DAILY FAVIO Administration Pantoprazole Sodium 40 mg 06/13/17 10:00 06/14/17 09:21 Protonix - PO 40 mg DAILY FAVIO Administration Polyethylene Glycol 17 gm 06/13/17 14:00 06/14/17 05:54 Miralax (For Daily Use) - PO 17 gm TID FAVIO Administration Timolol Maleate 1 drop 06/12/17 22:00 06/14/17 09:22 Timoptic 0.5% OD 1 drop BID FAVIO Administration Impression 1. ESRD 2. a-fib 3. GI bleed 4. HTN 5. glaucoma 6. positive hep b core Plan - HD in am - pt to follow up with GI - he has HD scheduled as outpt - pt instructed to monitor for signs of bleeding - will follow Dr Miller
[2017-06-14 17:05] VITALS: BP 106/68; PULSE 107; TEMP 97.8
[2017-06-18 10:19] LABS: HCV LOG 10 5.093 (.)
== END 2017-06-14 16:06 | disposition home or self-care (01) | DRG 393 ==
LOC: JER 20:03 → JERBED 06-12 06:08 → UNDOADMIN 06-12 06:21 → J8W 06-12 07:15
PROVIDERS: ADMIT Internal Medicine; ATTEND Internal Medicine
PROC: 5A1D90Z Performance of Urinary Filtration, Continuous, Greater than 18 hours Per Day (ICD-10-PCS; principal; 2017-06-12)
DX: K64.8 Other hemorrhoids (principal); N18.6 End stage renal disease; K92.2 Gastrointestinal hemorrhage, unspecified; I12.0 Hypertensive chronic kidney disease with stage 5 chronic kidney disease or end stage renal disease; Z99.2 Dependence on renal dialysis; I48.91 Unspecified atrial fibrillation; D64.9 Anemia, unspecified; K57.30 Diverticulosis of large intestine without perforation or abscess without bleeding; B18.2 Chronic viral hepatitis C; Z87.891 Personal history of nicotine dependence; K59.00 Constipation, unspecified
CPT/HCPCS: 36415; 70450-TC; 71010-TC; 74176-TC; 80048; 80053; 82272; 83735; 85025; 86704; 86706; 86708; 86803; 87340; 87522; 93005; 93010; 99282-25; J0885

== ENCOUNTER 2017-07-16 18:30 | Inpatient (IN) | payer OTHER ==
[2017-07-16] MEDS ORDERED: SODIUM CHLORIDE 500 ML IV STA (19:26)
--- NOTE | 2017-07-16 19:28 | PDOC ---
History of Present Illness - General Chief Complaint: Pain, Acute Stated Complaint: ABDOMINAL PAIN Time Seen by Provider: 07/16/17 19:00 History Source: Patient Exam Limitations: No Limitations - History of Present Illness Initial Comments: 07/16/17 19:33 Patient is a 67M with a history of DM, HTN, diverticulitis, ESRD on TThSa, afib not on anticoagulation, GI bleed (poss due to diverticulitis in 12/14), and h pylori gastritis here today with several months of abdominal pain worsening over several months. He says the pain is diffuse and severe, pointing at the middle of his abdomen when asked the pain is the worst. He says that the pain gets worse with eating. He is also complaining of associated shortness of breath , gradually worsening in the same time period. He denies chest pain, nausea, fevers, chills, and vomiting. He endorses a dry cough. Last bowel movement was today, denies blood and melena in school. He says that his leg edema is at baseline. Past History - Past Medical History Allergies/Adverse Reactions: Allergies Allergy/AdvReac Type Severity Reaction Status Date / Time No Known Allergies Allergy Verified 07/16/17 18:59 Home Medications: Ambulatory Orders Brimonidine Tartrate/Timolol [Combigan 0.2%-0.5% Eye Drops] 1 drop OD BID Pantoprazole Sodium [Protonix -] 40 mg PO BID #180 tablet 12/15/16 Vit B Cmplx No3/FA/C/Biot/Zinc [Nephplex Rx Tablet] 1 tab PO DAILY 06/11/17 Travoprost [Travatan Z] 2.5 ml OP ASDIR 07/16/17 Cardiac Disorders: Yes (rapid afib s/p GIB) COPD: No Dialysis: Yes (R GRAFT) GI Disorders: Yes (GI Bleed, PUD, h. pylori) HTN: Yes - Immunization History Immunization Up to Date: No - Suicide/Smoking/Psychosocial Hx Smoking History: Never smoked Have you smoked in the past 12 months: No If you are a former smoker, when did you quit?: 1996 Hx Alcohol Use: No Drug/Substance Use Hx: No Substance Use Type: Heroin Hx Substance Use Treatment: Yes Review of Systems - Review of Systems Comments:: 07/16/17 19:54 GENERAL/CONSTITUTIONAL: No fever or chills. No weakness. HEAD, EYES, EARS, NOSE AND THROAT: No change in vision. No sore throat. CARDIOVASCULAR: No chest pain. Positive for shortness of breath. RESPIRATORY: Positive for cough. Negative for wheezing, or hemoptysis. GASTROINTESTINAL: No nausea, vomiting, diarrhea or constipation. GENITOURINARY: No dysuria, frequency, or change in urination. MUSCULOSKELETAL: No joint or muscle swelling or pain. No neck or back pain. SKIN: No rash NEUROLOGIC: No headache, vertigo, loss of consciousness, or change in strength/ sensation. ENDOCRINE: No increased thirst. No abnormal weight change HEMATOLOGIC/LYMPHATIC: Positive for history of anemia. Negative for easy bleeding, or history of blood clots. ALLERGIC/IMMUNOLOGIC: No hives or skin allergy. *Physical Exam - Vital Signs Last Vital Signs Temp Pulse Resp BP Pulse Ox 97.8 F 84 18 71/53 92 L 07/16/17 18:45 07/16/17 18:45 07/16/17 18:45 07/16/17 18:45 07/16/17 18:45 - Physical Exam Comments: 07/16/17 20:01 GENERAL: Awake, alert, and fully oriented, in mild distress HEAD: No signs of trauma, normocephalic, atraumatic EYES: PERRLA, EOMI, sclera anicteric, conjunctiva clear ENT: Auricles normal inspection, hearing grossly normal, nares patent, oropharynx clear without exudates. Dry mucosa NECK: Normal ROM, supple, no lymphadenopathy, JVD, or masses LUNGS: Tachypneic (25-30 for rate) speaks full sentences, clear to auscultation bilaterally HEART: Regular rate and rhythm, normal S1 and S2, no murmurs, rubs or gallops, peripheral pulses normal and equal bilaterally. ABDOMEN: Mildly tender epigastrium. Normoactive bowel sounds. No guarding, no rebound. No masses EXTREMITIES: Normal inspection, Normal range of motion. Bilateral pitting edema with statis dermatitis. No clubbing or cyanosis. NEUROLOGICAL: Cranial nerves II through XII grossly intact. Normal speech, no focal sensorimotor deficits ED Treatment Course - LABORATORY CBC & Chemistry Diagram: 07/16/17 19:35 07/16/17 20:35 - RADIOLOGY Radiology Studies Ordered: Category Date Time Status CHEST X-RAY PORTABLE* [RAD] Stat Radiology 07/16/17 19:25 Ordered Medical Decision Making - Medical Decision Making 07/16/17 20:04 Patient is a 67M with a history of DM, HTN, diverticulitis, ESRD on TThSa, afib not on anticoagulation, GI bleed (poss due to diverticulitis in 12/14), and h pylori gastritis here today with several months of abdominal pain worsening over several months with shortness of breath. Differential is very broad, and includes: PE, mesenteric ischemia, anemia, PNA, ACS, arrhythmia. Will evaluate with septic workup with abdominal labs added. Will image with CTA Chest and Abdomen. SBP 73, patient's baseline is 90-100. Will treat with 500 ml fluid. EKG shows afib with a rate of 60. No ST elevations. Shows several changing conduction patterns suggestive of abberant conduction. Narrow QRS with RBBB morphology. Prior EKG from 06/11/17 shows RBBB and prolonged QTc. Prior EKG from 05/18/17 shows 1st degree av lock with NE of 304ms. EKGs concerning for severe chronic cardiovascular disease. 07/16/17 22:06 Laboratory Tests 07/16/17 07/16/17 07/16/17 19:35 19:35 19:35 WBC 3.1 L Hgb 10.6 L D Hct 35.3 L Plt Count 135 D INR 1.12 Lactic Acid 2.1 H* Troponin I B-Natriuretic Peptide 07/16/17 20:35 WBC Hgb Hct Plt Count INR Lactic Acid Troponin I 0.30 H D B-Natriuretic Peptide 71329.78 H CBC shows an anemia. Lactate elvated to 2.1. Trop elevated to .30. BNP to 93k. CTAs pending and US pending. 07/16/17 22:10 CXR shows cephalization and an enlarged heart. No focal infiltrate. 07/17/17 00:48 CTA shows no PE. Shows cardiomegaly with possible heart failure. Shows moderate right pleural effusion. Fluids held. 07/17/17 01:09 CTA abdomen shows no bowel inflammation to suggest mesenteric ischemia, although there is prominent SMA branch arterial sclerosis. Also shows gallstone , increasing ascites. 07/17/17 02:08 Discussed patient with JADEN Ferrer. Admitted to [facility] under Crichlow. *DC/Admit/Observation/Transfer Diagnosis at time of Disposition: Abdominal pain - Discharge Dispostion Condition at time of disposition: Stable Admit: Yes - Referrals - Patient Instructions - Post Discharge Activity
[2017-07-16 20:03] LABS: INR 1.12 (0.82-1.09); PROTHROMBIN TIME (PATIENT) 12.6 SEC (9.98-11.88)
[2017-07-16 20:06] LABS: ACTIVATED PTT 35.2 SECONDS (26.9-34.4)
--- NOTE | 2017-07-16 20:34 | PDOC ---
Attending Attestation - HPI HPI: 07/16/17 20:37 The patient is a 67 year old male, with a significant past medical history of ESRD (T/R/S), atrial fibrillation, DM, hypertension, anemia, who presents to the emergency department complaining of progressively worsening diffuse abdominal pain beginning approx. 3 months ago. The patient describes the abdominal pain as constant, 10/10 and that nothing makes the abdominal pain better or worse. He reports associated symptoms of shortness of breath secondary to the abdominal pain. The patient states he visited the ER approx. one month ago for the same chief complaint of diffuse abdominal pain. He denies chest pain. He denies recent fevers, chills, headache or dizziness. He denies recent nausea or vomit. PCP: Dr. Sharron Figueroa Documentation prepared by Cooper [place], acting as certified medical assistant for Rasheed Donahue MD. - Physicial Exam PE: 07/16/17 20:38 Vitals: Triage Vital signs reviewed General Appearance: no acute distress, well nourished well developed Cardiac: Regular rate and rhythym, no murmurs, no rubs, no gallops Lungs: Clear to auscultation bilateral, good air movement bilaterally Abdomen: Soft, non distended, normal bowel sounds, non tender to palpation Extremities: Full range of motion to all extremities, no cyanosis, clubbing, or edema Skin: Warm and dry, no rashes or lesions, no rash, no petechiae Neuro: AOX3; Cranial Nerves 2-12 grossly intact, Strength intact to all extremities, Sensation intact to all extremities Psych: Normal mood, normal affect <Cooper [place] - Last Filed: 07/16/17 22:28> - Resident Resident Name: Baldo Ramirez - ED Attending Attestation I have performed the following: I have examined & evaluated the patient, The case was reviewed & discussed with the resident, I agree w/resident's findings & plan, Exceptions are as noted - Medical Decision Making 07/17/17 02:06 A. fib on anticoagulation with shortness of breath and abdominal pain. CTA demonstrates no evidence of PE or mesenteric ischemia Labs notable for elevated BNP slightly elevated/detectable troponin and slightly elevated lactic. Patient's normal blood pressure 90 systolic patient gently hydrated here in the emergency department. Full dose aspirin given. We' ll admit to medicine for further management. No ST elevations on EKG. Patient will required dialysis tomorrow given IV Contrast <Rasheed Donahue - Last Filed: 07/17/17 02:08>
[2017-07-16 20:51] LABS: MCH 25.7 pg (25.7-33.7); MCHC 29.9 g/dl (32.0-35.9); MEAN CELL VOLUME 85.9 fl (80-96); MEAN PLT VOLUME 10.5 fl (7.5-11.1); PLATELET COUNT 135 K/MM3 (134-434); RDW 19.1 % (11.9-15.9); WHITE BLOOD COUNT 3.1 K/mm3 (4.0-10.0)
[2017-07-16] MEDS ORDERED: HYDROmorphone HCL CARPU-JECT 1 MG/1 ML DISP.SYRIN IVPUSH ONE (21:03)
[2017-07-16 21:10] LABS: ALBUMIN 3.5 g/dl (3.4-5.0); ANION GAP 7 (8-16); BILIRUBIN,TOTAL 0.7 mg/dL (0.2-1.0); CALCIUM 9.4 mg/dL (8.5-10.1); CO2 29 mmol/L (21-32); CREATININE 5.2 mg/dL (0.7-1.3); GLUCOSE,RANDOM 127 mg/dL (74-106); SGOT/AST 43 U/L (15-37); SGPT/ALT 35 U/L (12-78)
[2017-07-16 21:25] LABS: ALK PHOS 206 U/L (45-117); CPK 77 IU/L (39-308)
[2017-07-16 21:40] LABS: ANISOCYTOSIS 1+; MACROCYTOSIS 1+; OVALOCYTE 2+; PLATELET COMMENTS NO CLUMPING NOTED; PLATELET ESTIMATE DECREASED; POLYCHROMASIA 1+; TOTAL CELLS COUNTED 100
[2017-07-17] MEDS ORDERED: ASPIRIN 325 MG TABLET PO ONE (02:07)
--- NOTE | 2017-07-17 03:28 | HP ---
CHIEF COMPLAINT: abdominal pain, SOB PCP: Wojciech; Renal: Paul; GI: Acosta, Evelyn Ching HISTORY OF PRESENT ILLNESS: This is a 67 year old male with a past medical history significant for HTN, ESRD on dialysis, Afib, PUD, Hep C who presented to the ED with abdominal pain for the past few months, progressively worsening. Pt describes the pain as diffuse and is unable to localize it. He reports having a normal BM this morning. He also reports RICHEY and leg weakness for months. ER course was notable for: (1) BNP 93K (2) troponin 0.30 (3) CTA chest neg for PE, + CHF (4) CTA abd neg for mesenteric ischemia Recent Travel: pt denies PAST MEDICAL HISTORY: ESRD, dialysis, TuThSa, glaucoma, HTN, afib, Aortic Stenosis, H. pylori, Hep C, PUD, diverticulitis PAST SURGICAL HISTORY: ? tonsillectomy as a child B/L AV grafts, right currently working Social History: Smoking: Quit in 1996-15 pack year history Alcohol: Quit in 1996 Drugs: Quit in 1996, heroin Family History: father in his 70s, colon CA mother in her 80s unknown CA 5 sisters, all alive, 1 with PMH BrCA, 2 others with CA as well, unknown type daughter alive and well Allergies No Known Allergies Allergy (Verified 12/02/16 17:26) HOME MEDICATIONS: 3 Medication Instructions Recorded Brimonidine Tartrate/Timolol 1 drop OD BID 12/02/16 [Combigan 0.2%-0.5% Eye Drops] Pantoprazole Sodium [Protonix -] 40 mg PO BID #180 tablet 12/15/16 Vit B Cmplx No3/FA/C/Biot/Zinc 1 tab PO DAILY 06/11/17 [Nephplex Rx Tablet] Travoprost [Travatan Z] 2.5 ml OP ASDIR 07/16/17 REVIEW OF SYSTEMS CONSTITUTIONAL: Present: generalized weakness, malaise Absent: fever, chills, diaphoresis, loss of appetite, weight change HEENT: Absent: rhinorrhea, nasal congestion, throat pain, throat swelling, difficulty swallowing, mouth swelling, ear pain, eye pain, visual changes CARDIOVASCULAR: Present: peripheral edema Absent: chest pain, syncope, palpitations, irregular heart rate, lightheadedness RESPIRATORY: Present: dyspnea with exertion Absent: cough, shortness of breath, orthopnea, wheezing, stridor, hemoptysis GASTROINTESTINAL: Present: abdominal pain Absent: abdominal distension, nausea, vomiting, diarrhea, constipation, melena, hematochezia GENITOURINARY: Absent: dysuria, frequency, urgency, hesitancy, hematuria, flank pain, genital pain MUSCULOSKELETAL: Absent: myalgia, arthralgia, joint swelling, back pain, neck pain SKIN: Absent: rash, itching, pallor HEMATOLOGIC/IMMUNOLOGIC: Absent: easy bleeding, easy bruising, lymphadenopathy, frequent infections ENDOCRINE: Absent: unexplained weight gain, unexplained weight loss, heat intolerance, cold intolerance NEUROLOGIC: Absent: headache, focal weakness or paresthesias, dizziness, unsteady gait, seizure, mental status changes, bladder or bowel incontinence PSYCHIATRIC: Absent: anxiety, depression, suicidal or homicidal ideation, hallucinations. PHYSICAL EXAMINATION Vital Signs - 24 hr 3 07/16/17 07/16/17 07/17/17 07/17/17 18:45 19:25 01:20 03:12 Temperature 97.8 F Pulse Rate 84 Pulse Rate [ 81 75 Right Radial] Respiratory 18 16 Rate Blood Pressure 71/53 Blood Pressure 80/62 91/53 [Left Arm] O2 Sat by Pulse 92 L 96 100 96 Oximetry (%) GENERAL: Awake, alert, and fully oriented, in no acute distress. HEAD: Normal with no signs of trauma. EYES: Pupils equal, round and reactive to light, extraocular movements intact, sclera anicteric, conjunctiva clear. No lid lag. EARS, NOSE, THROAT: Ears normal, nares patent, oropharynx clear without exudates. Moist mucous membranes. NECK: Normal range of motion, supple without lymphadenopathy, JVD, or masses. LUNGS: Breath sounds diminished bilaterally, R>L. No wheezes, and no crackles. No accessory muscle use. HEART: irregular rate and rhythm, normal S1 and S2 without murmur, rub or gallop. ABDOMEN: Soft, nontender, not distended, normoactive bowel sounds, no guarding, no rebound, no masses. No hepatomegaly or splenomegaly. MUSCULOSKELETAL: Normal range of motion at all joints. No bony deformities or tenderness. No CVA tenderness. UPPER EXTREMITIES: 2+ pulses, warm, well-perfused. No cyanosis. No clubbing. No peripheral edema. LOWER EXTREMITIES: 2+ pulses, warm, well-perfused. No calf tenderness. No peripheral edema. NEUROLOGICAL: Cranial nerves II-XII intact. Normal speech. Normal gait. PSYCHIATRIC: Cooperative. Good eye contact. Appropriate mood and affect. SKIN: Warm, dry, normal turgor, no rashes or lesions noted, normal capillary refill. Laboratory Results - last 24 hr 3 07/16/17 07/16/17 07/16/17 19:35 19:35 19:35 WBC 3.1 L RBC 4.11 Hgb 10.6 L D Hct 35.3 L MCV 85.9 MCH 25.7 MCHC 29.9 L RDW 19.1 H Plt Count 135 D MPV 10.5 Total Counted 100 Neutrophils % No Result Required. Neutrophils % (Manual) 50.0 Lymphocytes % No Result Required. Lymphocytes % (Manual) 38.0 D Monocytes % (Manual) 11 H Eosinophils % (Manual) 1.0 Platelet Estimate Decreased Platelet Comment No clumping noted Polychromasia 1+ Anisocytosis 1+ Macrocytosis 1+ Ovalocytes 2+ PT with INR 12.60 H INR 1.12 PTT (Actin FS) 35.2 H Sodium Cancelled Potassium Cancelled Chloride Cancelled Carbon Dioxide Cancelled Anion Gap Cancelled BUN Cancelled Creatinine Cancelled Creat Clearance w eGFR Cancelled Random Glucose Cancelled Lactic Acid 2.1 H* Calcium Cancelled Total Bilirubin Cancelled AST Cancelled ALT Cancelled Alkaline Phosphatase Cancelled Creatine Kinase Cancelled Troponin I Cancelled B-Natriuretic Peptide Total Protein Cancelled Albumin Cancelled Lipase Blood Type O POSITIVE Antibody Screen Negative 3 07/16/17 20:35 WBC RBC Hgb Hct MCV MCH MCHC RDW Plt Count MPV Total Counted Neutrophils % Neutrophils % (Manual) Lymphocytes % Lymphocytes % (Manual) Monocytes % (Manual) Eosinophils % (Manual) Platelet Estimate Platelet Comment Polychromasia Anisocytosis Macrocytosis Ovalocytes PT with INR INR PTT (Actin FS) Sodium 140 Potassium 4.9 D Chloride 104 Carbon Dioxide 29 Anion Gap 7 L BUN 16 D Creatinine 5.2 H Creat Clearance w eGFR 11.15 Random Glucose 127 H Lactic Acid Calcium 9.4 Total Bilirubin 0.7 AST 43 H ALT 35 D Alkaline Phosphatase 206 H Creatine Kinase 77 Troponin I 0.30 H D B-Natriuretic Peptide 71636.78 H Total Protein 7.0 Albumin 3.5 Lipase 196 Blood Type Antibody Screen Radiology Reports B/L duplex venous US-Preliminary read from imaging final inspection supervisor NO DVT in either leg, RLE calf veins not well seen, R popliteal fossa/Jang's cyst, LLE calf veins not well seen, 2 adjacent L popliteal fossa/Jang's cyst. Edema noted throught B/L legs CTA abdomen-Preliminary read from imaging final inspection supervisor Impression: Small enlarging right pleural effusion. small stable pericardial effusion. Delayed ventricular enhancement suggests a prior myocardial infarct but consider further evaluation with echocardiography and cardiac enzymes. New small amount of ascites. Gallstone. Atrophic kidneys with no stones or renal vascular calcifications. Moderate pelvic adenopathy could be related to neoplastic process. NO bowel inflammation to suggest mesenteric ischemia although there is prominent SMA branch arterial sclerosis. CTA chest-Preliminary read from imaging final inspection supervisor FIndings: Negative for pulmonary embolus. Marked cardiomegaly. Contrast is stagnant dating in the right heart and refluxing into the inferior vena cava and hepatic veins. THis can suggest CHF, particularly R heart failure. small to moderate right pleural effusion. Atelectatic changes of the lung bases. There is also some upper abdominal ascites visualized. Right axillary stent is noted. ECG Atrial fibrillation with PVC or aberrantly conducted complexes VEnt rate 60, QTC 436 Incomplete RBBB possible anterolateral infarct, age undetermined (present on previous ECGs) VEnt rate 60, QTC 436 ASSESSMENT/PLAN: 67yM with PMH ESRD, dialysis, TuThSa, glaucoma, HTN, afib, Aortic Stenosis, H. pylori, Hep C, PUD, diverticulitis presented to the ED with c/o abdominal pain and RICHEY. Abdominal pain - pt was hospitalized in April and May with GI bleed and abdominal pain, GI consulted at the time - follows with GI, Dr. Shane, as outpatient and is due for colonoscopy prior to starting tx for Hep C as per pt - given lack of tenderness on PE and no acute findings on CTA would defer further inpatient workup and f/u with GI as outpt as planned CHF - pt does not make urine, will hold on lasix as pt not sob or acutely dyspneic - renal consult for dialysis in am - BNP elevation likely partially due to ESRD - echo in November 2016 showed normal EF - consider cardiology consult Elevated troponin - likely due to ESRD as this is lower than previous values - will trend troponin, monitor on tele - had negative stress test 11/2016 hypotension - received 500mL NS in ED with improvement - pt reports hypoTN is normal for him and it is not unusual for his SBP to dip into 70s. - hold further IVF given CHF Afib - rate controlled - not on AC due to h/o recurrent GI bleed ESRD - renal consult for dialysis in am DVT PPX - deferred due to GI bleed history FEN - tolerating po fluids - bmp in am - renal diet as tolerated Dispo: Pt currently requires inpatient cardiac monitoring for management of his emergent condition but expected LOS less than 2 midnights. Visit type - Emergency Visit Emergency Visit: Yes ED Registration Date: 07/16/17 Care time: The patient presented to the Emergency Department on the above date and was hospitalized for further evaluation of their emergent condition. - New Patient This patient is new to me today: Yes Date on this admission: 07/17/17 - Critical Care Critical Care patient: No
[2017-07-17] MEDS ORDERED: PATIENT'S OWN MEDICATION (NON-FORMULARY) (Travoprost [Travatan Z] 2.5 ML) OP SCH (03:30)
[2017-07-17 04:06] VITALS: BMI 29.2
[2017-07-17] MEDS: INSULIN SLIDING SCALE (NOVOLOG) 1 VIAL SQ SCH ×4 (06:41→21:27)
[2017-07-17] MEDS ORDERED: INSULIN (NOVOLOG) ASPART 100 UNITS/ML 10ML VIAL ONE (06:54)
[2017-07-17] MEDS: PANTOPRAZOLE 40 MG TABLET (FP) PO SCH ×2 (09:44→21:20)
[2017-07-17] MEDS ORDERED: [UNRECOGNIZED DRUG - REMARK] PO SCH (10:00)
[2017-07-17] MEDS ORDERED: PATIENT'S OWN MEDICATION (NON-FORMULARY) (Brimonidine Tartrate/Timolol [Combigan 0.2%-0.5% OD SCH (10:00)
--- NOTE | 2017-07-17 12:23 | CON.NEP ---
Consult Consult Specialty:: nephrology Referred by:: Mariola Bradford Reason for Consultation:: esrd for hemodialysis - History of Present Illness Chief Complaint: abd pains History of Present Illness: ESRD on HD admitted for w/u of abd pains x months w/u in progress no sign of fluid overload dialysis regimen reviewed treat ment ordered for today chart and meds reviewed - History Source History Provided By: Patient, Medical Record - Past Medical History Cardio/Vascular: Yes: AFIB, HTN, Other Gastrointestinal: Yes: Diverticulosis (with suspected diverticular bleed 12/14), Gastritis (h. 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) - Smoking History Smoking history: Never smoked Have you smoked in the past 12 months: No If you are a former smoker, when did you quit?: 1996 - Social History Usual Living Arrangement: Alone ADL: Independent 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, History of Recent Travel: No Home Medications - Allergies Allergies/Adverse Reactions: Allergies Allergy/AdvReac Type Severity Reaction Status Date / Time No Known Allergies Allergy Verified 07/16/17 18:59 - Home Medications Home Medications: Ambulatory Orders Brimonidine Tartrate/Timolol [Combigan 0.2%-0.5% Eye Drops] 1 drop OD BID Pantoprazole Sodium [Protonix -] 40 mg PO BID #180 tablet 12/15/16 Vit B Cmplx No3/FA/C/Biot/Zinc [Nephplex Rx Tablet] 1 tab PO DAILY 06/11/17 Travoprost [Travatan Z] 2.5 ml OP ASDIR 07/16/17 Family Disease History - Family Disease History Family Disease History: Other: Father ( 70's:h/o colon ca in 70's), Mother ( 80's: unclear cause ), Sister (5 sisters, 1 w/ BCA two others with ? cancers), Daughter (1 healthy daughter) Nephrology Consult - Height Height: 5 ft 9 in - Weight Weight: 198 lb 3.2 oz - BMI Body Mass Index (BMI): 29.2 - Lab Results CBC,BMP: CBC, BMP 07/16/17 19:35 07/16/17 20:35 Anion Gap: Anion Gap Anion Gap 7 (8-16) L 07/16/17 20:35 - Physical Examination Vital Signs: Vital Signs Temperature 97.9 F 07/17/17 10:00 Pulse Rate 81 07/17/17 10:00 Respiratory Rate 18 07/17/17 11:22 Blood Pressure 76/50 07/17/17 10:00 O2 Sat by Pulse Oximetry (%) 96 07/17/17 03:12 Assessment/Plan ESRD on HD admitted for w/u of abd pains x months w/u in progress no sign of fluid overload dialysis regimen reviewed treat ment ordered for today PMHx- DM, HTN, diverticulitis, ESRD on TThSa, afib not on anticoagulation, GI bleed (poss due to diverticulitis in 12/14), H. pylori gastritis
[2017-07-17 16:19] LABS: BASOPHIL 1.1 % (0-2.0); EOSINOPHIL 1.7 % (0-4.5); MCH 25.9 pg (25.7-33.7); MCHC 30.7 g/dl (32.0-35.9); MEAN CELL VOLUME 84.5 fl (80-96); MEAN PLT VOLUME 11.1 fl (7.5-11.1); PLATELET COUNT 141 K/MM3 (134-434); RDW 19.2 % (11.9-15.9); WHITE BLOOD COUNT 2.8 K/mm3 (4.0-10.0)
[2017-07-17 16:48] LABS: ANION GAP 9 (8-16); CALCIUM 8.8 mg/dL (8.5-10.1); CO2 27 mmol/L (21-32); CREATININE 4.4 mg/dL (0.7-1.3); GLUCOSE,RANDOM 144 mg/dL (74-106); MAGNESIUM 1.9 mg/dL (1.8-2.4); PHOSPHOROUS 2.3 mg/dL (2.5-4.9)
[2017-07-17 16:51] LABS: CPK 51 IU/L (39-308); TROPONIN I 0.29 ng/ml (0.00-0.05)
[2017-07-17] MEDS: TIMOLOL 0.5% OPHTHALMIC SOL 5 ML BOTTLE OD SCH ×2 (21:20→21:21)
[2017-07-17] MEDS: BRIMONIDINE TARTRATE 0.2% OPHTHALMIC 5 ML BOTTLE OD SCH (21:22)
[2017-07-18] MEDS ORDERED: PT OWN MED DRAWER 7, Y5N ONE ×2 (05:28→11:13)
[2017-07-18] MEDS: INSULIN SLIDING SCALE (NOVOLOG) 1 VIAL SQ SCH ×5 (06:04→21:16)
--- NOTE | 2017-07-18 09:31 | PN ---
Progress Note, Physician Chief Complaint: events noted still has abdominal pain -- generalized per pt-- states it lasts all day-- not associated with food intake he ate most of breakfast this AM no nausea No bm x 3days\ No SOb no chest pain - Current Medication List Current Medications: Active Medications Brimonidine Tartrate (Alphagan 0.2% -) 1 drop OD BID [facility] Last Admin: 07/17/17 21:22 Dose: 1 drop Insulin Aspart (Novolog Vial Sliding Scale -) 1 vial SQ TIDAC FAVIO PRN Reason: Protocol Last Admin: 07/18/17 06:04 Dose: Not Given Insulin Aspart (Novolog Vial Sliding Scale -) 1 vial SQ HS FAVIO PRN Reason: Protocol Last Admin: 07/17/17 21:27 Dose: Not Given Multivit/Ca Carb/B Cmplx/FA/Prenat (Nephro-Yg -) 1 tablet PO DAILY [facility] Pantoprazole Sodium (Protonix -) 40 mg PO BID [facility] Last Admin: 07/17/17 21:20 Dose: 40 mg Timolol Maleate (Timoptic 0.5%) 1 drop OD BID [facility] Last Admin: 07/17/17 21:21 Dose: Not Given - Objective Vital Signs: Vital Signs Temperature 97.0 F L 07/18/17 05:30 Pulse Rate 74 07/18/17 05:30 Respiratory Rate 16 07/18/17 08:25 Blood Pressure 68/50 07/18/17 05:30 O2 Sat by Pulse Oximetry (%) 100 07/18/17 08:25 Constitutional: Yes: No Distress, Calm Cardiovascular: Yes: Pulse Irregular Respiratory: Yes: Diminished Gastrointestinal: Yes: Normal Bowel Sounds, Soft, Abdomen, Obese. No: Distention, Tenderness Edema: Yes Edema: LLE: 1+, RLE: 1+ Labs: CBC, BMP 07/17/17 14:45 07/17/17 14:45 INR, PTT INR 1.12 (0.82-1.09) 07/16/17 19:35 Problem List - Problems (1) Volume overload Code(s): E87.70 - FLUID OVERLOAD, UNSPECIFIED (2) Abdominal pain Code(s): R10.9 - UNSPECIFIED ABDOMINAL PAIN (3) Atrial fibrillation Code(s): I48.91 - UNSPECIFIED ATRIAL FIBRILLATION (4) End stage renal failure on dialysis Code(s): N18.6 - END STAGE RENAL DISEASE; Z99.2 - DEPENDENCE ON RENAL DIALYSIS Assessment/Plan PLAN ESRD on HD Volume overload --- Lungs sounds better --- HD per Renal --- still has more volume to be removed -- chest CTA-- neg for PE -- PT eval Afib -- rate controlled -- no AC due to h/o GI bleeding Elevated troponins -- flattened -- no further elevation -- denies chest pain --- tele-- Afib Abdominal pain -- CTA abd-- no mesenteric enetritis -- add stool softener -- GI eval
[2017-07-18] MEDS ORDERED: SENNOSIDES 8.6MG TABLET (FP) PO PRN (09:32)
[2017-07-18] MEDS ORDERED: BISACODYL 5 MG TABLET.DR (FP) PO PRN (09:32)
[2017-07-18] MEDS: VITAMIN B COMP W-C 1 EA TABLET PO SCH (11:00)
[2017-07-18] MEDS: PANTOPRAZOLE 40 MG TABLET (FP) PO SCH ×2 (11:27→21:13)
[2017-07-18] MEDS: TIMOLOL 0.5% OPHTHALMIC SOL 5 ML BOTTLE OD SCH ×2 (11:27→21:13)
[2017-07-18] MEDS: BRIMONIDINE TARTRATE 0.2% OPHTHALMIC 5 ML BOTTLE OD SCH ×2 (11:28→21:11)
--- NOTE | 2017-07-18 12:28 | CON.GI ---
Consult Consult Specialty:: GI: Dr. Rivas covering for Dr. Ching who resumes coverage 07/19 Referred by:: Dr. Sharron Jeffrey Reason for Consultation:: Abdominal pain - History of Present Illness Chief Complaint: "I have been getting short of breath and have burning in my stomach" History of Present Illness: 67M admitted through [facility] ER for evaluation of SOB and abdominal pain. The description of his abdominal pain is vague in nature. He describes it as diffuse and burning and occurring with his shortness of breath as well. The pain does not worsen with or after meals. He has maintained his appetitie and denies food fear. He describes constipation and believes that the pain may improve after a bowel movement. His last bowel movement was 2 days ago. He denies fevers/chills and has noticed increased swelling of his LE. He underwent EGD / colonoscopy 12/[address] Ching for evaluation of rectal bleeding. EGD revealed antral ulcers, uremic gastritis and led to Mr. garvin being treated for h. pylori. Colonoscopy revealed blood throughout the colon as well as nicole diverticulosis. Dr. Ching recommended a repeat colonoscopy given the retained blood throughout the colon. He was also noted to be hep C positive and has followed up in office with Dr. Irineo Shane. Mr. Garvin explained that he received his hepatitis treatment in the [facility] but was advised not to start it yet per Dr. Shane. He also explained that he may have a procedure scheduled with Dr. Shane at [facility] this coming July but he was uncertain what the test was (? repeat colonoscopy). Current work-up included blood work revealing a chronic anemia that appears to be at his baseline, elevated AST and ALP that seem to be chronic. Troponins were elevated at .30 in ER, .29 on repeat. CTA of the chest failed to reveal PE and of the abdomen and pelvis failed to reveal discrete aterial thrombus in the primary and secondary brances of the celiac trunk, SMA and STEFAN. There was some mesenteric edema described, pelvic lymphadenopathy, a small amount of ascites and pelvic wall edema. He currently appears comfortable. He does not appear to be on anticoagulation for A. Fib at home. - History Source History Provided By: Patient, Medical Record Limitations to Obtaining History: No Limitations - Past Medical History Cardio/Vascular: Yes: AFIB, HTN, Other Gastrointestinal: Yes: Diverticulosis (with suspected diverticular bleed 12/14), Gastritis (h. 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) - Smoking History Smoking history: Never smoked Have you smoked in the past 12 months: No If you are a former smoker, when did you quit?: 1996 - Social History Usual Living Arrangement: Alone ADL: Independent 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, History of Recent Travel: No Home Medications - Allergies Allergies/Adverse Reactions: Allergies Allergy/AdvReac Type Severity Reaction Status Date / Time No Known Allergies Allergy Verified 07/16/17 18:59 - Home Medications Home Medications: Ambulatory Orders Brimonidine Tartrate/Timolol [Combigan 0.2%-0.5% Eye Drops] 1 drop OD BID Pantoprazole Sodium [Protonix -] 40 mg PO BID #180 tablet 12/15/16 Vit B Cmplx No3/FA/C/Biot/Zinc [Nephplex Rx Tablet] 1 tab PO DAILY 06/11/17 Travoprost [Travatan Z] 2.5 ml OP ASDIR 07/16/17 Family Disease History - Family Disease History Family Disease History: Other: Father ( 70's:h/o colon ca in 70's), Mother ( 80's: unclear cause ), Sister (5 sisters, 1 w/ BCA two others with ? cancers), Daughter (1 healthy daughter) Review of Systems - Review of Systems Constitutional: denies: Chills, Loss of Appetite, Unintentional Wgt. Loss Cardiovascular: reports: Shortness of Breath. denies: Chest Pain Respiratory: reports: SOB on Exertion Gastrointestinal: reports: Abdominal Pain, Constipation, Rectal Bleeding (on toilet paper after a bowel movement at times). denies: Bloating, Diarrhea, Dysphagia, Indigestion, Melena, Nausea, Vomiting, Vomiting Blood Physical Exam-GI Vital Signs: Vital Signs Temperature 97 F L 07/18/17 10:00 Pulse Rate 75 07/18/17 10:00 Respiratory Rate 18 07/18/17 10:00 Blood Pressure 99/61 07/18/17 10:00 O2 Sat by Pulse Oximetry (%) 100 07/18/17 08:25 Constitutional: Yes: Calm Eyes: No: Sclera Icterus Cardiovascular: Yes: Pulse Irregular (regular rate), Murmur (+2/6 systolic murmur at LSB and RSB) Respiratory: Yes: CTA Bilaterally Gastrointestinal Inspection: No: Distention, Scars ...Auscultate: Yes: Normoactive Bowel Sounds ...Palpate: Yes: Soft. No: Hepatomegaly, Splenomegaly, Tenderness ...Percussion: No: Tympanitic ...Rectal Exam: Yes: Guaiac Negative (No external lesions, no masses, formed light ely stool in rectal vault, guaiac negative) Edema: Yes Edema: LLE: 4+ (stasis changes), RLE: 3+ Labs: CBC, BMP 07/17/17 14:45 07/17/17 14:45 INR, PTT INR 1.12 (0.82-1.09) 07/16/17 19:35 Hepatic Panel Total Bilirubin 0.7 mg/dL (0.2-1.0) 07/16/17 20:35 AST 43 U/L (15-37) H 07/16/17 20:35 ALT 35 U/L (12-78) D 07/16/17 20:35 Alkaline Phosphatase 206 U/L (45-117) H 07/16/17 20:35 Albumin 3.5 g/dl (3.4-5.0) 07/16/17 20:35 Problem List - Problems (1) Abdominal pain Assessment/Plan: Vague in nature and not reproducible currently. It is associated with his shortness of breath and I wonder if his general volume overload status with third spacing is contributing. It also seems to improve after he has a bowel movement and is not on laxative/stool softener as an outpatient regularly Advise the following for now: MiraLAX 17g BID Evaluation of worsening shortness of breath / RICHEY per PMD. Troponins elevated as well. Unclear if this is from his renal dysfunction but Mr. Garvin' nurse is contacting Dr. Jeffrey to see if further evaluation warranted. MRCP / MRI of abdomen to assess elevated ALP. Check GGT Consider heme evaluation of pelvic lymphadenopathy Outpatient follow-up with Dr. Shane re: hep c treatment, further evaluation of abdominal pain and regarding the testing scheduled at [facility] for 08/15 Code(s): R10.9 - UNSPECIFIED ABDOMINAL PAIN
[2017-07-18] MEDS: POLYETHYLENE GLYCOL 3350 119 GM BTL PO SCH ×2 (13:00→21:36)
[2017-07-18 14:11] LABS: TROPONIN I 0.3 ng/ml (0.00-0.05)
--- NOTE | 2017-07-18 17:45 | PN ---
Progress Note (short form) - Note Progress Note: ESRD DM HTN DIVERTICULITIS AFIB H/O GI BLEED H PYLORI Current Medications Brimonidine Tartrate (Alphagan 0.2% -) 1 drop OD BID [facility] Last Admin: 07/18/17 11:28 Dose: 1 drop Insulin Aspart (Novolog Vial Sliding Scale -) 1 vial SQ TIDAC FAVIO PRN Reason: Protocol Last Admin: 07/18/17 11:28 Dose: Not Given Insulin Aspart (Novolog Vial Sliding Scale -) 1 vial SQ HS FAVIO PRN Reason: Protocol Last Admin: 07/17/17 21:27 Dose: Not Given Multivit/Ca Carb/B Cmplx/FA/Prenat (Nephro-Yg -) 1 tablet PO DAILY [facility] Pantoprazole Sodium (Protonix -) 40 mg PO BID [facility] Last Admin: 07/18/17 11:27 Dose: 40 mg Polyethylene Glycol (Miralax (For Daily Use) -) 17 gm PO BID [facility] Timolol Maleate (Timoptic 0.5%) 1 drop OD BID [facility] Last Admin: 07/18/17 11:27 Dose: 1 drop Last Vital Signs Temp Pulse Resp BP Pulse Ox 98.1 F 79 20 85/42 100 07/18/17 15:00 07/18/17 15:00 07/18/17 15:00 07/18/17 15:00 07/18/17 08:25 ESRD on HD admitted for w/u of abd pains x months w/u in progress no sign of fluid overload dialysis regimen reviewed treat ment ordered for TOMORROW PMHx- DM, HTN, diverticulitis, ESRD on TThSa, afib not on anticoagulation, GI bleed (poss due to diverticulitis in 4), H. pylori gastritis
[2017-07-18] MEDS ORDERED: INSULIN (NOVOLOG) ASPART 100 UNITS/ML 10ML VIAL ONE (21:07)
[2017-07-19] MEDS ORDERED: PT OWN MED DRAWER 7, Y5N ONE ×2 (05:41→09:14)
[2017-07-19] MEDS: INSULIN SLIDING SCALE (NOVOLOG) 1 VIAL SQ SCH ×4 (06:07→22:48)
--- NOTE | 2017-07-19 10:27 | PN ---
Progress Note, Physician Chief Complaint: denies chest pain No SOB he is undergoing dialysis Has pain and weakness while ambulating As per PT -- he needs two person assist top get him out of chair - Current Medication List Current Medications: Active Medications Brimonidine Tartrate (Alphagan 0.2% -) 1 drop OD BID [facility] Last Admin: 07/18/17 21:11 Dose: 1 drop Insulin Aspart (Novolog Vial Sliding Scale -) 1 vial SQ TIDAC FAVIO PRN Reason: Protocol Last Admin: 07/19/17 06:07 Dose: Not Given Insulin Aspart (Novolog Vial Sliding Scale -) 1 vial SQ HS FAVIO PRN Reason: Protocol Last Admin: 07/18/17 21:16 Dose: Not Given Multivit/Ca Carb/B Cmplx/FA/Prenat (Nephro-Yg -) 1 tablet PO DAILY [facility] Last Admin: 07/18/17 11:00 Dose: 1 tablet Pantoprazole Sodium (Protonix -) 40 mg PO BID [facility] Last Admin: 07/18/17 21:13 Dose: 40 mg Polyethylene Glycol (Miralax (For Daily Use) -) 17 gm PO BID [facility] Last Admin: 07/18/17 21:36 Dose: 17 gm Timolol Maleate (Timoptic 0.5%) 1 drop OD BID [facility] Last Admin: 07/18/17 21:13 Dose: 1 drop - Objective Vital Signs: Vital Signs Temperature 97.6 F 07/19/17 06:00 Pulse Rate 68 07/19/17 06:00 Respiratory Rate 20 07/19/17 08:43 Blood Pressure 92/44 07/19/17 06:00 O2 Sat by Pulse Oximetry (%) 96 07/19/17 08:43 Constitutional: Yes: No Distress Cardiovascular: Yes: Pulse Irregular Respiratory: Yes: Diminished Gastrointestinal: Yes: Normal Bowel Sounds, Soft. No: Distention, Hyperactive Bowel Sounds, Tenderness Edema: No Labs: CBC, BMP 07/17/17 14:45 07/17/17 14:45 INR, PTT INR 1.12 (0.82-1.09) 07/16/17 19:35 Problem List - Problems (1) Volume overload Code(s): E87.70 - FLUID OVERLOAD, UNSPECIFIED (2) Abdominal pain Code(s): R10.9 - UNSPECIFIED ABDOMINAL PAIN (3) Atrial fibrillation Code(s): I48.91 - UNSPECIFIED ATRIAL FIBRILLATION (4) End stage renal failure on dialysis Code(s): N18.6 - END STAGE RENAL DISEASE; Z99.2 - DEPENDENCE ON RENAL DIALYSIS Assessment/Plan PLAN ESRD on HD Volume overload --- Lungs sounds better --- HD per Renal --- still has more volume to be removed -- chest CTA-- neg for PE -- PT eval noted Afib -- rate controlled -- no AC due to h/o GI bleeding Elevated troponins -- flattened -- no further elevation -- denies chest pain --- tele-- Afib -- Cardiology eval -- Echo ordered Abdominal pain -- CTA abd-- no mesenteric enetritis -- add stool softener -- GI eval appreciated -- on Miralax BID no bm yet will give Suppository
[2017-07-19] MEDS: PANTOPRAZOLE 40 MG TABLET (FP) PO SCH ×2 (10:42→22:46)
--- NOTE | 2017-07-19 11:06 | CON.CARD ---
Consult Consult Specialty:: Cardiology Referred by:: Dr. Jeffrey Reason for Consultation:: Elevated troponin, fluid overload, afib - History of Present Illness Chief Complaint: Abdominal discomfort History of Present Illness: 67 year old man with a history of HTN, AFib dx 11/2016 not on AC due to GI bleed , moderate aortic stenosis, ESRD on HD, h/o GI bleed with gastric ulcers, H.pylori, HCV, admitted with abdominal discomfort, incidentally noted to have a slightly elevated troponin. Pt was seen and examined today in nad. He states that he is feeling better. still notes some abdominal discomfort. Denies having any chest pain but does admit to sob/dyspnea that has been going on for several weeks as well as lower extremity edema. No palpitations, pnd, orthopnea. He does have a history of syncope but none recently. Of note he was admitted here diagnosed with new afib, at which time he had a nuclear stress test that showed no ischemia LVEF 40% and an echo that showed normal LV function, moderate aortic stenosis. He was not started on full AC at that time due to GI bleed. - History Source History Provided By: Patient, Medical Record Limitations to Obtaining History: No Limitations - Past Medical History Cardio/Vascular: Yes: AFIB, HTN, Other Gastrointestinal: Yes: Diverticulosis (with suspected diverticular bleed 12/14), Gastritis (h. 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) - Smoking History Smoking history: Never smoked Have you smoked in the past 12 months: No If you are a former smoker, when did you quit?: 1996 - Social History Usual Living Arrangement: Alone ADL: Independent 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, History of Recent Travel: No Home Medications - Allergies Allergies/Adverse Reactions: Allergies Allergy/AdvReac Type Severity Reaction Status Date / Time No Known Allergies Allergy Verified 07/16/17 18:59 - Home Medications Home Medications: Ambulatory Orders Brimonidine Tartrate/Timolol [Combigan 0.2%-0.5% Eye Drops] 1 drop OD BID Pantoprazole Sodium [Protonix -] 40 mg PO BID #180 tablet 12/15/16 Vit B Cmplx No3/FA/C/Biot/Zinc [Nephplex Rx Tablet] 1 tab PO DAILY 06/11/17 Travoprost [Travatan Z] 2.5 ml OP ASDIR 07/16/17 Family Disease History - Family Disease History Family Disease History: Other: Father ( 70's:h/o colon ca in 70's), Mother ( 80's: unclear cause ), Sister (5 sisters, 1 w/ BCA two others with ? cancers), Daughter (1 healthy daughter) Review of Systems - Review of Systems Constitutional: denies: No Symptoms, Chills, Diaphoresis, Fever, Lethargy, Loss of Appetite, Malaise, Night Sweats, Unintentional Wgt. Loss, Weakness, Other Eyes: denies: No Symptoms, Blind Spots, Blurred Vision, Double Vision, Eye Pain , Floaters, Photophobia, Recent Change in Vision, Other HENT: denies: No Symptoms, Difficult Swallowing, Ear Discharge, Ear Pain, Epistaxis, Gingival Bleeding, Hearing Loss, Mouth Swelling, Nasal Congestion, Ocular Prosthesis, Throat Pain, Toothache, Ringing in Ears, Other Neck: denies: No Symptoms, Decreased ROM, Lumps, Pain on Movement, Stiffness, Swollen Glands, Tenderness, Other Cardiovascular: reports: Edema, Shortness of Breath. denies: No Symptoms, Chest Pain, Palpitations, Other Respiratory: reports: Exercise Intolerance, SOB, SOB on Exertion. denies: No Symptoms, Cough, Hemoptysis, Orthopnea, PND, Snoring, Wheezing, Other Gastrointestinal: reports: Abdominal Pain. denies: No Symptoms, Bloating, Constipation, Diarrhea, Dysphagia, Indigestion, Melena, Nausea, Rectal Bleeding , Vomiting, Vomiting Blood, Other Genitourinary: denies: No Symptoms, Burning, Discharge, Dysuria, Flank Pain, Frequency, Hematuria, Incontinence, Lesions, Menses, Pain, Testicular Mass, Testicular Pain, Testicular Swelling, Urgency, Vaginal Bleeding, Other Breasts: denies: No Symptoms Reported, See HPI, Breast Implants, Discharge from Nipple, Lumps, Pain, Skin Changes, Other Musculoskeletal: denies: No Symptoms, Back Pain, Crepitus, Decreased ROM, Extremity Pain, Joint Pain, Joint Swelling, Muscle Pain, Muscle Cramps, Muscle Weakness, Other Integumentary: denies: No Symptoms, Blister, Bruising, Change in Color, Eczema, Erythema, Incision, Lesions, Lump, Pallor, Pruritis, Rash, Wound, Other Neurological: denies: No Symptoms, Change in LOC, Change in Speech, Confusion, Dizziness, Headache, Incoordination, Numbness, Parasthesia, Pre-Existing Deficit , Seizure, Syncope, Tremors, Unsteady Gait, Weakness, Other Endocrine: denies: No Symptoms, Excessive Sweating, Flushing, Increased Hunger, Increased Thirst, Intolerance to Cold, Intolerance to Heat, Unexplained Weight Gain, Unexplained Weight Loss, Other Hematology/Lymphatic: denies: No Symptoms, Easily Bruised, Excessive Bleeding, Swollen Glands, Other Psychiatric: denies: No Symptoms, Altered Sleep Pattern, Anxiety, Depression, Hallucinations, Panic, Paranoia, Suicidal, Other - Risk Factors Known Risk Factors: Yes: Hypertension Vital Signs: Vital Signs Temperature 97.6 F 07/19/17 06:00 Pulse Rate 68 07/19/17 06:00 Respiratory Rate 20 07/19/17 08:43 Blood Pressure 92/44 07/19/17 06:00 O2 Sat by Pulse Oximetry (%) 96 07/19/17 08:43 Constitutional: Yes: Well Nourished, No Distress, Calm Eyes: Yes: WNL, Conjunctiva Clear, EOM Intact, PERRL HENT: Yes: WNL, Atraumatic, Normocephalic Neck: Yes: WNL, Supple, Trachea Midline Respiratory: Yes: Regular, Diminished. No: Rales, Rhonchi, SOB, Wheezes Gastrointestinal: Yes: Normal Bowel Sounds, Soft, Tenderness. No: Distention Cardiovascular: Yes: Pulse Irregular. No: Bradycardia, Tachycardia, Gallop, Rub , Varicosities JVD: No Carotid Bruit: No PMI: Non-Displaced Heart Sounds: Yes: S1, S2. No: Split S2, S3, S4, Clicks, Gallop, Bruit Murmur: No: Systolic Murmur, Diastolic Murmur Extremities: Yes: WNL Edema: Yes Edema: LLE: 2+, RLE: 2+ Peripheral Pulses WNL: Yes Neurological: Yes: Alert, Oriented Psychiatric: Yes: Alert, Oriented - Other Data Labs, Other Data: CBC, BMP 07/17/17 14:45 07/17/17 14:45 INR, PTT INR 1.12 (0.82-1.09) 07/16/17 19:35 Troponin, BNP 07/18/17 13:39 Troponin I 0.30 H Troponin, BNP 07/18/17 13:39 Troponin I 0.30 H reviewed Echo: Report Reviewed Imaging - Results Chest X-ray: Report Reviewed, Image Reviewed EKG: Report Reviewed, Image Reviewed Other: Report Reviewed, Image Reviewed (tele-AFib, HR controlled, PVCs) Assessment/Plan 67 year old man with a history of HTN, AFib dx 11/2016 not on AC due to GI bleed , moderate aortic stenosis, ESRD on HD, h/o GI bleed with gastric ulcers, H.pylori, HCV, admitted with abdominal discomfort, incidentally noted to have a slightly elevated troponin. Pt was seen and examined today in nad. He states that he is feeling better. still notes some abdominal discomfort. Denies having any chest pain but does admit to sob/dyspnea that has been going on for several weeks as well as lower extremity edema. No palpitations, pnd, orthopnea. He does have a history of syncope but none recently. Of note he was admitted here diagnosed with new afib, at which time he had a nuclear stress test that showed no ischemia LVEF 40% and an echo that showed normal LV function, moderate aortic stenosis. He was not started on full AC at that time due to GI bleed. Elevated troponin-minimally elevated with normal CK level, in setting of ESRD, AFib, Aortic stenosis -unlikely ACS -troponin did not trend up significantly -pt denies chest pain -nuclear stress test 11/2016 showed no ischemia -CTA chest showed no evidence of PE and LE doppler showed no DVT -Pt is volume overloaded on exam, this may explain his SOB, Abdominal discomfort , and slightly elevated troponin -will clarify any additional prior cardiac ie if he ever had a cardiac cath -can hold off on further ischemic evaluation at this time -will f/up echo to be done today -can cont tele for now SOB-volume overloaded -pt does not make urine, volume removal as BP tolerates with HD -f/up echo today to re-evaluate LV function and degree of aortic stenosis Atrial fibrillation-dx 11/2016 -HR is well controlled currently -pt is not on AC due to h/o GI bleed -does not currently require AV mckenna blocking meds for HR control and BP is running low thus would hold off on initiating -CTA abd/pelvis did not show evidence of mesenteric ischemia -cont tele for now HTN-BP running low normal -hold anti-HTN meds for now
--- NOTE | 2017-07-19 11:39 | EKG ---
Test Reason : Blood Pressure : / mmHG Vent. Rate : 060 BPM Atrial Rate : 031 BPM P-R Int : 000 ms QRS Dur : 110 ms QT Int : 436 ms P-R-T Axes : 000 190 161 degrees QTc Int : 436 ms ATRIAL FIBRILLATION WITH PREMATURE VENTRICULAR OR ABERRANTLY CONDUCTED COMPLEXES LOW VOLTAGE QRS INCOMPLETE RIGHT BUNDLE BRANCH BLOCK POSSIBLE ANTEROLATERAL INFARCT (CITED ON OR BEFORE 03-DEC-2016) ABNORMAL ECG WHEN COMPARED WITH ECG OF 11-JUN-2017 21:57, QT HAS SHORTENED Confirmed by LISA RG, LAURIE ([id number]) on 07/19/2017 11:39:00 AM Referred By: Confirmed By:LAURIE GONZALEZ MD
[2017-07-19] MEDS: ALBUMIN HUMAN 25% 12.5 GM/50 ML VIAL IVPB SCH ×3 (13:45→14:45)
[2017-07-19] MEDS: BRIMONIDINE TARTRATE 0.2% OPHTHALMIC 5 ML BOTTLE OD SCH ×2 (14:17→22:47)
[2017-07-19] MEDS: TIMOLOL 0.5% OPHTHALMIC SOL 5 ML BOTTLE OD SCH ×2 (14:17→22:47)
--- NOTE | 2017-07-19 15:00 | PN ---
Progress Note, Physician History of Present Illness: Pt seen and examined at bedside. He is currently getting HD. He is awake and alert. - Current Medication List Current Medications: Active Medications Brimonidine Tartrate (Alphagan 0.2% -) 1 drop OD BID [facility] Last Admin: 07/19/17 14:17 Dose: 1 drop Insulin Aspart (Novolog Vial Sliding Scale -) 1 vial SQ TIDAC [facility] PRN Reason: Protocol Last Admin: 07/19/17 14:18 Dose: Not Given Insulin Aspart (Novolog Vial Sliding Scale -) 1 vial SQ HS [facility] PRN Reason: Protocol Last Admin: 07/18/17 21:16 Dose: Not Given Multivit/Ca Carb/B Cmplx/FA/Prenat (Nephro-Yg -) 1 tablet PO DAILY [facility] Last Admin: 07/18/17 11:00 Dose: 1 tablet Pantoprazole Sodium (Protonix -) 40 mg PO BID [facility] Last Admin: 07/19/17 10:42 Dose: 40 mg Polyethylene Glycol (Miralax (For Daily Use) -) 17 gm PO BID [facility] Last Admin: 07/18/17 21:36 Dose: 17 gm Timolol Maleate (Timoptic 0.5%) 1 drop OD BID [facility] Last Admin: 07/19/17 14:17 Dose: 1 drop - Objective Vital Signs: Vital Signs Temperature 97.6 F 07/19/17 13:39 Pulse Rate 72 07/19/17 13:39 Respiratory Rate 20 07/19/17 13:39 Blood Pressure 68/40 07/19/17 13:39 O2 Sat by Pulse Oximetry (%) 96 07/19/17 08:43 Constitutional: Yes: Calm Eyes: Yes: Conjunctiva Clear HENT: Yes: Atraumatic Neck: Yes: Supple Cardiovascular: Yes: S1, S2 Respiratory: Yes: CTA Bilaterally Gastrointestinal: Yes: Normal Bowel Sounds, Soft Musculoskeletal: Yes: WNL Edema: Yes Edema: LLE: 1+, RLE: 1+ Neurological: Yes: Oriented Psychiatric: Yes: Oriented Labs: CBC, BMP 07/17/17 14:45 07/17/17 14:45 INR, PTT INR 1.12 (0.82-1.09) 07/16/17 19:35 Problem List - Problems (1) Abdominal pain Code(s): R10.9 - UNSPECIFIED ABDOMINAL PAIN (2) Atrial fibrillation Code(s): I48.91 - UNSPECIFIED ATRIAL FIBRILLATION (3) End stage renal failure on dialysis Code(s): N18.6 - END STAGE RENAL DISEASE; Z99.2 - DEPENDENCE ON RENAL DIALYSIS Assessment/Plan Current Medications Generic Name Dose Route Start Last Admin Trade Name Freq PRN Reason Stop Dose Admin Brimonidine Tartrate 1 drop 07/17/17 22:00 07/19/17 14:17 Alphagan 0.2% - OD 1 drop BID [facility] Administration Insulin Aspart 1 vial 07/17/17 07:00 07/19/17 14:18 Novolog Vial Sliding Scale - SQ Not Given TIDAC FAVIO Protocol Insulin Aspart 1 vial 07/17/17 22:00 07/18/17 21:16 Novolog Vial Sliding Scale - SQ Not Given HS [facility]AVIO Protocol Multivit/Ca Carb/B Cmplx/FA/Prenat 1 tablet 07/17/17 10:19 07/18/17 11:00 Nephro-Gy - PO 1 tablet DAILY [facility] Administration Pantoprazole Sodium 40 mg 07/17/17 10:00 07/19/17 10:42 Protonix - PO 40 mg BID [facility] Administration Polyethylene Glycol 17 gm 07/18/17 13:00 07/18/17 21:36 Miralax (For Daily Use) - PO 17 gm BID [facility] Administration Timolol Maleate 1 drop 07/17/17 22:00 07/19/17 14:17 Timoptic 0.5% OD 1 drop BID [facility] Administration Impression 1. ESRD 2. a-fib 3. GI bleed 4. HTN 5. glaucoma 6. abdominal pain 7. lower extremity edema Plan - HD today - will give albumin on HD as bp is low - abd pain is improved - repeat labs in am - monitorhg Dr Miller
[2017-07-19] MEDS: POLYETHYLENE GLYCOL 3350 119 GM BTL PO SCH ×2 (19:01→22:55)
[2017-07-19] MEDS: VITAMIN B COMP W-C 1 EA TABLET PO SCH (19:02)
[2017-07-20] MEDS ORDERED: PT OWN MED DRAWER 7, Y5N ONE ×3 (02:17→22:57)
[2017-07-20] MEDS: INSULIN SLIDING SCALE (NOVOLOG) 1 VIAL SQ SCH ×3 (06:57→16:48)
[2017-07-20] MEDS ORDERED: BISACODYL 5 MG TABLET.DR (FP) PO PRN (08:44)
--- NOTE | 2017-07-20 08:44 | PN ---
Progress Note, Physician Chief Complaint: has SOB on ambulation no chest pain or dizziness had bright red blood dripping when having a bm - constipated for 4 days - Current Medication List Current Medications: Active Medications Brimonidine Tartrate (Alphagan 0.2% -) 1 drop OD BID [facility] Last Admin: 07/19/17 22:47 Dose: 1 drop Insulin Aspart (Novolog Vial Sliding Scale -) 1 vial SQ TIDAC [facility]IO PRN Reason: Protocol Last Admin: 07/20/17 06:57 Dose: Not Given Insulin Aspart (Novolog Vial Sliding Scale -) 1 vial SQ HS [facility]IO PRN Reason: Protocol Last Admin: 07/19/17 22:48 Dose: Not Given Mineral Oil (Fleet Mineral Oil Rectal Enema -) 133 ml IN NOW ONE Stop: 07/20/17 08:44 Multivit/Ca Carb/B Cmplx/FA/Prenat (Nephro-Yg -) 1 tablet PO DAILY [facility] Last Admin: 07/19/17 19:02 Dose: 1 tablet Pantoprazole Sodium (Protonix -) 40 mg PO BID [facility] Last Admin: 07/19/17 22:46 Dose: 40 mg Polyethylene Glycol (Miralax (For Daily Use) -) 17 gm PO BID [facility] Last Admin: 07/19/17 22:55 Dose: Not Given Timolol Maleate (Timoptic 0.5%) 1 drop OD BID [facility] Last Admin: 07/19/17 22:47 Dose: 1 drop - Objective Vital Signs: Vital Signs Temperature 97.6 F 07/20/17 06:00 Pulse Rate 80 07/20/17 06:00 Respiratory Rate 18 07/20/17 06:00 Blood Pressure 89/45 07/20/17 06:00 O2 Sat by Pulse Oximetry (%) 96 07/19/17 21:00 Constitutional: Yes: No Distress Cardiovascular: Yes: Regular Rate and Rhythm Respiratory: Yes: Diminished Gastrointestinal: Yes: Normal Bowel Sounds, Soft. No: Distention, Tenderness Edema: Yes Edema: LLE: 2+, RLE: 2+ Labs: CBC, BMP 07/17/17 14:45 07/17/17 14:45 INR, PTT INR 1.12 (0.82-1.09) 07/16/17 19:35 Problem List - Problems (1) Volume overload Code(s): E87.70 - FLUID OVERLOAD, UNSPECIFIED (2) Abdominal pain Code(s): R10.9 - UNSPECIFIED ABDOMINAL PAIN (3) Atrial fibrillation Code(s): I48.91 - UNSPECIFIED ATRIAL FIBRILLATION (4) End stage renal failure on dialysis Code(s): N18.6 - END STAGE RENAL DISEASE; Z99.2 - DEPENDENCE ON RENAL DIALYSIS Assessment/Plan PLAN ESRD on HD Volume overload --- HD per Renal --- still has more volume to be removed -- chest CTA-- neg for PE -- PT eval noted Afib -- rate controlled -- no AC due to h/o GI bleeding Elevated troponins -- flattened -- no further elevation -- denies chest pain --- tele-- Afib -- spoke with corporate safety coordinator-- will need to go for cardiac cath -- Echo results noted -- had stress test in November this year Abdominal pain/hemorrhoids -- CTA abd-- no mesenteric enetritis -- add stool softener -- add suppository and Anusol HC cream -- on Miralax BID no bm yet will need to go for cardiac cath and thereafter to STR
[2017-07-20] MEDS ORDERED: MINERAL OIL ENEMA 133 ML ENEMA PR ONE (09:15)
--- NOTE | 2017-07-20 09:17 | PN ---
Progress Note, Physician Chief Complaint: sitting comfortably in no distress TELE: AF, controlled - Current Medication List Current Medications: Active Medications Bisacodyl (Dulcolax -) 5 mg PO DAILY PRN PRN Reason: CONSTIPATION Brimonidine Tartrate (Alphagan 0.2% -) 1 drop OD BID [facility] Last Admin: 07/19/17 22:47 Dose: 1 drop Insulin Aspart (Novolog Vial Sliding Scale -) 1 vial SQ TIDAC [facility] PRN Reason: Protocol Last Admin: 07/20/17 06:57 Dose: Not Given Insulin Aspart (Novolog Vial Sliding Scale -) 1 vial SQ HS [facility] PRN Reason: Protocol Last Admin: 07/19/17 22:48 Dose: Not Given Multivit/Ca Carb/B Cmplx/FA/Prenat (Nephro-Yg -) 1 tablet PO DAILY [facility] Last Admin: 07/19/17 19:02 Dose: 1 tablet Pantoprazole Sodium (Protonix -) 40 mg PO BID [facility] Last Admin: 07/19/17 22:46 Dose: 40 mg Polyethylene Glycol (Miralax (For Daily Use) -) 17 gm PO BID [facility] Last Admin: 07/19/17 22:55 Dose: Not Given Timolol Maleate (Timoptic 0.5%) 1 drop OD BID [facility] Last Admin: 07/19/17 22:47 Dose: 1 drop - Objective Vital Signs: Vital Signs Temperature 97.6 F 07/20/17 06:00 Pulse Rate 80 07/20/17 06:00 Respiratory Rate 18 07/20/17 06:00 Blood Pressure 89/45 07/20/17 06:00 O2 Sat by Pulse Oximetry (%) 96 07/19/17 21:00 Constitutional: Yes: No Distress Cardiovascular: Yes: Pulse Irregular Respiratory: Yes: Other (rales at bases 1/3 up) Gastrointestinal: Yes: Soft Edema: Yes Edema: LLE: 2+, RLE: 2+ Neurological: Yes: Alert, Oriented Labs: CBC, BMP 07/17/17 14:45 07/17/17 14:45 INR, PTT INR 1.12 (0.82-1.09) 07/16/17 19:35 - ....Imaging EKG: Image Reviewed Assessment/Plan Assessment/Plan 67 year old man with a history of HTN, AFib dx 11/2016 not on AC due to GI bleed , moderate aortic stenosis, ESRD on HD, h/o GI bleed with gastric ulcers, H.pylori, HCV, admitted with abdominal discomfort, incidentally noted to have a slightly elevated troponin. . Of note he was admitted here 11/2016 diagnosed with new afib, at which time he had a nuclear stress test that showed no ischemia LVEF 40% and an echo that showed normal LV function, moderate aortic stenosis. He was not started on full AC at that time due to GI bleed. Elevated troponin-minimally elevated with normal CK level, in setting of ESRD, AFib, Aortic stenosis -unlikely ACS -troponin did not trend up significantly -pt denies chest pain -nuclear stress test 11/2016 showed no ischemia -CTA chest showed no evidence of PE and LE doppler showed no DVT -Pt remains volume overloaded on exam, this may explain his SOB, Abdominal discomfort, and slightly elevated troponin -Echo yesterday with mild LV dysfx and wall motion abnormalities in the septum and apex -Recommend cath when euvolemic. Atrial fibrillation-dx 11/2016 -HR is well controlled currently -pt is not on AC due to h/o GI bleed -does not currently require AV mckenna blocking meds for HR control and BP is running low thus would hold off on initiating -CTA abd/pelvis did not show evidence of mesenteric ischemia -cont tele for now
[2017-07-20] MEDS ORDERED: BISACODYL 10 MG SUPP.RECT RC PRN (09:57)
[2017-07-20] MEDS ORDERED: HYDROCORTISONE 2.5% TOPICAL CREAM 30 GM TUBE PR SCH (10:00)
[2017-07-20] MEDS: POLYETHYLENE GLYCOL 3350 119 GM BTL PO SCH ×2 (10:30→22:33)
[2017-07-20] MEDS: PANTOPRAZOLE 40 MG TABLET (FP) PO SCH ×2 (10:30→22:26)
[2017-07-20] MEDS: TIMOLOL 0.5% OPHTHALMIC SOL 5 ML BOTTLE OD SCH ×2 (10:31→22:27)
[2017-07-20] MEDS: VITAMIN B COMP W-C 1 EA TABLET PO SCH (10:31)
[2017-07-20] MEDS: BRIMONIDINE TARTRATE 0.2% OPHTHALMIC 5 ML BOTTLE OD SCH ×2 (10:31→22:27)
--- NOTE | 2017-07-20 13:46 | PN ---
Progress Note, Physician History of Present Illness: Pt seen and examined at bedside. He is awake and alert. He denies shortness of breath. He denies chest pain or palpitations. - Current Medication List Current Medications: Active Medications Bisacodyl (Dulcolax -) 5 mg PO DAILY PRN PRN Reason: CONSTIPATION Bisacodyl (Dulcolax Suppository -) 10 mg RC DAILY PRN PRN Reason: CONSTIPATION Last Admin: 07/20/17 10:31 Dose: 10 mg Brimonidine Tartrate (Alphagan 0.2% -) 1 drop OD BID [facility] Last Admin: 07/20/17 10:31 Dose: 1 drop Hydrocortisone (Anusol 2.5% Hc Cream -) 1 applic ID DAILY [facility] Last Admin: 07/20/17 10:30 Dose: 1 applic Insulin Aspart (Novolog Vial Sliding Scale -) 1 vial SQ BIDAC [facility] PRN Reason: Protocol Multivit/Ca Carb/B Cmplx/FA/Prenat (Nephro-Yg -) 1 tablet PO DAILY [facility] Last Admin: 07/20/17 10:31 Dose: 1 tablet Pantoprazole Sodium (Protonix -) 40 mg PO BID [facility] Last Admin: 07/20/17 10:30 Dose: 40 mg Polyethylene Glycol (Miralax (For Daily Use) -) 17 gm PO BID [facility] Last Admin: 07/20/17 10:30 Dose: 17 gm Timolol Maleate (Timoptic 0.5%) 1 drop OD BID [facility] Last Admin: 07/20/17 10:31 Dose: 1 drop - Objective Vital Signs: Vital Signs Temperature 97.7 F 07/20/17 10:00 Pulse Rate 100 H 07/20/17 10:00 Respiratory Rate 20 07/20/17 10:00 Blood Pressure 106/77 07/20/17 10:00 O2 Sat by Pulse Oximetry (%) 96 07/19/17 21:00 Constitutional: Yes: Calm Eyes: Yes: Conjunctiva Clear HENT: Yes: Atraumatic Neck: Yes: Supple Cardiovascular: Yes: S1, S2 Respiratory: Yes: CTA Bilaterally, On Nasal O2 Gastrointestinal: Yes: Soft Genitourinary: Yes: WNL Musculoskeletal: Yes: WNL Edema: Yes Edema: LLE: 2+, RLE: 2+ Neurological: Yes: Oriented Psychiatric: Yes: Oriented Labs: CBC, BMP 07/17/17 14:45 07/17/17 14:45 INR, PTT INR 1.12 (0.82-1.09) 07/16/17 19:35 Problem List - Problems (1) Abdominal pain Code(s): R10.9 - UNSPECIFIED ABDOMINAL PAIN (2) Atrial fibrillation Code(s): I48.91 - UNSPECIFIED ATRIAL FIBRILLATION (3) End stage renal failure on dialysis Code(s): N18.6 - END STAGE RENAL DISEASE; Z99.2 - DEPENDENCE ON RENAL DIALYSIS Assessment/Plan Current Medications Generic Name Dose Route Start Last Admin Trade Name Freq PRN Reason Stop Dose Admin Bisacodyl 5 mg 07/20/17 08:44 Dulcolax - PO DAILY PRN CONSTIPATION Bisacodyl 10 mg 07/20/17 09:57 07/20/17 10:31 Dulcolax Suppository - RC 10 mg DAILY PRN Administration CONSTIPATION Brimonidine Tartrate 1 drop 07/17/17 22:00 07/20/17 10:31 Alphagan 0.2% - OD 1 drop BID [facility] Administration Hydrocortisone 1 applic 07/20/17 10:00 07/20/17 10:30 Anusol 2.5% Hc Cream - ID 1 applic DAILY [facility] Administration Insulin Aspart 1 vial 07/20/17 16:30 Novolog Vial Sliding Scale - SQ BIDAC [facility] Protocol Multivit/Ca Carb/B Cmplx/FA/Prenat 1 tablet 07/17/17 10:19 07/20/17 10:31 Nephro-Yg - PO 1 tablet DAILY [facility] Administration Pantoprazole Sodium 40 mg 07/17/17 10:00 07/20/17 10:30 Protonix - PO 40 mg BID [facility] Administration Polyethylene Glycol 17 gm 07/18/17 13:00 07/20/17 10:30 Miralax (For Daily Use) - PO 17 gm BID [facility] Administration Timolol Maleate 1 drop 07/17/17 22:00 07/20/17 10:31 Timoptic 0.5% OD 1 drop BID [facility] Administration Impression 1. ESRD 2. a-fib 3. GI bleed 4. HTN 5. glaucoma 6. abdominal pain 7. lower extremity edema Plan - will arrange for HD in am - can give albumin with HD if hypotensive - monitor hg - abd pain is improved - repeat labs in am Dr Miller
[2017-07-20] MEDS ORDERED: traMADol HCL 50 MG TABLET PO ONE ×3 (19:09→22:30)
[2017-07-21] MEDS: INSULIN SLIDING SCALE (NOVOLOG) 1 VIAL SQ SCH (06:19)
--- NOTE | 2017-07-21 08:38 | PN ---
Progress Note, Physician Chief Complaint: no new complaints MRCP- no acute findings. TELE: AF, no further sig NSVT - Current Medication List Current Medications: Active Medications Albumin Human (Albumin Human 25%) 25 gm IVPB Q30M [facility] Bisacodyl (Dulcolax -) 5 mg PO DAILY PRN PRN Reason: CONSTIPATION Bisacodyl (Dulcolax Suppository -) 10 mg RC DAILY PRN PRN Reason: CONSTIPATION Last Admin: 07/20/17 10:31 Dose: 10 mg Brimonidine Tartrate (Alphagan 0.2% -) 1 drop OD BID [facility] Last Admin: 07/20/17 22:27 Dose: 1 drop Epoetin Calixto (Epogen -) 6,000 units IVPUSH ONCE ONE Stop: 07/21/17 13:47 Hydrocortisone (Anusol 2.5% Hc Cream -) 1 applic [place] DAILY [facility] Last Admin: 07/20/17 10:30 Dose: 1 applic Insulin Aspart (Novolog Vial Sliding Scale -) 1 vial SQ BIDAC [facility] PRN Reason: Protocol Last Admin: 07/21/17 06:19 Dose: Not Given Multivit/Ca Carb/B Cmplx/FA/Prenat (Nephro-Yg -) 1 tablet PO DAILY [facility] Last Admin: 07/20/17 10:31 Dose: 1 tablet Pantoprazole Sodium (Protonix -) 40 mg PO BID [facility] Last Admin: 07/20/17 22:26 Dose: 40 mg Polyethylene Glycol (Miralax (For Daily Use) -) 17 gm PO BID [facility] Last Admin: 07/20/17 22:33 Dose: 17 gm Timolol Maleate (Timoptic 0.5%) 1 drop OD BID [facility] Last Admin: 07/20/17 22:27 Dose: 1 drop - Objective Vital Signs: Vital Signs Temperature 96.5 F L 07/21/17 05:41 Pulse Rate 77 07/21/17 05:41 Respiratory Rate 18 07/21/17 05:41 Blood Pressure 93/46 07/21/17 05:41 O2 Sat by Pulse Oximetry (%) 96 07/19/17 21:00 Constitutional: Yes: No Distress Cardiovascular: Yes: Pulse Irregular Respiratory: Yes: Other (rales at bases) Gastrointestinal: Yes: Soft Edema: Yes Edema: LLE: 1+, RLE: 1+ Neurological: Yes: Alert, Oriented Labs: CBC, BMP 07/17/17 14:45 07/17/17 14:45 INR, PTT INR 1.12 (0.82-1.09) 07/16/17 19:35 - ....Imaging EKG: Image Reviewed Assessment/Plan Assessment/Plan 67 year old man with a history of HTN, AFib dx 11/2016 not on AC due to GI bleed , moderate aortic stenosis, ESRD on HD, h/o GI bleed with gastric ulcers, H.pylori, HCV, admitted with abdominal discomfort, SOB, incidentally noted to have a slightly elevated troponin. . Of note he was admitted here 11/2016 diagnosed with new afib, at which time he had a nuclear stress test that showed no ischemia LVEF 40% and an echo that showed normal LV function, moderate aortic stenosis. He was not started on full AC at that time due to GI bleed. Elevated troponin-minimally elevated with normal CK level, in setting of ESRD, AFib, Aortic stenosis and CHF -nuclear stress test 11/2016 showed no ischemia -CTA chest showed no evidence of PE and LE doppler showed no DVT -Pt remains volume overloaded on exam, this may explain his SOB, Abdominal discomfort, and slightly elevated troponin -Echo yesterday with mild LV dysfx and wall motion abnormalities in the septum and apex, concerning for prox LAD disease or Left M dz not detected on previous stress test -Recommend cath when euvolemic, plan to transfer to [facility] for further CHF management and cath Atrial fibrillation-dx 11/2016 -HR is well controlled currently -pt is not on AC due to h/o GI bleed -does not currently require AV mckenna blocking meds for HR control and BP is running low thus would hold off on initiating -CTA abd/pelvis did not show evidence of mesenteric ischemia, MRCP with no acute findings
[2017-07-21] MEDS ORDERED: EPOETIN ALFA 3,000 UNIT/1 ML ML IVPUSH ONE (09:15)
[2017-07-21] MEDS: ALBUMIN HUMAN 25% 12.5 GM/50 ML VIAL IVPB SCH ×4 (10:00→12:22)
[2017-07-21 10:34] LABS: MCH 25.9 pg (25.7-33.7); MEAN CELL VOLUME 86.1 fl (80-96); MEAN PLT VOLUME 9.9 fl (7.5-11.1); PLATELET COUNT 119 K/MM3 (134-434); RDW 19.1 % (11.9-15.9); WHITE BLOOD COUNT 3.1 K/mm3 (4.0-10.0)
[2017-07-21] MEDS: VITAMIN B COMP W-C 1 EA TABLET PO SCH (11:01)
[2017-07-21] MEDS: TIMOLOL 0.5% OPHTHALMIC SOL 5 ML BOTTLE OD SCH (11:02)
[2017-07-21] MEDS: BRIMONIDINE TARTRATE 0.2% OPHTHALMIC 5 ML BOTTLE OD SCH (11:02)
[2017-07-21 11:13] LABS: ALBUMIN 3.2 g/dl (3.4-5.0); ALK PHOS 194 U/L (45-117); ANION GAP 7 (8-16); BILIRUBIN,TOTAL 0.6 mg/dL (0.2-1.0); CALCIUM 9.3 mg/dL (8.5-10.1); CO2 31 mmol/L (21-32); CREATININE 5.6 mg/dL (0.7-1.3); GLUCOSE,RANDOM 253 mg/dL (74-106); SGOT/AST 35 U/L (15-37); SGPT/ALT 30 U/L (12-78); TOT PROT 6.2 g/dl (6.4-8.2)
--- NOTE | 2017-07-21 11:40 | PN ---
Progress Note, Physician Chief Complaint: denies chest pain or SOB he is currently receiving dialysis no complaints - Current Medication List Current Medications: Active Medications Bisacodyl (Dulcolax -) 5 mg PO DAILY PRN PRN Reason: CONSTIPATION Bisacodyl (Dulcolax Suppository -) 10 mg RC DAILY PRN PRN Reason: CONSTIPATION Last Admin: 07/20/17 10:31 Dose: 10 mg Brimonidine Tartrate (Alphagan 0.2% -) 1 drop OD BID [facility] Last Admin: 07/21/17 11:02 Dose: 1 drop Hydrocortisone (Anusol 2.5% Hc Cream -) 1 applic [place] DAILY [facility] Last Admin: 07/20/17 10:30 Dose: 1 applic Insulin Aspart (Novolog Vial Sliding Scale -) 1 vial SQ BIDAC [facility] PRN Reason: Protocol Last Admin: 07/21/17 06:19 Dose: Not Given Multivit/Ca Carb/B Cmplx/FA/Prenat (Nephro-Yg -) 1 tablet PO DAILY [facility] Last Admin: 07/21/17 11:01 Dose: 1 tablet Pantoprazole Sodium (Protonix -) 40 mg PO BID [facility] Last Admin: 07/20/17 22:26 Dose: 40 mg Polyethylene Glycol (Miralax (For Daily Use) -) 17 gm PO BID [facility] Last Admin: 07/20/17 22:33 Dose: 17 gm Timolol Maleate (Timoptic 0.5%) 1 drop OD BID [facility] Last Admin: 07/21/17 11:02 Dose: 1 drop - Objective Vital Signs: Vital Signs Temperature 97.0 F L 07/21/17 09:40 Pulse Rate 64 07/21/17 09:45 Respiratory Rate 18 07/21/17 09:45 Blood Pressure 85/38 07/21/17 09:45 O2 Sat by Pulse Oximetry (%) 96 07/19/17 21:00 Constitutional: Yes: No Distress, Calm Cardiovascular: Yes: Pulse Irregular Respiratory: Yes: Diminished. No: Rales, Rhonchi Gastrointestinal: Yes: Normal Bowel Sounds, Soft. No: Tenderness Edema: Yes (decreased) Psychiatric: Yes: Alert, Oriented Labs: CBC, BMP 07/21/17 09:13 07/21/17 10:45 INR, PTT INR 1.12 (0.82-1.09) 07/16/17 19:35 Problem List - Problems (1) Volume overload Code(s): E87.70 - FLUID OVERLOAD, UNSPECIFIED (2) Abdominal pain Code(s): R10.9 - UNSPECIFIED ABDOMINAL PAIN (3) Atrial fibrillation Code(s): I48.91 - UNSPECIFIED ATRIAL FIBRILLATION (4) End stage renal failure on dialysis Code(s): N18.6 - END STAGE RENAL DISEASE; Z99.2 - DEPENDENCE ON RENAL DIALYSIS Assessment/Plan PLAN ESRD on HD Volume overload --- HD per Renal -- chest CTA-- neg for PE -- PT eval noted Afib -- rate controlled -- no AC due to h/o GI bleeding Elevated troponins -- flattened -- no further elevation -- denies chest pain --- tele-- Afib -- spoke with director wholesale-- will need to go for cardiac cath -- plan for transfer to [facility] for cardiac cath -- Echo results noted -- had stress test in November this year Abdominal pain/hemorrhoids -- CTA abd-- no mesenteric enetritis -- MRCP - no acute findings -- pt had a bm yesterday after using suppository and today denies any abdominal discomfort -- on Miralax BID will need to go for cardiac cath and thereafter to STR
--- NOTE | 2017-07-21 13:13 | PN ---
Progress Note, Physician History of Present Illness: Pt seen and examined at bedside. He is tolerating HD. He denies shortness of breath. - Current Medication List Current Medications: Active Medications Bisacodyl (Dulcolax -) 5 mg PO DAILY PRN PRN Reason: CONSTIPATION Bisacodyl (Dulcolax Suppository -) 10 mg RC DAILY PRN PRN Reason: CONSTIPATION Last Admin: 07/20/17 10:31 Dose: 10 mg Brimonidine Tartrate (Alphagan 0.2% -) 1 drop OD BID [facility] Last Admin: 07/21/17 11:02 Dose: 1 drop Hydrocortisone (Anusol 2.5% Hc Cream -) 1 applic [place] DAILY [facility] Last Admin: 07/20/17 10:30 Dose: 1 applic Insulin Aspart (Novolog Vial Sliding Scale -) 1 vial SQ BIDAC [facility] PRN Reason: Protocol Last Admin: 07/21/17 06:19 Dose: Not Given Multivit/Ca Carb/B Cmplx/FA/Prenat (Nephro-Yg -) 1 tablet PO DAILY [facility] Last Admin: 07/21/17 11:01 Dose: 1 tablet Pantoprazole Sodium (Protonix -) 40 mg PO BID [facility] Last Admin: 07/20/17 22:26 Dose: 40 mg Polyethylene Glycol (Miralax (For Daily Use) -) 17 gm PO BID [facility] Last Admin: 07/20/17 22:33 Dose: 17 gm Timolol Maleate (Timoptic 0.5%) 1 drop OD BID [facility] Last Admin: 07/21/17 11:02 Dose: 1 drop - Objective Vital Signs: Vital Signs Temperature 97.0 F L 07/21/17 09:40 Pulse Rate 79 07/21/17 11:15 Respiratory Rate 18 07/21/17 11:15 Blood Pressure 97/34 07/21/17 11:15 O2 Sat by Pulse Oximetry (%) 96 07/19/17 21:00 Constitutional: Yes: Calm Eyes: Yes: Conjunctiva Clear HENT: Yes: Atraumatic Cardiovascular: Yes: S1, S2 Respiratory: Yes: CTA Bilaterally, On Nasal O2 Gastrointestinal: Yes: Soft Genitourinary: Yes: WNL Musculoskeletal: Yes: WNL Edema: Yes Edema: LLE: 1+, RLE: 1+ Neurological: Yes: Oriented Psychiatric: Yes: Oriented Labs: CBC, BMP 07/21/17 09:13 07/21/17 10:45 INR, PTT INR 1.12 (0.82-1.09) 07/16/17 19:35 Problem List - Problems (1) Abdominal pain Code(s): R10.9 - UNSPECIFIED ABDOMINAL PAIN (2) Atrial fibrillation Code(s): I48.91 - UNSPECIFIED ATRIAL FIBRILLATION (3) End stage renal failure on dialysis Code(s): N18.6 - END STAGE RENAL DISEASE; Z99.2 - DEPENDENCE ON RENAL DIALYSIS Assessment/Plan Current Medications Generic Name Dose Route Start Last Admin Trade Name Freq PRN Reason Stop Dose Admin Bisacodyl 5 mg 07/20/17 08:44 Dulcolax - PO DAILY PRN CONSTIPATION Bisacodyl 10 mg 07/20/17 09:57 07/20/17 10:31 Dulcolax Suppository - RC 10 mg DAILY PRN Administration CONSTIPATION Brimonidine Tartrate 1 drop 07/17/17 22:00 07/21/17 11:02 Alphagan 0.2% - OD 1 drop BID [facility] Administration Hydrocortisone 1 applic 07/20/17 10:00 07/20/17 10:30 Anusol 2.5% Hc Cream - [place] 1 applic DAILY [facility] Administration Insulin Aspart 1 vial 07/20/17 16:30 07/21/17 06:19 Novolog Vial Sliding Scale - SQ Not Given BIDAC [facility] Protocol Multivit/Ca Carb/B Cmplx/FA/Prenat 1 tablet 07/17/17 10:19 07/21/17 11:01 Nephro-Yg - PO 1 tablet DAILY [facility] Administration Pantoprazole Sodium 40 mg 07/17/17 10:00 07/20/17 22:26 Protonix - PO 40 mg BID [facility] Administration Polyethylene Glycol 17 gm 07/18/17 13:00 07/20/17 22:33 Miralax (For Daily Use) - PO 17 gm BID [facility] Administration Timolol Maleate 1 drop 07/17/17 22:00 07/21/17 11:02 Timoptic 0.5% OD 1 drop BID [facility] Administration Impression 1. ESRD 2. a-fib 3. GI bleed 4. HTN 5. glaucoma 6. abdominal pain 7. lower extremity edema Plan - HD today - albumin with HD - monitor blood pressure - pt is going for cardiac cath - cardiology follow up - discussed with medical team Dr Miller
[2017-07-21] MEDS: PANTOPRAZOLE 40 MG TABLET (FP) PO SCH (13:21)
[2017-07-21 14:10] VITALS: BP 94/60; PULSE 63
[2017-07-21 14:15] VITALS: TEMP 97.2
--- NOTE | 2017-07-21 16:41 | DS ---
Physical Examination Vital Signs: Vital Signs Temperature 97.2 F L 07/21/17 14:15 Pulse Rate 63 07/21/17 14:08 Respiratory Rate 16 07/21/17 14:08 Blood Pressure 94/60 07/21/17 14:08 O2 Sat by Pulse Oximetry (%) 97 07/21/17 09:00 Labs: CBC, BMP 07/21/17 09:13 07/21/17 10:45 Discharge Summary Reason For Visit: [facility] Course: see progress note- [facility] Condition: Guarded - Instructions Disposition: TRANSFER ACUTE CARE/OTHER HOSP - Home Medications Comprehensive Discharge Medication List: Ambulatory Orders Brimonidine Tartrate/Timolol [Combigan 0.2%-0.5% Eye Drops] 1 drop OD BID Pantoprazole Sodium [Protonix -] 40 mg PO BID #180 tablet 12/15/16 Vit B Cmplx No3/FA/C/Biot/Zinc [Nephplex Rx Tablet] 1 tab PO DAILY 06/11/17 Travoprost [Travatan Z] 2.5 ml OP ASDIR 07/16/17
[2017-07-23 14:16] LABS: HCV LOG 10 5.277 (.)
== END 2017-07-21 15:58 | disposition short-term general hospital (02) | DRG 291 ==
LOC: JER 18:30 → JERBED 07-17 02:09 → J4S 07-17 03:42 → OBSVTOIN 07-18 09:00
PROVIDERS: ADMIT Internal Medicine; ATTEND Internal Medicine
PROC: 5A1D70Z Performance of Urinary Filtration, Intermittent, Less than 6 Hours Per Day (ICD-10-PCS; principal; 2017-07-17)
DX: I13.2 Hypertensive heart and chronic kidney disease with heart failure and with stage 5 chronic kidney disease, or end stage renal disease (principal); N18.6 End stage renal disease; I31.3 Pericardial effusion (noninflammatory); I47.2 Ventricular tachycardia; I50.89 Other heart failure; I48.91 Unspecified atrial fibrillation; H40.89 Other specified glaucoma; I35.0 Nonrheumatic aortic (valve) stenosis; B19.20 Unspecified viral hepatitis C without hepatic coma; K27.9 Peptic ulcer, site unspecified, unspecified as acute or chronic, without hemorrhage or perforation; K57.90 Diverticulosis of intestine, part unspecified, without perforation or abscess without bleeding; H54.8 Legal blindness, as defined in USA; R10.9 Unspecified abdominal pain; E87.70 Fluid overload, unspecified; K64.8 Other hemorrhoids; I25.10 Atherosclerotic heart disease of native coronary artery without angina pectoris; I95.9 Hypotension, unspecified; K80.80 Other cholelithiasis without obstruction; Z87.891 Personal history of nicotine dependence; Z99.2 Dependence on renal dialysis
CPT/HCPCS: 36415; 71010-TC; 71275-TC; 74174-TC; 74181-TC; 80048; 80053; 82550; 83605; 83690; 83735; 83880; 84100; 84484; 85025; 85027; 85610; 85730; 86704; 86706; 86708; 86803; 86850; 86900; 86901; 87040; 87340; 87522; 93005; 93010; 93306-TC; 93970-TC; 97116-GP; 97161-GP; 99285-25; G0378; J0885; P9047